=== PATIENT | female | born 1940 | race Caucasian/White ===

== ENCOUNTER → 2016-11-20 | Outpatient (CLI) | payer MEDICARE, OTHER ==
--- NOTE | 2016-11-21 09:30 | MM ---
Reason for exam: screening (asymptomatic). Last mammogram was performed 1 year and 2 months ago. History: Patient is postmenopausal. Family history of breast cancer in mother at age 72 and premenopausal breast cancer in sister at age 30. Benign left mammotome panel of the left breast, June 25, 2013. 2 benign excisional biopsies of the left breast. Took estrogen for 6 years beginning at age 58. Took progesterone for 6 years beginning at age 58. Physical Findings: A clinical breast exam by your physician is recommended on an annual basis and results should be correlated with mammographic findings. MG 3D Screening Mammo W/Cad Bilateral CC and MLO view(s) were taken. Prior study comparison: September 29, 2015, bilateral MG 3d screening mammo w/cad. July 07, 2014, bilateral MG screening mammo w CAD. The breast tissue is heterogeneously dense. This may lower the sensitivity of mammography. Finding: There are typically benign vascular, round calcifications. There is no discrete abnormality. No significant changes in finding since September 29, 2015 and July 07, 2014. ASSESSMENT: Benign, BI-RAD 2 RECOMMENDATION: Routine screening mammogram of both breasts in 1 year.
== END | disposition home or self-care (01) ==
LOC: RADMAMWWP 08:36
PROVIDERS: ATTEND Family Medicine
DX: Z12.31 Encounter for screening mammogram for malignant neoplasm of breast (principal)
CPT/HCPCS: 77063; G0202

== ENCOUNTER → 2016-12-25 | Outpatient (CLI) | payer MEDICARE, OTHER ==
--- NOTE | 2016-12-25 23:45 | WWHP ---
DATE OF SERVICE: 12/25/2016 CHIEF COMPLAINT: Patient is here for her routine gynecologic exam. HPI: This is a 76-year-old G12, P6-0-6-6 with an LMP of approximately 1981. She states it has been about 20 years since her last pelvic exam. She had a normal mammogram on 11/20/2016. She is without gynecologic complaints and denies any postmenopausal bleeding. PAST MEDICAL HISTORY: Includes fibromyalgia, type 2 diabetes not requiring medication, atrial fibrillation, early Alzheimer's disease, renal insufficiency, chronic hypertension, elevated cholesterol, tremors, COPD. MEDICATIONS: 1. Topamax 50 mg b.i.d. 2. Atenolol 25 mg b.i.d. 3. Lasix 40 mg daily. 4. Cymbalta 20 mg daily. 5. Aricept 1 daily. 6. Mevacor 40 mg every other day. 7. Percocet 1000/325 b.i.d. p.r.n. 8. Flexeril 1 daily. 9. Tudorza inhaler b.i.d. 10. Coumadin 5 mg at bedtime. 11. Trental at bedtime. 12. Neurontin 300 mg b.i.d. 13. Glucosamine with chondroitin daily. 14. Protonix 40 mg daily. 15. Potassium supplement every other day. 16. Magnesium supplement daily. ALLERGIES: MACROBID, SULFA, IODINE, LATEX. PAST SURGICAL HISTORY:,: Cholecystectomy, appendectomy, cataract surgery in the past, right knee replacement surgery 2006, bladder suspension 1995, thumbs reattached 2011, colonoscopy 2011 and this was her second one, stomach stapling in approximately 1983. PAST OBSTETRICAL HISTORY: Six vaginal deliveries and six spontaneous abortions. 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 SOCIAL HISTORY: She denies tobacco drug use and has 1 to 2 alcoholic drinks per month. She is and she states she has a friend in [place]. FAMILY HISTORY: Mother had cervical and lung cancer. Father had leukemia and bone cancer and uncle had diabetes. REVIEW OF SYSTEMS: She has gained about 5 pounds after she was on steroids briefly. RESPIRATORY: She had an exacerbation of her chronic obstructive pulmonary disease but this is improved. She denies cardiac or GI problems. She denies maltreatment or falling. : She has occasional slight leakage with coughing and sneezing. PHYSICAL EXAM: Blood pressure 111/56. Height 5 feet 2 inches. Weight 244 pounds. Temperature 96.7, pulse 88. This a well-developed, obese white female who is alert and oriented x3 in no acute distress. HEENT is within normal limits. NECK: Supple without mass or thyromegaly. CHEST AND LUNGS: Clear to auscultation. HEART: Regular rate and rhythm. BREASTS: Without mass or discharge. Axillary exam is negative for adenopathy. BACK: Negative for CVA tenderness. ABDOMEN: Obese, soft, nontender, without palpable masses. PELVIC EXAM: External genitalia reveals mild atrophy without lesions. Cervix and vagina reveal mild atrophy without lesions. There is no evidence of prolapse. The uterus is midposition, nongravid size and nontender. There are no palpable adnexal masses or tenderness. Bimanual examination is limited secondary to her size. Rectovaginal exam is negative for mass or tenderness and is negative for occult blood. EXTREMITIES: Nontender. IMPRESSION: 1. A 76-year-old menopausal female with normal gynecologic exam. 2. Obesity. 3. Multiple medical problems. PLAN: 1. Pap smear was performed. 2. Self-breast examination was discussed. 3. Mammogram will be due in one year. 4. Strongly recommended that she come for her yearly mammograms and gynecologic exams. 5. She will return in one year.
== END | disposition home or self-care (01) ==
LOC: WWCWWP 10:59
PROVIDERS: ATTEND Obstetrics & Gynecology

== ENCOUNTER 2017-03-13 12:40 | Inpatient (IN) | payer MEDICARE, OTHER ==
[2017-03-13] MEDS ORDERED: methylPREDNISolone SOD SUCCI 125 MG/2 ML VIAL IV STA (13:19)
[2017-03-13] MEDS ORDERED: IPRATROPIUM-ALBUTEROL 3 ML NEB INHALATION STA (13:19)
[2017-03-13] MEDS ORDERED: SODIUM CHLORIDE 0.9% 1,000 ML IV STA (13:19)
[2017-03-13 13:53] LABS: Basophils % (A) 1 %; CH 30.3; Eosinophils # (A) 0.4 k/uL (0-0.7); Eosinophils % (A) 5 %; HCT 41.3 % (34.0-46.0); HDW 2.42; HGB 12.3 gm/dL (11.4-16.0); Hypochromasia Marked; Luc # (Auto) 0.19; Luc % (Auto) 2; Lymphocytes # (A) 2.8 k/uL (1.0-4.8); Lymphocytes % (A) 35 %; MCH 30.3 pg (25.0-35.0); MCHC 29.9 g/dL (31.0-37.0); MCV 101.6 fL (80.0-100.0); Macrocytosis Slight; Mean Platelet Volume 7.3; Monocytes # (A) 0.5 k/uL (0-1.0); Monocytes % (A) 6 %; Neutrophils % (A) 51 %; RBC 4.06 m/uL (3.80-5.40); RDW 14.4 % (11.5-15.5); WBC 7.9 k/uL (3.8-10.6)
[2017-03-13 14:02] LABS: ALT 19 U/L (9-52); AST 19 U/L (14-36); Alkaline Phosphatase 55 U/L (38-126); Anion Gap 7 mmol/L; Blood Urea Nitrogen 11 mg/dL (7-17); Calcium 9.5 mg/dL (8.4-10.2); Carbon Dioxide 29 mmol/L (22-30); Chloride 106 mmol/L (98-107); Glucose 119 mg/dL (74-99); Non-African American GFR(MDRD) >60 (>60 ml/min/1.73 sqM); Sodium 142 mmol/L (137-145); Total Bilirubin 0.7 mg/dL (0.2-1.3); Total Protein 6.2 g/dL (6.3-8.2)
[2017-03-13 14:06] LABS: INR 2.1 (<1.1); Partial Thromboplastin Time 29.9 sec (22.0-30.0); Prothrombin Time 19.8 sec (9.0-12.0)
[2017-03-13 14:16] LABS: Creatine Kinase <20 U/L (30-135)
[2017-03-13 14:28] LABS: Troponin I <0.012 ng/mL (0.000-0.034)
--- NOTE | 2017-03-13 14:34 | ED ---
SOB HPI - General Chief Complaint: Shortness of Breath Stated Complaint: Low O2 Stats Time Seen by Provider: 03/13/17 12:53 Source: patient, family Mode of arrival: wheelchair Limitations: no limitations - History of Present Illness Initial Comments: She was seen earlier by her family doctor she is stated she was seen by somebody in her family doctor's office, she has the shortness of breath for the few weeks is worse today she also complaining about the chest pain for a few weeks and chest pain gets worse with deep breaths, she has a history of COPD she has been using her inhalers. Denies any headaches no neck stiffness no fever no chills has been coughing does bring up some phlegm, and a dull pain no frequency urgency dysuria no sinus symptoms of TIA - Related Data Home Medications Medication Instructions Recorded Confirmed Atenolol 25 mg PO BID 04/28/15 03/13/17 DULoxetine HCL [Cymbalta] 30 mg PO DAILY 04/28/15 03/13/17 Donepezil [Aricept] 10 mg PO DAILY 04/28/15 03/13/17 Pantoprazole Sodium 40 mg PO DAILY 04/28/15 03/13/17 Warfarin [Coumadin] 5 mg PO SUTH 04/28/15 03/13/17 Albuterol Inhaler [Ventolin Hfa 1 - 2 puff INHALATION RT-Q6H PRN 10/03/15 Inhaler] Potassium Chloride [Klor-Con 20] 20 meq PO Q48H 10/03/15 03/13/17 Topiramate 50 mg PO BID 10/03/15 03/13/17 Warfarin [Coumadin] 7.5 mg PO MOTUWEFRSA 10/03/15 03/13/17 Albuterol Nebulized [Ventolin 2.5 mg INHALATION RT-QID PRN 03/13/17 03/13/17 Nebulized] Cetirizine HCl [Cetirizine HCl] 10 mg PO DAILY 03/13/17 03/13/17 Diltiazem HCl [Diltiazem 24Hr ER] 180 mg PO DAILY 03/13/17 03/13/17 Docusate [Colace] 100 mg PO TID 03/13/17 03/13/17 Enalapril Maleate [Enalapril 2.5 mg PO DAILY 03/13/17 03/13/17 Maleate] Furosemide [Furosemide] 40 mg PO BID 03/13/17 03/13/17 Gabapentin [Gabapentin] 300 mg PO QID 03/13/17 03/13/17 Ipratropium-Albuterol Nebulize 3 ml INHALATION RT-QID 03/13/17 03/13/17 [Duoneb 0.5 mg-3 mg/3 ml Soln] Methocarbamol [Methocarbamol] 750 mg PO BID 03/13/17 03/13/17 Umeclidinium [place] [Incruse 1 puff INHALATION RT-DAILY 03/13/17 03/13/17 Ellipta] oxyCODONE HCL/ACETAMINOPHEN 1 tab PO QID 03/13/17 03/13/17 [Oxycodone-Acetaminophen 10-325] Allergies Allergy/AdvReac Type Severity Reaction Status Date / Time latex Allergy Unknown Verified 03/13/17 12:47 nitrofurantoin Allergy Unknown Verified 03/13/17 12:47 [From Macrobid] nitrofurantoin Allergy Unknown Verified 03/13/17 12:47 macrocrystalline [From Macrobid] Sulfa (Sulfonamide Allergy Unknown Verified 03/13/17 12:47 Antibiotics) Review of Systems ROS Statement: Those systems with pertinent positive or pertinent negative responses have been documented in the HPI. ROS Other: All systems not noted in ROS Statement are negative. Past Medical History Past Medical History: Atrial Fibrillation, COPD, CVA/TIA, Diabetes Mellitus, Hyperlipidemia, Hypertension, Osteoarthritis (OA), Rheumatoid Arthritis (RA) Additional Past Medical History / Comment(s): ANEMIA, Fibromyalgia History of Any Multi-Drug Resistant Organisms: None Reported Past Surgical History: Appendectomy, Bladder Surgery, Cholecystectomy, Joint Replacement, Orthopedic Surgery, Tubal Ligation Additional Past Surgical History / Comment(s): carpal tunnel BL, bilateral knee surgery, bilateral thumbs reattached, stomach surgery/stapling for weight loss Past Anesthesia/Blood Transfusion Reactions: No Reported Reaction Past Psychological History: No Psychological Hx Reported Smoking Status: Never smoker Past Alcohol Use History: None Reported Past Drug Use History: None Reported - Past Family History Father Family Medical History: Cancer Additional Family Medical History / Comment(s): leukemia Mother Family Medical History: Cancer Additional Family Medical History / Comment(s): lung ca General Exam - General Exam Comments Initial Comments: General: The patient is awake and alert, looks mildly short winded, tired Skin: Skin is warm and dry and no rashes or lesions are noted. Eye: Pupils are equal, round and reactive to light, extra-ocular movements are intact; there is normal conjunctiva bilaterally. Ears, nose, mouth and throat: There are moist mucous membranes and no oral lesions. Neck: The neck is supple, there is no tenderness or JVD. Cardiovascular: There is an irregularity of the heart rate, etc. consistent with A. fib Respiratory: To auscultation bilateral, exam is consistent with a COPD Gastrointestinal: Soft, non-distended, non-tender abdomen without masses or organomegaly noted. There is no rebound or guarding present. Bowel sounds are unremarkable. Back: There is no tenderness to palpation in the midline. There is no obvious deformity. Musculoskeletal: Normal ROM, no tenderness, There is Neurological: CN II-XII intact, Cranial nerves III through XII are intact. There are no obvious motor or sensory deficits. Coordination appears grossly intact. Speech is normal. Psychiatric: Cooperative, appropriate mood & affect, normal judgment. Limitations: no limitations Course Vital Signs 03/13/17 03/13/17 03/13/17 12:45 13:47 14:13 Temperature 98.1 F 97.8 F Pulse Rate 50 L 59 L 60 Respiratory 18 18 Rate Blood Pressure 140/65 138/63 O2 Sat by Pulse 96 99 Oximetry 03/13/17 03/13/17 14:23 14:53 Temperature Pulse Rate 66 55 L Respiratory 18 Rate Blood Pressure 143/71 O2 Sat by Pulse 98 Oximetry - Reevaluation(s) Reevaluation #1: 03/13/17 14:33 KG was reviewed, ventricular rate is 54 WV interval, QRS duration is 84 QT/QTc is 4:30/47, it's a defibrillation with a low voltage, no ST depression or ST elevation noticed in this EKG 03/13/17 17:12 She was reassessed several times, last reassessment was done around 1700, she is now very comfortable going home she still gets short winded and O2 sat drops when she ambulates considering that she be admitted under Dr. Munguia's service for IV and inhaled steroids Medical Decision Making - Lab Data Result diagrams: 03/13/17 13:40 03/13/17 13:40 Lab Results 03/13/17 03/13/17 03/13/17 Range/Units 13:40 13:40 13:40 WBC 7.9 (3.8-10.6) k/uL RBC 4.06 (3.80-5.40) m/uL Hgb 12.3 (11.4-16.0) gm/dL Hct 41.3 (34.0-46.0) % MCV 101.6 H (80.0-100.0) fL MCH 30.3 (25.0-35.0) pg MCHC 29.9 L (31.0-37.0) g/dL RDW 14.4 (11.5-15.5) % Plt Count 228 (150-450) k/uL Neutrophils % 51 % Lymphocytes % 35 % Monocytes % 6 % Eosinophils % 5 % Basophils % 1 % Neutrophils # 4.0 (1.3-7.7) k/uL Lymphocytes # 2.8 (1.0-4.8) k/uL Monocytes # 0.5 (0-1.0) k/uL Eosinophils # 0.4 (0-0.7) k/uL Basophils # 0.0 (0-0.2) k/uL Hypochromasia Marked Macrocytosis Slight PT (9.0-12.0) sec INR (<1.1) APTT (22.0-30.0) sec D-Dimer (<0.60) mg/L FEU Sodium 142 (137-145) mmol/L Potassium 4.0 (3.5-5.1) mmol/L Chloride 106 (98-107) mmol/L Carbon Dioxide 29 (22-30) mmol/L Anion Gap 7 mmol/L BUN 11 (7-17) mg/dL Creatinine 0.79 (0.52-1.04) mg/dL Est GFR (MDRD) Af Amer >60 (>60 ml/min/1.73 sqM) Est GFR (MDRD) Non-Af >60 (>60 ml/min/1.73 sqM) Glucose 119 H (74-99) mg/dL Calcium 9.5 (8.4-10.2) mg/dL Total Bilirubin 0.7 (0.2-1.3) mg/dL AST 19 (14-36) U/L ALT 19 (9-52) U/L Alkaline Phosphatase 55 (38-126) U/L Total Creatine Kinase <20 L (30-135) U/L CK-MB (CK-2) 1.0 (0.0-2.4) ng/mL CK-MB (CK-2) Rel Index 0.0 Troponin I <0.012 (0.000-0.034) ng/mL Total Protein 6.2 L (6.3-8.2) g/dL Albumin 3.4 L (3.5-5.0) g/dL 03/13/17 Range/Units 13:40 WBC (3.8-10.6) k/uL RBC (3.80-5.40) m/uL Hgb (11.4-16.0) gm/dL Hct (34.0-46.0) % MCV (80.0-100.0) fL MCH (25.0-35.0) pg MCHC (31.0-37.0) g/dL RDW (11.5-15.5) % Plt Count (150-450) k/uL Neutrophils % % Lymphocytes % % Monocytes % % Eosinophils % % Basophils % % Neutrophils # (1.3-7.7) k/uL Lymphocytes # (1.0-4.8) k/uL Monocytes # (0-1.0) k/uL Eosinophils # (0-0.7) k/uL Basophils # (0-0.2) k/uL Hypochromasia Macrocytosis PT 19.8 H (9.0-12.0) sec INR 2.1 (<1.1) APTT 29.9 (22.0-30.0) sec D-Dimer 0.37 (<0.60) mg/L FEU Sodium (137-145) mmol/L Potassium (3.5-5.1) mmol/L Chloride (98-107) mmol/L Carbon Dioxide (22-30) mmol/L Anion Gap mmol/L BUN (7-17) mg/dL Creatinine (0.52-1.04) mg/dL Est GFR (MDRD) Af Amer (>60 ml/min/1.73 sqM) Est GFR (MDRD) Non-Af (>60 ml/min/1.73 sqM) Glucose (74-99) mg/dL Calcium (8.4-10.2) mg/dL Total Bilirubin (0.2-1.3) mg/dL AST (14-36) U/L ALT (9-52) U/L Alkaline Phosphatase (38-126) U/L Total Creatine Kinase (30-135) U/L CK-MB (CK-2) (0.0-2.4) ng/mL CK-MB (CK-2) Rel Index Troponin I (0.000-0.034) ng/mL Total Protein (6.3-8.2) g/dL Albumin (3.5-5.0) g/dL Disposition Clinical Impression: Shortness of breath, Chest pain, Pleuritic chest pain Disposition: ADMITTED IP TO THIS HOSP Referrals: Moe Muniz DO [Primary Care Provider] - 1-2 days
[2017-03-13] MEDS ORDERED: oxyCODONE-APAP 5-325MG 1 EACH TAB PO STA (16:00)
[2017-03-13] MEDS ORDERED: IPRATROPIUM-ALBUTEROL 3 ML NEB INHALATION PRN (17:13)
[2017-03-13] MEDS: IPRATROPIUM-ALBUTEROL 3 ML NEB INHALATION SCH (19:45)
[2017-03-13] MEDS: BUDESONIDE 0.5 MG/2 ML NEBU INHALATION SCH (19:45)
[2017-03-13] MEDS: GABAPENTIN 300 MG CAP PO SCH ×2 (19:51→21:00)
[2017-03-13 20:44] LABS: Glucose,Whole Blood 222 mg/dL (75-99)
[2017-03-13] MEDS: DOCUSATE 100 MG CAP PO SCH (20:59)
[2017-03-13] MEDS: ATENOLOL 25 MG TAB PO SCH (20:59)
[2017-03-13] MEDS: TOPIRAMATE 25 MG TAB PO SCH (20:59)
[2017-03-13] MEDS: LEVOFLOXACIN 500 MG TAB PO SCH (20:59)
[2017-03-13] MEDS: METHOCARBAMOL 750 MG TAB PO SCH (21:00)
[2017-03-13] MEDS: FUROSEMIDE 40 MG TAB PO SCH (21:00)
[2017-03-13] MEDS: methylPREDNISolone SOD SUCCI 125 MG/2 ML VIAL IV SCH (21:00)
[2017-03-13] MEDS: INSULIN LISPRO (humaLOG) 300 UNIT/3 ML VIAL SQ SCH (21:00)
[2017-03-13] MEDS: WARFARIN 5 MG TAB PO SCH (21:00)
[2017-03-13 21:55] LABS: Hemoglobin A1C 5.7 % (4.2-6.1)
[2017-03-13] MEDS: oxyCODONE-APAP 10-325MG 1 EACH TAB PO SCH (23:19)
[2017-03-14] MEDS: methylPREDNISolone SOD SUCCI 125 MG/2 ML VIAL IV SCH ×3 (01:23→13:22)
[2017-03-14 07:31] LABS: Glucose,Whole Blood 149 mg/dL (75-99)
[2017-03-14] MEDS: BUDESONIDE 0.5 MG/2 ML NEBU INHALATION SCH (07:44)
[2017-03-14] MEDS: IPRATROPIUM-ALBUTEROL 3 ML NEB INHALATION SCH ×4 (07:44→20:00)
[2017-03-14] MEDS ORDERED: TIOTROPIUM 18 MCG/PUFF INHALER INHALATION SCH (08:00)
[2017-03-14] MEDS: DILTIAZEM CD 180 MG CAP.ER.24H PO SCH (08:01)
[2017-03-14] MEDS: DOCUSATE 100 MG CAP PO SCH ×3 (08:01→21:53)
[2017-03-14] MEDS: POTASSIUM CHLORIDE ER 20 MEQ TAB.ER PO SCH (08:02)
[2017-03-14] MEDS: PANTOPRAZOLE 40 MG TABLET PO SCH (08:02)
[2017-03-14] MEDS: ATENOLOL 25 MG TAB PO SCH ×2 (08:02→21:46)
[2017-03-14] MEDS: FUROSEMIDE 40 MG TAB PO SCH ×2 (08:02→21:46)
[2017-03-14] MEDS: GABAPENTIN 300 MG CAP PO SCH ×4 (08:02→21:46)
[2017-03-14] MEDS: LISINOPRIL 5 MG TAB PO SCH (08:03)
[2017-03-14] MEDS: DULoxetine HCL 30 MG CAPSULE.DR PO SCH (08:03)
[2017-03-14] MEDS: METHOCARBAMOL 750 MG TAB PO SCH ×2 (08:03→21:46)
[2017-03-14] MEDS: DONEPEZIL 10 MG TAB PO SCH (08:03)
[2017-03-14] MEDS: LORATADINE 10 MG TAB PO SCH (08:03)
[2017-03-14] MEDS: oxyCODONE-APAP 10-325MG 1 EACH TAB PO SCH ×4 (08:10→21:51)
[2017-03-14] MEDS: INSULIN LISPRO (humaLOG) 300 UNIT/3 ML VIAL SQ SCH ×4 (08:13→21:48)
[2017-03-14 08:18] LABS: INR 2.4 (<1.1); Prothrombin Time 22.9 sec (9.0-12.0)
[2017-03-14] MEDS: TOPIRAMATE 25 MG TAB PO SCH ×2 (10:55→21:46)
[2017-03-14 11:35] LABS: Appearance,Urine Clear (Clear); Bilirubin,Urine Negative (Negative); Calcium Oxalate Crystals,Urine Rare /hpf; Glucose,Urine (UA) Negative (Negative); Ketones,Urine Negative (Negative); Leukocyte Esterase,Urine Small (Negative); Mucus,Urine Rare /hpf; Nitrite,Urine Negative (Negative); Particle Count 2786; Protein,Urine Negative (Negative); RBC,Urine 3 /hpf (0-5); Specific Gravity,Urine 1.015 (1.001-1.035); Squamous Epithelial Cell,Urine 1 /hpf (0-4); UA Billing (MACRO vs. MICRO) MICRO; Urobilinogen,Urine <2.0 mg/dL (<2.0); WBC,Urine 5 /hpf (0-5)
[2017-03-14 12:01] LABS: Glucose,Whole Blood 230 mg/dL (75-99)
--- NOTE | 2017-03-14 15:13 | CONS ---
DATE OF CONSULTATION: This is a 76-year-old female who was seen apparently by her family doctor earlier in the day and apparently was sent directly to the emergency room to be evaluated for shortness of breath. In addition to shortness breath, she apparently had some chest pain, which has been going on for a couple of weeks. The chest pain apparently gets worse with deep breathing. There is no mention of the quality of the pain. She apparently has seen Dr. Driver in the past but has not seen him for some time. Apparently, just has a rescue inhaler home maybe. Used to have an updraft machine, does not have that currently. Does not seem that she is really very compliant. She sees a nurse practitioner, I believe by the name Cate who was her primary caregiver. No cough. No phlegm. She does have wheezing. Her home medications apparently included atenolol, Cymbalta, Aricept, Protonix, warfarin, albuterol inhaler. She apparently is also on or has been on potassium, Topamax, warfarin, updrafts with albuterol although she denies having a machine, Zyrtec, Cardizem CD, Colace, enalapril, Lasix, gabapentin, Robaxin, Incruse inhaler, and [place]. Allergies are LATEX, MACROBID, and SULFA ANTIBIOTICS. Medical history includes COPD from chronic tobacco use, atrial fibrillation, CVA, diabetes, hyperlipidemia, hypertension, DJD, and rheumatoid arthritis. She also apparently suffers from fibromyalgia and anemia. Surgical history includes appendectomy, bladder surgery, cholecystectomy, joint replacement, orthopedic surgery, tubal ligation, bilateral carpal tunnel surgery, bilateral knee surgery, bilateral thumb reattachment, stomach stapling for weight loss. Social history is positive for being a lifelong nonsmoker. 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 Denies a previous history of pulmonary disease. No alcohol use. No illicit drug use. Family history is positive for cancer and leukemia. REVIEW OF SYSTEMS: CONSTITUTIONAL: Negative. NEUROLOGICAL: Negative. HEENT: Negative. CARDIOVASCULAR: Chest pain. PULMONARY: Shortness of breath and wheezing. GI/: Negative. RHEUMATOLOGICAL/IMMUNOLOGIC: Negative. ENDOCRINOLOGIC: Negative. DERMATOLOGIC: Negative. Vital signs include a temperature 97.7, heart rate 78, respiratory rate 16, blood pressure 137/79, mean 98, 2 L saturation 96%. Appears in no distress. Looks pretty comfortable, is wearing oxygen. HEENT examination is grossly unremarkable. Mucous membranes are moist. No oral lesions. Neck is supple. Full range of motion. No adenopathy or thyromegaly. Neck veins are flat. Cardiovascular examination reveals regular rhythm and rate. Heart sounds are distant. S1, S2 normal. Heart rate 72. No S3, S4. No distinct murmur noted. Lungs reveal mostly clear breath sounds. A few scattered rhonchi. No wheezes or crackles. Breath sounds are equal. Abdomen is soft. Bowel sounds are obese. Extremities are intact. No cyanosis, clubbing or edema. Skin is without rash. Neurological examination is nonfocal. Lab data is reviewed. Lab work from yesterday shows a CBC that was essentially normal. PT, INR was 19.8 and 2.1 respectively, sodium, potassium chloride, and CO2 all normal. BUN and creatinine were normal. The rest of the comprehensive metabolic profile looks pretty normal. No x-ray to report. ASSESSMENT: 1. Shortness of breath, possible underlying obstructive lung disease, although the patient has no history of tobacco use, maybe asthma. 2. Chest pain, pleuritic in nature, which may relate to underlying pleurisy. 3. No history of tobacco use. 4. History of atrial fibrillation. 5. Cerebrovascular accident. 6. Diabetes. 7. Hyperlipidemia. 8. Hypertension. 9. Degenerative joint disease. 10. Rheumatoid arthritis. PLAN: The patient's medications are reviewed. She seems to be doing better. Will make additional recommendations where appropriate. X-rays, labs, and medications are reviewed.
--- NOTE | 2017-03-14 17:37 | HP ---
DATE OF ADMISSION: 03/13/2017 PRESENTING COMPLAINT: Short of breath. HISTORY OF PRESENTING COMPLAINT: This is a pleasant 76-year-old patient of Dr. Muniz who also follows with Dr. Driver from Pulmonary. Patient's chronic stable medical conditions include atrial fibrillation, hypertension, hyperlipidemia, osteoarthritis, fibromyalgia, some Alzheimer's dementia. Patient progressively was getting short of breath for quite some time, mostly in the last 2 weeks; has got dry cough, runny nose. No fever. Appetite is somewhat fair. Wheezing. Patient went to the doctor's office, admitted for the same. Patient has put on about 20 pounds in the last 2 months while vacationing in [place]. Patient's daughter and granddaughter are at the bedside. REVIEW OF SYSTEMS: CONSTITUTIONAL: Weak and tired. HEENT: Runny nose. RESPIRATORY: As above. CARDIOVASCULAR: None. GASTROINTESTINAL: None. GENITOURINARY: None. MUSCULOSKELETAL: Aches and pains in different joints. DERMATOLOGICAL: None. HEMATOLOGICAL: None. LYMPHATIC: None. PSYCHIATRY: None. NEUROLOGICAL: None. PAST HISTORY: 1. Atrial fibrillation. 2. COPD. 3. Stroke ( ) 4. Diabetes. 5. Hypertension. 6. Hyperlipidemia. 7. Osteoarthritis. 8. Alzheimer's dementia. PAST SURGICAL HISTORY: 1. Appendectomy. 2. Bladder surgery. 3. Cholecystectomy. 4. Joint replacement. 5. Tubal ligation. 6. Bilateral carpal tunnel. 7. Bilateral knee surgery. 8. Bilateral thumb reattached. 9. Stomach surgical stapling for weight loss. SOCIAL HISTORY: Patient and son live together. Alcohol rarely. Does not smoke. 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 FAMILY HISTORY: Cancer, leukemia. Home medications include: 1. Ellipta 1 puff b.i.d. 2. Oxycodone 10 one tablet p.o. q.i.d. 3. Methocarbamol 750 mg p.o. b.i.d. 4. Gabapentin 300 mg p.o. q.i.d. 5. Lasix 40 mg p.o. b.i.d. 6. Enalapril 2.5 p.o. daily. 7. Coumadin 5 mg p.o. Friday and . 8. DuoNeb q.i.d. 9. Ventolin 2.5 q.i.d. p.r.n. 10. Ventolin HFA 1 to 2 puffs q.6 p.r.n. 11. Coumadin 7.5 Friday, Friday, Friday, Friday, Friday. 12. Topamax 50 mg p.o. b.i.d. 13. Potassium 20 mEq q.48 hours. 14. Protonix 40 mg p.o. daily. 15. Aricept 10 mg p.o. daily. 16. Colace 100 mg p.o. t.i.d. 17. Cymbalta 30 mg p.o. daily. 18. Cardizem ER 180 mg p.o. daily. 19. Cetirizine 10 mg p.o. daily. 20. Atenolol 25 mg p.o. b.i.d. ALLERGIES: 1. LATEX. 2. NITROFURANTOIN. 3. SULFA. PHYSICAL EXAMINATION: VITAL SIGNS ON PRESENTATION: Temperature 98.1, pulse 50, respiration 18, blood pressure 140/65, pulse ox 96% on room air. GENERAL APPEARANCE: Well built, BMI of 47.6. Lying in bed, tired-appearing. EYES: Pupils equal. Conjunctivae normal. HEENT: Oral cavity normal. NECK: Short, thick. JVD unable to assess. Mass not palpable. RESPIRATORY: Effort increased. LUNGS: Diminished breath sounds. Expiratory wheezing. CARDIOVASCULAR: First and second sounds normal. No edema. ABDOMEN: Soft, nontender. Liver and spleen not palpable. LYMPHATIC: No lymph node palpable in neck or axillae. PSYCHIATRY: Alert and oriented x3. Mood and affect normal. NEUROLOGICAL: Pupils equal. Cranial nerves grossly intact. Power and sensation grossly intact. INVESTIGATIONS: White count 7.9, hemoglobin 12.3, potassium 4.0. BUN and creatinine are normal. Accu-Cheks are noted. Troponin less than 0.012. EKG: atrial flutter/fibrillation, rate controlled. ASSESSMENT: 1. Acute chronic obstructive pulmonary disease exacerbation in a nonsmoker who was exposed to second-hand smoke in the past. 2. Possible element of obesity hypoventilation syndrome, presented with acute exacerbation. 3. Persistent atrial fibrillation with rate control, on Coumadin. 4. Essential hypertension. 5. Hyperlipidemia. 6. Alzheimer's dementia, late-onset type. 7. Primary osteoarthritis of multiple joints, bilateral. 8. Morbid obesity; body mass index of 47 .6. PLAN: Patient was put on Solu-Medrol, DuoNeb. Home medications are resumed. Coumadin will be closely followed. Care was discussed with the patient and family at the bedside. Patient is trying to lose weight. Pulmonary will be consulted.
[2017-03-14 17:39] LABS: Glucose,Whole Blood 143 mg/dL (75-99)
[2017-03-14] MEDS: WARFARIN 7.5 MG TAB PO SCH (17:42)
[2017-03-14] MEDS: SYMBICORT 160-4.5 MCG INHALER INHALATION SCH (20:00)
[2017-03-14 20:36] LABS: Glucose,Whole Blood 144 mg/dL (75-99)
[2017-03-14] MEDS: LEVOFLOXACIN 500 MG TAB PO SCH (21:46)
[2017-03-14] MEDS: methylPREDNISolone SOD SUCCI 40 MG/ML 1 ML VIAL IV SCH (23:33)
--- NOTE | 2017-03-15 07:13 | XR ---
EXAMINATION TYPE: XR chest 2V DATE OF EXAM: 03/15/2017 7:02 AM COMPARISON: 04/28/2015 HISTORY: Shortness of breath TECHNIQUE: Frontal and lateral views of the chest are obtained. FINDINGS: Scattered senescent parenchymal changes noted. Hyperinflation compatible with COPD. No evidence for infiltrate. No evidence for atelectasis. Heart size is stable. Mediastinal structures are stable and grossly unremarkable. No evidence for hilar prominence. Degenerative changes dorsal spine. IMPRESSION: 1. No evidence for acute pulmonary disease.
[2017-03-15 07:27] LABS: Glucose,Whole Blood 168 mg/dL (75-99)
[2017-03-15 08:09] LABS: INR 2.6 (<1.1); Prothrombin Time 25.4 sec (9.0-12.0)
[2017-03-15] MEDS: IPRATROPIUM-ALBUTEROL 3 ML NEB INHALATION SCH ×4 (08:19→18:54)
[2017-03-15] MEDS: SYMBICORT 160-4.5 MCG INHALER INHALATION SCH ×2 (08:19→18:54)
[2017-03-15] MEDS: PANTOPRAZOLE 40 MG TABLET PO SCH (08:55)
[2017-03-15] MEDS: METHOCARBAMOL 750 MG TAB PO SCH (08:55)
[2017-03-15] MEDS: DOCUSATE 100 MG CAP PO SCH ×2 (08:55→14:51)
[2017-03-15] MEDS: LISINOPRIL 5 MG TAB PO SCH (08:55)
[2017-03-15] MEDS: LORATADINE 10 MG TAB PO SCH (08:55)
[2017-03-15] MEDS: TOPIRAMATE 25 MG TAB PO SCH (08:55)
[2017-03-15] MEDS: GABAPENTIN 300 MG CAP PO SCH ×3 (08:55→14:51)
[2017-03-15] MEDS: DULoxetine HCL 30 MG CAPSULE.DR PO SCH (08:55)
[2017-03-15] MEDS: FUROSEMIDE 40 MG TAB PO SCH (08:55)
[2017-03-15] MEDS: DONEPEZIL 10 MG TAB PO SCH (08:56)
[2017-03-15] MEDS: DILTIAZEM CD 180 MG CAP.ER.24H PO SCH (08:56)
[2017-03-15] MEDS: methylPREDNISolone SOD SUCCI 40 MG/ML 1 ML VIAL IV SCH ×2 (08:56→14:51)
[2017-03-15] MEDS: ATENOLOL 25 MG TAB PO SCH (08:56)
[2017-03-15] MEDS: oxyCODONE-APAP 10-325MG 1 EACH TAB PO SCH ×3 (09:05→18:44)
[2017-03-15] MEDS: INSULIN LISPRO (humaLOG) 300 UNIT/3 ML VIAL SQ SCH ×3 (09:06→17:41)
[2017-03-15 11:49] LABS: Glucose,Whole Blood 164 mg/dL (75-99)
[2017-03-15] MEDS: WARFARIN 7.5 MG TAB PO SCH (14:52)
[2017-03-15] MEDS ORDERED: LACTULOSE 20 GM/30 ML CUP PO ONE (15:00)
[2017-03-15 17:25] LABS: Glucose,Whole Blood 123 mg/dL (75-99)
--- NOTE | 2017-03-15 17:46 | PN ---
76-year-old female seen yesterday in consultation. She apparently went to see her family doctor and then sent directly to the emergency room because of shortness of breath and low saturations. Chest x-ray shows no acute pulmonary process. She is feeling much better today. Has seen Dr. Driver in the past but has not seen him recently. I am not sure of the exact diagnosis. She states that she is a lifelong nonsmoker. The patient is feeling much improved. Less short of breath. Less chest congestion. Not coughing near as much. No tightness. Still has a little bit of wheezing, particularly when she exerts herself. Current vital signs include a temperature 97, heart rate 62, respiratory rate 16, blood pressure 155/119, mean 131, 2 liters saturation 100%. Appears in no acute distress, talking on the phone when I first went into the room. No audible wheezing. No difficulty with breathing. HEENT examination is unremarkable. Mucous membranes are moist. No oral lesions. Neck is supple. Full range of motion. No adenopathy. Neck veins are flat. Cardiovascular examination reveals regular rhythm rate. Heart sounds are distant. S1, S2 normal. No distinct murmur. Lungs reveal a few scattered rhonchi. No wheezes or crackles. ABDOMEN: Obese. Bowel sounds are heard. EXTREMITIES: Intact. No cyanosis, clubbing or edema. Skin is without rash. NEUROLOGICAL: Nonfocal. No new labs to report. Recent chest x-ray shows evidence of no acute changes. ASSESSMENT: 1. Shortness of breath, likely related some occult underlying obstructive lung disease. The patient may, in fact, have asthma. She is a lifelong nonsmoker. 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 2. Chest pain, pleuritic in nature, resolved. 3. No history of tobacco use. 4. History of atrial fibrillation. 5. Cerebrovascular accident. 6. Diabetes. 7. Hyperlipidemia. 8. Hypertension. 9. Degenerative joint disease. 10. Rheumatoid arthritis. PLAN: The patient is doing well. Medications were adjusted yesterday. She is on Symbicort and updrafts. We also have her on a smaller dose of Solu-Medrol. No additional recommendations are made. She is improved. Likely discharge in the next 24 to 48 hours.
[2017-03-15 20:01] LABS: Glucose,Whole Blood 164 mg/dL (75-99)
[2017-03-15] MEDS ORDERED: ATENOLOL 25 MG TAB ONE (21:00)
[2017-03-15] MEDS ORDERED: GABAPENTIN 300 MG CAP ONE (21:00)
[2017-03-15] MEDS ORDERED: DOCUSATE 100 MG CAP ONE (21:00)
[2017-03-15] MEDS ORDERED: LEVOFLOXACIN 500 MG TAB ONE (21:00)
[2017-03-15] MEDS ORDERED: METHOCARBAMOL 750 MG TAB ONE (21:00)
[2017-03-15] MEDS ORDERED: oxyCODONE-APAP 10-325MG 1 EACH TAB ONE (21:00)
[2017-03-15] MEDS ORDERED: FUROSEMIDE 40 MG TAB ONE (21:00)
[2017-03-15] MEDS ORDERED: TOPIRAMATE 25 MG TAB ONE (21:00)
[2017-03-16] MEDS ORDERED: methylPREDNISolone SOD SUCCI 40 MG/ML 1 ML VIAL ONE
[2017-03-16] MEDS: ATENOLOL 25 MG TAB PO SCH ×3 (07:47→20:00)
[2017-03-16] MEDS: FUROSEMIDE 40 MG TAB PO SCH ×3 (07:47→20:01)
[2017-03-16] MEDS: INSULIN LISPRO (humaLOG) 300 UNIT/3 ML VIAL SQ SCH ×5 (07:47→21:45)
[2017-03-16] MEDS: DOCUSATE 100 MG CAP PO SCH ×4 (07:48→20:01)
[2017-03-16] MEDS: METHOCARBAMOL 750 MG TAB PO SCH ×3 (07:48→20:01)
[2017-03-16] MEDS: LEVOFLOXACIN 500 MG TAB PO SCH (07:48)
[2017-03-16] MEDS: GABAPENTIN 300 MG CAP PO SCH ×5 (07:48→20:01)
[2017-03-16] MEDS: TOPIRAMATE 25 MG TAB PO SCH ×3 (07:48→20:01)
[2017-03-16] MEDS: methylPREDNISolone SOD SUCCI 40 MG/ML 1 ML VIAL IV SCH ×3 (07:49→17:07)
[2017-03-16] MEDS: oxyCODONE-APAP 10-325MG 1 EACH TAB PO SCH ×4 (07:49→20:02)
[2017-03-16] MEDS: PANTOPRAZOLE 40 MG TABLET PO SCH (07:50)
[2017-03-16 07:52] LABS: Glucose,Whole Blood 132 mg/dL (75-99)
[2017-03-16] MEDS: POTASSIUM CHLORIDE ER 20 MEQ TAB.ER PO SCH (08:02)
[2017-03-16] MEDS: DILTIAZEM CD 180 MG CAP.ER.24H PO SCH (08:03)
[2017-03-16] MEDS: LORATADINE 10 MG TAB PO SCH (08:03)
[2017-03-16] MEDS: LISINOPRIL 5 MG TAB PO SCH (08:03)
[2017-03-16] MEDS: DULoxetine HCL 30 MG CAPSULE.DR PO SCH (08:04)
[2017-03-16] MEDS: DONEPEZIL 10 MG TAB PO SCH (08:04)
[2017-03-16] MEDS: IPRATROPIUM-ALBUTEROL 3 ML NEB INHALATION SCH ×5 (08:17→21:17)
[2017-03-16] MEDS: SYMBICORT 160-4.5 MCG INHALER INHALATION SCH ×2 (08:19→21:17)
--- NOTE | 2017-03-16 08:44 | PN ---
DATE OF SERVICE: 03/15/2017 PRESENTING COMPLAINT: Shortness of breath. INTERVAL HISTORY: This is a 76-year-old female who presented to the emergency department with increasing shortness of breath over the last 2 weeks with dry cough and runny nose. No fever. Today patient looks better, breathing easier. No acute distress noted or voiced. Review of systems done for constitutional, cardiovascular, GI, pulmonary with relevant findings as above. CURRENT MEDICATIONS: Albuterol, budesonide, diltiazem, Aricept, Cymbalta, Lasix, Levaquin. PHYSICAL EXAMINATION: VITAL SIGNS: Temperature 98.4, pulse 62, respirations 16, blood pressure 155/119, oxygen saturation 92% on 2 liters nasal cannula. GENERAL APPEARANCE: Patient sitting up utilizing personal computer. No acute distress. EYES: Pupils equal. Conjunctivae normal. NECK: JVD not raised, mass not palpable. LUNGS: Distant breath sounds bilaterally, diminished bases. RESPIRATORY: Effort normal. Unlabored. CARDIOVASCULAR: S1, S2 normal. No edema noted. ABDOMEN: Soft. Liver and spleen not palpable. PSYCHIATRY: Alert and oriented x3. Mood and affect appropriate for situation. INVESTIGATIONS: Blood glucose 164. Chest x-ray no evidence of acute pulmonary disease. ASSESSMENT: 1. Acute on chronic obstructive pulmonary disease exacerbation in a nonsmoker who is exposed to second hand smoke in the past. 2. Possible element of obesity hypoventilation syndrome present with acute exacerbation. 3. Persistent atrial fibrillation with rate control on Coumadin. 4. Essential hypertension. 5. Hyperlipidemia. 6. Alzheimer's dementia late onset type. 7. Primary osteoarthritis of multiple joints, bilateral. 8. Morbid obesity; body mass index 47.6. PLAN: Patient remains on Solu-Medrol, DuoNeb. Home medications continued. Will follow Coumadin as well. Plan of care was discussed with the patient at the bedside this morning. Will follow. Patient was seen and examined by nurse practitioner Susan Peters and all elements of the case discussed with attending, Dr. Esparza.
[2017-03-16] MEDS ORDERED: RX INFO: IV CONTRAST WAS GIVEN 1 EACH MISC MISCELLANE PRN (09:24)
--- NOTE | 2017-03-16 10:07 | CT ---
EXAMINATION TYPE: CT brain wo con for TPA DATE OF EXAM: 03/16/2017 9:59 AM COMPARISON: 06/12/2016 HISTORY: poss stroke CT DLP: 968.70 mGycm Automated exposure control for dose reduction was used. FINDINGS: Mild to moderate generalized degenerative change. Periventricular low attenuation compatible with rem ote microvascular ischemia. Changes of chronic mastoiditis noted. Extensive vascular calcifications o f the carotid siphon IMPRESSION: No acute intracranial hemorrhage, mass effect, or midline shift is seen. Severe atherosclerotic intra cranial disease involving the distal carotid arteries degenerative and remote suspected ischemic whit e matter change correlate with MRI as warranted.
--- NOTE | 2017-03-16 10:11 | PN ---
DATE OF SERVICE: 03/15/2017 PRESENTING COMPLAINT: Shortness of breath. ATTENDING NOTE: This patient was seen and examined by me. I reviewed the care with nurse practitioner, Ms. Peters and her note. The patient was admitted with COPD exacerbation and possible element of obesity hypoventilation syndrome. Breathing is slightly better. Tolerating a diet. Lying in bed. On examination, pulse 81, respirations 18, blood pressure 145/87, pulse ox noted. RESPIRATORY: Effort increased. LUNGS: Decreased breath sounds. Mild wheezing. CARDIOVASCULAR: Heart sounds irregular. No edema. ABDOMEN: Soft, nontender. Liver and spleen not palpable. PSYCHIATRY: Alert and oriented x3. Mood and affect normal. INVESTIGATIONS: INR is 2.6. ASSESSMENT: 1. Acute chronic obstructive pulmonary disease exacerbation in a nonsmoker. 2. Element of obesity hypoventilation syndrome, slow to respond. 3. Atrial fibrillation, on Coumadin. PLAN: Care was discussed with the patient. Continue current medication and treatment plan including IV Solu-Medrol, nebulized bronchodilator. Will follow.
[2017-03-16 10:31] LABS: Glucose,Whole Blood 131 mg/dL (75-99)
[2017-03-16 10:46] LABS: Basophils % (A) 0 %; CH 29.7; CHCM 28.2; Eosinophils # (A) 0.1 k/uL (0-0.7); Eosinophils % (A) 1 %; HCT 39.4 % (34.0-46.0); HDW 2.27; HGB 11.6 gm/dL (11.4-16.0); Hypochromasia Marked; Luc # (Auto) 0.25; Luc % (Auto) 2; Lymphocytes # (A) 1.7 k/uL (1.0-4.8); Lymphocytes % (A) 14 %; MCH 31.2 pg (25.0-35.0); MCHC 29.5 g/dL (31.0-37.0); MCV 105.9 fL (80.0-100.0); Macrocytosis Moderate; Mean Platelet Volume 7.5; Monocytes % (A) 8 %; Neutrophils # (A) 9.7 k/uL (1.3-7.7); Neutrophils % (A) 76 %; RBC 3.72 m/uL (3.80-5.40); RDW 13.9 % (11.5-15.5); WBC 12.7 k/uL (3.8-10.6)
[2017-03-16 10:47] LABS: Prothrombin Time 19.1 sec (9.0-12.0)
[2017-03-16 10:52] LABS: Potassium 5.2 mmol/L (3.5-5.1); Total Bilirubin 0.4 mg/dL (0.2-1.3); Total Protein 6.1 g/dL (6.3-8.2)
--- NOTE | 2017-03-16 11:11 | CT ---
EXAMINATION TYPE: CT angio head neck DATE OF EXAM: 03/16/2017 10:56 AM COMPARISON: NONE HISTORY: possible stroke, aphasia CT DLP: 463.0 mGycm Automated exposure control for dose reduction was used. TECHNIQUE: Performed with IV Contrast, patient injected with 65 mL of Omnipaque 350. . FINDINGS: Chronic thyroid changes are noted. Multinodular thyroid changes are seen subsegmental changes are see n involving the lung apices. Hypertrophic and degenerative change of the spine noted. This eccentric stenosis involving the proximal ICA on the left measuring at least 50-60%. On the right artifact limits as there is mild atherosclerotic plaque near the bifurcation. Intracranially there is no sizable aneurysm or vascular malformation. There is truncation of the left MCA artery. There is extensive atherosclerotic changes involving the carotid siphon distal ICA bilat erally. Degenerative changes of the spine noted. IMPRESSION: TRUNCATION OF THE LEFT MCA ARTERY COULD BEEN THE BASIS OF INTRACRANIAL OCCLUSIVE DISEASE. CORRELATE C LINICALLY. ATHEROSCLEROTIC PLAQUE BILATERALLY INVOLVING THE CAROTID BIFURCATION WITH ECCENTRIC 50% STENOSIS SUSP ECTED PROXIMAL LEFT ICA CORRELATE WITH CAROTID DOPPLER ULTRASOUND. MULTINODULAR THYROID CHANGES. EXTENSIVE ATHEROSCLEROTIC CHANGE INVOLVING THE DISTAL ICA BILATERALLY NEAR THE CAROTID SIPHON.
[2017-03-16 11:45] LABS: Glucose,Whole Blood 119 mg/dL (75-99)
--- NOTE | 2017-03-16 13:49 | US ---
EXAMINATION TYPE: US carotid duplex BILAT DATE OF EXAM: 03/16/2017 1:37 PM COMPARISON: CT angio head and neck today CLINICAL HISTORY: concerns for occlusion. Patient is asleep at bedside and does not respond to verbal commands, and, additionally, talks while sleeping. EXAM MEASUREMENTS: RIGHT: Peak Systolic Velocity (PSV) cm/sec ----- Right CCA: 52.9 ----- Right ICA: 92.5 ----- Right ECA: 75.5 ICA/CCA ratio: 1.7 RIGHT: End Diastole cm/sec ----- Right CCA: 0.0 ----- Right ICA: 33.5 ----- Right ECA: 19.4 LEFT: Peak Systolic Velocity (PSV) cm/sec ----- Left CCA: 47.2 ----- Left ICA: 52.1 ----- Left ECA: 38.4 ICA/CCA ratio: 1.1 LEFT: End Diastole cm/sec ----- Left CCA: 13.1 ----- Left ICA: 21.3 ----- Left ECA: 11.9 VERTEBRALS (direction of flow): Right Vertebral: Antegrade Left Vertebral: Antegrade Calcified wall plaque at bilateral carotid bifurcation, but PSV is wnl bilaterally. IMPRESSION: There is antegrade flow in the vertebral arteries. The images and measurements suggest 3 0-50% stenosis in both internal carotid arteries. Criteria for Assigning % of Stenosis / Diameter reduction (Estimation based on the indirect measurements of the internal carotid artery velocities (ICA PSV). 1. Normal (no stenosis)=ICA PSV < 125 cm/s: ratio < 2.0: ICA EDV<40 cm/s. 2. Less than 50% stenosis=ICA PSV < 125 cm/s: ratio < 2.0: ICA EDV<40 cm/s. 3. 50 to 69% stenosis=ICA PSV of 125 to 230 cm/s: ration 2.0 ? 4.0: ICA EDV 40-100 cm/s. 4. Greater than 70% stenosis to near occlusion= ICA PSV > 230 cm/s: ratio > 4.0: ICA EDV > 100 cm/s. 5. Near occlusion= ICA PSV velocities may be low or undetectable: variable ratio and ICA EDV. 6. Total occlusion=unable to detect flow.
[2017-03-16] MEDS ORDERED: ACETAMINOPHEN TAB 325 MG TAB PO PRN (16:22)
[2017-03-16] MEDS: WARFARIN 5 MG TAB PO SCH (17:06)
[2017-03-16] MEDS: SODIUM CHLORIDE 0.9% 1,000 ML IV SCH (17:07)
[2017-03-16 17:16] LABS: Appearance,Urine Clear (Clear); Bilirubin,Urine Negative (Negative); Glucose,Urine (UA) Negative (Negative); Ketones,Urine Negative (Negative); Leukocyte Esterase,Urine Trace (Negative); Nitrite,Urine Negative (Negative); Particle Count 1561; Protein,Urine Negative (Negative); RBC,Urine 1 /hpf (0-5); Specific Gravity,Urine 1.027 (1.001-1.035); Squamous Epithelial Cell,Urine 1 /hpf (0-4); UA Billing (MACRO vs. MICRO) MICRO; Urobilinogen,Urine <2.0 mg/dL (<2.0); WBC,Urine 7 /hpf (0-5)
[2017-03-16 17:21] LABS: Glucose,Whole Blood 105 mg/dL (75-99)
[2017-03-16 21:18] LABS: Glucose,Whole Blood 115 mg/dL (75-99)
--- NOTE | 2017-03-16 22:41 | PN ---
This is a patient I went to see but unfortunately they called a CODE STROKE on this patient. The patient was actually down in radiology getting a brain CAT scan and angiography of the brain. I did not actually see her today. I did not discharge her for the visit. We can continue picking up the service and seeing her in the beginning tomorrow. Apparently according to the nurse, respiratory status she seems reasonably stable.
[2017-03-17 00:28] LABS: Basophils % (A) 0 %; CH 29.9; CHCM 28.4; Eosinophils # (A) 0.1 k/uL (0-0.7); Eosinophils % (A) 1 %; HCT 41.4 % (34.0-46.0); HDW 2.25; HGB 11.9 gm/dL (11.4-16.0); Hypochromasia Marked; Luc # (Auto) 0.06; Luc % (Auto) 1; Lymphocytes # (A) 0.9 k/uL (1.0-4.8); Lymphocytes % (A) 11 %; MCH 30.5 pg (25.0-35.0); MCHC 28.9 g/dL (31.0-37.0); MCV 105.7 fL (80.0-100.0); Macrocytosis Moderate; Mean Platelet Volume 7.4; Monocytes # (A) 0.3 k/uL (0-1.0); Monocytes % (A) 4 %; Neutrophils # (A) 6.9 k/uL (1.3-7.7); Neutrophils % (A) 83 %; RBC 3.92 m/uL (3.80-5.40); WBC 8.2 k/uL (3.8-10.6)
[2017-03-17 00:40] LABS: Calcium 9.1 mg/dL (8.4-10.2)
[2017-03-17] MEDS: methylPREDNISolone SOD SUCCI 40 MG/ML 1 ML VIAL IV SCH ×3 (00:41→17:06)
[2017-03-17] MEDS: ASPIRIN 81 MG CHEW PO SCH ×2 (00:41→09:54)
[2017-03-17] MEDS: SODIUM CHLORIDE 0.9% 1,000 ML IV SCH ×3 (00:42→17:07)
[2017-03-17 04:37] LABS: Glucose,Whole Blood 133 mg/dL (75-99)
[2017-03-17 06:58] LABS: Glucose,Whole Blood 138 mg/dL (75-99)
[2017-03-17] MEDS: INSULIN LISPRO (humaLOG) 300 UNIT/3 ML VIAL SQ SCH ×4 (07:29→21:07)
[2017-03-17 07:40] LABS: INR 1.9 (<1.1); Prothrombin Time 17.9 sec (9.0-12.0)
[2017-03-17 07:56] LABS: Calcium 8.7 mg/dL (8.4-10.2); Potassium 4.9 mmol/L (3.5-5.1)
--- NOTE | 2017-03-17 08:22 | PN ---
DATE OF SERVICE: 03/16/2017 PRESENTING COMPLAINT: Shortness of breath. This is a 76-year-old female who presented to the emergency department with increasing shortness of breath over the last 2 weeks with a dry cough and a runny nose. No fever. R.N. called HE[facility]ER to the bedside as patient did not look "right" when compared to yesterday's behavior. On exam, patient was slumped over with right-sided drooping to the corner of her mouth and face. Patient had aphasia, was unable to answer questions appropriately, concerns for stroke. Stroke team activated. Review of systems done for constitutional, cardiovascular, GI, pulmonary with relevant findings as above. CURRENT MEDICATIONS: Albuterol, budesonide, diltiazem, Aricept, Cymbalta, Lasix, Levaquin. PHYSICAL EXAM: VITAL SIGNS: 96.9 temperature, pulse 78, respiratory rate 20, blood pressure 148/79, oxygen saturation 94% on 3 liters nasal cannula. GENERAL APPEARANCE: Patient is sitting up in a chair slumped over to the right side. It took patient a few minutes to awake and after she was awake she was really not able to communicate well, asking the same question numerous times. EYES: Pupils equal. Conjunctivae normal. NECK: JVD not raised. Mass not palpable. LUNGS: Distant breath sounds bilaterally diminished bases. Respiratory effort normal. Unlabored. CARDIOVASCULAR: S1, S2 noted. Trace edema to bilateral lower extremities. ABDOMEN: Soft, nontender. Liver and spleen not palpable. PSYCHIATRY: Awake, able to answer simple questions, but not in every instance. Patient repeating the question she was asked multiple times. INVESTIGATIONS: White blood cell count 12.7, hemoglobin 11.6, platelet count 269, sodium 136, potassium 5.2, BUN 47, creatinine 2.01. ASSESSMENT: 1. Acute on chronic obstructive pulmonary disease exacerbation in a nonsmoker who was exposed to secondhand smoke in the past. 2. Possible element of obesity hypoventilation syndrome, present with acute exacerbation. 3. Persistent atrial fibrillation with rate control on Coumadin. 4. Essential hypertension. 5. Hyperlipidemia. 6. Alzheimer's dementia late onset type. 7. Primary osteoarthritis, multiple joints, bilateral. 8. Morbid obesity; body mass index 47.6. PLAN: Stroke team activated given the patient's current presentation. Patient taken for head CT and transferred to 6 selective unit for closer monitoring. Will continue to follow current medication and treatment plan as well as any additions. Will follow. Patient was seen and examined by nurse practitioner Susan Peters and all the elements of the case were discussed with attending, Dr. Esparza.
--- NOTE | 2017-03-17 08:41 | MR ---
EXAMINATION TYPE: MR brain wo con DATE OF EXAM: 03/17/2017 8:31 AM COMPARISON: 05/02/2017 HISTORY: CVA T1-weighted sagittal, T2, FLAIR, and diffusion axial, and T2 coronal coronal views of the brain are s ubmitted. There is no evidence of acute ischemia. The ventricles, basal cisterns, and sulci overlying the conv exities are consistent with the patient's age. There is no mass effect. Craniocervical junction maintained. Sella turcica has a normal appearance. No cerebellopontine angle mass. There is diffuse areas of abnormal signal throughout the white matter which are relatively stable fro m the previous exam and most typical remote microvascular ischemia. The left MCA appears diminutive i n size but there is no diagnostic evidence of acute ischemia on diffusion imaging. Ventricular system is midline. IMPRESSION: 1. No acute intracranial process. 2. Nonspecific white matter changes most typical remote microvascular ischemia. 3. Left MCA is diminutive in size but there is no diagnostic evidence of acute ischemia.
[2017-03-17] MEDS: IPRATROPIUM-ALBUTEROL 3 ML NEB INHALATION SCH ×4 (09:00→21:10)
[2017-03-17] MEDS: SYMBICORT 160-4.5 MCG INHALER INHALATION SCH ×2 (09:00→21:09)
[2017-03-17] MEDS: oxyCODONE-APAP 10-325MG 1 EACH TAB PO SCH ×4 (09:52→22:45)
[2017-03-17] MEDS: METHOCARBAMOL 750 MG TAB PO SCH ×2 (09:53→21:07)
[2017-03-17] MEDS: LORATADINE 10 MG TAB PO SCH (09:53)
[2017-03-17] MEDS: TOPIRAMATE 25 MG TAB PO SCH ×2 (09:54→21:07)
[2017-03-17] MEDS: PANTOPRAZOLE 40 MG TABLET PO SCH (09:54)
[2017-03-17] MEDS: DILTIAZEM CD 180 MG CAP.ER.24H PO SCH (09:55)
[2017-03-17] MEDS: ATENOLOL 25 MG TAB PO SCH ×2 (09:55→21:07)
[2017-03-17] MEDS: DONEPEZIL 10 MG TAB PO SCH (09:56)
[2017-03-17] MEDS: DOCUSATE 100 MG CAP PO SCH ×3 (09:56→21:07)
[2017-03-17] MEDS: DULoxetine HCL 30 MG CAPSULE.DR PO SCH (09:57)
[2017-03-17] MEDS: GABAPENTIN 300 MG CAP PO SCH ×4 (09:57→21:07)
[2017-03-17 11:50] LABS: Glucose,Whole Blood 226 mg/dL (75-99)
--- NOTE | 2017-03-17 11:53 | PN ---
DATE OF SERVICE: 03/16/2017 ATTENDING NOTE: The patient was seen and examined by me. I reviewed the note of Ms. Peters and discussed with her. Patient admitted with COPD exacerbation and element of obesity hypoventilation syndrome. Patient has also got sleep apnea, machine is at home. Earlier today, stroke team was called out. Neurological workup was in place. Neurology was consulted. Patient while talking does seem to doze off and I am thinking this is more of sleep apnea spells. Patient ( ) too well. ON EXAM: RESPIRATORY: Effort increased. LUNGS: Diminished breath sounds. NEUROLOGICAL: Currently no focal weakness, but patient does tend to doze off while talking. ASSESSMENT: 1. Rule out stroke. 2. Acute chronic obstructive pulmonary disease exacerbation. 3. Obesity hypoventilation syndrome. 4. Sleep apnea. 5. Atrial fibrillation, on Coumadin. 6. Acute renal failure. PLAN: Neuro workup is in place. Neurology was consulted. Told the family to bring in the CPAP machine today and that might aid the patient. Will follow. Will hold off patient's Lasix, CLARISSA inhibitor, potassium supplementation. Patient is getting IV fluids. Will check labs in the morning.
--- NOTE | 2017-03-17 16:03 | P.PN ---
Subjective It patient is being seen in follow-up. The patient is morbidly obese and has history of COPD and obstructive sleep apnea with a component of a hypoventilation syndrome. She had some mental status change yesterday and she was having tremors and diminished level of consciousness. CVA was suspected and the stroke team was activated. Further investigation was done including a CTA of the brain and an MRI of the brain and there is no clear-cut evidence of a CVA. This morning the patient is more alert and awake although still sleepy. She is moving all 4 extremities without any limitation. Neurologic exam is nonfocal. She has some mild shortness of breath with activity. No chest pain. No cough or sputum production. She has chronic A. fib fibrillation and she's been maintained on long-term articulation with warfarin and the creatinine is at 1.9. The patient also had an acute kidney injury in the creatinine is improving is down to 1.2. Hemoglobin stable at 11.9. Objective - Vital Signs Vital signs: Vital Signs Temp 97 F L 03/17/17 04:00 Pulse 84 03/17/17 11:24 Resp 16 03/17/17 04:00 BP 141/82 03/17/17 04:00 Pulse Ox 100 03/17/17 04:00 Intake & Output 03/16/17 03/17/17 03/17/17 18:59 06:59 18:59 Intake Total 100 1600 360 Output Total 250 Balance 100 1350 360 Weight 126 kg Intake: IV 1600 Sodium Chloride 0.9% 1, 1600 000 ml @ 100 mls/hr IV . Q10H [facility] Rx#:[id number] Oral 100 360 Output: Urine 250 Other: Voiding Method Bedside Commode Diaper Bedpan Incontinent Diaper # Voids 0 2 1 - Exam Morbidly obese, comfortable nonacute distress. Lethargic and sleepy.Head exam was generally normal. There was no scleral icterus or corneal arcus. Mucous membranes were moist. Neck status is supple and there is significant crowding of posterior pharynx. There is no goiter or neck masses. Lungs sounds are diminished in lung bases bilaterally.Cardiac exam revealed the PMI to be normally situated and sized. The rhythm was regular and no extrasystoles were noted during several minutes of auscultation. The first and second heart sounds were normal and physiologic splitting of the second heart sound was noted. There were no murmurs, rubs, clicks, or gallops.Abdominal exam revealed normal bowel sounds. The abdomen was soft, non-tender, and without masses, organomegaly , or appreciable enlargement of the abdominal aorta. Extremities shows trace edema and there is no cyanosis or clubbing at this point. - Labs CBC & Chem 7: 03/17/17 00:06 03/17/17 07:00 Labs: Abnormal Lab Results - Last 24 Hours (Table) 03/16/17 03/16/17 03/16/17 Range/Units 16:54 17:08 21:02 MCV (80.0-100.0) fL MCHC (31.0-37.0) g/dL Lymphocytes # (1.0-4.8) k/uL PT (9.0-12.0) sec Carbon Dioxide (22-30) mmol/L BUN (7-17) mg/dL Creatinine (0.52-1.04) mg/dL Glucose (74-99) mg/dL POC Glucose (mg/dL) 105 H 115 H (75-99) mg/dL Triglycerides (<150) mg/dL Ur Leukocyte Esterase Trace H (Negative) Urine WBC 7 H (0-5) /hpf Hyaline Casts 10 H (0-2) /lpf 03/17/17 03/17/17 03/17/17 Range/Units 00:06 00:06 04:17 MCV 105.7 H (80.0-100.0) fL MCHC 28.9 L (31.0-37.0) g/dL Lymphocytes # 0.9 L (1.0-4.8) k/uL PT (9.0-12.0) sec Carbon Dioxide (22-30) mmol/L BUN 46 H (7-17) mg/dL Creatinine 1.60 H (0.52-1.04) mg/dL Glucose 159 H (74-99) mg/dL POC Glucose (mg/dL) 133 H (75-99) mg/dL Triglycerides 183 H (<150) mg/dL Ur Leukocyte Esterase (Negative) Urine WBC (0-5) /hpf Hyaline Casts (0-2) /lpf 03/17/17 03/17/17 03/17/17 Range/Units 06:40 07:00 07:00 MCV (80.0-100.0) fL MCHC (31.0-37.0) g/dL Lymphocytes # (1.0-4.8) k/uL PT 17.9 H (9.0-12.0) sec Carbon Dioxide 33 H (22-30) mmol/L BUN 43 H (7-17) mg/dL Creatinine 1.26 H (0.52-1.04) mg/dL Glucose 137 H (74-99) mg/dL POC Glucose (mg/dL) 138 H (75-99) mg/dL Triglycerides (<150) mg/dL Ur Leukocyte Esterase (Negative) Urine WBC (0-5) /hpf Hyaline Casts (0-2) /lpf 03/17/17 Range/Units 11:46 MCV (80.0-100.0) fL MCHC (31.0-37.0) g/dL Lymphocytes # (1.0-4.8) k/uL PT (9.0-12.0) sec Carbon Dioxide (22-30) mmol/L BUN (7-17) mg/dL Creatinine (0.52-1.04) mg/dL Glucose (74-99) mg/dL POC Glucose (mg/dL) 226 H (75-99) mg/dL Triglycerides (<150) mg/dL Ur Leukocyte Esterase (Negative) Urine WBC (0-5) /hpf Hyaline Casts (0-2) /lpf Assessment and Plan Plan: Assessment 1 change in mental status without clear-cut indication of any CVA based on the workup that has been conducted. The patient is known to have carotid artery disease that is nonocclusive and the MRI of the brain was essentially negative. As such, we'll need to look for other causes of change in mental status and clean the possibility of CO2 narcosis. There is a suspicion that the patient is retaining CO2 and at times the patient is developing a stress doses with secondary mental status change. She is a bit sleepy. This point 2 morbid obesity 3 obstructive sleep apnea/breast hypoventilation syndrome and the patient has not been utilizing CPAP/BiPAP therapy on outpatient basis. She was given a device back in 2008 and since then she hasn't used any. 4 chronic atrial fibrillation on long-term articulation with warfarin 5 fibromyalgia with chronic pain and gentle arthritis 6 chronic renal failure 7 diabetes mellitus 8 COPD 9 hypertension 10 hyperlipidemia Plan Check a blood gas. Assess for acid base status and watch for any CO2 narcosis. Proceed with utilizing BiPAP at a pressure of 10 over 5 which she'll be essentially arbitrary pressures overnight. Monitor the patient's mental status. Monitor patient's coagulation profile an INR is at 1.9. Monitor the patient's renal function. Continue the systemic symptoms and gradual taper over the next 24 hours. Continue bronchodilators. Continue Symbicort. I will follow.
[2017-03-17 17:02] LABS: Glucose,Whole Blood 179 mg/dL (75-99)
[2017-03-17] MEDS: WARFARIN 7.5 MG TAB PO SCH (17:05)
[2017-03-17] MEDS: LEVOFLOXACIN 250 MG TAB PO SCH (17:06)
[2017-03-17 17:37] LABS: ABG HCO3 30 mmol/L (21-25); ABG PCO2 69 mmHg (35-45); ABG PH 7.27 (7.35-7.45); ABG PO2 97 mmHg (83-108)
[2017-03-17 17:38] LABS: ABG Base Excess 3.9 mmol/L; ABG TCO2 33 mmol/L (19-24)
[2017-03-17] MEDS ORDERED: LEVOFLOXACIN 250 MG TAB PO SCH (21:00)
[2017-03-17 21:06] LABS: Glucose,Whole Blood 128 mg/dL (75-99)
[2017-03-18] MEDS: methylPREDNISolone SOD SUCCI 40 MG/ML 1 ML VIAL IV SCH ×4 (00:12→23:46)
[2017-03-18 00:56] LABS: Glucose,Whole Blood 170 mg/dL (75-99)
[2017-03-18 06:07] LABS: Glucose,Whole Blood 158 mg/dL (75-99)
[2017-03-18] MEDS: SODIUM CHLORIDE 0.9% 1,000 ML IV SCH ×2 (06:20→12:21)
[2017-03-18] MEDS: INSULIN LISPRO (humaLOG) 300 UNIT/3 ML VIAL SQ SCH ×4 (06:43→21:22)
--- NOTE | 2017-03-18 07:25 | PN ---
DATE OF SERVICE: 03/17/2017 PRESENTING COMPLAINT: Shortness of breath. This is a 76-year-old female who presented to the emergency department with increasing shortness of breath over the last 2 weeks with a dry cough and a runny nose. No fever. Today patient looking more awake and alert, more responsive. Did notice; however, patient has right-sided tremor to her shoulder and arm, mild but present. Patient has a scheduled MRI this morning. Review of systems done for constitutional, cardiovascular, GI, pulmonary, with relevant findings as above. CURRENT MEDICATIONS: Albuterol, budesonide, diltiazem, Aricept, Cymbalta, Lasix, Levaquin. PHYSICAL EXAM: VITAL SIGNS: Temperature 97.0, pulse 95, respirations 16, blood pressure 141/82, oxygen saturation 100% on 4 L nasal cannula. GENERAL APPEARANCE: Patient is lying in bed. She is comfortable, family at the bedside. She still is a little slow to respond. EYES: Pupils equal. Conjunctivae are normal. NECK: JVD not raised. Mass not palpable. LUNGS: Distant breath sounds bilaterally diminished bases. RESPIRATORY: Effort normal. Unlabored. CARDIOVASCULAR: First and second sounds normal. Trace edema to bilateral lower extremities. ABDOMEN: Soft, nontender. Liver and spleen not palpable. PSYCHIATRY: Patient is awake, alert, able to answer simple straightforward questions. Mood and affect are appropriate for the situation. INVESTIGATIONS: MRI, no acute intracranial process. Sodium 141, potassium, 4.9, BUN 46, creatinine 1.60. PLAN: Neurology work-up continues. Family instructed once again today to bring in the CPAP machine and additional call was made to our respiratory department to see if we could secure one for the patient to utilize while she is here. Will hold patient's Lasix and CLARISSA inhibitor and potassium supplementation. Patient continues to get IV fluids. Will follow a.m. labs. Patient was seen and examined by nurse practitioner, Susan Peters and all elements of the case discussed with attending, Dr. Esparza.
[2017-03-18] MEDS: SYMBICORT 160-4.5 MCG INHALER INHALATION SCH ×2 (07:44→19:29)
[2017-03-18] MEDS: IPRATROPIUM-ALBUTEROL 3 ML NEB INHALATION SCH ×4 (07:44→19:29)
[2017-03-18 08:00] LABS: Anion Gap 7 mmol/L; Blood Urea Nitrogen 35 mg/dL (7-17); Calcium 8.7 mg/dL (8.4-10.2); Carbon Dioxide 31 mmol/L (22-30); Chloride 104 mmol/L (98-107); Glucose 141 mg/dL (74-99); INR 2.8 (<1.1); Non-African American GFR(MDRD) 59 (>60 ml/min/1.73 sqM); Potassium 5.2 mmol/L (3.5-5.1); Prothrombin Time 27.5 sec (9.0-12.0); Sodium 142 mmol/L (137-145)
[2017-03-18] MEDS: DILTIAZEM CD 180 MG CAP.ER.24H PO SCH (08:32)
[2017-03-18] MEDS: oxyCODONE-APAP 10-325MG 1 EACH TAB PO SCH ×4 (08:32→23:12)
[2017-03-18] MEDS: METHOCARBAMOL 750 MG TAB PO SCH ×2 (08:32→21:22)
[2017-03-18] MEDS: PANTOPRAZOLE 40 MG TABLET PO SCH (08:33)
[2017-03-18] MEDS: GABAPENTIN 300 MG CAP PO SCH ×4 (08:33→21:23)
[2017-03-18] MEDS: LORATADINE 10 MG TAB PO SCH (08:33)
[2017-03-18] MEDS: ASPIRIN 81 MG CHEW PO SCH (08:33)
[2017-03-18] MEDS: TOPIRAMATE 25 MG TAB PO SCH ×2 (08:33→21:22)
[2017-03-18] MEDS: DOCUSATE 100 MG CAP PO SCH ×3 (08:33→21:23)
[2017-03-18] MEDS: DULoxetine HCL 30 MG CAPSULE.DR PO SCH (08:33)
[2017-03-18] MEDS: ATENOLOL 25 MG TAB PO SCH ×2 (08:33→21:23)
[2017-03-18] MEDS: DONEPEZIL 10 MG TAB PO SCH (08:33)
--- NOTE | 2017-03-18 11:25 | PN ---
DATE OF SERVICE: 03/17/2017 Attending note: The patient was seen and examined by me. I reviewed the note of my nurse practitioner Ms. Peters and discuss with her. The patient presented with COPD exacerbation and obesity hypoventilation syndrome. Patient has been having what appears to be myoclonic jerks, probably from sleep deprivation. Could be CO2 narcosis. On examination, lungs decreased breath sounds. Answering questions appropriately, then dozes off. ASSESSMENT: 1. Chronic obstructive pulmonary disease exacerbation. 2. Obesity hypoventilation syndrome. 3. Sleep deprivation, probably causing myoclonic jerks. 4. Possible CO2 narcosis. PLAN: Spoke to Dr. Driver about possible CPAP and see if symptoms actually improve. I doubt this to be a primary neurological problem. The patient's acute renal failure is actually improving. Care was discussed with Dr. Driver and also family at length. The patient was seen this morning, will follow.
--- NOTE | 2017-03-18 11:30 | CONS ---
DATE OF CONSULTATION: 03/17/2017 CHIEF COMPLAINT: Altered mental status. HISTORY OF PRESENT ILLNESS: Mrs. Ortiz is a 76-year-old female who is being evaluated by the Neurology Service per the request of Dr. Esparza for altered mental status. The patient was brought into [facility] on 03/13/2017 with complaints of shortness of breath. The patient was diagnosed with acute exacerbation of chronic obstructive pulmonary disease and was admitted for further work-up and management. She had been followed by Pulmonology throughout her admission. Yesterday, she had a sudden onset of significant worsening in confusion and became quite lethargic. A stat CT scan of the brain was done, which showed no acute findings. She did have severe small vessel ischemic changes. A CT angiogram of the brain was done, which showed some truncation of the left middle cerebral artery, concerning for some ischemia. An MRI of the brain was done, which showed no evidence of any acute ischemia. I did review her EEG, which showed evidence of mild encephalopathy. A CT angiogram of the neck was done, which showed approximately 50% stenosis involving the left internal carotid artery. The patient does have a history of obstructive sleep apnea, but she has not been compliant at home with her CPAP use. I did review her laboratory work-up and her CBC was normal. Her basic metabolic profile showed renal insufficiency with a BUN of 43 and creatinine of 1.26. Her fasting lipid panel was normal. Her urinalysis showed 7 WBCs with trace leukocyte esterase. At the time of my evaluation, the patient is drowsy, but arousable. She is currently on a BiPAP mask. No seizure-like activity has been reported. PAST MEDICAL HISTORY: Chronic obstructive pulmonary disease, obstructive sleep apnea, history of stroke, atrial fibrillation, diabetes, hypertension, dyslipidemia, arthritis, dementia, history of appendectomy, bladder surgery, cholecystectomy, tubal ligation, orthopedic surgeries, carpal tunnel release surgery, surgical stapling of the stomach. FAMILY HISTORY: Positive for cancer. SOCIAL HISTORY: The patient rarely drinks alcohol. She denies any tobacco or drug use. HOME MEDICATIONS: Reviewed in the chart. ALLERGIES: LATEX, SULFA DRUGS, NITROFURANTOIN. REVIEW OF SYSTEMS: Unable to obtain due to drowsiness. PHYSICAL EXAM: Vital signs show a temperature of 97.0, pulse 88, respirations 16, blood pressure 141/82. GENERAL APPEARANCE: The patient is an obese female, who is quite drowsy. HEENT: Normocephalic, atraumatic. No obvious facial asymmetry is seen. BiPAP mask is intact. Neck is supple with no masses felt. CARDIOVASCULAR: Regular rate and rhythm. ABDOMEN: Obese, nontender, nondistended. Extremities showed edema with no clubbing seen. NEUROLOGICAL EXAM: The patient is quite drowsy. She does wake up to sternal rub and does make eye contact. The patient had to be awakened several times during the exam with a sternal rub, but she is actually oriented x3. She does follow commands appropriately. Strength appears to be 4/5 in the lower extremities and 5-/5 in the upper extremities. No facial asymmetry is seen on cranial nerve testing. IMPRESSION: 1. Altered mental status. 2. Acute multifactorial encephalopathy, likely hypoxic and infectious and metabolic. 3. Chronic obstructive pulmonary disease with acute exacerbation. 4. Acute urinary tract infection. 5. Obstructive sleep apnea. 6. Small vessel ischemic disease. 7. Mild to moderate carotid stenosis. RECOMMENDATION: The patient's altered mental status is likely due to multifactorial encephalopathy. This is likely due to her respiratory difficulties along with her renal insufficiency and urinary tract infection. Continue BiPAP use. Although the patient is quite drowsy, she is oriented x3 once she is aroused. I did review her MRI of the brain, and there is no evidence of any acute ischemic strokes. Her carotid Doppler showed moderate stenosis, which does not require any surgical intervention at this time. Continue antiplatelet therapy for her small vessel ischemic disease. I do recommend antibiotic therapy for her urinary tract infection. Her EEG was reviewed and it did show evidence of mild encephalopathy. I do expect the patient to slowly recover cognitively. Continue BiPAP use at this time. I did discuss the importance of CPAP use at home with the patient's family who was at bedside at the time of my evaluation. Continue neuro checks for now. I will continue to follow with you. Further recommendations to follow. Thank you for allowing me to participate in the care of your patient. If you have any questions, please feel free to contact me.
[2017-03-18 11:46] LABS: Glucose,Whole Blood 187 mg/dL (75-99)
[2017-03-18] MEDS ORDERED: FUROSEMIDE 10 MG/ML 4 ML VIAL IV STA (11:46)
--- NOTE | 2017-03-18 12:45 | EEG ---
DATE OF SERVICE: 03/17/2017 REASON FOR TESTING: Altered mental status. AGE: 76Y DESCRIPTION OF THE PROCEDURE: This EEG was performed using a 21-channel digital electroencephalograph, following the international 10-20 system. DESCRIPTION OF THE RECORDING: From the beginning of the tracing, and with the patient's eyes closed, the background rhythm was mostly consisting of 7 Hz theta frequency in the posterior occipital leads. No obvious asymmetry is seen. Photic stimulation was performed with a minimal driving response seen. No pathological waves were elicited. Hyperventilation was not performed. Occasional movement artifacts are seen. Later in the tracing, the patient does reach stage II of sleep and occasional sleep spindles are seen. Lead artifacts are noticed near the end of the tracing along with movement artifacts. No epileptiform discharges were seen. Her EKG lead showed an irregularly irregular rhythm with a normal rate. INTERPRETATION: This asleep and awake EEG is abnormal due to the presence of generalized slowing of the background rhythm, mostly in the theta range. This is consistent with mild encephalopathy. No epileptiform discharges were seen. The absence of epileptiform discharges does not rule out the diagnosis of epilepsy, therefore, clinical correlation is recommended. Of note, her EKG lead showed an irregularly irregular rhythm consistent with her history of atrial fibrillation.
--- NOTE | 2017-03-18 12:48 | P.PN ---
Subjective It patient is being seen in follow-up. The patient is morbidly obese and has history of COPD and obstructive sleep apnea with a component of a hypoventilation syndrome. She had some mental status change yesterday and she was having tremors and diminished level of consciousness. CVA was suspected and the stroke team was activated. Further investigation was done including a CTA of the brain and an MRI of the brain and there is no clear-cut evidence of a CVA. This morning the patient is more alert and awake although still sleepy. She is moving all 4 extremities without any limitation. Neurologic exam is nonfocal. She has some mild shortness of breath with activity. No chest pain. No cough or sputum production. She has chronic A. fib fibrillation and she's been maintained on long-term articulation with warfarin and the creatinine is at 1.9. The patient also had an acute kidney injury in the creatinine is improving is down to 1.2. Hemoglobin stable at 11.9. On today's evaluation of 03/18/2017, the patient is fully awake and alert. Her gases from yesterday showed a component of an acute on top of chronic hypercapnic respiratory failure.. Overnight the patient was placed in the BiPAP at a pressure of 10 over 5 cm of water. She wore the BiPAP all night long in this morning she is much more alert and awake during the day. She is conversing without having to fall asleep. As such, a lot of her neurologic manifestation probably related to severe sleep apnea disorder and I suspect that the patient has a component of obesity hypoventilation syndrome. Seizure activity. No neurologic manifestations at all. No focal neurological deficits. Objective - Vital Signs Vital signs: Vital Signs Temp 97.9 F 03/18/17 08:00 Pulse 82 03/18/17 11:28 Resp 20 03/18/17 08:00 BP 144/85 03/18/17 08:00 Pulse Ox 97 03/18/17 08:00 Intake & Output 03/17/17 03/18/17 03/18/17 18:59 06:59 18:59 Intake Total 1845 1400 770 Output Total 300 Balance 1845 1400 470 Weight 130 kg Intake: IV 1485 1200 320 Sodium Chloride 0.9% 1, 1485 1200 320 000 ml @ 100 mls/hr IV . Q10H [facility] Rx#:[id number] Oral 360 200 450 Output: Urine 300 Other: Voiding Method Diaper Bedpan Bedpan Incontinent Incontinent Incontinent # Voids 1 2 2 - Exam Morbidly obese, comfortable nonacute distress. Patient is quite alert and awake and communicating..Head exam was generally normal. There was no scleral icterus or corneal arcus. Mucous membranes were moist. Neck status is supple and there is significant crowding of posterior pharynx. There is no goiter or neck masses. Lungs sounds are diminished in lung bases bilaterally.Cardiac exam revealed the PMI to be normally situated and sized. The rhythm was regular and no extrasystoles were noted during several minutes of auscultation. The first and second heart sounds were normal and physiologic splitting of the second heart sound was noted. There were no murmurs, rubs, clicks, or gallops.Abdominal exam revealed normal bowel sounds. The abdomen was soft, non- tender, and without masses, organomegaly, or appreciable enlargement of the abdominal aorta. Extremities shows trace edema and there is no cyanosis or clubbing at this point. - Labs CBC & Chem 7: 03/17/17 00:06 03/18/17 06:36 Labs: Abnormal Lab Results - Last 24 Hours (Table) 03/17/17 03/17/17 03/17/17 Range/Units 16:59 17:26 21:00 PT (9.0-12.0) sec ABG pH 7.27 L (7.35-7.45) ABG pCO2 69 H (35-45) mmHg ABG HCO3 30 H (21-25) mmol/L ABG Total CO2 33 H (19-24) mmol/L Potassium (3.5-5.1) mmol/L Carbon Dioxide (22-30) mmol/L BUN (7-17) mg/dL Glucose (74-99) mg/dL POC Glucose (mg/dL) 179 H 128 H (75-99) mg/dL 03/18/17 03/18/17 03/18/17 Range/Units 00:54 06:05 06:36 PT 27.5 H (9.0-12.0) sec ABG pH (7.35-7.45) ABG pCO2 (35-45) mmHg ABG HCO3 (21-25) mmol/L ABG Total CO2 (19-24) mmol/L Potassium (3.5-5.1) mmol/L Carbon Dioxide (22-30) mmol/L BUN (7-17) mg/dL Glucose (74-99) mg/dL POC Glucose (mg/dL) 170 H 158 H (75-99) mg/dL 03/18/17 03/18/17 Range/Units 06:36 11:42 PT (9.0-12.0) sec ABG pH (7.35-7.45) ABG pCO2 (35-45) mmHg ABG HCO3 (21-25) mmol/L ABG Total CO2 (19-24) mmol/L Potassium 5.2 H (3.5-5.1) mmol/L Carbon Dioxide 31 H (22-30) mmol/L BUN 35 H (7-17) mg/dL Glucose 141 H (74-99) mg/dL POC Glucose (mg/dL) 187 H (75-99) mg/dL Assessment and Plan Plan: Assessment 1 change in mental status without clear-cut indication of any CVA based on the workup that has been conducted. The patient is known to have carotid artery disease that is nonocclusive and the MRI of the brain was essentially negative. As such, we'll need to look for other causes of change in mental status and clean the possibility of CO2 narcosis. There is a suspicion that the patient is retaining CO2 and at times the patient is developing a stress doses with secondary mental status change. She is a bit sleepy. This point On 03/18/2017 the patient is wide awake alert and communicating. Her symptoms were probably related to CO2 narcosis and poorly treated obstructive sleep apnea and a breast hypoventilation syndrome. She wore the BiPAP at a pressure of 10 over 5 cm of water overnight and she is much more alert and awake for now. 2 morbid obesity 3 obstructive sleep apnea/breast hypoventilation syndrome and the patient has not been utilizing CPAP/BiPAP therapy on outpatient basis. She was given a device back in 2008 and since then she hasn't used any. 4 chronic atrial fibrillation on long-term articulation with warfarin 5 fibromyalgia with chronic pain and gentle arthritis 6 chronic renal failure 7 diabetes mellitus 8 COPD 9 hypertension 10 hyperlipidemia Plan Patient has an acute on top of chronic hypercapnic respiratory failure. The patient was having episodes of CO2 narcosis. The patient feels better while on the BiPAP. The patient be given 40 mg of IV Lasix IV push 1. The patient will continue the COPD treatment with IV Solu-Medrol and DuoNeb nebulized treatments around the clock and Symbicort as maintenance. She is also on a empiric antibiotic coverage with Levaquin to 50 mg on a daily basis. She is on long-term and it admission with Coumadin and his PT/INR is subtherapeutic. We' ll try to arrange for this patient an auto BiPAP machine to be used at home and she will need a sleep study at a later stage following discharge from the hospital.
--- NOTE | 2017-03-18 16:29 | P.PN ---
Subjective Principal diagnosis: Patient is a 76-year-old female who is being followed by the neurology service for altered mental status. Patient was brought in with multiple complaints. Patient presented with exacerbation of COPD. Patient had sudden onset of confusion and became quite lethargic. Stat CT of the brain was done which showed no acute process. CT angios of the brain was done which showed some truncation of the left middle cerebral artery which is concerning for some ischemia. MRI of the brain was done which showed no evidence of any acute ischemia. EEG did show mild encephalopathy. CT angiogram of the neck was done which showed moderate stenosis. Patient does have history of obstructive sleep apnea but has not been compliant with home CPAP therapy. At the time of my evaluation, patient is resting comfortably in bed and is currently on BiPAP. Objective - Vital Signs Vital signs: Vital Signs Temp 98.2 F 03/18/17 12:00 Pulse 84 03/18/17 15:42 Resp 20 03/18/17 12:00 BP 138/80 03/18/17 12:00 Pulse Ox 96 03/18/17 13:27 Intake & Output 03/17/17 03/18/17 03/18/17 18:59 06:59 18:59 Intake Total 1845 1400 1510 Output Total 650 Balance 1845 1400 860 Weight 130 kg Intake: IV 1485 1200 620 Sodium Chloride 0.9% 1, 1485 1200 620 000 ml @ 100 mls/hr IV . Q10H [facility] Rx#:[id number] Oral 360 200 890 Output: Urine 650 Other: Voiding Method Diaper Bedpan Bedpan Incontinent Incontinent Incontinent # Voids 1 2 2 - Exam PHYSICAL EXAM: GENERAL APPEARANCE: Patient is a well-developed, obese female. HEENT: Normocephalic, atraumatic, no facial asymmetry is seen. Neck is supple with no masses felt. CARDIOVASCULAR: Regular rate and rhythm. ABDOMEN: Nontender, nondistended. EXTREMITIES: Show no edema or clubbing. NEUROLOGICAL EXAM: Patient is lethargic but answers questions appropriately. Patient is oriented 2. She could not recall the year. She does follow commands appropriately. Strength is 4/5 in the lower extremities and 5-/5 in the upper extremities. No facial asymmetry is seen on cranial nerve testing. No tremors or seizure-like activity is noted. - Labs CBC & Chem 7: 03/17/17 00:06 03/18/17 06:36 Labs: Abnormal Lab Results - Last 24 Hours (Table) 03/17/17 03/17/17 03/17/17 Range/Units 16:59 17:26 21:00 PT (9.0-12.0) sec ABG pH 7.27 L (7.35-7.45) ABG pCO2 69 H (35-45) mmHg ABG HCO3 30 H (21-25) mmol/L ABG Total CO2 33 H (19-24) mmol/L Potassium (3.5-5.1) mmol/L Carbon Dioxide (22-30) mmol/L BUN (7-17) mg/dL Glucose (74-99) mg/dL POC Glucose (mg/dL) 179 H 128 H (75-99) mg/dL 03/18/17 03/18/17 03/18/17 Range/Units 00:54 06:05 06:36 PT 27.5 H (9.0-12.0) sec ABG pH (7.35-7.45) ABG pCO2 (35-45) mmHg ABG HCO3 (21-25) mmol/L ABG Total CO2 (19-24) mmol/L Potassium (3.5-5.1) mmol/L Carbon Dioxide (22-30) mmol/L BUN (7-17) mg/dL Glucose (74-99) mg/dL POC Glucose (mg/dL) 170 H 158 H (75-99) mg/dL 03/18/17 03/18/17 Range/Units 06:36 11:42 PT (9.0-12.0) sec ABG pH (7.35-7.45) ABG pCO2 (35-45) mmHg ABG HCO3 (21-25) mmol/L ABG Total CO2 (19-24) mmol/L Potassium 5.2 H (3.5-5.1) mmol/L Carbon Dioxide 31 H (22-30) mmol/L BUN 35 H (7-17) mg/dL Glucose 141 H (74-99) mg/dL POC Glucose (mg/dL) 187 H (75-99) mg/dL Assessment and Plan (1) Shortness of breath Status: Acute (2) Acute pyelonephritis Status: Acute (3) Confusion Status: Acute (4) Renal insufficiency Status: Acute Plan: Patient's altered mental status is likely due to multifactorial encephalopathy. Patient has been noncompliant with CPAP therapy at home. Her respiratory difficulties along with renal insufficiency likely contributory. As you recall , MRI of the brain showed no evidence for any acute ischemic stroke. Her carotid Doppler showed moderate stenosis which does not require intervention at this time. Her EEG did show evidence of mild encephalopathy. Patient is showing progress regarding cognitive ability. Continue BiPAP use. Continue neurological checks. I will continue to follow with you on an as-needed basis. Feel free to call with any questions or concerns. I performed an examination of the patient and discussed the management with the [employer] INST[employer]ER. I have reviewed the SL[employer] INSTALLER notes and agree with the findings and plan of care.
[2017-03-18 16:42] LABS: Glucose,Whole Blood 183 mg/dL (75-99)
[2017-03-18] MEDS: WARFARIN 7.5 MG TAB PO SCH (17:17)
[2017-03-18] MEDS: LEVOFLOXACIN 250 MG TAB PO SCH (17:18)
[2017-03-18 20:57] LABS: Glucose,Whole Blood 163 mg/dL (75-99)
--- NOTE | 2017-03-18 22:43 | PN ---
DATE OF SERVICE: 03/18/2017 PRESENTING COMPLAINT: Shortness of breath. This is a 76-year-old female who presented to the emergency department with increasing shortness of breath over last 2 weeks with a dry cough and a runny nose. No fever. Today patient looks more awake and alert, more responsive. Last night patient was placed on CPAP machine and did very well. Consequently patient looks much improved today. Patient is aware of the necessity of her wearing her CPAP machine when she returns home. Social Work is currently working on arranging for a CPAP machine for the patient, as she no longer has it. In order to facilitate this process, a sleep study will be necessary this hospital hospitalization; otherwise patient will not be able to receive a new CPAP machine. Patient's vital signs are stable. She is awake. She is alert, eating breakfast. No acute distress noted or voiced. Review of systems done for constitutional, cardiovascular, GI, pulmonary, with relevant findings as above. CURRENT MEDICATIONS: 1. Albuterol. 2. Budesonide. 3. Diltiazem. 4. Aricept. 5. Cymbalta. 6. Lasix. 7. Levaquin. PHYSICAL EXAMINATION: VITAL SIGNS: Temperature 98.2, pulse 88, respiratory rate 20, blood pressure 138/80, oxygen saturation 96% on 3 L nasal cannula. GENERAL APPEARANCE: Patient is resting comfortably in bed, following commands, opening eyes, able to answer simple straightforward questions. Patient did have some difficulty with answering what date it was or what year we are in at present. Patient told me 1978, and one time she told me it was Trump. EYES: Pupils equal. Conjunctivae normal. NECK: JVD not raised. Mass not palpable. Respiratory effort normal, unlabored. LUNGS: Distant breath sounds bilaterally; diminished bases. CARDIOVASCULAR: First and second sounds noted. Trace edema to bilateral lower extremities. ABDOMEN: Soft, nontender. Liver and spleen not palpable. PSYCHIATRY: Patient is awake and alert, able to answer simple straightforward questions. Mood and affect are appropriate for the situation. NEUROLOGIC: Patient able to answer all questions, alert and oriented. Lisa Coma Scale 15. Cranial nerves II through XII intact. Strength to both bilateral upper and lower extremities intact 5/5; equal bilaterally. Patient is ambulatory with some assistance and use of a walker. INVESTIGATIONS: EEG shows mild encephalopathy; absent epileptiform discharges, however, does not rule out diagnosis of epilepsy. Sodium 142, potassium 5.2. BUN 35, creatinine 0.93. ASSESSMENT: 1. Chronic obstructive pulmonary disease exacerbation. 2. Obesity hypoventilation syndrome. 3. Sleep deprivation probably causing myoclonic jerks. 4. Possible carbon dioxide narcosis. PLAN: Neurology continues to follow, as does Pulmonology. Recommendations from Pulmonology include obtaining a sleep study and obtaining a CPAP for the patient prior to discharge; patient cannot go home without a CPAP machine, given her current state and diagnoses. Case Management currently working on those items. Tentative discharge planning in 1 to 2 days. Will follow a.m. labs. Patient was seen and examined by nurse practitioner, Susan Peters, and all elements of the case were discussed with attending, Dr. Esparza.
[2017-03-19] MEDS: SODIUM CHLORIDE 0.9% 1,000 ML IV SCH ×3 (05:57→21:01)
[2017-03-19 06:26] LABS: Glucose,Whole Blood 151 mg/dL (75-99)
[2017-03-19] MEDS: INSULIN LISPRO (humaLOG) 300 UNIT/3 ML VIAL SQ SCH ×4 (06:32→21:14)
[2017-03-19 07:15] LABS: Anion Gap 7 mmol/L; Blood Urea Nitrogen 34 mg/dL (7-17); Calcium 8.9 mg/dL (8.4-10.2); Carbon Dioxide 32 mmol/L (22-30); Chloride 104 mmol/L (98-107); Glucose 138 mg/dL (74-99); Non-African American GFR(MDRD) >60 (>60 ml/min/1.73 sqM); Potassium 4.9 mmol/L (3.5-5.1); Sodium 143 mmol/L (137-145)
[2017-03-19 07:37] LABS: Glucose,Whole Blood 133 mg/dL (75-99)
[2017-03-19] MEDS: methylPREDNISolone SOD SUCCI 40 MG/ML 1 ML VIAL IV SCH ×3 (08:33→23:17)
[2017-03-19] MEDS: ATENOLOL 25 MG TAB PO SCH ×2 (08:35→21:07)
[2017-03-19] MEDS: ASPIRIN 81 MG CHEW PO SCH (08:35)
[2017-03-19] MEDS: DILTIAZEM CD 180 MG CAP.ER.24H PO SCH (08:35)
[2017-03-19] MEDS: DONEPEZIL 10 MG TAB PO SCH (08:36)
[2017-03-19] MEDS: DULoxetine HCL 30 MG CAPSULE.DR PO SCH (08:36)
[2017-03-19] MEDS: LORATADINE 10 MG TAB PO SCH (08:36)
[2017-03-19] MEDS: GABAPENTIN 300 MG CAP PO SCH ×3 (08:36→21:07)
[2017-03-19] MEDS: DOCUSATE 100 MG CAP PO SCH ×3 (08:36→21:07)
[2017-03-19] MEDS: PANTOPRAZOLE 40 MG TABLET PO SCH (08:37)
[2017-03-19] MEDS: METHOCARBAMOL 750 MG TAB PO SCH ×2 (08:37→21:07)
[2017-03-19] MEDS: TOPIRAMATE 25 MG TAB PO SCH ×2 (08:37→21:07)
[2017-03-19] MEDS: oxyCODONE-APAP 10-325MG 1 EACH TAB PO SCH ×4 (08:45→23:22)
[2017-03-19] MEDS: SYMBICORT 160-4.5 MCG INHALER INHALATION SCH ×2 (09:16→20:26)
[2017-03-19] MEDS: IPRATROPIUM-ALBUTEROL 3 ML NEB INHALATION SCH ×4 (09:16→20:26)
--- NOTE | 2017-03-19 09:38 | PN ---
DATE OF SERVICE: 03/18/2017 ATTENDING NOTE: This patient seen and examined by me earlier today. I reviewed the note of my nurse practitioner, Ms. Peters. Patient admitted with COPD exacerbation, obesity hypoventilation syndrome, CO2 narcosis. Patient did really well with the BiPAP. I discussed with Dr. Driver. He will try to loan the BiPAP to the patient with the setting of 12 and 5. Patient's family is at bedside. On exam, LUNGS: Decreased breath sounds, but fair air entry. The patient is far more awake. ASSESSMENT: 1. Chronic obstructive pulmonary disease exacerbation. 2. Obesity hypoventilation syndrome. 3. CO2 narcosis. 4. Chronic myoclonic jerks, improved. PLAN: Care was discussed with the family at the bedside. Looking at probably discharged tomorrow with BiPAP to be loaned. Otherwise neurological work-up was otherwise negative.
[2017-03-19 12:09] LABS: Glucose,Whole Blood 198 mg/dL (75-99)
[2017-03-19] MEDS ORDERED: FUROSEMIDE 10 MG/ML 4 ML VIAL IV STA (15:37)
[2017-03-19] MEDS: LEVOFLOXACIN 250 MG TAB PO SCH (16:12)
--- NOTE | 2017-03-19 16:33 | XR ---
EXAMINATION TYPE: XR chest 1V DATE OF EXAM: 03/19/2017 4:00 PM COMPARISON: 03/15/2017 INDICATION: Respiratory failure respiratory distress TECHNIQUE: Single frontal view of the chest is obtained. FINDINGS: The heart size is enlarged. The pulmonary vasculature is normal. The lungs are clear. Facemask overlies patient chest IMPRESSION: 1. Cardiomegaly
--- NOTE | 2017-03-19 17:03 | P.PN ---
Subjective It patient is being seen in follow-up. The patient is morbidly obese and has history of COPD and obstructive sleep apnea with a component of a hypoventilation syndrome. She had some mental status change yesterday and she was having tremors and diminished level of consciousness. CVA was suspected and the stroke team was activated. Further investigation was done including a CTA of the brain and an MRI of the brain and there is no clear-cut evidence of a CVA. This morning the patient is more alert and awake although still sleepy. She is moving all 4 extremities without any limitation. Neurologic exam is nonfocal. She has some mild shortness of breath with activity. No chest pain. No cough or sputum production. She has chronic A. fib fibrillation and she's been maintained on long-term articulation with warfarin and the creatinine is at 1.9. The patient also had an acute kidney injury in the creatinine is improving is down to 1.2. Hemoglobin stable at 11.9. On today's evaluation of 03/18/2017, the patient is fully awake and alert. Her gases from yesterday showed a component of an acute on top of chronic hypercapnic respiratory failure.. Overnight the patient was placed in the BiPAP at a pressure of 10 over 5 cm of water. She wore the BiPAP all night long in this morning she is much more alert and awake during the day. She is conversing without having to fall asleep. As such, a lot of her neurologic manifestation probably related to severe sleep apnea disorder and I suspect that the patient has a component of obesity hypoventilation syndrome. Seizure activity. No neurologic manifestations at all. No focal neurological deficits. The patient is seen again today 03/19/2017 on the regular medical floor. She has had waxing and waning mental status. She is does well once on the BiPAP for a while and is awake and alert. When she is off too long she does start to be more obtunded. While off she is tolerating O2 saturations in the 90s on 2 L/ m per nasal cannula. She denies any worsening shortness of breath, cough or congestion. We are attempting to get her BiPAP set up for home. In the interim , we'll increase her BiPAP pressure to 14/5 cm of water. Objective - Vital Signs Vital signs: Vital Signs Temp 98.7 F 03/19/17 07:52 Pulse 80 03/19/17 16:44 Resp 16 03/19/17 07:52 BP 114/67 03/19/17 07:52 Pulse Ox 90 L 03/19/17 13:59 Intake & Output 03/18/17 03/19/17 03/19/17 18:59 06:59 18:59 Intake Total 1760 600 Output Total 800 Balance 960 600 Intake: IV 620 0 Sodium Chloride 0.9% 1, 620 0 000 ml @ 100 mls/hr IV . Q10H WILFREDO Rx#:[id number] Intake, IV Titration 0 Amount Sodium Chloride 0.9% 1, 0 000 ml @ 100 mls/hr IV . Q10H WILFREDO Rx#:[id number] Oral 1140 600 Output: Urine 800 Other: Voiding Method Bedpan Incontinent # Voids 1 2 1 - Exam Morbidly obese, comfortable nonacute distress. Patient is quite alert and awake and communicating..Head exam was generally normal. There was no scleral icterus or corneal arcus. Mucous membranes were moist. Neck status is supple and there is significant crowding of posterior pharynx. There is no goiter or neck masses. Lungs sounds are diminished in lung bases bilaterally.Cardiac exam revealed the PMI to be normally situated and sized. The rhythm was regular and no extrasystoles were noted during several minutes of auscultation. The first and second heart sounds were normal and physiologic splitting of the second heart sound was noted. There were no murmurs, rubs, clicks, or gallops.Abdominal exam revealed normal bowel sounds. The abdomen was soft, non- tender, and without masses, organomegaly, or appreciable enlargement of the abdominal aorta. Extremities shows trace edema and there is no cyanosis or clubbing at this point. - Labs CBC & Chem 7: 03/17/17 00:06 03/19/17 06:02 Labs: Abnormal Lab Results - Last 24 Hours (Table) 03/18/17 03/19/17 03/19/17 Range/Units 20:55 06:02 06:24 Carbon Dioxide 32 H (22-30) mmol/L BUN 34 H (7-17) mg/dL Glucose 138 H (74-99) mg/dL POC Glucose (mg/dL) 163 H 151 H (75-99) mg/dL 03/19/17 03/19/17 Range/Units 07:32 12:01 Carbon Dioxide (22-30) mmol/L BUN (7-17) mg/dL Glucose (74-99) mg/dL POC Glucose (mg/dL) 133 H 198 H (75-99) mg/dL Assessment and Plan Plan: Assessment 1 change in mental status without clear-cut indication of any CVA based on the workup that has been conducted. The patient is known to have carotid artery disease that is nonocclusive and the MRI of the brain was essentially negative. As such, we'll need to look for other causes of change in mental status and clean the possibility of CO2 narcosis. There is a suspicion that the patient is retaining CO2 and at times the patient is developing a stress doses with secondary mental status change. She is a bit sleepy. This point On 03/18/2017 the patient is wide awake alert and communicating. Her symptoms were probably related to CO2 narcosis and poorly treated obstructive sleep apnea and a breast hypoventilation syndrome. She wore the BiPAP at a pressure of 10 over 5 cm of water overnight and she is much more alert and awake for now. 2 morbid obesity 3 obstructive sleep apnea/breast hypoventilation syndrome and the patient has not been utilizing CPAP/BiPAP therapy on outpatient basis. She was given a device back in 2008 and since then she hasn't used any. 4 chronic atrial fibrillation on long-term articulation with warfarin 5 fibromyalgia with chronic pain and gentle arthritis 6 chronic renal failure 7 diabetes mellitus 8 COPD 9 hypertension 10 hyperlipidemia Plan: The patient was seen and evaluated by Dr. Driver. He did make BiPAP adjustments to 14/5 cm of water. We'll also give additional Lasix 40 mg IV push today. We'll repeat arterial blood gases in the a.m. Continue her other medications. We'll repeat her INR in the a.m. We'll speak to [facility] regarding a possible loaner BiPAP until she can have a sleep study get her qualified. We will continue to follow. Hopefully probable discharge in the a.m. Time with Patient: Greater than 30
[2017-03-19 17:13] LABS: Glucose,Whole Blood 168 mg/dL (75-99)
[2017-03-19] MEDS: WARFARIN 7.5 MG TAB PO SCH (19:00)
[2017-03-19 19:31] LABS: INR 2.6 (<1.1); Prothrombin Time 25.1 sec (9.0-12.0)
[2017-03-19 20:51] LABS: Glucose,Whole Blood 167 mg/dL (75-99)
--- NOTE | 2017-03-19 22:39 | PN ---
DATE OF SERVICE: 03/19/2017 PRESENTING COMPLAINT: Shortness of breath. This is a 76-year-old female who presented to the emergency department with increasing shortness of breath over the past 2 weeks accompanied by a dry cough and a runny nose. No fever. Today the patient is sitting up in bed, looking well, alert, able to answer questions; very engaged; much more perky than previous days. Review of systems done for constitutional, cardiovascular, GI, pulmonary, with relevant findings as above. CURRENT MEDICATIONS: 1. Albuterol. 2. Budesonide. 3. Diltiazem. 4. Aricept. 5. Cymbalta. 6. Lasix. 7. Levaquin. PHYSICAL EXAMINATION: VITAL SIGNS: Temperature 98.7, pulse 90, respiratory rate 16, blood pressure 114/67, oxygen saturation 97% on 3 L nasal cannula. GENERAL APPEARANCE: Patient is awake, alert, sitting up in bed, talkative, engaged. States she is feeling much better than previously. EYES: Pupils equal. Conjunctivae normal. NECK: JVD not raised. Mass not palpable. LUNGS: Diminished bilaterally. Diffuse crackles heard throughout bilateral lobes. RESPIRATORY: Effort normal, unlabored. CARDIOVASCULAR: First and second sounds normal. No edema. ABDOMEN: Soft, nontender. Liver and spleen not palpable. PSYCHIATRY: Alert and oriented x3. Mood and affect normal. INVESTIGATIONS: INR 2.6. Sodium 143, potassium 4.9. BUN 34, creatinine 0.77. Chest x-ray shows cardiomegaly. ASSESSMENT: 1. Chronic obstructive pulmonary disease exacerbation. 2. Obesity hypoventilation syndrome. 3. Sleep deprivation probably causing myoclonic jerks. 4. Possible carbon dioxide narcosis. PLAN: Neurology continues to follow, as does Pulmonology. Recommendations from Pulmonology include obtaining a sleep study and obtaining a CPAP for the patient prior to discharge. Currently Pulmonology is actively working on finding a CPAP so the patient can be discharged through resources that they have in conjunction with Case Management. Tentative discharge in 1 to 2 days. Will continue to follow a.m. labs. Patient was seen and examined by nurse practitioner Susan Peters and all elements of the case were discussed with the attending Dr. Esparza.
--- NOTE | 2017-03-19 23:12 | PN ---
DATE OF SERVICE: 03/19/2017 ATTENDING NOTE: This patient was seen and examined by me earlier today. I discussed this case with nurse practitioner Ms. Peters. Patient is actually cheerful, sitting at the edge of the back, cracking jokes with the family. Discussed with Dr. Driver. He wants to hold off on discharge to arrange BiPAP, which could not be done today. On exam, lungs have improved air entry. CARDIOVASCULAR: First and second seconds normal. ASSESSMENT: 1. Acute chronic obstructive pulmonary disease exacerbation. 2. Obesity hypoventilation syndrome. 3. Carbon dioxide narcosis leading to myoclonic jerks, improved. PLAN: As discussed with Dr. Driver, await BiPAP to be arranged so patient can be discharged.
[2017-03-20] MEDS: SODIUM CHLORIDE 0.9% 1,000 ML IV SCH ×2 (04:09→15:11)
[2017-03-20 07:57] VITALS: BP 148/81; RESP 22; TEMP 97
[2017-03-20] MEDS: SYMBICORT 160-4.5 MCG INHALER INHALATION SCH (08:04)
[2017-03-20] MEDS: IPRATROPIUM-ALBUTEROL 3 ML NEB INHALATION SCH ×2 (08:04→11:09)
[2017-03-20] MEDS: INSULIN LISPRO (humaLOG) 300 UNIT/3 ML VIAL SQ SCH ×2 (08:55→11:58)
[2017-03-20] MEDS: ATENOLOL 25 MG TAB PO SCH (08:57)
[2017-03-20] MEDS: GABAPENTIN 300 MG CAP PO SCH ×2 (08:57→11:58)
[2017-03-20] MEDS: LORATADINE 10 MG TAB PO SCH (08:58)
[2017-03-20] MEDS: DILTIAZEM CD 180 MG CAP.ER.24H PO SCH (08:58)
[2017-03-20] MEDS: DULoxetine HCL 30 MG CAPSULE.DR PO SCH (08:58)
[2017-03-20] MEDS: methylPREDNISolone SOD SUCCI 40 MG/ML 1 ML VIAL IV SCH (08:58)
[2017-03-20] MEDS: METHOCARBAMOL 750 MG TAB PO SCH (08:58)
[2017-03-20] MEDS: PANTOPRAZOLE 40 MG TABLET PO SCH (08:58)
[2017-03-20] MEDS: DOCUSATE 100 MG CAP PO SCH (08:58)
[2017-03-20] MEDS: TOPIRAMATE 25 MG TAB PO SCH (08:58)
[2017-03-20] MEDS: ASPIRIN 81 MG CHEW PO SCH (08:58)
[2017-03-20] MEDS: DONEPEZIL 10 MG TAB PO SCH (08:59)
[2017-03-20] MEDS: oxyCODONE-APAP 10-325MG 1 EACH TAB PO SCH ×2 (09:01→11:58)
[2017-03-20 09:37] LABS: Anion Gap 9 mmol/L; Blood Urea Nitrogen 33 mg/dL (7-17); Calcium 9.4 mg/dL (8.4-10.2); Carbon Dioxide 39 mmol/L (22-30); Chloride 96 mmol/L (98-107); Glucose 147 mg/dL (74-99); Non-African American GFR(MDRD) >60 (>60 ml/min/1.73 sqM); Potassium 4.9 mmol/L (3.5-5.1); Sodium 144 mmol/L (137-145)
[2017-03-20 09:41] LABS: INR 2.1 (<1.1); Prothrombin Time 19.8 sec (9.0-12.0)
[2017-03-20 11:22] VITALS: PULSE 80
[2017-03-20 11:57] LABS: Glucose,Whole Blood 186 mg/dL (75-99)
--- NOTE | 2017-03-20 15:03 | P.PN ---
Subjective It patient is being seen in follow-up. The patient is morbidly obese and has history of COPD and obstructive sleep apnea with a component of a hypoventilation syndrome. She had some mental status change yesterday and she was having tremors and diminished level of consciousness. CVA was suspected and the stroke team was activated. Further investigation was done including a CTA of the brain and an MRI of the brain and there is no clear-cut evidence of a CVA. This morning the patient is more alert and awake although still sleepy. She is moving all 4 extremities without any limitation. Neurologic exam is nonfocal. She has some mild shortness of breath with activity. No chest pain. No cough or sputum production. She has chronic A. fib fibrillation and she's been maintained on long-term articulation with warfarin and the creatinine is at 1.9. The patient also had an acute kidney injury in the creatinine is improving is down to 1.2. Hemoglobin stable at 11.9. On today's evaluation of 03/18/2017, the patient is fully awake and alert. Her gases from yesterday showed a component of an acute on top of chronic hypercapnic respiratory failure.. Overnight the patient was placed in the BiPAP at a pressure of 10 over 5 cm of water. She wore the BiPAP all night long in this morning she is much more alert and awake during the day. She is conversing without having to fall asleep. As such, a lot of her neurologic manifestation probably related to severe sleep apnea disorder and I suspect that the patient has a component of obesity hypoventilation syndrome. Seizure activity. No neurologic manifestations at all. No focal neurological deficits. The patient is seen again today 03/19/2017 on the regular medical floor. She has had waxing and waning mental status. She is does well once on the BiPAP for a while and is awake and alert. When she is off too long she does start to be more obtunded. While off she is tolerating O2 saturations in the 90s on 2 L/ m per nasal cannula. She denies any worsening shortness of breath, cough or congestion. We are attempting to get her BiPAP set up for home. In the interim , we'll increase her BiPAP pressure to 14/5 cm of water. The patient is seen again today 03/20/2017 in the regular medical floor. She is currently awake and alert and doing quite well. She denies any worsening shortness of breath, cough or congestion. She is maintaining O2 saturations in the 90s on room air. She is afebrile. Objective - Vital Signs Vital signs: Vital Signs Temp 97.0 F L 03/20/17 07:00 Pulse 80 03/20/17 11:21 Resp 22 03/20/17 07:00 BP 148/81 03/20/17 07:00 Pulse Ox 97 03/20/17 07:00 Intake & Output 03/19/17 03/20/17 03/20/17 18:59 06:59 18:59 Other: Voiding Method Bedside Commode # Voids 3 1 2 - Exam Morbidly obese, comfortable nonacute distress. Patient is quite alert and awake and communicating..Head exam was generally normal. There was no scleral icterus or corneal arcus. Mucous membranes were moist. Neck status is supple and there is significant crowding of posterior pharynx. There is no goiter or neck masses. Lungs sounds are diminished in lung bases bilaterally.Cardiac exam revealed the PMI to be normally situated and sized. The rhythm was regular and no extrasystoles were noted during several minutes of auscultation. The first and second heart sounds were normal and physiologic splitting of the second heart sound was noted. There were no murmurs, rubs, clicks, or gallops.Abdominal exam revealed normal bowel sounds. The abdomen was soft, non- tender, and without masses, organomegaly, or appreciable enlargement of the abdominal aorta. Extremities shows trace edema and there is no cyanosis or clubbing at this point. - Labs CBC & Chem 7: 03/17/17 00:06 03/20/17 08:16 Labs: Abnormal Lab Results - Last 24 Hours (Table) 03/19/17 03/19/17 03/19/17 Range/Units 08:55 17:08 20:48 PT 25.1 H (9.0-12.0) sec Chloride (98-107) mmol/L Carbon Dioxide (22-30) mmol/L BUN (7-17) mg/dL Glucose (74-99) mg/dL POC Glucose (mg/dL) 168 H 167 H (75-99) mg/dL 03/20/17 03/20/17 03/20/17 Range/Units 08:16 08:16 11:47 PT 19.8 H (9.0-12.0) sec Chloride 96 L (98-107) mmol/L Carbon Dioxide 39 H (22-30) mmol/L BUN 33 H (7-17) mg/dL Glucose 147 H (74-99) mg/dL POC Glucose (mg/dL) 186 H (75-99) mg/dL Assessment and Plan Plan: Assessment 1 change in mental status without clear-cut indication of any CVA based on the workup that has been conducted. The patient is known to have carotid artery disease that is nonocclusive and the MRI of the brain was essentially negative. As such, we'll need to look for other causes of change in mental status and clean the possibility of CO2 narcosis. There is a suspicion that the patient is retaining CO2 and at times the patient is developing a stress doses with secondary mental status change. 2 morbid obesity 3 obstructive sleep apnea/breast hypoventilation syndrome and the patient has not been utilizing CPAP/BiPAP therapy on outpatient basis. She was given a device back in 2008 and since then she hasn't used any. 4 chronic atrial fibrillation on long-term articulation with warfarin 5 fibromyalgia with chronic pain and gentle arthritis 6 chronic renal failure 7 diabetes mellitus 8 COPD 9 hypertension 10 hyperlipidemia Plan: The patient was seen and evaluated by Dr. Driver. He was able to arrange for a loaner BiPAP device until we are able to perform a sleep study. She is cleared for discharge from the pulmonary standpoint. She'll complete her course of antibiotics. She'll be on a prednisone taper. Continue her pulmonary medications. She'll follow-up in our office in 1-2 weeks' time. She had her family are encouraged to call sooner with any recurrence of symptoms or other questions or concerns.
[2017-03-20] MEDS: LEVOFLOXACIN 250 MG TAB PO SCH ×2 (15:11→15:38)
--- NOTE | 2017-03-21 08:03 | DS ---
DATE OF ADMISSION: 03/16/2017 DATE OF DISCHARGE: 03/20/2017 FINAL DIAGNOSES: 1. Acute chronic obstructive pulmonary disease exacerbation. Being followed by pulmonology. 2. Obesity; hypoventilation syndrome, improving. 3. Carbon dioxide narcosis leading to myoclonic jerks, improved. Consultants: Dr. Mariama Driver from pulmonology, Dr. Diego Lucero from neurology. HOSPITAL COURSE: This is a 76-year-old female who presented to the hospital with an exacerbation of chronic obstructive pulmonary disease. During the course of her stay patient developed strokelike symptoms, was evaluated by neurology. Patient was also evaluated by pulmonology and it was found patient was retaining CO2 and as such required BiPAP intervention. Patient received treatment with the BiPAP throughout the remainder of stay. Patient's CO2 retention improved greatly. Symptoms subsided. Strokelike symptoms subsided as did lethargy. Patient was also found to have developed myoclonic jerks as a result of the lack of proper sleep and CPAP BiPAP intervention at assisted with this. Patient's breathing is better, patient has a transient cough with no secretions noted. No respiratory distress noted. No nasal flaring. No accessory muscle use. Patient's, oxygen saturation within normal range. patient has been able to get up and around with a bit of assistance and a walker. Patient is tolerating her diet. Patient CO2 and lab values have improved. Therefore patient is being discharged home. Neurologic: Patient is alert and oriented x3. Able to follow commands. Able to do complex multistep commands. Critical Care Registered Nurse equal bilaterally. Foot pumps equal bilaterally. Cranial nerves II through XII grossly intact. Patient wears 2 liters nasal cannula at home and here at the hospital. Oxygen saturation is 92% to 95% on 2 liters nasal cannula. Lung sounds diminished bilaterally. Scattered crackles noted throughout. Plan of care and patient's progress were discussed throughout the hospital stay, with family and the patient. All questions that were asked were answered. DISCHARGE MEDICATIONS: 1. Atenolol 25 mg p.o. b.i.d. 2. Cymbalta 30 mg p.o. daily. 3. Aricept 10 mg p.o. daily. 4. Protonix 40 mg p.o. daily. 5. Warfarin 5 mg p.o. Friday and . 6. Albuterol inhaler 1 to 2 puffs inhalation every 6 hours p.r.n. 7. Topamax 50 mg p.o. b.i.d. 8. Warfarin 7.5 mg by mouth Friday, Friday, Friday, Friday. 9. Cetirizine 10 mg p.o. daily. 10. Diltiazem 180 mg p.o. daily. 11. Gabapentin 30 mg p.o. 4 times a day. 12. Ipratropium and albuterol nebulized treatment 3 mL q.i.d. 13. Methocarbamol 750 mg p.o. b.i.d. 14. ( ) Ellipta 1 puff inhalation daily. 15. Oxycodone 10/325, 1 tab p.o., q.i.d. 16. Lasix 40 mg p.o. Friday, Friday and Friday. 17. Lovastatin and 40 mg p.o. every 48 hours. 18. Potassium chloride ER 20 mEq p.o. Friday, Friday, Friday. 19. Prednisone 10 mg p.o. daily. DISPOSITION: Patient is being discharged home into the care of her family. Patient is also being sent home with a loaner CPAP, which the patient will use until she is able to get her outpatient sleep study completed and qualify for her own CPAP machine. Patient was seen and examined by nurse practitioner, Susan Peters, and all the elements of the case were discussed with Dr. Esparza and attending.
--- NOTE | 2017-03-22 10:39 | DS ---
DATE OF ADMISSION: 03/16/2017 DATE OF DISCHARGE: 03/20/2017 FINAL DIAGNOSES: 1. Acute chronic obstructive pulmonary disease exacerbation in a nonsmoker who has been exposed to secondhand smoke in the past. 2. Obesity hypoventilation syndrome. 3. Acute hypoxic and hypercapnic respiratory failure leading to myoclonic jerks. 4. Persistent atrial fibrillation with rate control, on Coumadin. 5. Essential hypertension. 6. Hyperlipidemia. 7. Alzheimer's dementia, late-onset type. 8. 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 9. Morbid obesity; body mass index of 47.6. CONSULTATIONS: 1. Dr. Lucero. 2. Dr. Driver from Pulmonary. Patient presented with COPD exacerbation; responded well to nebulized bronchodilators and steroids; also was having episodes of apnea. Patient does have an old CPAP at home. Dr. Driver coordinating getting a new BiPAP. Because of that, CO2 narcosis and myoclonic jerks have actually improved. In the meantime, results from neurological workup came back negative. I reviewed the discharge note of my nurse practitioner, Ms. Peters, and agree with the same. Patient was seen and examined by me. Care was discussed with the patient in detail. Rest of the discharge note as per my nurse practitioner.
== END 2017-03-20 15:46 | disposition home health service (06) | DRG 190 ==
LOC: EC 12:40 → 5MS5E 17:13 → 6SEL 03-16 09:40 → OBSVTOIN 03-16 11:08 → 6SEL 03-16 12:06 → 4MS4W 03-19 06:28
PROVIDERS: ADMIT Hospitalist; ATTEND Hospitalist
DX: J44.1 Chronic obstructive pulmonary disease with (acute) exacerbation (principal); G93.41 Metabolic encephalopathy; J96.21 Acute and chronic respiratory failure with hypoxia; N17.9 Acute kidney failure, unspecified; E87.2 Acidosis; E11.22 Type 2 diabetes mellitus with diabetic chronic kidney disease; I48.1 Persistent atrial fibrillation; I48.2 Chronic atrial fibrillation; E66.2 Morbid (severe) obesity with alveolar hypoventilation; I12.9 Hypertensive chronic kidney disease with stage 1 through stage 4 chronic kidney disease, or unspecified chronic kidney disease; R47.01 Aphasia; J96.22 Acute and chronic respiratory failure with hypercapnia; Z68.42 Body mass index [BMI] 45.0-49.9, adult; G25.3 Myoclonus; G30.1 Alzheimer's disease with late onset; F02.80 Dementia in other diseases classified elsewhere, unspecified severity, without behavioral disturbance, psychotic disturbance, mood disturbance, and anxiety; D64.9 Anemia, unspecified; E78.5 Hyperlipidemia, unspecified; G89.29 Other chronic pain; I65.29 Occlusion and stenosis of unspecified carotid artery; J45.909 Unspecified asthma, uncomplicated; M06.9 Rheumatoid arthritis, unspecified; M15.9 Polyosteoarthritis, unspecified; M79.7 Fibromyalgia; N18.9 Chronic kidney disease, unspecified; Z72.820 Sleep deprivation; Z79.01 Long term (current) use of anticoagulants; Z79.899 Other long term (current) drug therapy; Z86.73 Personal history of transient ischemic attack (TIA), and cerebral infarction without residual deficits; Z91.040 Latex allergy status; Z91.19 Patient's noncompliance with other medical treatment and regimen
CPT/HCPCS: 36415; 36600; 70450; 70496; 70498; 70551; 71010; 71020; 80048; 80053; 80061; 81001; 82550; 82553; 82805; 83036; 83090; 83735; 84484; 85025; 85379; 85610; 85730; 87086; 93005; 93880; 94640; 94660; 94760; 95819; 96361; 96374; 96376; 99285

== ENCOUNTER 2018-06-07 16:26 | Emergency (ER) | payer MEDICARE, OTHER ==
[2018-06-07] MEDS ORDERED: HYDROcodone/APAP 5-325MG 1 EACH TAB PO STA (16:54)
--- NOTE | 2018-06-07 17:42 | ED ---
General Adult HPI - General Chief complaint: Extremity Injury, Upper Stated complaint: Lt arm pain Time Seen by Provider: 06/07/18 16:27 Source: patient, RN notes reviewed, old records reviewed Mode of arrival: ambulatory Limitations: no limitations - History of Present Illness Initial comments: This is a 77-year-old female status post fall. Patient was a fall forward out of wheelchair on the ground. She did hit her head. She is complaining of mainly left shoulder left arm pain. No loss of consciousness, no blood thinners - Related Data Home Medications Medication Instructions Recorded Confirmed DULoxetine HCL [Cymbalta] 30 mg PO DAILY 04/28/15 06/07/18 Donepezil [Aricept] 10 mg PO DAILY 04/28/15 06/07/18 Pantoprazole Sodium 40 mg PO DAILY 04/28/15 06/07/18 Topiramate 50 mg PO BID 10/03/15 06/07/18 Gabapentin 300 mg PO QID 03/13/17 06/07/18 Methocarbamol 750 mg PO BID 03/13/17 06/07/18 Umeclidinium [place] [Incruse 1 puff INHALATION RT-BID 03/13/17 06/07/18 Ellipta] Lovastatin [Mevacor] 40 mg PO HS 03/20/17 06/07/18 Enalapril [Vasotec] 2.5 mg PO DAILY 06/07/18 06/07/18 Ferrous Sulfate [Feosol] 325 mg PO DAILY 06/07/18 06/07/18 Furosemide [Lasix] 40 mg PO BID 06/07/18 06/07/18 Magnesium Oxide [Mag-Ox] 400 mg PO DAILY 06/07/18 06/07/18 Pentoxifylline 400 mg PO HS 06/07/18 06/07/18 Polyethylene Glycol 3350 [Miralax] 17 gm PO DAILY 06/07/18 06/07/18 Potassium Chloride ER [K-Dur 20] 20 meq PO DAILY 06/07/18 06/07/18 Spironolactone [Aldactone] 25 mg PO DAILY 06/07/18 06/07/18 Allergies Allergy/AdvReac Type Severity Reaction Status Date / Time latex Allergy Unknown Verified 06/07/18 17:01 nitrofurantoin Allergy Unknown Verified 06/07/18 17:01 [From Macrobid] nitrofurantoin Allergy Unknown Verified 06/07/18 17:01 macrocrystalline [From Macrobid] Sulfa (Sulfonamide Allergy Unknown Verified 06/07/18 17:01 Antibiotics) Review of Systems ROS Statement: Those systems with pertinent positive or pertinent negative responses have been documented in the HPI. ROS Other: All systems not noted in ROS Statement are negative. Past Medical History Past Medical History: Atrial Fibrillation, COPD, CVA/TIA, Diabetes Mellitus, Hyperlipidemia, Hypertension, Osteoarthritis (OA), Rheumatoid Arthritis (RA) Additional Past Medical History / Comment(s): diet controled diabetic, Fibromyalgia. polynephritis 2015,uti,djd History of Any Multi-Drug Resistant Organisms: None Reported Past Surgical History: Appendectomy, Bladder Surgery, Cholecystectomy, Joint Replacement, Orthopedic Surgery, Tubal Ligation Additional Past Surgical History / Comment(s): carpal tunnel BL, bilateral knee surgery, bilateral thumbs reattached, stomach surgery/stapling for weight loss Past Anesthesia/Blood Transfusion Reactions: No Reported Reaction Past Psychological History: No Psychological Hx Reported Smoking Status: Never smoker Past Alcohol Use History: None Reported Past Drug Use History: None Reported - Past Family History Father Family Medical History: Cancer Additional Family Medical History / Comment(s): leukemia Mother Family Medical History: Cancer Additional Family Medical History / Comment(s): lung ca General Exam Limitations: no limitations General appearance: alert, in no apparent distress Head exam: Present: atraumatic, normocephalic, normal inspection Eye exam: Present: normal appearance, PERRL, EOMI. Absent: scleral icterus, conjunctival injection, periorbital swelling ENT exam: Present: normal exam, mucous membranes moist Neck exam: Present: normal inspection. Absent: tenderness, meningismus, lymphadenopathy Respiratory exam: Present: normal lung sounds bilaterally. Absent: respiratory distress, wheezes, rales, rhonchi, stridor Cardiovascular Exam: Present: regular rate, normal rhythm, normal heart sounds. Absent: systolic murmur, diastolic murmur, rubs, gallop, clicks GI/Abdominal exam: Present: soft, normal bowel sounds. Absent: distended, tenderness, guarding, rebound, rigid Extremities exam: Present: normal inspection, full ROM, normal capillary refill. Absent: tenderness, pedal edema, joint swelling, calf tenderness Back exam: Present: normal inspection Neurological exam: Present: alert, oriented X3, CN II-XII intact Psychiatric exam: Present: normal affect, normal mood Skin exam: Present: warm, dry, intact, normal color. Absent: rash Course Vital Signs 06/07/18 06/07/18 16:34 17:56 Temperature 97.5 F L Pulse Rate 92 Respiratory 18 Rate Blood Pressure 141/71 O2 Sat by Pulse 92 L 96 Oximetry Medical Decision Making - Medical Decision Making 87 female status post fall, left shoulder fracture left humerus fracture patient can be discharged home - Radiology Data Radiology results: report reviewed (PT brain C-spine negative chest x-ray negative left shoulder positive for humerus fracture), image reviewed Disposition Clinical Impression: Left humeral fracture, Fall Disposition: HOME SELF-CARE Instructions: Proximal Humerus Fracture (ED) Is patient prescribed a controlled substance at d/c from ED?: No Referrals: Bin Chavez MD [Primary Care Provider] - 1-2 days
--- NOTE | 2018-06-07 18:00 | CT ---
EXAMINATION TYPE: CT brain cspine wo con DATE OF EXAM: 06/07/2018 COMPARISON: Head 03/16/2017 HISTORY: 77-year-old female Pain CT DLP: 1828.4 mGycm Automated exposure control for dose reduction was used. Technique: Examination of the head was done in axial plane without intravenous contrast. Coronal and sagittal reconstructions performed. CT of the cervical spine was obtained in axial plane without intravenous injection of contrast mater ial. Coronal and sagittal reformatted images were obtained from the axial views for evaluation of f ractures, spinal alignment and canal. FINDINGS: Head: There is no evidence of acute intracranial hemorrhage, acute ischemic changes, mass, mass-effect, or extra-axial fluid collection. There is no effacement of cerebral sulci or basal subarachnoid cister ns. There is no hydrocephalus. There is no midline shift. Natarajan-white matter distinction is preserv ed. Mild patchy white matter hypodensities are unchanged. Orbits and globes are intact. Mastoid air cells hypoplastic. Paranasal sinuses well pneumatized. Cervical spine: Extensive artifacts from patient's very large body habitus. Reversal of the normal cervical lordosis. Grade 1 anterolisthesis at C4-C5. Moderate to advanced dissection of the degenerative change multipl e levels. Suspect some underlying mild spinal canal stenoses such as an C6-7 from disc osteophyte com plex. No displaced fracture is seen. Uncovertebral joint and facet degenerative changes present. No craniocervical junction abnormality, predental space widening, or prevertebral soft tissue swellin g. There is retropharyngeal course of the ICAs. Sagittal and coronal reformatted images confirm above findings. COMBINED IMPRESSION: 1. No acute intracranial abnormality seen. 2. Moderate spondylotic change and reversal of the normal cervical lordosis. Degenerative grade 1 ant erolisthesis at C4-C5. Mild spinal canal stenosis likely at C6-C7. 3. Assessment of fine osseous detail the cervical spine is limited due to extensive artifacts from pa tient's body habitus. No displaced fractures are seen.
--- NOTE | 2018-06-07 18:43 | XR ---
EXAMINATION TYPE: XR chest 1V DATE OF EXAM: 06/07/2018 COMPARISON: 03/19/2017 HISTORY: 77-year-old female with pain TECHNIQUE: Single frontal view of the chest is obtained. FINDINGS: Heart mildly enlarged. The lung lesion/ectasia of the thoracic aorta. Diffuse interstitial prominence . Possible small left pleural effusion. Left lung base is underpenetrated and not well assessed. Limi tation due to patient's large body habitus. IMPRESSION: 1. Cardiomegaly and interstitial changes. Correlate for possible mild pulmonary vascular congestion. 2. Left base underpenetrated and not well assessed. There may be a small left effusion.
--- NOTE | 2018-06-07 18:45 | XR ---
EXAMINATION TYPE: XR humerus LT DATE OF EXAM: 06/07/2018 COMPARISON: NONE HISTORY: 77-year-old female with pain after fall TECHNIQUE: 2 views FINDINGS: Multiple radiographs needed for adequate coverage. There is an oblique fracture of the mid humeral sh aft with lateral displacement and lateral angulation. Additional step off seen on the superior aspect of the greater tuberosity could represent mildly displaced fracture of the greater tuberosity. The e lbow articulation appears grossly intact. IMPRESSION: 1. Displaced and slightly angulated oblique fracture mid humeral shaft. 2. Unable to exclude a mildly displaced fracture of the superior humeral head/greater tuberosity. Ded icated shoulder radiographs can better assess.
[2018-06-07 19:01] VITALS: BP 149/78; PULSE 78; RESP 20; TEMP 97.8
== END 2018-06-07 18:59 | disposition home or self-care (01) ==
LOC: EC 16:26
DX: S42.302A Unspecified fracture of shaft of humerus, left arm, initial encounter for closed fracture (principal); I48.91 Unspecified atrial fibrillation; J44.9 Chronic obstructive pulmonary disease, unspecified; E78.5 Hyperlipidemia, unspecified; I10 Essential (primary) hypertension; M19.90 Unspecified osteoarthritis, unspecified site; M06.9 Rheumatoid arthritis, unspecified; M79.7 Fibromyalgia; Z79.899 Other long term (current) drug therapy; Z91.040 Latex allergy status; Z88.2 Allergy status to sulfonamides; Z88.1 Allergy status to other antibiotic agents; Z86.73 Personal history of transient ischemic attack (TIA), and cerebral infarction without residual deficits; Z98.890 Other specified postprocedural states; W05.0XXA Fall from non-moving wheelchair, initial encounter
CPT/HCPCS: 70450; 71045; 72125; 99284

== ENCOUNTER 2018-06-09 14:28 | Inpatient (IN) | payer MEDICARE, OTHER ==
[2018-06-09] MEDS ORDERED: MORPHINE SULFATE 2 MG/ML SYRINGE IVP STA (15:12)
[2018-06-09] MEDS ORDERED: ONDANSETRON 4 MG/2 ML VIAL IVP STA (15:13)
[2018-06-09] MEDS ORDERED: SODIUM CHLORIDE 0.9% 1,000 ML IV STA (15:22)
--- NOTE | 2018-06-09 15:56 | ED ---
General Adult HPI - General Chief complaint: Recheck/Abnormal Lab/Rx Stated complaint: Weakness Time Seen by Provider: 06/09/18 15:04 Source: patient Mode of arrival: EMS Limitations: no limitations - History of Present Illness Initial comments: 77 years O female with a BMI of 55 and seen in ER 2 days ago with the left humeral fracture she is back today she said she lives with her daughter and [id number] that unable to take care of her. She uses a 4 prong walker to ambulate she said with the one he was 1 on fracture she is not able to ambulate she is afraid she is to fall she is requesting admission and requesting to go to rehab facility needed complaining about generalized weakness. This is not a trauma patient she was seen 2 days ago was discharged home he denies any headache no chest pain no shortness of breath no abdominal pain no frequency urgency dysuria no symptoms of TIA or CVA - Related Data Home Medications Medication Instructions Recorded Confirmed DULoxetine HCL [Cymbalta] 30 mg PO DAILY 04/28/15 06/07/18 Donepezil [Aricept] 10 mg PO DAILY 04/28/15 06/07/18 Pantoprazole Sodium 40 mg PO DAILY 04/28/15 06/07/18 Topiramate 50 mg PO BID 10/03/15 06/07/18 Gabapentin 300 mg PO QID 03/13/17 06/07/18 Methocarbamol 750 mg PO BID 03/13/17 06/07/18 Umeclidinium [place] [Incruse 1 puff INHALATION RT-BID 03/13/17 06/07/18 Ellipta] Lovastatin [Mevacor] 40 mg PO HS 03/20/17 06/07/18 Enalapril [Vasotec] 2.5 mg PO DAILY 06/07/18 06/07/18 Ferrous Sulfate [Feosol] 325 mg PO DAILY 06/07/18 06/07/18 Furosemide [Lasix] 40 mg PO BID 06/07/18 06/07/18 Magnesium Oxide [Mag-Ox] 400 mg PO DAILY 06/07/18 06/07/18 Pentoxifylline 400 mg PO HS 06/07/18 06/07/18 Polyethylene Glycol 3350 [Miralax] 17 gm PO DAILY 06/07/18 06/07/18 Potassium Chloride ER [K-Dur 20] 20 meq PO DAILY 06/07/18 06/07/18 Spironolactone [Aldactone] 25 mg PO DAILY 06/07/18 06/07/18 Allergies Allergy/AdvReac Type Severity Reaction Status Date / Time latex Allergy Unknown Verified 06/07/18 17:01 nitrofurantoin Allergy Unknown Verified 06/07/18 17:01 [From Macrobid] nitrofurantoin Allergy Unknown Verified 06/07/18 17:01 macrocrystalline [From Macrobid] Sulfa (Sulfonamide Allergy Unknown Verified 06/07/18 17:01 Antibiotics) Review of Systems ROS Statement: Those systems with pertinent positive or pertinent negative responses have been documented in the HPI. ROS Other: All systems not noted in ROS Statement are negative. Past Medical History Past Medical History: Atrial Fibrillation, COPD, CVA/TIA, Diabetes Mellitus, Hyperlipidemia, Hypertension, Osteoarthritis (OA), Rheumatoid Arthritis (RA) Additional Past Medical History / Comment(s): diet controled diabetic, Fibromyalgia. polynephritis 2015,uti,djd History of Any Multi-Drug Resistant Organisms: None Reported Past Surgical History: Appendectomy, Bladder Surgery, Cholecystectomy, Joint Replacement, Orthopedic Surgery, Tubal Ligation Additional Past Surgical History / Comment(s): carpal tunnel BL, bilateral knee surgery, bilateral thumbs reattached, stomach surgery/stapling for weight loss Past Anesthesia/Blood Transfusion Reactions: No Reported Reaction Past Psychological History: No Psychological Hx Reported Smoking Status: Never smoker Past Alcohol Use History: None Reported Past Drug Use History: None Reported - Past Family History Father Family Medical History: Cancer Additional Family Medical History / Comment(s): leukemia Mother Family Medical History: Cancer Additional Family Medical History / Comment(s): lung ca General Exam - General Exam Comments Initial Comments: General: The patient is awake and alert, in distress because of pain in the left arm Skin: Skin is warm and dry and no rashes or lesions are noted. Eye: Pupils are equal, round and reactive to light, extra-ocular movements are intact; there is normal conjunctiva bilaterally. Ears, nose, mouth and throat: There are moist mucous membranes and no oral lesions. Neck: The neck is supple, there is no tenderness or JVD. Cardiovascular: There is a regular rate and rhythm. No murmur, rub or gallop is appreciated. Respiratory: To auscultation bilateral, no wheezing no rhonchi no distress respiratory martins noticed Gastrointestinal: Soft, non-distended, non-tender abdomen without masses or organomegaly noted. There is no rebound or guarding present. Bowel sounds are unremarkable. Back: There is no tenderness to palpation in the midline. There is no obvious deformity. Musculoskeletal: Left arm is in a sling, distal left arm has a no neurovascular deficits. Capillary sandoval are within normal range no deficit noticed Neurological: CN II-XII intact, Cranial nerves III through XII are intact. There are no obvious motor or sensory deficits. Coordination appears grossly intact. Speech is normal. Psychiatric: Cooperative, appropriate mood & affect, normal judgment. Limitations: no limitations Course Vital Signs 06/09/18 06/09/18 14:40 15:18 Temperature 98.6 F Pulse Rate 95 Respiratory 18 18 Rate Blood Pressure 122/56 O2 Sat by Pulse 96 Oximetry Is uses a walker to ambulate inside her house now she has a left humeral fracture she is unable to ambulate and care for herself because "arm is in a sling and her BMI is 55 years reveal risk of fall and further injury and she herself is requesting rehab, he admitted for rehab referral Disposition Clinical Impression: Generalized weakness, Left humeral fracture Disposition: ADMITTED IP TO THIS HOSP Condition: Good Referrals: Moe Muniz DO [Primary Care Provider] - 1-2 days
[2018-06-09] MEDS ORDERED: NALOXONE 0.4 MG/ML 1 ML VIAL IV PRN (15:57)
[2018-06-09] MEDS ORDERED: ACETAMINOPHEN TAB 325 MG TAB PO PRN (15:57)
[2018-06-09 16:06] LABS: Basophils % (A) 0 %; Eosinophils # (A) 0.3 k/uL (0-0.7); Eosinophils % (A) 2 %; HCT 31.8 % (34.0-46.0); HGB 9.6 gm/dL (11.4-16.0); Hypochromasia Marked; Lymphocytes # (A) 1.6 k/uL (1.0-4.8); Lymphocytes % (A) 15 %; MCH 29.5 pg (25.0-35.0); MCHC 30.3 g/dL (31.0-37.0); MCV 97.3 fL (80.0-100.0); Mean Platelet Volume 7.7; Monocytes # (A) 0.9 k/uL (0-1.0); Monocytes % (A) 8 %; Neutrophils # (A) 8.2 k/uL (1.3-7.7); Neutrophils % (A) 74 %; Platelet Count 222 k/uL (150-450); RBC 3.27 m/uL (3.80-5.40); RDW 14.4 % (11.5-15.5); WBC 11.1 k/uL (3.8-10.6)
[2018-06-09 16:16] LABS: INR 1.1 (<1.2); Partial Thromboplastin Time 23.7 sec (22.0-30.0); Prothrombin Time 10.4 sec (9.0-12.0)
[2018-06-09 16:18] LABS: Albumin 3.3 g/dL (3.5-5.0); Calcium 9.1 mg/dL (8.4-10.2); Magnesium 2.8 mg/dL (1.6-2.3); Potassium 5.1 mmol/L (3.5-5.1); Total Bilirubin 0.4 mg/dL (0.2-1.3); Total Protein 5.9 g/dL (6.3-8.2)
[2018-06-09 16:38] LABS: Troponin I 0.015 ng/mL (0.000-0.034)
[2018-06-09 16:44] LABS: Creatine Kinase MB 4.4 ng/mL (0.0-2.4)
[2018-06-09] MEDS ORDERED: FUROSEMIDE 40 MG TAB PO SCH (17:00)
--- NOTE | 2018-06-09 17:14 | XR ---
EXAMINATION: XR chest 2V DATE AND TIME: 06/09/2018 4:53 PM ORDERING PROVIDER: Michael Jimenez MD CLINICAL INDICATION: Chest Pain TECHNIQUE: PA and lateral COMPARISON: 06/07/2018 at 5:42 PM DESCRIPTION: The hemidiaphragms are elevated, consistent with low lung inflation at the moment of x-r ay exposure. The overall lung inflation pattern is similar to the prior study; no new pulmonary findi ngs. Negative for pneumothorax or pleural effusion. There is left costophrenic angle pleural shadow thicke brett, stable in appearance. The cardiac silhouette is at least moderately enlarged. The mediastinal and pleural silhouettes are silhouetted. The skeletal structures and soft tissues are negative for acute findings. IMPRESSION: Overall stable appearance.
[2018-06-09 18:24] LABS: Amorphous Sediment,Urine Occasional /hpf; Appearance,Urine Turbid (Clear); Bacteria,Urine Many /hpf; Bilirubin,Urine Negative (Negative); Blood,Urine Negative (Negative); Color,Urine Yellow; Glucose,Urine (UA) Negative (Negative); Hyaline Casts,Urine 54 /lpf (0-2); Ketones,Urine Negative (Negative); Leukocyte Esterase,Urine Large (Negative); Mucus,Urine Rare /hpf; Nitrite,Urine Positive (Negative); Protein,Urine Negative (Negative); RBC,Urine 5 /hpf (0-5); Specific Gravity,Urine 1.013 (1.001-1.035); Squamous Epithelial Cell,Urine 2 /hpf (0-4); Urobilinogen,Urine <2.0 mg/dL (<2.0); WBC,Urine 155 /hpf (0-5)
[2018-06-09] MEDS: GABAPENTIN 300 MG CAP PO SCH ×2 (19:34→21:28)
[2018-06-09] MEDS: IPRATROPIUM 0.5 MG/2.5 ML NEBU INHALATION SCH (20:01)
[2018-06-09] MEDS: TOPIRAMATE 25 MG TAB PO SCH (20:55)
[2018-06-09] MEDS: PENTOXIFYLLINE 400 MG TABLET.ER PO SCH (20:56)
[2018-06-09] MEDS: ATORVASTATIN 10 MG TAB PO SCH (20:56)
[2018-06-09] MEDS: METHOCARBAMOL 750 MG TAB PO SCH (20:56)
--- NOTE | 2018-06-09 23:30 | HP ---
HISTORY AND PHYSICAL DATE OF ADMISSION: 06/09/2018. DATE OF SERVICE: 06/09/2018 PRESENTING COMPLAINT: Difficulty walking. HISTORY OF PRESENTING COMPLAINT: This is a pleasant 77-year-old patient who follows with Dr. Muniz. The patient's chronic stable medical conditions include atrial fibrillation, hypertension, hyperlipidemia, osteoarthritis, fibromyalgia, mild Alzheimer's dementia. Two days ago, the patient was in a wheelchair and grandson was trying to push her. In the process, the patient went down face down though suffering injury to the left arm as a result. The patient had a displaced slightly angulated oblique fracture of the mid humeral shaft. The patient was sent home with arm support. Because patient uses a walker to get about, it is becoming very difficult to be steady and high risk of falling. Hence patient is brought back to the hospital. REVIEW OF SYSTEMS: CONSTITUTIONAL: Tired. HEENT none. RESPIRATORY: Baseline short of breath. CARDIOVASCULAR: None. GASTROINTESTINAL: None. GENITOURINARY: None. MUSCULOSKELETAL: Pain in many joints and left arm. DERMATOLOGICAL, HEMATOLOGIC AND LYMPHATICS: None. PSYCHIATRY: Slightly forgetful. NEUROLOGICAL: None. PAST MEDICAL HISTORY: Atrial fibrillation, some dementia, diabetes, fibromyalgia, hyperlipidemia, hypertension, osteoarthritis, fibromyalgia, polynephritis, tremors. PAST SURGICAL HISTORY: Appendectomy, bladder surgery, cholecystectomy, joint replacement, tubal ligation, carpal tunnel, bilateral knee surgery, bilateral thumb reattached, stomach surgery for stapling. SOCIAL HISTORY: The patient spends half the time in [place] and [place] and half in [place]. Normally uses a walker. Has home PT/OT, oxygen 2 L nasal cannula, BiPAP machine. Alcohol rarely. Smoking none. FAMILY HISTORY: Family history of leukemia. HOME MEDICATIONS: Percocet 10 1 tab 5 times a day p.r.n., Incruse Ellipta 1 puff inhalation b.i.d., Topamax 50 mg b.i.d., Aldactone 25 mg p.o. daily, Potassium 20 mEq p.o. daily, MiraLAX 17 g p.o. daily, pentoxifylline 4 mg q.h.s., Protonix 40 mg p.o. daily. Methocarbamol 750 mg p.o. b.i.d., magnesium oxide 400 mg p.o. daily, Mevacor 40 mg q.h.s., gabapentin 300 mg b.i.d., Lasix 40 mg b.i.d., iron 325 p.o. daily, Vasotec 2.5 p.o. daily, Aricept 10 mg p.o. daily, Cymbalta 30 mg p.o. daily. ALLERGIES: TO LATEX, NITROFURANTOIN, SULFA. PHYSICAL EXAMINATION: VITAL SIGNS: Temperature 96.7, pulse 107, respiration 16, blood pressure 109/73, pulse ox 100% on 3 L. GENERAL APPEARANCE: Morbidly obese. BMI 54.9. Lying in bed, tired appearing. EYES: Pupils are equal. Conjunctivae normal. HEENT: External appearance of nose and ears normal. Oral cavity normal. NECK: Short thick, JVD unable to assess. Mass not palpable. RESPIRATORY: Effort normal. LUNGS: Distant breath sounds. CARDIOVASCULAR: Heart sounds muffled. No edema. ABDOMEN: Soft, nontender. Liver and spleen not palpable. LYMPHATICS: No lymph nodes palpable in the neck and axilla. PSYCHIATRY: Awake answering simple questions. EXTREMITIES: Left arm in a sling. INVESTIGATIONS: White count 11.1, hemoglobin 9.6, potassium 5.1, BUN 40, creatinine 1.50. UA positive for leukocyte esterase, WBC. ASSESSMENT: 1. Acute renal failure. Patient's creatinine is gone from 0.82 last year to 1.5, though cannot tell if something more recent. 2. Morbid obesity BMI greater than 50. 3. Left humerus fracture 2 days ago secondary to fall in the midshaft. 4. Chronic obstructive pulmonary disease in a nonsmoker. 5. Obesity hypoventilation syndrome. 6. Persistent atrial fibrillation. The patient had been on Coumadin. 7. Essential hypertension. 8. Hyperlipidemia. 9. 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 10.Primary osteoarthritis multiple joints bilateral. PLAN: Home medications are resumed. We will stop the patient's Lasix and Zestril at this point. We will give patient IV fluids. The patient did have last 2D echocardiogram from over a couple of years ago and had normal LV function. The patient has a EKG did show persistent atrial fibrillation rate controlled. Care was discussed with daughter at the bedside. manager pool is involved. Copy to Dr. Muniz. MMGAYATHRI / CELESTEN: [id number] /
[2018-06-10] MEDS: SODIUM CHLORIDE 0.9% 1,000 ML IV SCH ×3 (00:50→23:28)
[2018-06-10] MEDS: MORPHINE SULFATE 2 MG/ML SYRINGE IV PRN ×2 (00:50→09:17)
[2018-06-10] MEDS: IPRATROPIUM 0.5 MG/2.5 ML NEBU INHALATION SCH ×4 (07:05→20:16)
[2018-06-10 08:12] LABS: Calcium 8.7 mg/dL (8.4-10.2); Potassium 5.2 mmol/L (3.5-5.1)
[2018-06-10] MEDS ORDERED: SPIRONOLACTONE 25 MG TAB PO SCH (09:00)
[2018-06-10] MEDS ORDERED: POTASSIUM CHLORIDE ER 20 MEQ TAB.ER PO SCH (09:00)
[2018-06-10] MEDS ORDERED: LISINOPRIL 5 MG TAB PO SCH (09:00)
[2018-06-10] MEDS: TOPIRAMATE 25 MG TAB PO SCH ×2 (09:08→20:31)
[2018-06-10] MEDS: GABAPENTIN 100 MG CAP PO SCH ×3 (09:08→20:31)
[2018-06-10] MEDS: METHOCARBAMOL 750 MG TAB PO SCH ×2 (09:08→20:31)
[2018-06-10] MEDS: MAGNESIUM OXIDE 400 MG TAB PO SCH (11:38)
[2018-06-10] MEDS: PANTOPRAZOLE 40 MG TABLET PO SCH (11:38)
[2018-06-10] MEDS: POLYETHYLENE GLYCOL 3350 17 GM POWD.PACK PO SCH (11:38)
[2018-06-10] MEDS: DULoxetine HCL 30 MG CAPSULE.DR PO SCH (11:39)
[2018-06-10] MEDS: DONEPEZIL 10 MG TAB PO SCH (11:39)
[2018-06-10] MEDS: FERROUS SULFATE 325 MG TAB PO SCH (11:39)
[2018-06-10] MEDS: PENTOXIFYLLINE 400 MG TABLET.ER PO SCH (20:31)
[2018-06-10] MEDS: ATORVASTATIN 10 MG TAB PO SCH (20:31)
--- NOTE | 2018-06-10 22:16 | PN ---
PROGRESS NOTE DATE OF SERVICE: 06/10/2018 PRESENTING COMPLAINT: Difficulty walking. INTERVAL HISTORY: Patient has multiple medical problems. She had a recent fracture of the left upper extremity. Because of difficulty getting about, she presented to the hospital. Lying in bed. No new issues. Orthopedics was consulted. REVIEW OF SYSTEMS: Done for constitutional, cardiovascular, GI, pulmonary; relevant findings as above. CURRENT MEDICATIONS: Reviewed. PHYSICAL EXAMINATION: Temperature 99, pulse 101, respiration 20, blood pressure 108/59, pulse 98% on 4 L. GENERAL APPEARANCE: Lying in bed, tired-appearing. EYES: Pupils equal. Conjunctivae normal. HEENT: External appearance of nose and ears normal. Oral cavity normal. NECK: Short, thick. Unable to assess. RESPIRATORY: Effort increased. LUNGS: Distant breath sounds. CARDIOVASCULAR: Heart sounds muffled. No edema. ABDOMEN: Soft, nontender. Liver and spleen not palpable. PSYCHIATRY: Does answer simple questions. Left arm in a sling. INVESTIGATIONS: Potassium 5.2, BUN 38, creatinine 1.22. ASSESSMENT: 1. Acute renal failure, likely prerenal. Patient had been on diuretics. 2. Morbid obesity with body mass index of 50. 3. Left humerus fracture 2 days ago secondary to a fall in the mid shaft; awaiting orthopedic input. 4. Chronic obstructive pulmonary disease in a nonsmoker. 5. Obesity hypoventilation syndrome. 6. Persistent atrial fibrillation. Patient had been on Coumadin. 7. Essential hypertension. 8. Hyperlipidemia. 9. Mild cognitive impairment from Alzheimer's dementia, late-onset type. 10.Primary osteoarthritis in multiple joints, bilateral. PLAN: Continue current medication and treatment plan. Continue with IV fluids. milk house worker is looking into placement. Repeat labs in the morning. MMODL / IJN: [id number] /
[2018-06-11 07:54] LABS: Basophils % (A) 0 %; Eosinophils # (A) 0.3 k/uL (0-0.7); Eosinophils % (A) 3 %; HCT 29.6 % (34.0-46.0); Hypochromasia Moderate; Lymphocytes # (A) 1.9 k/uL (1.0-4.8); Lymphocytes % (A) 18 %; MCH 30.2 pg (25.0-35.0); MCHC 30.6 g/dL (31.0-37.0); MCV 98.8 fL (80.0-100.0); Macrocytosis Slight; Mean Platelet Volume 8.4; Monocytes # (A) 0.9 k/uL (0-1.0); Monocytes % (A) 8 %; Neutrophils # (A) 7.1 k/uL (1.3-7.7); Neutrophils % (A) 68 %; Platelet Count 201 k/uL (150-450); RBC 2.99 m/uL (3.80-5.40); RDW 14.8 % (11.5-15.5); WBC 10.4 k/uL (3.8-10.6)
[2018-06-11] MEDS: IPRATROPIUM 0.5 MG/2.5 ML NEBU INHALATION SCH ×4 (07:55→20:04)
[2018-06-11 08:34] LABS: Calcium 9.2 mg/dL (8.4-10.2)
[2018-06-11 08:38] LABS: Potassium 5.4 mmol/L (3.5-5.1)
[2018-06-11] MEDS: DONEPEZIL 10 MG TAB PO SCH (08:39)
[2018-06-11] MEDS: TOPIRAMATE 25 MG TAB PO SCH ×2 (08:39→22:42)
[2018-06-11] MEDS: DULoxetine HCL 30 MG CAPSULE.DR PO SCH (08:39)
[2018-06-11] MEDS: METHOCARBAMOL 750 MG TAB PO SCH ×2 (08:39→22:42)
[2018-06-11] MEDS: FERROUS SULFATE 325 MG TAB PO SCH (08:39)
[2018-06-11] MEDS: GABAPENTIN 100 MG CAP PO SCH ×3 (08:39→22:42)
[2018-06-11] MEDS: MAGNESIUM OXIDE 400 MG TAB PO SCH (08:40)
[2018-06-11] MEDS: MORPHINE SULFATE 2 MG/ML SYRINGE IV PRN ×2 (08:40→17:49)
[2018-06-11] MEDS: PANTOPRAZOLE 40 MG TABLET PO SCH (08:40)
[2018-06-11] MEDS: ONDANSETRON 4 MG/2 ML VIAL IVP PRN ×2 (08:47→17:54)
--- NOTE | 2018-06-11 09:57 | P.CNOR ---
History of Present Illness - [facility] Consult date: 06/11/18 Consult reason: fracture (Left humerus fracture) History of present illness: This is a 77-year-old female who fell in her home, sustaining injury to her left humerus. On exam and x-ray in the emergency department she was found to have a displaced midshaft humerus fracture as well as a nondisplaced articular surface fracture of the proximal humerus. She is admitted to internal medicine. We are consulted for orthopedic evaluation. Past Medical History Past Medical History: Atrial Fibrillation, COPD, CVA/TIA, Dementia, Diabetes Mellitus, Fibromyalgia, Hyperlipidemia, Hypertension, Osteoarthritis (OA), Rheumatoid Arthritis (RA) Additional Past Medical History / Comment(s): diet controled diabetic, Fibromyalgia. polynephritis 2015,uti,djd, tremors, 06-07-18 fall from w/c -lt humeral fx/sling History of Any Multi-Drug Resistant Organisms: None Reported Past Surgical History: Appendectomy, Bladder Surgery, Cholecystectomy, Joint Replacement, Orthopedic Surgery, Tubal Ligation Additional Past Surgical History / Comment(s): carpal tunnel BL, bilateral knee surgery, bilateral thumbs reattached, stomach surgery/stapling for weight loss Past Anesthesia/Blood Transfusion Reactions: No Reported Reaction Smoking Status: Never smoker - Past Family History Father Family Medical History: Cancer Additional Family Medical History / Comment(s): leukemia Mother Family Medical History: Cancer Additional Family Medical History / Comment(s): lung ca Medications and Allergies Home Medications Medication Instructions Recorded Confirmed Type DULoxetine HCL [Cymbalta] 30 mg PO DAILY 04/28/15 06/09/18 History Donepezil [Aricept] 10 mg PO DAILY 04/28/15 06/09/18 History Pantoprazole Sodium 40 mg PO DAILY 04/28/15 06/09/18 History Topiramate 50 mg PO BID 10/03/15 06/09/18 History Gabapentin 300 mg PO QID 03/13/17 06/09/18 History Methocarbamol 750 mg PO BID 03/13/17 06/09/18 History Umeclidinium [place] [Incruse 1 puff INHALATION RT-BID 03/13/17 06/09/18 History Ellipta] Lovastatin [Mevacor] 40 mg PO HS 03/20/17 06/09/18 History Enalapril [Vasotec] 2.5 mg PO DAILY 06/07/18 06/09/18 History Ferrous Sulfate [Feosol] 325 mg PO DAILY 06/07/18 06/09/18 History Furosemide [Lasix] 40 mg PO BID 06/07/18 06/09/18 History Magnesium Oxide [Mag-Ox] 400 mg PO DAILY 06/07/18 06/09/18 History Pentoxifylline 400 mg PO HS 06/07/18 06/09/18 History Polyethylene Glycol 3350 [Miralax] 17 gm PO DAILY 06/07/18 06/09/18 History Potassium Chloride ER [K-Dur 20] 20 meq PO DAILY 06/07/18 06/09/18 History Spironolactone [Aldactone] 25 mg PO DAILY 06/07/18 06/09/18 History oxyCODONE-APAP 10-325MG [Percocet 1 tab PO 5XD PRN 06/09/18 06/09/18 History 10-325 mg] Allergies Allergy/AdvReac Type Severity Reaction Status Date / Time latex Allergy Unknown Verified 06/09/18 16:31 nitrofurantoin Allergy Unknown Verified 06/09/18 16:31 [From Macrobid] nitrofurantoin Allergy Unknown Verified 06/09/18 16:31 macrocrystalline [From Macrobid] Sulfa (Sulfonamide Allergy Unknown Verified 06/09/18 16:31 Antibiotics) Physical Examination This is a pleasant 77-year-old obese female in no acute distress. She is alert and oriented 3. Exam of the head neck reveal no obvious deformity. She has full cervical spine motion without difficulty or pain. Exam of the upper extremities reveals a sling in place to the left arm. Sling is removed. Her skin is intact. There is no erythema or ecchymosis. There is pain with any motion of the left arm. She has full finger motion without difficulty or pain. Neurovascular status to the upper extremities is intact. No obvious injury to the right upper extremity. Exam the lower extremities reveals no obvious deformity. She is able to move both legs independently in bed. She has full foot and ankle motion bilaterally. Neurovascular status to the lower extremities is intact. Results X-rays of the left shoulder and humerus reveal a displaced oblique fracture of the midshaft humerus. There is also an articular surface fracture noted to the proximal humerus. - Labs Labs: Abnormal Lab Results - Last 24 Hours (Table) 06/11/18 06/11/18 Range/Units 07:09 07:09 RBC 2.99 L (3.80-5.40) m/uL Hgb 9.0 L (11.4-16.0) gm/dL Hct 29.6 L (34.0-46.0) % MCHC 30.6 L (31.0-37.0) g/dL Potassium 5.4 H (3.5-5.1) mmol/L Carbon Dioxide 36 H (22-30) mmol/L BUN 31 H (7-17) mg/dL Glucose 112 H (74-99) mg/dL H & H 18 06/11/18 Range/Units 15:54 07:09 Hgb 9.6 L 9.0 L (11.4-16.0) gm/dL Hct 31.8 L 29.6 L (34.0-46.0) % Coagulation 06/09/18 Range/Units 15:54 INR 1.1 (<1.2) Result Diagrams: 06/11/18 07:09 06/11/18 07:09 Assessment and Plan (1) Obesity Current Visit: Yes Status: Acute Code(s): E66.9 - OBESITY, UNSPECIFIED SNOMED Code(s): 635549344 (2) Left humeral fracture Current Visit: Yes Status: Acute Code(s): S42.302A - UNSP FRACTURE OF SHAFT OF HUMERUS, LEFT ARM, INIT SNOMED Code(s): 02983758 Plan: The clinical and x-ray findings are discussed with the patient. She is placed in a coaptation splint with her sling. She is remain in the splint until follow -up visit. She may follow-up with Dr. Townsend. No use of the left upper extremity.
[2018-06-11] MEDS: POLYETHYLENE GLYCOL 3350 17 GM POWD.PACK PO SCH (12:04)
--- NOTE | 2018-06-11 15:06 | P.CNPUL ---
History of Present Illness Consult date: 06/11/18 Requesting physician: Santiago Esparza Reason for consult: abnormal CXR/CT, other Chief complaint: Peripheral edema, hypoxemic respiratory failure, interstitial edema History of present illness: Mrs. Ortiz is a 77-year-old white female patient of Dr. Chavez, was brought to the emergency department on 06/09/2018 at 1400, for evaluation of increasing weakness, increasing peripheral edema, and acute on chronic hypoxemic respiratory failure. Patient was seen in the emergency department on Friday on 06/07/2018 after sustaining a fall at home he was found to have left humeral fracture. Patient's left arm was placed in the splint in the sling, and patient was to follow-up with Dr. Townsend on Friday on 06/09/2018. Prior to her fall, patient was noted to have increased swelling in her abdomen, upper thighs. Patient's O2 saturation was noted to be in the low 80s on her usual 2 L per nasal cannula. Patient has underlying history of chronic kidney disease, follows with Dr. Kaplan from nephrology and and her diuretics were recently increased, and Aldactone was added to patient's medication regimen. Patient is on Lasix 40 mg twice daily, and Aldactone 25 mg daily. Other medical history includes obstructive sleep apnea, morbid obesity with a previous bariatric surgery, chronic atrial fibrillation on anticoagulation in the form of Coumadin , fibromyalgia, diabetes mellitus, hypertension, hyperlipidemia and previous history of CVA/TIA, COPD with chronic hypoxemic respiratory failure. Patient is on BiPAP therapy, with pressures 15/10, and FiO2 of 24%, and her home BiPAP unit reveals good compliance with her therapy. Patient has gait dysfunction, and she normally able to ambulate short distances within the house with the walker. On Friday, he was noted to be very weak, and she was unable to get out of her recliner. Denied any chest pain, denied any fever or chills, denied any increased congestion or sputum production. Chest x-ray was completed in the emergency department and showed elevated hemidiaphragms, low lung volumes, no pneumothorax or pleural effusion. Vital signs have been stable, afebrile. Initial blood work showed WBC of 11.1, B1 is 40, creatinine is 1.5, CO2 36, chloride is 95, CK-MB of 4.4, troponin was negative 1. Urinalysis was positive for nitrites, large amount of leukocyte esterase, many WBCs and bacteria. We are seeing the patient and regards to acute on chronic hypoxemic rest. Patient is calm and comfortable, she is back on her usual 2 L per nasal cannula, and the pulse ox is 96. Hemodynamically stable, she is afebrile. She remains in the atrial fibrillation, and the rate is 100-104 BPM. Denies any chest pain, lung sounds are positive for scattered minimal crackles at the bases , no significant chest congestion, no rhonchi, no wheezes. Review of Systems All systems: negative Constitutional: Reports weakness, Denies chills, Denies fever Eyes: denies blurred vision, denies pain Ears, nose, mouth and throat: Denies headache, Denies sore throat Cardiovascular: Reports decreased exercise tolerance, Reports dyspnea on exertion, Reports edema, Denies chest pain, Denies shortness of breath Respiratory: Reports dyspnea, Reports home oxygen, Reports sleep apnea, Denies cough Gastrointestinal: Denies abdominal pain, Denies diarrhea, Denies nausea, Denies vomiting Genitourinary: Denies dysuria, Denies hematuria Musculoskeletal: Denies myalgias Musculoskeletal: left: shoulder pain Integumentary: Denies pruritus, Denies rash Neurological: Reports gait dysfunction, Denies numbness, Denies weakness Psychiatric: Denies anxiety, Denies depression Endocrine: Denies fatigue, Denies weight change Past Medical History Past Medical History: Atrial Fibrillation, COPD, CVA/TIA, Dementia, Diabetes Mellitus, Fibromyalgia, Hyperlipidemia, Hypertension, Osteoarthritis (OA), Rheumatoid Arthritis (RA) Additional Past Medical History / Comment(s): diet controled diabetic, Fibromyalgia. polynephritis 2015,uti,djd, tremors, 8 fall from w/c -lt humeral fx/sling History of Any Multi-Drug Resistant Organisms: None Reported Past Surgical History: Appendectomy, Bladder Surgery, Cholecystectomy, Joint Replacement, Orthopedic Surgery, Tubal Ligation Additional Past Surgical History / Comment(s): carpal tunnel BL, bilateral knee surgery, bilateral thumbs reattached, stomach surgery/stapling for weight loss Past Anesthesia/Blood Transfusion Reactions: No Reported Reaction Smoking Status: Never smoker - Past Family History Father Family Medical History: Cancer Additional Family Medical History / Comment(s): leukemia Mother Family Medical History: Cancer Additional Family Medical History / Comment(s): lung ca Medications and Allergies Home Medications Medication Instructions Recorded Confirmed Type DULoxetine HCL [Cymbalta] 30 mg PO DAILY 04/28/15 06/09/18 History Donepezil [Aricept] 10 mg PO DAILY 04/28/15 06/09/18 History Pantoprazole Sodium 40 mg PO DAILY 04/28/15 06/09/18 History Topiramate 50 mg PO BID 10/03/15 06/09/18 History Gabapentin 300 mg PO QID 03/13/17 06/09/18 History Methocarbamol 750 mg PO BID 03/13/17 06/09/18 History Umeclidinium [place] [Incruse 1 puff INHALATION RT-BID 03/13/17 06/09/18 History Ellipta] Lovastatin [Mevacor] 40 mg PO HS 03/20/17 06/09/18 History Enalapril [Vasotec] 2.5 mg PO DAILY 06/07/18 06/09/18 History Ferrous Sulfate [Feosol] 325 mg PO DAILY 06/07/18 06/09/18 History Furosemide [Lasix] 40 mg PO BID 06/07/18 06/09/18 History Magnesium Oxide [Mag-Ox] 400 mg PO DAILY 06/07/18 06/09/18 History Pentoxifylline 400 mg PO HS 06/07/18 06/09/18 History Polyethylene Glycol 3350 [Miralax] 17 gm PO DAILY 06/07/18 06/09/18 History Potassium Chloride ER [K-Dur 20] 20 meq PO DAILY 06/07/18 06/09/18 History Spironolactone [Aldactone] 25 mg PO DAILY 06/07/18 06/09/18 History oxyCODONE-APAP 10-325MG [Percocet 1 tab PO 5XD PRN 06/09/18 06/09/18 History 10-325 mg] Allergies Allergy/AdvReac Type Severity Reaction Status Date / Time latex Allergy Unknown Verified 06/09/18 16:31 nitrofurantoin Allergy Unknown Verified 06/09/18 16:31 [From Macrobid] nitrofurantoin Allergy Unknown Verified 06/09/18 16:31 macrocrystalline [From Macrobid] Sulfa (Sulfonamide Allergy Unknown Verified 06/09/18 16:31 Antibiotics) Physical Exam Vitals: Vital Signs Temp Pulse Pulse Resp BP BP Pulse Ox 06/11/18 11:24 100 06/11/18 11:17 96 06/11/18 08:40 100 20 06/11/18 08:12 100 06/11/18 07:57 104 H 96 06/11/18 05:00 97.1 F L 100 20 144/70 96 06/11/18 00:00 20 06/10/18 22:47 97.0 F L 103 H 20 117/77 97 06/10/18 20:28 88 06/10/18 20:16 88 91 L 06/10/18 19:35 18 06/10/18 15:21 100 06/10/18 15:15 99 F 101 H 20 108/59 98 06/10/18 15:11 100 Intake and Output 06/10/18 06/11/18 06/11/18 22:59 06:59 14:59 Intake Total 660 590 240 Balance 660 590 240 Intake: Intake, IV Titration 300 350 Amount Sodium Chloride 0.9% 1, 300 350 000 ml @ 50 mls/hr IV . Q20H [facility] Rx#:[id number] Oral 360 240 240 Other: Voiding Method Diaper Diaper Diaper Incontinent Incontinent Incontinent # Voids 2 2 2 GENERAL EXAM: Alert, pleasant, 77-year-old obese white female, on 2 L per nasal cannula comfortable in no apparent distress. HEAD: Normocephalic/atraumatic. EYES: Normal reaction of pupils, equal size. Conjunctiva pink, sclera white. NOSE: Clear with pink turbinates. THROAT: No erythema or exudates. NECK: No masses, no JVD, no thyroid enlargement, no adenopathy. CHEST: No chest wall deformity. Symmetrical expansion. LUNGS: Equal air entry with limited crackles at the bilateral bases CVS: Irregular rate and rhythm, normal S1 and S2, no gallops, no murmurs, no rubs ABDOMEN: Soft, nontender, obese. No hepatosplenomegaly, normal bowel sounds, no guarding or rigidity. EXTREMITIES: No clubbing, no edema, no cyanosis, 2+ pulses and upper and lower extremities. MUSCULOSKELETAL: Muscle strength and tone normal. Left arm is in the day splint , and a sling, distal pulses are intact, neurovascular status is intact SPINE: No scoliosis or deformity SKIN: No rashes CENTRAL NERVOUS SYSTEM: Alert and oriented -3. No focal deficits, tone is normal in all 4 extremities. PSYCHIATRIC: Alert and oriented -3. Appropriate affect. Intact judgment and insight. Results - Laboratory Findings CBC and BMP: 06/11/18 07:09 06/11/18 07:09 PT/INR, D-dimer PT 10.4 sec (9.0-12.0) 06/09/18 15:54 INR 1.1 (<1.2) 06/09/18 15:54 Abnormal lab findings: Abnormal Labs 06/09/18 06/09/18 06/09/18 15:54 15:54 15:54 WBC 11.1 H RBC 3.27 L Hgb 9.6 L Hct 31.8 L MCHC 30.3 L Neutrophils # 8.2 H Potassium Chloride 95 L Carbon Dioxide 36 H BUN 40 H Creatinine 1.50 H Glucose 154 H Magnesium 2.8 H Total Creatine Kinase 436 H CK-MB (CK-2) 4.4 H* Total Protein 5.9 L Albumin 3.3 L Urine Appearance Urine Nitrite Ur Leukocyte Esterase Urine WBC Urine WBC Clumps Amorphous Sediment Urine Bacteria Hyaline Casts Urine Mucus 06/09/18 06/10/18 06/11/18 17:55 07:16 07:09 WBC RBC Hgb Hct MCHC Neutrophils # Potassium 5.2 H 5.4 H Chloride Carbon Dioxide 36 H 36 H BUN 38 H 31 H Creatinine 1.22 H Glucose 115 H 112 H Magnesium Total Creatine Kinase CK-MB (CK-2) Total Protein Albumin Urine Appearance Turbid H Urine Nitrite Positive H Ur Leukocyte Esterase Large H Urine WBC 155 H Urine WBC Clumps Many H Amorphous Sediment Occasional H Urine Bacteria Many H Hyaline Casts 54 H Urine Mucus Rare H 06/11/18 07:09 WBC RBC 2.99 L Hgb 9.0 L Hct 29.6 L MCHC 30.6 L Neutrophils # Potassium Chloride Carbon Dioxide BUN Creatinine Glucose Magnesium Total Creatine Kinase CK-MB (CK-2) Total Protein Albumin Urine Appearance Urine Nitrite Ur Leukocyte Esterase Urine WBC Urine WBC Clumps Amorphous Sediment Urine Bacteria Hyaline Casts Urine Mucus - Diagnostic Findings Chest x-ray: report reviewed, image reviewed Additional studies: EKG reviewed Assessment and Plan Plan: Assessment: #1. Acute on chronic hypoxemic respiratory failure, under investigation. Chest x-ray did not show evidence of pulmonary edema, low lung volumes, no acute findings #2. Recent left humerus fracture after a fall on 06/07/2018. X-ray of left humerus showed on displaced midshaft humerus fracture and a nondisplaced articular surface fracture of the proximal humerus #3. History of severe obstructive sleep apnea with baseline AHI score of 44, on BiPAP therapy with pressures of 15/10, and FiO2 of 24% #4. Obesity hypoventilation syndrome #5. COPD,stable right now #6. Chronic atrial fibrillation, on chronic anticoagulation #7. Fibromyalgia #8. Morbid obesity #9. Chronic kidney disease #10. Diabetes mellitus #11. Hypertension, hyperlipidemia #12. Gait dysfunction #13. Previous history of CVA/TIA #14. Osteoarthritis Plan: Patient is on her home dose oxygen at 2 L/m, she denies any dyspnea, her chest x -ray was reviewed, and did not show any acute findings, other than low lung volumes. Patient did wear her BiPAP unit last night, was experiencing low O2 saturations, thinks her mask may not have been on right. That reason patient was placed on the hospital BiPAP unit, and we will adjust the pressures to match her scribes pressures, with IPAP of 15, and EPAP of 10, and FiO2 of 24%. We agree with holding patient's diuretics, patient appears to be vascularly depleted, patient was given gentle IV hydration, and her renal profile is improving in response to IV fluids. We will add BNP to this morning's labs. Continue holding diuretics. Orthopedics surgery is following, her pain is under reasonable control. Monitoring labs, renal profile, electrolytes, heart rate and rhythm. We'll continue to follow I performed a history & physical examination of the patient and discussed their management with my nurse practitioner, Lexi Cronin. I reviewed the nurse practitioner's note and agree with the documented findings and plan of care. Lung sounds are positive for minimal bibasilar crackles. The findings and the impression was discussed with the patient. I attest to the documentation by the nurse practitioner. Time with Patient: Greater than 30
[2018-06-11] MEDS: SODIUM CHLORIDE 0.9% 1,000 ML IV SCH (17:54)
--- NOTE | 2018-06-11 22:20 | PN ---
PROGRESS NOTE DATE OF SERVICE: 06/11/2018 PRESENTING COMPLAINT: Difficulty walking. INTERVAL HISTORY: Patient has multiple medical problems, has a fractured left upper humerus and a partial cast placed. When I walked in, patient actually tolerating her lunch. Daughter is present. 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 No new issues. REVIEW OF SYSTEMS: Done for constitutional, cardiovascular, GI, pulmonary, musculoskeletal; relevant findings as above. CURRENT MEDICATIONS: Reviewed, include IV fluids. EXAMINATION: Afebrile, pulse 97, respirations 16, blood pressure 134/64, pulse ox 98% on 2L. GENERAL APPEARANCE: Sitting up, awake, eating lunch. EYES: Pupils equal. Conjunctivae normal. HEENT: External appearance of nose and ears normal. Oral cavity normal. NECK: Short, thick, unable to assess. RESPIRATORY: Effort increased. LUNGS: Distant breath sounds. CARDIOVASCULAR: Heart sounds muffled. No edema. ABDOMEN: Soft, nontender. Liver and spleen not palpable. PSYCHIATRY: Awake, answering questions. EXTREMITIES: Left upper arm with a cast in place. INVESTIGATIONS: White count 10.4, hemoglobin 9. Potassium 5.4, BUN 31, creatinine 0.78. ProBNP is 5140. ASSESSMENT: 1. Acute renal failure, likely prerenal, significantly improved secondary to diuretics. 2. Morbid obesity, BMI 50. 3. Left humerus fracture, now with a cast in place. 4. Chronic obstructive pulmonary disease in an ex-smoker. 5. Obesity hypoventilation syndrome. 6. Persistent atrial fibrillation. The patient is not on anticoagulation because of risk of falls. 7. Essential hypertension. 8. Hyperlipidemia. 9. 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 10.Primary osteoarthritis in multiple joints, bilateral. 11.Severe gait dysfunction. PLAN: Continue current medication and treatment plan. Will discontinue the IV fluids tonight. Looking at the patient to go to inpatient rehab. Care was discussed with daughter at the bedside. It may be correctly said that the patient is placed in a coaptation splint with a left arm sling. MMODL / IJN: [id number] /
[2018-06-11] MEDS: ATORVASTATIN 10 MG TAB PO SCH (22:42)
[2018-06-11] MEDS: PENTOXIFYLLINE 400 MG TABLET.ER PO SCH (22:42)
[2018-06-12 01:07] VITALS: RESP 20; TEMP 97.7
[2018-06-12 06:14] VITALS: BP 140/68
[2018-06-12] MEDS: IPRATROPIUM 0.5 MG/2.5 ML NEBU INHALATION SCH ×3 (07:51→16:52)
[2018-06-12] MEDS: FERROUS SULFATE 325 MG TAB PO SCH (08:00)
[2018-06-12] MEDS: GABAPENTIN 100 MG CAP PO SCH ×2 (08:00→15:48)
[2018-06-12] MEDS: MAGNESIUM OXIDE 400 MG TAB PO SCH (08:00)
[2018-06-12] MEDS: POLYETHYLENE GLYCOL 3350 17 GM POWD.PACK PO SCH (08:00)
[2018-06-12] MEDS: METHOCARBAMOL 750 MG TAB PO SCH (08:00)
[2018-06-12] MEDS: TOPIRAMATE 25 MG TAB PO SCH (08:01)
[2018-06-12] MEDS: DULoxetine HCL 30 MG CAPSULE.DR PO SCH (08:01)
[2018-06-12] MEDS: PANTOPRAZOLE 40 MG TABLET PO SCH (08:01)
[2018-06-12] MEDS: DONEPEZIL 10 MG TAB PO SCH (08:01)
[2018-06-12 08:03] LABS: Anion Gap 4 mmol/L; Blood Urea Nitrogen 20 mg/dL (7-17); Calcium 9.2 mg/dL (8.4-10.2); Carbon Dioxide 37 mmol/L (22-30); Chloride 100 mmol/L (98-107); Glucose 121 mg/dL (74-99); Potassium 4.4 mmol/L (3.5-5.1); Sodium 141 mmol/L (137-145)
--- NOTE | 2018-06-12 09:24 | P.PN ---
Subjective Progress Note Date: 06/12/18 Principal diagnosis: Left humerus fracture This is a 77 year-old female who we have been following for a left humerus fracture. She was placed in a sugar tong-type splint yesterday. She states that her arm is feeling better today. She denies numbness in her hand. The patient will most likely go to skilled rehab upon discharge. She denies fever, chills, rigors, shortness breath, chest pain, and abdominal pain. Objective - Vital Signs Vital signs: Vital Signs Temp 97.7 F 06/12/18 05:00 Pulse 100 06/12/18 08:04 Resp 20 06/12/18 08:00 BP 140/68 06/12/18 05:00 Pulse Ox 97 06/12/18 05:00 Intake & Output 06/11/18 06/12/18 06/12/18 18:59 06:59 18:59 Intake Total 240 740 Balance 240 740 Intake: Intake, IV Titration 150 Amount Sodium Chloride 0.9% 1, 150 000 ml @ 50 mls/hr IV . Q20H [facility] Rx#:[id number] Oral 240 590 Other: Voiding Method Diaper Diaper Diaper Incontinent Incontinent Incontinent # Voids 2 2 1 # Bowel Movements 1 - Exam The patient is a 77-year-old female who is in no acute distress. She is alert and oriented 3. Exam of the left upper extremity reveals a well fitting splint and sling. She is able to move her fingers and wrist. Neurological and circulatory status is intact. - Labs CBC & Chem 7: 06/11/18 07:09 06/12/18 07:17 Labs: Abnormal Lab Results - Last 24 Hours (Table) 06/12/18 Range/Units 07:17 Carbon Dioxide 37 H (22-30) mmol/L BUN 20 H (7-17) mg/dL Glucose 121 H (74-99) mg/dL Assessment and Plan (1) Left humeral fracture Current Visit: Yes Status: Acute Code(s): S42.302A - UNSP FRACTURE OF SHAFT OF HUMERUS, LEFT ARM, INIT SNOMED Code(s): 48480808 (2) Fall Current Visit: No Status: Acute Code(s): W19.XXXA - UNSPECIFIED FALL, INITIAL ENCOUNTER SNOMED Code(s): 6641774 Plan: The clinical and x-ray findings were discussed with the patient. The case was also discussed with Dr. Townsend. The patient will remain in a splint until seen in the office. Sling for comfort. She will recheck with Dr. Townsend in 1 week for re-x-ray at that time. The patient is orthopedically stable for discharge to skilled rehab when bed is available and she is medically stable.
[2018-06-12 11:17] VITALS: PULSE 100
--- NOTE | 2018-06-12 14:15 | DS ---
DISCHARGE SUMMARY DATE OF ADMISSION: 06/09/2018 DATE OF DISCHARGE: 06/12/2018 FINAL DIAGNOSES: 1. Acute renal failure prerenal from diuretics. 2. Morbid obesity, body mass index 50. 3. Left humerus fracture, now has got a coaptation splint in place. 4. Chronic obstructive pulmonary disease in an ex-smoker. 5. Obesity hypoventilation syndrome. 6. Persistent atrial fibrillation. Patient not a candidate for anticoagulation because of high risk of falls. 7. Essential hypertension. 8. Hyperlipidemia. 9. 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 10.Primary osteoarthritis of multiple joints bilateral. 11.Severe gait dysfunction, multifactorial including obesity and arthritis. HOSPITAL COURSE: This is a patient who has been having falls at home including recent fracture left upper humerus, presented and found to be in acute renal failure with a BUN of 40, creatinine of 1.5. The patient's diuretics were discontinued and creatinine did come down to 0.72. There may be some venous insufficiency, but there is no need for diuretics at this point. The patient also seen by Dr. Townsend from Orthopedics. Did have a coaptation splint. The patient is awake, tolerating a diet, feeling well. PHYSICAL EXAMINATION: On examination, temperature 97.7, pulse 102, respirations 20, blood pressure 140/68, pulse ox 97%. GENERAL APPEARANCE: Sitting up, awake. LUNGS: Distant breath sounds. CARDIOVASCULAR: Heart sounds muffled. Left arm in a coaptation splint. PSYCH: AO x3. No edema. DISCHARGE MEDICATIONS: 1. Cymbalta 30 mg a day. 2. Aricept 10 mg a day. 3. Protonix 40 mg a day. 4. Topamax 50 mg b.i.d. 5. Methocarbamol 750 mg b.i.d. 6. Incruse Ellipta 1 puff b.i.d. 7. Mevacor 40 mg at bedtime. 8. Iron 325 p.o. daily. 9. Magnesium oxide 400 mg a day. 10.Pentoxifylline 400 mg at bedtime. 11.MiraLAX 17 grams p.o. daily. 12.Neurontin 100 mg p.o. t.i.d. 13.Percocet 10 one tablet 5 times a day p.r.n. Follow up with Dr. Muniz on 06/13/2018. DISPOSITION: [facility] Follow up with Dr. Townsend in 1 week. The patient to maintain sling and splint to the left upper extremity. MMODL / IJN: [id number] /
--- NOTE | 2018-06-12 15:49 | P.PN ---
Subjective Progress Note Date: 06/12/18 Mrs. Ortiz is a 77-year-old white female patient of Dr. Chavez, was brought to the emergency department on 06/09/2018 at 1400, for evaluation of increasing weakness, increasing peripheral edema, and acute on chronic hypoxemic respiratory failure. Patient was seen in the emergency department on Friday on 06/07/2018 after sustaining a fall at home he was found to have left humeral fracture. Patient's left arm was placed in the splint in the sling, and patient was to follow-up with Dr. Townsend on Friday on 06/09/2018. Prior to her fall, patient was noted to have increased swelling in her abdomen, upper thighs. Patient's O2 saturation was noted to be in the low 80s on her usual 2 L per nasal cannula. Patient has underlying history of chronic kidney disease, follows with Dr. Kaplan from nephrology and and her diuretics were recently increased, and Aldactone was added to patient's medication regimen. Patient is on Lasix 40 mg twice daily, and Aldactone 25 mg daily. Other medical history includes obstructive sleep apnea, morbid obesity with a previous bariatric surgery, chronic atrial fibrillation on anticoagulation in the form of Coumadin , fibromyalgia, diabetes mellitus, hypertension, hyperlipidemia and previous history of CVA/TIA, COPD with chronic hypoxemic respiratory failure. Patient is on BiPAP therapy, with pressures 15/10, and FiO2 of 24%, and her home BiPAP unit reveals good compliance with her therapy. Patient has gait dysfunction, and she normally able to ambulate short distances within the house with the walker. On Friday, he was noted to be very weak, and she was unable to get out of her recliner. Denied any chest pain, denied any fever or chills, denied any increased congestion or sputum production. Chest x-ray was completed in the emergency department and showed elevated hemidiaphragms, low lung volumes, no pneumothorax or pleural effusion. Vital signs have been stable, afebrile. Initial blood work showed WBC of 11.1, B1 is 40, creatinine is 1.5, CO2 36, chloride is 95, CK-MB of 4.4, troponin was negative 1. Urinalysis was positive for nitrites, large amount of leukocyte esterase, many WBCs and bacteria. We are seeing the patient and regards to acute on chronic hypoxemic rest. Patient is calm and comfortable, she is back on her usual 2 L per nasal cannula, and the pulse ox is 96. Hemodynamically stable, she is afebrile. She remains in the atrial fibrillation, and the rate is 100-104 BPM. Denies any chest pain, lung sounds are positive for scattered minimal crackles at the bases , no significant chest congestion, no rhonchi, no wheezes. On today's evaluation of a 2017, the patient is doing well. The renal function is improved and normalized. She has no respiratory difficulties pH is utilizing the BiPAP overnight and the pressure was adjusted to a pressure of 15/ 10 cm of water. She is being followed up by orthopedic surgery regarding her left humeral fracture. She is currently wearing a splint. No chest pain. No respiratory distress. No altered mentation is no fever or chills. No other complaints otherwise for now. She is hemodynamically stable. She remains off diuretics. Objective - Vital Signs Vital signs: Vital Signs Temp 97.7 F 06/12/18 05:00 Pulse 100 06/12/18 11:16 Resp 20 06/12/18 08:00 BP 140/68 06/12/18 05:00 Pulse Ox 97 06/12/18 05:00 Intake & Output 06/11/18 06/12/18 06/12/18 18:59 06:59 18:59 Intake Total 240 740 Balance 240 740 Intake: Intake, IV Titration 150 Amount Sodium Chloride 0.9% 1, 150 000 ml @ 50 mls/hr IV . Q20H [facility] Rx#:[id number] Oral 240 590 Other: Voiding Method Diaper Diaper Diaper Incontinent Incontinent Incontinent # Voids 2 2 1 # Bowel Movements 1 - Exam GENERAL EXAM: Alert, pleasant, 77-year-old obese white female, on 2 L per nasal cannula comfortable in no apparent distress. HEAD: Normocephalic/atraumatic. EYES: Normal reaction of pupils, equal size. Conjunctiva pink, sclera white. NOSE: Clear with pink turbinates. THROAT: No erythema or exudates. NECK: No masses, no JVD, no thyroid enlargement, no adenopathy. CHEST: No chest wall deformity. Symmetrical expansion. LUNGS: Equal air entry with limited crackles at the bilateral bases CVS: Irregular rate and rhythm, normal S1 and S2, no gallops, no murmurs, no rubs ABDOMEN: Soft, nontender, obese. No hepatosplenomegaly, normal bowel sounds, no guarding or rigidity. EXTREMITIES: No clubbing, no edema, no cyanosis, 2+ pulses and upper and lower extremities. MUSCULOSKELETAL: Muscle strength and tone normal. Left arm is in the day splint , and a sling, distal pulses are intact, neurovascular status is intact SPINE: No scoliosis or deformity SKIN: No rashes CENTRAL NERVOUS SYSTEM: Alert and oriented -3. No focal deficits, tone is normal in all 4 extremities. PSYCHIATRIC: Alert and oriented -3. Appropriate affect. Intact judgment and insight. - Labs CBC & Chem 7: 06/11/18 07:09 06/12/18 07:17 Labs: Abnormal Lab Results - Last 24 Hours (Table) 06/12/18 Range/Units 07:17 Carbon Dioxide 37 H (22-30) mmol/L BUN 20 H (7-17) mg/dL Glucose 121 H (74-99) mg/dL Assessment and Plan Plan: #1. Acute on chronic hypoxemic respiratory failure, under investigation. Chest x-ray did not show evidence of pulmonary edema, low lung volumes, no acute findings. The patient is oxidation is improved and the patient is currently back to 2 L about 2 by nasal cannula. No signs of any respiratory distress. Chest x-ray was within normal. Volume status optimize and the patient was given IV fluids and her renal function is also normalized. #2. Recent left humerus fracture after a fall on 06/07/2018. X-ray of left humerus showed on displaced midshaft humerus fracture and a nondisplaced articular surface fracture of the proximal humerus #3. History of severe obstructive sleep apnea with baseline AHI score of 44, on BiPAP therapy with pressures of 15/10, on an outpatient basis #4. Obesity hypoventilation syndrome #5. COPD,stable right now #6. Chronic atrial fibrillation, on chronic anticoagulation #7. Fibromyalgia #8. Morbid obesity #9. acute kidney injury improving and the creatinine is normalized #10. Diabetes mellitus #11. Hypertension, hyperlipidemia #12. Gait dysfunction #13. Previous history of CVA/TIA #14. Osteoarthritis #15 suspected urinary tract infection, currently on no antibiotics. The UA and urine cultures need to be descended. Plan Repeat urinalysis. Repeat urine culture. Monitor renal function. Gradually introduce diuretics. Orthopedic to follow-up on the left femur fracture. Continue BiPAP therapy at the same level of pressure. Oxygenation in general is improved. We'll continue to follow.
[2018-06-12] MEDS ORDERED: HEPARIN SODIUM,PORCINE 5,000 UNIT/ML 1 ML VIAL SQ SCH (16:00)
== END 2018-06-12 17:50 | DRG 682 ==
LOC: EC 14:28 → 5MS5E 15:57
PROVIDERS: ADMIT Hospitalist; ATTEND Hospitalist
PROC: 2W3AX1Z Immobilization of Right Upper Arm using Splint (ICD-10-PCS; principal; 2018-06-09)
DX: N17.9 Acute kidney failure, unspecified (principal); J96.21 Acute and chronic respiratory failure with hypoxia; S42.391A Other fracture of shaft of right humerus, initial encounter for closed fracture; E66.2 Morbid (severe) obesity with alveolar hypoventilation; I48.1 Persistent atrial fibrillation; Z68.43 Body mass index [BMI] 50.0-59.9, adult; M06.9 Rheumatoid arthritis, unspecified; M15.9 Polyosteoarthritis, unspecified; M79.7 Fibromyalgia; N18.9 Chronic kidney disease, unspecified; T50.2X5A Adverse effect of carbonic-anhydrase inhibitors, benzothiadiazides and other diuretics, initial encounter; W05.0XXA Fall from non-moving wheelchair, initial encounter; Y92.009 Unspecified place in unspecified non-institutional (private) residence as the place of occurrence of the external cause; E11.22 Type 2 diabetes mellitus with diabetic chronic kidney disease; E78.5 Hyperlipidemia, unspecified; F02.80 Dementia in other diseases classified elsewhere, unspecified severity, without behavioral disturbance, psychotic disturbance, mood disturbance, and anxiety; G30.1 Alzheimer's disease with late onset; I12.9 Hypertensive chronic kidney disease with stage 1 through stage 4 chronic kidney disease, or unspecified chronic kidney disease; I48.2 Chronic atrial fibrillation; J44.9 Chronic obstructive pulmonary disease, unspecified; Z79.01 Long term (current) use of anticoagulants; Z79.899 Other long term (current) drug therapy; Z80.1 Family history of malignant neoplasm of trachea, bronchus and lung; Z80.6 Family history of leukemia; Z86.73 Personal history of transient ischemic attack (TIA), and cerebral infarction without residual deficits; Z87.891 Personal history of nicotine dependence; Z91.81 History of falling; Z98.84 Bariatric surgery status; R26.9 Unspecified abnormalities of gait and mobility
CPT/HCPCS: 36415; 70450; 71045; 71046; 72125; 80048; 80053; 81001; 82550; 82553; 83735; 83880; 84484; 85025; 85610; 85730; 93005; 94640; 94660; 94760; 96361; 96374; 96375; 99284; 99285

== ENCOUNTER 2018-06-25 05:33 | Inpatient (IN) | payer MEDICARE, OTHER ==
[2018-06-25] MEDS ORDERED: IPRATROPIUM-ALBUTEROL 3 ML NEB INHALATION STA (05:43)
[2018-06-25] MEDS ORDERED: methylPREDNISolone SOD SUCCI 125 MG/2 ML VIAL IV STA (05:43)
--- NOTE | 2018-06-25 05:44 | ED ---
General Adult HPI - General Chief complaint: Shortness of Breath Stated complaint: CHRIS Time Seen by Provider: 06/25/18 05:43 Source: EMS Mode of arrival: EMS Limitations: altered mental status, physical limitation - History of Present Illness Initial comments: 77-year-old female presented to the ED via EMS for evaluation of respiratory distress. Due to respiratory distress patient can answer only one word answers. When asked if she is having chest pain she says no when asked if she is having trouble breathing she says yes. When asked if this is worse than her usual she says yes. History was provided by EMS, they report that they were dispatched to a [facility] facility for evaluation of a patient in respiratory distress. They found the patient on BiPAP with an oxygen saturation of only 72-75%. They switch the patient to their CPAP machine, increased oxygen to 15 L/m in route and gave a DuoNeb. Patient's oxygen saturation increased to 80% in route. Patient's heart rate remained in the 1 teens. Patient had tachypnea and increased work of breathing. - Related Data Home Medications Medication Instructions Recorded Confirmed DULoxetine HCL [Cymbalta] 30 mg PO DAILY 04/28/15 06/09/18 Donepezil [Aricept] 10 mg PO DAILY 04/28/15 06/09/18 Pantoprazole Sodium 40 mg PO DAILY 04/28/15 06/09/18 Topiramate 50 mg PO BID 10/03/15 06/09/18 Methocarbamol 750 mg PO BID 03/13/17 06/09/18 Umeclidinium Branscomb [Incruse 1 puff INHALATION RT-BID 03/13/17 06/09/18 Ellipta] Lovastatin [Mevacor] 40 mg PO HS 03/20/17 06/09/18 Ferrous Sulfate [Iron (65 MG 325 mg PO DAILY 06/07/18 06/09/18 Elemental)] Magnesium Oxide [Mag-Ox] 400 mg PO DAILY 06/07/18 06/09/18 Pentoxifylline 400 mg PO HS 06/07/18 06/09/18 Polyethylene Glycol 3350 [Miralax] 17 gm PO DAILY 06/07/18 06/09/18 Previous Rx's Medication Instructions Recorded Gabapentin [Neurontin] 100 mg PO TID #9 cap 06/12/18 oxyCODONE-APAP 10-325MG [Percocet 1 tab PO 5XD PRN #10 tab 06/12/18 10-325 mg] Allergies Allergy/AdvReac Type Severity Reaction Status Date / Time latex Allergy Unknown Verified 06/25/18 05:43 nitrofurantoin Allergy Unknown Verified 06/25/18 05:43 [From Macrobid] nitrofurantoin Allergy Unknown Verified 06/25/18 05:43 macrocrystalline [From Macrobid] Sulfa (Sulfonamide Allergy Unknown Verified 06/25/18 05:43 Antibiotics) Review of Systems ROS Statement: Those systems with pertinent positive or pertinent negative responses have been documented in the HPI. ROS Other: All systems not noted in ROS Statement are negative. Limitations: ROS unobtainable due to patients medical condition Past Medical History Past Medical History: Atrial Fibrillation, COPD, CVA/TIA, Dementia, Diabetes Mellitus, Fibromyalgia, Hyperlipidemia, Hypertension, Osteoarthritis (OA), Rheumatoid Arthritis (RA) Additional Past Medical History / Comment(s): diet controled diabetic, Fibromyalgia. polynephritis 2014,uti,djd, tremors, 06-07-18 fall from w/c -lt humeral fx/sling History of Any Multi-Drug Resistant Organisms: None Reported Past Surgical History: Appendectomy, Bladder Surgery, Cholecystectomy, Joint Replacement, Orthopedic Surgery, Tubal Ligation Additional Past Surgical History / Comment(s): carpal tunnel BL, bilateral knee surgery, bilateral thumbs reattached, stomach surgery/stapling for weight loss Past Anesthesia/Blood Transfusion Reactions: No Reported Reaction Past Psychological History: No Psychological Hx Reported Smoking Status: Never smoker Past Alcohol Use History: None Reported Past Drug Use History: None Reported - Past Family History Father Family Medical History: Cancer Additional Family Medical History / Comment(s): leukemia Mother Family Medical History: Cancer Additional Family Medical History / Comment(s): lung ca General Exam Limitations: altered mental status, physical limitation General appearance: alert, in distress Head exam: Present: atraumatic, normocephalic Eye exam: Present: PERRL ENT exam: Present: normal external ear exam Neck exam: Absent: tenderness Respiratory exam: Present: respiratory distress, accessory muscle use, decreased breath sounds Cardiovascular Exam: Present: tachycardia, irregular rhythm GI/Abdominal exam: Present: other (obese) Extremities exam: Present: pedal edema Left General: Present: other (in cast, noted edema of fingers but cap refill <3 sec) Neurological exam: Present: alert, altered (dementia, uncertain of baseline) Psychiatric exam: Present: anxious Skin exam: Present: warm, dry Course Vital Signs 06/25/18 06/25/18 06/25/18 05:35 05:49 05:55 Temperature 98.2 F 98.3 F Pulse Rate 85 106 H 61 Respiratory 24 18 Rate Blood Pressure 207/147 201/134 O2 Sat by Pulse 80 L 100 Oximetry 06/25/18 06/25/18 06/25/18 05:56 06:05 06:15 Temperature 98.5 F 98.5 F 98.3 F Pulse Rate 100 92 96 Respiratory 18 16 15 Rate Blood Pressure 154/75 176/91 174/82 O2 Sat by Pulse 100 100 100 Oximetry 06/25/18 06/25/18 06:38 07:11 Temperature 97.9 F Pulse Rate 114 H 99 Respiratory 15 17 Rate Blood Pressure 154/81 150/95 O2 Sat by Pulse 97 99 Oximetry Medical Decision Making - Medical Decision Making Patient was seen and evaluated immediately upon arrival to the ER The patient was noted to be in respiratory distress, she had wheezing and rales Solu-Medrol, DuoNeb's, BiPAP were ordered ABG was obtained which is consistent with respiratory acidosis with hypercarbia Oxygen was decreased on the BiPAP and BiPAP settings were increased to treat the hypercarbia Labs were otherwise the patient's baseline side from elevated BNP, Lasix was ordered Chest x-ray suggestive of congestive heart failure Patient re-evalauted, improving to increase BiPAP settings. Patient able to speak somewhat while on BiPAP. Asking for her daughter. Reports feeling better. Patient care [facility] with plan for admission to the ICU for hypercapnic respiratory failure and congestive heart failure exacerbation Patient care was discussed with Dr. Whitaker who agrees with workup and admission - Lab Data Result diagrams: 06/25/18 05:45 06/25/18 05:45 Lab Results 06/25/18 06/25/18 06/25/18 Range/Units 05:40 05:45 05:45 WBC 9.2 (3.8-10.6) k/uL RBC 3.54 L (3.80-5.40) m/uL Hgb 10.3 L (11.4-16.0) gm/dL Hct 38.9 (34.0-46.0) % MCV 110.1 H (80.0-100.0) fL MCH 29.2 (25.0-35.0) pg MCHC 26.5 L (31.0-37.0) g/dL RDW 17.1 H (11.5-15.5) % Plt Count 313 (150-450) k/uL Neutrophils % (Manual) 62 % Band Neutrophils % 1 % Lymphocytes % (Manual) 16 % Monocytes % (Manual) 17 % Eosinophils % (Manual) 1 % Metamyelocytes % 3 % Neutrophils # (Manual) 5.70 (1.3-7.7) k/uL Lymphocytes # (Manual) 1.47 (1.0-4.8) k/uL Monocytes # (Manual) 1.56 H (0-1.0) k/uL Eosinophils # (Manual) 0.09 (0-0.7) k/uL Metamyelocytes # (Man) 0.28 H (0) k/uL Nucleated RBCs 0 (0-0) /100 WBC Manual Slide Review Performed Polychromasia Present Hypochromasia Marked Anisocytosis Slight Macrocytosis Marked Stomatocytes Present PT (9.0-12.0) sec INR (<1.2) APTT (22.0-30.0) sec Sample Site ABG pH (7.35-7.45) ABG pCO2 (35-45) mmHg ABG pO2 (83-108) mmHg ABG HCO3 (21-25) mmol/L ABG Total CO2 (19-24) mmol/L ABG O2 Saturation (94-97) % ABG Base Excess mmol/L Pranav Test FiO2 % Sodium (137-145) mmol/L Potassium (3.5-5.1) mmol/L Chloride (98-107) mmol/L Carbon Dioxide (22-30) mmol/L Anion Gap mmol/L BUN (7-17) mg/dL Creatinine (0.52-1.04) mg/dL Est GFR (CKD-EPI)AfAm (>60 ml/min/1.73 sqM) Est GFR (CKD-EPI)NonAf (>60 ml/min/1.73 sqM) Glucose (74-99) mg/dL POC Glucose (mg/dL) 107 H (75-99) mg/dL POC Glu Nutrition Director ID Kaylen Hardy Calcium (8.4-10.2) mg/dL Magnesium (1.6-2.3) mg/dL Total Bilirubin (0.2-1.3) mg/dL AST (14-36) U/L ALT (9-52) U/L Alkaline Phosphatase (38-126) U/L Total Creatine Kinase <20 L (30-135) U/L CK-MB (CK-2) 1.5 (0.0-2.4) ng/mL CK-MB (CK-2) Rel Index Troponin I 0.022 (0.000-0.034) ng/mL NT-Pro-B Natriuret Pep pg/mL Total Protein (6.3-8.2) g/dL Albumin (3.5-5.0) g/dL 06/25/18 06/25/18 06/25/18 Range/Units 05:45 05:45 05:45 WBC (3.8-10.6) k/uL RBC (3.80-5.40) m/uL Hgb (11.4-16.0) gm/dL Hct (34.0-46.0) % MCV (80.0-100.0) fL MCH (25.0-35.0) pg MCHC (31.0-37.0) g/dL RDW (11.5-15.5) % Plt Count (150-450) k/uL Neutrophils % (Manual) % Band Neutrophils % % Lymphocytes % (Manual) % Monocytes % (Manual) % Eosinophils % (Manual) % Metamyelocytes % % Neutrophils # (Manual) (1.3-7.7) k/uL Lymphocytes # (Manual) (1.0-4.8) k/uL Monocytes # (Manual) (0-1.0) k/uL Eosinophils # (Manual) (0-0.7) k/uL Metamyelocytes # (Man) (0) k/uL Nucleated RBCs (0-0) /100 WBC Manual Slide Review Polychromasia Hypochromasia Anisocytosis Macrocytosis Stomatocytes PT 10.5 (9.0-12.0) sec INR 1.1 (<1.2) APTT 19.6 L (22.0-30.0) sec Sample Site ABG pH (7.35-7.45) ABG pCO2 (35-45) mmHg ABG pO2 (83-108) mmHg ABG HCO3 (21-25) mmol/L ABG Total CO2 (19-24) mmol/L ABG O2 Saturation (94-97) % ABG Base Excess mmol/L Pranav Test FiO2 % Sodium 141 (137-145) mmol/L Potassium 4.7 (3.5-5.1) mmol/L Chloride 98 (98-107) mmol/L Carbon Dioxide 38 H (22-30) mmol/L Anion Gap 5 mmol/L BUN 12 (7-17) mg/dL Creatinine 0.60 (0.52-1.04) mg/dL Est GFR (CKD-EPI)AfAm >90 (>60 ml/min/1.73 sqM) Est GFR (CKD-EPI)NonAf 89 (>60 ml/min/1.73 sqM) Glucose 121 H (74-99) mg/dL POC Glucose (mg/dL) (75-99) mg/dL POC Glu Nutrition Director ID Calcium 9.5 (8.4-10.2) mg/dL Magnesium 2.1 (1.6-2.3) mg/dL Total Bilirubin 0.7 (0.2-1.3) mg/dL AST 26 (14-36) U/L ALT 32 (9-52) U/L Alkaline Phosphatase 123 (38-126) U/L Total Creatine Kinase (30-135) U/L CK-MB (CK-2) (0.0-2.4) ng/mL CK-MB (CK-2) Rel Index Troponin I (0.000-0.034) ng/mL NT-Pro-B Natriuret Pep 3140 pg/mL Total Protein 6.4 (6.3-8.2) g/dL Albumin 3.5 (3.5-5.0) g/dL 06/25/18 Range/Units 05:56 WBC (3.8-10.6) k/uL RBC (3.80-5.40) m/uL Hgb (11.4-16.0) gm/dL Hct (34.0-46.0) % MCV (80.0-100.0) fL MCH (25.0-35.0) pg MCHC (31.0-37.0) g/dL RDW (11.5-15.5) % Plt Count (150-450) k/uL Neutrophils % (Manual) % Band Neutrophils % % Lymphocytes % (Manual) % Monocytes % (Manual) % Eosinophils % (Manual) % Metamyelocytes % % Neutrophils # (Manual) (1.3-7.7) k/uL Lymphocytes # (Manual) (1.0-4.8) k/uL Monocytes # (Manual) (0-1.0) k/uL Eosinophils # (Manual) (0-0.7) k/uL Metamyelocytes # (Man) (0) k/uL Nucleated RBCs (0-0) /100 WBC Manual Slide Review Polychromasia Hypochromasia Anisocytosis Macrocytosis Stomatocytes PT (9.0-12.0) sec INR (<1.2) APTT (22.0-30.0) sec Sample Site rrad ABG pH 7.19 L* (7.35-7.45) ABG pCO2 105 H* (35-45) mmHg ABG pO2 221 H (83-108) mmHg ABG HCO3 40 H* (21-25) mmol/L ABG Total CO2 43 H (19-24) mmol/L ABG O2 Saturation 100.0 H (94-97) % ABG Base Excess 11.7 mmol/L Pranav Test Yes FiO2 75 % Sodium (137-145) mmol/L Potassium (3.5-5.1) mmol/L Chloride (98-107) mmol/L Carbon Dioxide (22-30) mmol/L Anion Gap mmol/L BUN (7-17) mg/dL Creatinine (0.52-1.04) mg/dL Est GFR (CKD-EPI)AfAm (>60 ml/min/1.73 sqM) Est GFR (CKD-EPI)NonAf (>60 ml/min/1.73 sqM) Glucose (74-99) mg/dL POC Glucose (mg/dL) (75-99) mg/dL POC Glu Nutrition Director ID Calcium (8.4-10.2) mg/dL Magnesium (1.6-2.3) mg/dL Total Bilirubin (0.2-1.3) mg/dL AST (14-36) U/L ALT (9-52) U/L Alkaline Phosphatase (38-126) U/L Total Creatine Kinase (30-135) U/L CK-MB (CK-2) (0.0-2.4) ng/mL CK-MB (CK-2) Rel Index Troponin I (0.000-0.034) ng/mL NT-Pro-B Natriuret Pep pg/mL Total Protein (6.3-8.2) g/dL Albumin (3.5-5.0) g/dL Critical Care Time Critical Care Time: Yes Total Critical Care Time: 30 Critical Care Time: Critical care time was exclusive of separately billable procedures and treating other patients and teaching time. Critical care was necessary to treat or prevent imminent or life-threatening deterioration. Critical care was time spent personally by me on the following activities: development of treatment plan with patient or surrogate, discussions with consultants, discussions with primary provider, evaluation of patient's response to treatment, examination of patient, obtaining history from patient or surrogate, ordering and performing treatments and interventions, ordering and review of laboratory studies, ordering and review of radiographic studies, pulse oximetry, re-evaluation of patient's condition and review of old charts. Disposition Clinical Impression: Congestive heart failure, Respiratory failure with hypoxia and hypercapnia, Atrial fibrillation Disposition: ADMITTED IP TO THIS [facility] Condition: Fair Referrals: Moe Muniz DO [Primary Care Provider] - 1-2 days Decision Time: 07:17
[2018-06-25 05:59] LABS: ABG Base Excess 11.7 mmol/L; ABG PO2 221 mmHg (83-108); ABG TCO2 43 mmol/L (19-24)
[2018-06-25 06:05] LABS: Anisocytosis Slight; HCT 38.9 % (34.0-46.0); HGB 10.3 gm/dL (11.4-16.0); Hypochromasia Marked; MCH 29.2 pg (25.0-35.0); MCHC 26.5 g/dL (31.0-37.0); MCV 110.1 fL (80.0-100.0); Macrocytosis Marked; Mean Platelet Volume 7.5; Platelet Count 313 k/uL (150-450); RBC 3.54 m/uL (3.80-5.40); RDW 17.1 % (11.5-15.5); WBC 9.2 k/uL (3.8-10.6)
[2018-06-25 06:11] LABS: ALT 32 U/L (9-52); AST 26 U/L (14-36); Albumin 3.5 g/dL (3.5-5.0); Alkaline Phosphatase 123 U/L (38-126); Blood Urea Nitrogen 12 mg/dL (7-17); Calcium 9.5 mg/dL (8.4-10.2); Chloride 98 mmol/L (98-107); Glucose 121 mg/dL (74-99); Magnesium 2.1 mg/dL (1.6-2.3); Potassium 4.7 mmol/L (3.5-5.1); Sodium 141 mmol/L (137-145); Total Bilirubin 0.7 mg/dL (0.2-1.3); Total Protein 6.4 g/dL (6.3-8.2)
[2018-06-25 06:13] LABS: Glucose,Whole Blood 107 mg/dL (75-99)
[2018-06-25 06:15] LABS: INR 1.1 (<1.2); Prothrombin Time 10.5 sec (9.0-12.0)
[2018-06-25 06:17] LABS: Anion Gap 5 mmol/L; Carbon Dioxide 38 mmol/L (22-30)
[2018-06-25 06:21] LABS: Partial Thromboplastin Time 19.6 sec (22.0-30.0)
[2018-06-25 06:23] LABS: Creatine Kinase <20 U/L (30-135)
[2018-06-25 06:37] LABS: Band Neutrophils % 1 %; Creatine Kinase MB 1.5 ng/mL (0.0-2.4); Eosinophils # (M) 0.09 k/uL (0-0.7); Lymphocytes # (M) 1.47 k/uL (1.0-4.8); Metamyelocytes # (M) 0.28 k/uL (0); Metamyelocytes % 3 %; Monocytes # (M) 1.56 k/uL (0-1.0); Neutrophils % (M) 62 %; Nucleated Red Blood Cells 0 /100 WBC (0-0); Total Cells Counted 200; Troponin I 0.022 ng/mL (0.000-0.034)
[2018-06-25] MEDS ORDERED: FUROSEMIDE 10 MG/ML 4 ML VIAL IV STA (06:37)
[2018-06-25 06:39] LABS: Polychromasia Present; Stomatocytes Present
--- NOTE | 2018-06-25 06:44 | XR ---
EXAMINATION TYPE: XR chest 1V portable DATE OF EXAM: 06/25/2018 COMPARISON: 06/09/2018 HISTORY: Difficulty breathing TECHNIQUE: Single frontal view of the chest is obtained. FINDINGS: There is pulmonary vascular congestion. Heart is enlarged. There is some blunting of costo phrenic angles. There are chest leads. IMPRESSION: Congestive heart failure with pleural effusions. Heart failure is worse than last exam.
[2018-06-25] MEDS ORDERED: NALOXONE 0.4 MG/ML 1 ML VIAL IV PRN (07:00)
[2018-06-25 08:53] LABS: Appearance,Urine Clear (Clear); Bacteria,Urine Many /hpf; Bilirubin,Urine Negative (Negative); Blood,Urine Trace (Negative); Color,Urine Light Yellow; Glucose,Urine (UA) Negative (Negative); Ketones,Urine Negative (Negative); Leukocyte Esterase,Urine Negative (Negative); Nitrite,Urine Positive (Negative); Protein,Urine Negative (Negative); RBC,Urine 1 /hpf (0-5); Specific Gravity,Urine 1.007 (1.001-1.035); Urobilinogen,Urine <2.0 mg/dL (<2.0); WBC,Urine <1 /hpf (0-5)
--- NOTE | 2018-06-25 13:51 | P.HPIM ---
History of Present Illness This is a 77 years old female with past medical history of COPD, CVA, dementia, atrial fibrillation, diabetes mellitus, fibromyalgia, hypertension, rheumatoid arthritis, history of renal failure, patient is an oxygen at home 2 L/m via [place], she uses BiPAP at night. she was recently discharged from [facility] for left arm fracture, with left arm is in cast. She was sent to [facility]. Patient now presents with respiratory distress. Information is taken from the skin at bedside and the documents, patient currently provides only minimal history and information. As per notes patient was found in respiratory distress with oxygen saturation down to 72-75% on BiPAP, went up with a breathing treatment and more oxygen to 8%. She reported to the emergency room. When I saw the patient she was lying in bed with machine in a Place, Vitas looks stable and oxygen saturating at 95%. Asked the patient if she has an pain she snouts and says yes and auscultation. She has chest pain she says is. Patient labs shows unremarkable CMP except for high bicarb at 38, CBC showing anemia with hemoglobin 10.3. INR 1.1. PH 7.19, high pCO2 105, and pO2 is 221. Chest x- ray shows congestive heart failure with pleural effusions, and is getting worse. Patient already got 40 mg of IV Lasix and Solu-Medrol 125 mg IV. As per son at bedside Mr. Sanchez, who states he is her legal guardian she is DO NOT RESUSCITATE/DO NOT INTUBATE, we asked the patient's knee and her son through her BiPAP machine she understood and she stated she doesn't want to be resuscitated when as per the son, and she doesn't want to be intubated. Over the son who is the legal guardian confirms to me she is DO NOT RESUSCITATE, DO NOT INTUBATE paste even on her previous wishes known to him. Discussed with nurse at bedside [she says she has previous signed papers she's full code]. Patient was on eliquis at home Review of Systems n/a hard to get Past Medical History Past Medical History: Atrial Fibrillation, COPD, CVA/TIA, Dementia, Diabetes Mellitus, Fibromyalgia, Hyperlipidemia, Hypertension, Osteoarthritis (OA), Rheumatoid Arthritis (RA) Additional Past Medical History / Comment(s): Pt recently admitted to [facility] on 06/09/18 with acute renal failure, L humerus fracture (fell out of wheelchair), hypoventilating syndrome, obesity. Other hx: Pt wears oxygen at 2L/NC during the day and bipap at night, L arm is casted and pt to be at 45-90 degree angle with L arm down at side, severe gait dysfunction, diabetes-diet controlled , arthritis in multiple joints bilaterally, tremors, pyelonephritis in 2015, UTIs, urinary incontinence. History of Any Multi-Drug Resistant Organisms: None Reported Past Surgical History: Appendectomy, Bariatric Surgery, Bladder Surgery, Cholecystectomy, Joint Replacement, Orthopedic Surgery, Tubal Ligation Additional Past Surgical History / Comment(s): Bilateral carpal tunnel releases , bilateral thumb reattachments, gastric stapling, EGD. Past Anesthesia/Blood Transfusion Reactions: No Reported Reaction Smoking Status: Never smoker - Past Family History Father Family Medical History: Cancer Additional Family Medical History / Comment(s): leukemia Mother Family Medical History: Cancer Additional Family Medical History / Comment(s): lung ca Medications and Allergies Home Medications Medication Instructions Recorded Confirmed Type DULoxetine HCL [Cymbalta] 30 mg PO DAILY 04/28/15 06/25/18 History Donepezil [Aricept] 10 mg PO DAILY 04/28/15 06/25/18 History Pantoprazole Sodium 40 mg PO DAILY@0600 04/28/15 06/25/18 History Topiramate 50 mg PO BID 10/03/15 06/25/18 History Methocarbamol 750 mg PO BID@0800,1700 03/13/17 06/25/18 History Umeclidinium [place] [Incruse 1 puff INHALATION RT-BID@0800,1700 03/13/17 History Ellipta] Lovastatin [Mevacor] 40 mg PO HS 03/20/17 06/25/18 History Ferrous Sulfate [Iron (65 MG 325 mg PO DAILY@169906/07/18 06/25/18 History Elemental)] Magnesium Oxide [Mag-Ox] 400 mg PO DAILY@169906/07/18 06/25/18 History Pentoxifylline 400 mg PO HS 06/07/18 06/25/18 History Polyethylene Glycol 3350 [Miralax] 17 gm PO DAILY 06/07/18 06/25/18 History Gabapentin [Neurontin] 100 mg PO TID #9 cap 06/12/18 06/25/18 Rx oxyCODONE-APAP 10-325MG [Percocet 1 tab PO 5XD PRN #10 tab 06/12/18 06/25/18 Rx 10-325 mg] Apixaban [Eliquis] 5 mg PO DAILY 06/25/18 06/25/18 History Bisacodyl [Dulcolax] 10 mg RECTAL DAILY PRN 06/25/18 06/25/18 History Menthol/Zinc Oxide [Calmoseptine 1 applic TOPICAL BID 06/25/18 06/25/18 History Ointment] Na Phos,M-B/Na Phos,Di-Ba [Fleet 133 ml RECTAL DAILY PRN 06/25/18 06/25/18 History Adult] Talc-Zinc Oxide Powder 81-15% 1 applic TOPICAL BID 06/25/18 06/25/18 History Allergies Allergy/AdvReac Type Severity Reaction Status Date / Time latex Allergy Unknown Verified 06/25/18 07:34 nitrofurantoin Allergy Unknown Verified 06/25/18 07:34 [From Macrobid] nitrofurantoin Allergy Unknown Verified 06/25/18 07:34 macrocrystalline [From Macrobid] Sulfa (Sulfonamide Allergy Unknown Verified 06/25/18 07:34 Antibiotics) Physical Exam Vitals: Vital Signs Temp Pulse Resp BP Pulse Ox 06/25/18 12:00 92 16 108/79 95 06/25/18 11:00 86 20 161/75 92 L 06/25/18 10:00 96 18 158/84 95 06/25/18 09:00 92 16 154/88 97 06/25/18 08:00 97.7 F 93 16 154/92 96 06/25/18 07:11 99 17 150/95 99 06/25/18 06:38 97.9 F 114 H 15 154/81 97 06/25/18 06:15 98.3 F 96 15 174/82 100 06/25/18 06:05 98.5 F 92 16 176/91 100 06/25/18 05:56 98.5 F 100 18 154/75 100 06/25/18 05:55 61 06/25/18 05:49 98.3 F 106 H 18 201/134 100 06/25/18 05:35 98.2 F 85 24 207/147 80 L Intake and Output 06/24/18 06/25/18 06/25/18 22:59 06:59 14:59 Other: Weight 135.624 kg GENERAL: The patient is alert and oriented not in any acute distress. She has BiPAP machine around her face. She is awake and answers simple questions like yes, no. Morbidly obese HEENT: Pupils are round and equally reacting to light. EOMI. No scleral icterus. No conjunctival pallor. Normocephalic, atraumatic. No pharyngeal erythema. No thyromegaly. CARDIOVASCULAR: S1 and S2 present. No murmurs, rubs, or gallops. PULMONARY: Chest is clear to auscultation, bilateral scatterred wheezing. ABDOMEN: Soft, nontender, nondistended, normoactive bowel sounds. No palpable organomegaly. MUSCULOSKELETAL: No joint swelling or deformity. EXTREMITIES: No cyanosis, clubbing, or pedal edema. NEUROLOGICAL: Gross neurological examination did not reveal any focal deficits. SKIN: No rashes. Results CBC & Chem 7: 06/25/18 05:45 06/25/18 05:45 Labs: Abnormal Lab Results - Last 24 Hours (Table) 06/25/18 06/25/18 06/25/18 Range/Units 05:40 05:45 05:45 RBC 3.54 L (3.80-5.40) m/uL Hgb 10.3 L (11.4-16.0) gm/dL MCV 110.1 H (80.0-100.0) fL MCHC 26.5 L (31.0-37.0) g/dL RDW 17.1 H (11.5-15.5) % Monocytes # (Manual) 1.56 H (0-1.0) k/uL Metamyelocytes # (Man) 0.28 H (0) k/uL APTT (22.0-30.0) sec ABG pH (7.35-7.45) ABG pCO2 (35-45) mmHg ABG pO2 (83-108) mmHg ABG HCO3 (21-25) mmol/L ABG Total CO2 (19-24) mmol/L ABG O2 Saturation (94-97) % Carbon Dioxide (22-30) mmol/L Glucose (74-99) mg/dL POC Glucose (mg/dL) 107 H (75-99) mg/dL Total Creatine Kinase <20 L (30-135) U/L Urine Blood (Negative) Urine Nitrite (Negative) Urine Bacteria (None) /hpf 06/25/18 06/25/18 06/25/18 Range/Units 05:45 05:45 05:56 RBC (3.80-5.40) m/uL Hgb (11.4-16.0) gm/dL MCV (80.0-100.0) fL MCHC (31.0-37.0) g/dL RDW (11.5-15.5) % Monocytes # (Manual) (0-1.0) k/uL Metamyelocytes # (Man) (0) k/uL APTT 19.6 L (22.0-30.0) sec ABG pH 7.19 L* (7.35-7.45) ABG pCO2 105 H* (35-45) mmHg ABG pO2 221 H (83-108) mmHg ABG HCO3 40 H* (21-25) mmol/L ABG Total CO2 43 H (19-24) mmol/L ABG O2 Saturation 100.0 H (94-97) % Carbon Dioxide 38 H (22-30) mmol/L Glucose 121 H (74-99) mg/dL POC Glucose (mg/dL) (75-99) mg/dL Total Creatine Kinase (30-135) U/L Urine Blood (Negative) Urine Nitrite (Negative) Urine Bacteria (None) /hpf 06/25/18 Range/Units 08:23 RBC (3.80-5.40) m/uL Hgb (11.4-16.0) gm/dL MCV (80.0-100.0) fL MCHC (31.0-37.0) g/dL RDW (11.5-15.5) % Monocytes # (Manual) (0-1.0) k/uL Metamyelocytes # (Man) (0) k/uL APTT (22.0-30.0) sec ABG pH (7.35-7.45) ABG pCO2 (35-45) mmHg ABG pO2 (83-108) mmHg ABG HCO3 (21-25) mmol/L ABG Total CO2 (19-24) mmol/L ABG O2 Saturation (94-97) % Carbon Dioxide (22-30) mmol/L Glucose (74-99) mg/dL POC Glucose (mg/dL) (75-99) mg/dL Total Creatine Kinase (30-135) U/L Urine Blood Trace H (Negative) Urine Nitrite Positive H (Negative) Urine Bacteria Many H (None) /hpf Thrombosis Risk Factor Assmnt - Choose All That Apply Any of the Below Risk Factors Present?: Yes Each Factor Represents 1 point: Abnormal pulmonary function (COPD), Heart failure (<1month), Medical pt on bed rest, Obesity (BMI >25), Serious lung disease incl. pneumonia (< 1month) Other Risk Factors: Yes Other congenital or acquired thrombophilia - If yes, enter type in comment: No Thrombosis Risk Factor Assessment Total Risk Factor Score: 5 Thrombosis Risk Factor Assessment Level: High Risk Assessment and Plan Assessment: Acute hypoxic Respiratory failure Acute congestive heart failure, check echo Acute COPD exacerbation, patient is an oxygen at home 2 L/m via [place], sleep spnes on BiPAP at night CVA dementia atrial fibrillation diabetes mellitus h/o fibromyalgia essential hypertension h/o rheumatoid arthritis history of renal failure, Plan: This is a 77 years old female with multiple comorbidity presents in acute respiratory distress needing urgent BiPAP and resuscitation and critical situation. Continue with same treatment. Continue symptomatic treatment. Admitted the patient to the intensive care unit. With pulmonary/medicaid eligibility specialist and cardiology consult. Resume all modification. Continue with diuretics. Continue with steroids, breathing treatments. Continue with BiPAP/ CPAP machine if needed When necessary. GI and DVT Prophylaxis. Further recommendations based on the clinical course of the patient's. DVT prophylaxis: Subcutaneous heparin line GI prophylaxis Pepcid Prognosis is guarded CODE STATUS: Discussed with patient, as well as his son who is her legal guardian [past. Papers) She is no code, she is DO NOT RESUSCITATE DO NOT INTUBATE Discussed with the staff
[2018-06-25 14:08] LABS: ABG Base Excess 12.7 mmol/L; ABG Oxygen Saturation 97.9 % (94-97); ABG PH 7.27 (7.35-7.45); ABG PO2 102 mmHg (83-108)
[2018-06-25] MEDS: FUROSEMIDE 10 MG/ML 4 ML VIAL IV SCH (14:15)
[2018-06-25 14:32] LABS: INR 1.1 (<1.2); Prothrombin Time 10.4 sec (9.0-12.0)
[2018-06-25 14:34] LABS: ABG PCO2 94 mmHg (35-45)
[2018-06-25 14:35] LABS: ABG HCO3 42 mmol/L (21-25)
[2018-06-25 14:40] LABS: Glucose,Whole Blood 133 mg/dL (75-99)
--- NOTE | 2018-06-25 15:56 | P.CNPUL ---
History of Present Illness Consult date: 06/25/18 Chief complaint: Altered mentation, acute on chronic hypercapnic respiratory failure History of present illness: 77-year-old female patient is known to me from previous hospitalization. She is morbidly obese and she has obstructive sleep apnea/breast hypoventilation syndrome with chronic hypoxic and hypercapnic respiratory failure maintained on a BiPAP and monitor with [place]. The patient was recently hospitalized at [facility] for a left arm fracture and she has her left upper extremity in a cast. Subsequently she was sent to [facility] for further rehabilitation. She was still feeling weak. She never got to the point where she was emanating or walking. She was able to eat and communicate and talk yet she was essentially sedentary and bedbound. Today the patient was found to be unresponsive by the staff at [facility]. According to the records, the patient was found to be in respiratory distress and oxygenation saturation was in the low 70s while on the BiPAP. The patient was very much lethargic and unresponsive. At that point it was decided to move this patient to the emergency department at [facility]. The initial blood gas showed a pH of 7.19 pCO2 of 105 and pO2 of 221. The exact BiPAP setting for this blood gases is not known to be at this point. Subsequently the BiPAP setting was adjusted and the patient was placed on a BiPAP of 16/8 with an FiO2 of 40%. She was also given a dose of Lasix knowing that the chest x-ray shows small lung volumes and there was a concern for pulmonary vessel congestion/ edema. The patient had some increased edema lower extremity is bilaterally. She was taken Lasix on outpatient basis. At a time of my arrival to the emergency department, the patient was awake and arousable and she was communicating. She denies having any chest pain or shortness of breath. She was synchronous with the BiPAP and she was able to tolerated well without any major difficulties. I suggested to repeat the blood gases and a repeat level showed improvement and acid base status with a pH of 7.27 and a pCO2 of 94 and pO2 of 102 and I dropped FiO2 down to 35%. She is hemodynamically stable. She is afebrile. Rest of the blood work is all within normal limits. She has chronic metabolic alkalosis which is compensatory to her chronic hypercapnic respiratory failure. UA is negative. No leukocytosis. Cardiac enzymes are all within normal limits. The BNP level is slightly elevated. She has produced more than a liter of urine output with a dose of Lasix and was given to her in the emergency department. Note that the son was at the bedside and he stated that he is having legal guardian and he does not want any active resuscitation and he declared DO NOT RESUSCITATE per DO NOT INTUBATE CODE STATUS on this patient. Note that the patient was also added to [facility] on 06/11/2018 after she sustained a fall at home and she was found to have a left humeral fracture. A sling was applied to the left upper extremity after being seen by orthopedic surgery. Review of Systems All systems: Patient is morbidly obese. Unable to accurately communicated this point in time as the patient is currently on a BiPAP for respiratory support. Constitutional: Reports weakness, Denies chills, Denies fever Eyes: denies blurred vision, denies pain Ears, nose, mouth and throat: Denies headache, Denies sore throat Cardiovascular: Reports decreased exercise tolerance, Reports dyspnea, Reports edema, Denies chest pain, Denies shortness of breath Respiratory: Reports dyspnea, Reports home oxygen, Reports sleep apnea, Denies cough Gastrointestinal: Denies abdominal pain, Denies diarrhea, Denies nausea, Denies vomiting Genitourinary: Denies dysuria, Denies hematuria Musculoskeletal: Denies myalgias Musculoskeletal: left: shoulder pain Integumentary: Denies pruritus, Denies rash Neurological: Reports gait dysfunction, Denies numbness, Denies weakness Psychiatric: Denies anxiety, Denies depression Endocrine: Denies fatigue, Denies weight change Past Medical History Past Medical History: Atrial Fibrillation, COPD, CVA/TIA, Dementia, Diabetes Mellitus, Fibromyalgia, Hyperlipidemia, Hypertension, Osteoarthritis (OA), Rheumatoid Arthritis (RA) Additional Past Medical History / Comment(s): Pt recently admitted to [facility] on 06/09/18 with acute renal failure, L humerus fracture (fell out of wheelchair), hypoventilating syndrome, obesity. Other hx: Pt wears oxygen at 2L/NC during the day and bipap at night, L arm is casted and pt to be at 45-90 degree angle with L arm down at side, severe gait dysfunction, diabetes-diet controlled , arthritis in multiple joints bilaterally, tremors, pyelonephritis in 2014, UTIs, urinary incontinence. History of Any Multi-Drug Resistant Organisms: None Reported Past Surgical History: Appendectomy, Bariatric Surgery, Bladder Surgery, Cholecystectomy, Joint Replacement, Orthopedic Surgery, Tubal Ligation Additional Past Surgical History / Comment(s): Bilateral carpal tunnel releases , bilateral thumb reattachments, gastric stapling, EGD. Past Anesthesia/Blood Transfusion Reactions: No Reported Reaction Smoking Status: Never smoker - Past Family History Father Family Medical History: Cancer Additional Family Medical History / Comment(s): leukemia Mother Family Medical History: Cancer Additional Family Medical History / Comment(s): lung ca Medications and Allergies Home Medications Medication Instructions Recorded Confirmed Type DULoxetine HCL [Cymbalta] 30 mg PO DAILY 04/28/15 06/25/18 History Donepezil [Aricept] 10 mg PO DAILY 04/28/15 06/25/18 History Pantoprazole Sodium 40 mg PO DAILY@0600 04/28/15 06/25/18 History Topiramate 50 mg PO BID 10/03/15 06/25/18 History Methocarbamol 750 mg PO BID@0800,1700 03/13/17 06/25/18 History Umeclidinium [place] [Incruse 1 puff INHALATION RT-BID@0800,1700 03/13/17 History Ellipta] Lovastatin [Mevacor] 40 mg PO HS 03/20/17 06/25/18 History Ferrous Sulfate [Iron (65 MG 325 mg PO DAILY@1700 06/07/18 06/25/18 History Elemental)] Magnesium Oxide [Mag-Ox] 400 mg PO DAILY@1700 06/07/18 06/25/18 History Pentoxifylline 400 mg PO HS 06/07/18 06/25/18 History Polyethylene Glycol 3350 [Miralax] 17 gm PO DAILY 06/07/18 06/25/18 History Gabapentin [Neurontin] 100 mg PO TID #9 cap 06/12/18 06/25/18 Rx oxyCODONE-APAP 10-325MG [Percocet 1 tab PO 5XD PRN #10 tab 06/12/18 06/25/18 Rx 10-325 mg] Apixaban [Eliquis] 5 mg PO DAILY 06/25/18 06/25/18 History Bisacodyl [Dulcolax] 10 mg RECTAL DAILY PRN 06/25/18 06/25/18 History Menthol/Zinc Oxide [Calmoseptine 1 applic TOPICAL BID 06/25/18 06/25/18 History Ointment] Na Phos,M-B/Na Phos,Di-Ba [Fleet 133 ml RECTAL DAILY PRN 06/25/18 06/25/18 History Adult] Talc-Zinc Oxide Powder 81-15% 1 applic TOPICAL BID 06/25/18 06/25/18 History Allergies Allergy/AdvReac Type Severity Reaction Status Date / Time latex Allergy Unknown Verified 06/25/18 07:34 nitrofurantoin Allergy Unknown Verified 06/25/18 07:34 [From Macrobid] nitrofurantoin Allergy Unknown Verified 06/25/18 07:34 macrocrystalline [From Macrobid] Sulfa (Sulfonamide Allergy Unknown Verified 06/25/18 07:34 Antibiotics) Physical Exam Vitals: Vital Signs Temp Pulse Resp BP Pulse Ox 06/25/18 15:00 98 19 146/80 100 06/25/18 14:38 99.9 F H 78 18 199/80 06/25/18 14:00 97.4 F L 98 16 162/76 96 06/25/18 12:00 92 16 108/79 95 06/25/18 11:00 86 20 161/75 92 L 06/25/18 10:00 96 18 158/84 95 06/25/18 09:00 92 16 154/88 97 06/25/18 08:00 97.7 F 93 16 154/92 96 06/25/18 07:11 99 17 150/95 99 06/25/18 06:38 97.9 F 114 H 15 154/81 97 06/25/18 06:15 98.3 F 96 15 174/82 100 06/25/18 06:05 98.5 F 92 16 176/91 100 06/25/18 05:56 98.5 F 100 18 154/75 100 06/25/18 05:55 61 06/25/18 05:49 98.3 F 106 H 18 201/134 100 06/25/18 05:35 98.2 F 85 24 207/147 80 L Intake and Output 06/25/18 06/25/18 06/25/18 06:59 14:59 22:59 Output Total 1400 800 Balance -1400 -800 Output: Urine 1400 800 Other: Weight 135.624 kg 144.6 kg GENERAL EXAM: Alert, pleasant, 77-year-old obese white female, not in acute respiratory distress currently on BiPAP with a full face mask and she is synchronous with the BiPAP machine at a pressure of 16/8 cm of water HEAD: Normocephalic/atraumatic. EYES: Normal reaction of pupils, equal size. Conjunctiva pink, sclera white. NOSE: Clear with pink turbinates. THROAT: No erythema or exudates. NECK: No masses, no JVD, no thyroid enlargement, no adenopathy. CHEST: No chest wall deformity. Symmetrical expansion. LUNGS: Equal air entry with limited crackles at the bilateral bases, overall breath sounds are markedly diminished in lung bases bilaterally CVS: Irregular rate and rhythm, normal S1 and S2, no gallops, no murmurs, no rubs ABDOMEN: Soft, nontender, obese. No hepatosplenomegaly, normal bowel sounds, no guarding or rigidity. EXTREMITIES: No clubbing, no edema, no cyanosis, 2+ pulses and upper and lower extremities. The patient is a cast on her left upper extremity and the patient is wearing a sling. MUSCULOSKELETAL: Muscle strength and tone normal. Left arm is in the day splint , and a sling, distal pulses are intact, neurovascular status is intact SPINE: No scoliosis or deformity SKIN: No rashes CENTRAL NERVOUS SYSTEM: Accurately her exam cannot be done yet the patient is arousable and she follows simple commands and she is moving all 4 extremities without any limitation.. PSYCHIATRIC: Cannot be done Results - Laboratory Findings CBC and BMP: 06/25/18 05:45 06/25/18 05:45 ABG ABG pH 7.27 (7.35-7.45) L 06/25/18 13:56 ABG pCO2 94 mmHg (35-45) H* 06/25/18 13:56 ABG pO2 102 mmHg (83-108) 06/25/18 13:56 ABG O2 Saturation 97.9 % (94-97) H 06/25/18 13:56 PT/INR, D-dimer PT 10.4 sec (9.0-12.0) 06/25/18 13:56 INR 1.1 (<1.2) 06/25/18 13:56 Abnormal lab findings: Abnormal Labs 06/25/18 06/25/18 06/25/18 05:40 05:45 05:45 RBC 3.54 L Hgb 10.3 L MCV 110.1 H MCHC 26.5 L RDW 17.1 H Monocytes # (Manual) 1.56 H Metamyelocytes # (Man) 0.28 H APTT ABG pH ABG pCO2 ABG pO2 ABG HCO3 ABG Total CO2 ABG O2 Saturation Carbon Dioxide Glucose POC Glucose (mg/dL) 107 H Total Creatine Kinase <20 L Urine Blood Urine Nitrite Urine Bacteria 06/25/18 06/25/18 06/25/18 05:45 05:45 05:56 RBC Hgb MCV MCHC RDW Monocytes # (Manual) Metamyelocytes # (Man) APTT 19.6 L ABG pH 7.19 L* ABG pCO2 105 H* ABG pO2 221 H ABG HCO3 40 H* ABG Total CO2 43 H ABG O2 Saturation 100.0 H Carbon Dioxide 38 H Glucose 121 H POC Glucose (mg/dL) Total Creatine Kinase Urine Blood Urine Nitrite Urine Bacteria 06/25/18 06/25/18 06/25/18 08:23 13:56 14:38 RBC Hgb MCV MCHC RDW Monocytes # (Manual) Metamyelocytes # (Man) APTT ABG pH 7.27 L ABG pCO2 94 H* ABG pO2 ABG HCO3 42 H* ABG Total CO2 ABG O2 Saturation 97.9 H Carbon Dioxide Glucose POC Glucose (mg/dL) 133 H Total Creatine Kinase Urine Blood Trace H Urine Nitrite Positive H Urine Bacteria Many H - Diagnostic Findings Chest x-ray: image reviewed Assessment and Plan Plan: Assessment 1 altered mentation secondary to an acute on chronic hypercapnic respiratory failure. This is typical of CO2 narcosis and the patient is improving while on BiPAP. 2 acute on chronic hypercapnic respiratory failure, probably due to component of fluid overload/edema, as the patient's chest x-ray showing pulmonary vessel congestion/edema and the patient is responding also to diuretics 3 morbid obesity with BMI 58.3 4 chronic hypoxic history failure 5 obstructive sleep apnea and obesity hypoventilation syndrome. Patient's baseline AHI is 44 and the patient is on the BiPAP pressure 15/10 cm of water on outpatient basis 6 COPD per history 7 chronic atrial fibrillation 8 fibromyalgia 9 left humeral fracture as the patient has a displaced midshaft humeral fracture and a nondisplaced articular surface fracture of the proximal numerous. 10 diabetes mellitus 11 hypertension 12 hyperlipidemia 13 previous history of CVA/TIA 14 osteoarthritis 15. History of UTI 16 DO NOT RESUSCITATE DO NOT INTUBATE CODE STATUS Plan We'll the patient intensive care unit. Continue same BiPAP setting per monitor the blood gases. Continue IV Lasix. Continue Eliquis. Continue DuoNeb and that seems [id number]. Resume outpatient medications. Chest x-ray was reviewed. Blood work was reviewed. Condition is critical at this point has a DNR/DNI CODE STATUS. We'll continue to follow. We'll establish IV access also.
[2018-06-25] MEDS: IPRATROPIUM-ALBUTEROL 3 ML NEB INHALATION SCH ×2 (16:04→18:46)
[2018-06-25] MEDS: GABAPENTIN 100 MG CAP PO SCH ×2 (16:55→22:35)
[2018-06-25] MEDS: MAGNESIUM OXIDE 400 MG TAB PO SCH (16:55)
[2018-06-25] MEDS: FERROUS SULFATE 325 MG TAB PO SCH (16:55)
[2018-06-25] MEDS: MENTHOL-ZINC OXIDE OINT 113 GM TUBE TOPICAL SCH (20:09)
[2018-06-25] MEDS: ZINC OXIDE-CORN STARCH 142 GM POWDER TOPICAL SCH (20:09)
[2018-06-25] MEDS: oxyCODONE-APAP 10-325MG 1 EACH TAB PO PRN (20:11)
[2018-06-25] MEDS: ATORVASTATIN 10 MG TAB PO SCH (20:11)
[2018-06-25] MEDS: PENTOXIFYLLINE 400 MG TABLET.ER PO SCH (20:12)
[2018-06-25] MEDS: TOPIRAMATE 25 MG TAB PO SCH (20:12)
[2018-06-25] MEDS ORDERED: HEPARIN SODIUM,PORCINE 5,000 UNIT/ML 1 ML VIAL SQ SCH (21:00)
[2018-06-25] MEDS ORDERED: FAMOTIDINE 20 MG/2 ML VIAL IV SCH (21:00)
[2018-06-26] MEDS: oxyCODONE-APAP 10-325MG 1 EACH TAB PO PRN ×3 (03:30→20:25)
[2018-06-26 05:04] LABS: Anisocytosis Slight; Basophils % (A) 0 %; Eosinophils # (A) 0.1 k/uL (0-0.7); Eosinophils % (A) 2 %; HCT 34.3 % (34.0-46.0); HGB 9.8 gm/dL (11.4-16.0); Hypochromasia Marked; Lymphocytes # (A) 1.3 k/uL (1.0-4.8); Lymphocytes % (A) 19 %; MCH 30.4 pg (25.0-35.0); MCHC 28.5 g/dL (31.0-37.0); MCV 106.7 fL (80.0-100.0); Macrocytosis Marked; Mean Platelet Volume 7.3; Monocytes # (A) 0.7 k/uL (0-1.0); Monocytes % (A) 10 %; Neutrophils # (A) 4.5 k/uL (1.3-7.7); Neutrophils % (A) 66 %; Platelet Count 284 k/uL (150-450); RBC 3.21 m/uL (3.80-5.40); RDW 16.9 % (11.5-15.5); WBC 6.8 k/uL (3.8-10.6)
[2018-06-26 05:21] LABS: ALT 30 U/L (9-52); AST 31 U/L (14-36); Albumin 3.1 g/dL (3.5-5.0); Alkaline Phosphatase 93 U/L (38-126); Blood Urea Nitrogen 17 mg/dL (7-17); Calcium 9.2 mg/dL (8.4-10.2); Chloride 93 mmol/L (98-107); Glucose 112 mg/dL (74-99); Magnesium 2.1 mg/dL (1.6-2.3); Phosphorus 3.1 mg/dL (2.5-4.5); Sodium 142 mmol/L (137-145); Total Bilirubin 0.6 mg/dL (0.2-1.3); Total Protein 5.8 g/dL (6.3-8.2)
[2018-06-26 05:27] LABS: Anion Gap 3 mmol/L
[2018-06-26 05:30] LABS: Carbon Dioxide 46 mmol/L (22-30); Potassium 3.7 mmol/L (3.5-5.1)
[2018-06-26] MEDS ORDERED: POTASSIUM CHLORIDE ER 20 MEQ TAB.ER PO SCH (06:00)
[2018-06-26] MEDS: PANTOPRAZOLE 40 MG TABLET PO SCH (06:46)
[2018-06-26] MEDS: IPRATROPIUM-ALBUTEROL 3 ML NEB INHALATION SCH ×4 (07:14→19:35)
--- NOTE | 2018-06-26 07:27 | XR ---
EXAMINATION TYPE: XR chest 1V portable DATE OF EXAM: 06/26/2018 CLINICAL HISTORY: Difficulty breathing progress study. TECHNIQUE: Single AP portable upright view of the chest is obtained. COMPARISON: Chest x-ray from one day earlier and older studies. FINDINGS: There is cardiomegaly with atherosclerotic and ectatic thoracic aorta. There is chronic pa renchymal change with small left pleural effusion. Central vascular congestion is felt present. No ne w suspicious focal airspace opacity or pneumothorax. Osseous structures are intact. IMPRESSION: Overall stable findings, chronic emphysematous change and cardiomegaly with small left greater than right pleural effusions and mild central vascular congestion all redemonstrated
[2018-06-26 08:29] LABS: ABG Base Excess 20.3 mmol/L; ABG Oxygen Saturation 93.2 % (94-97); ABG PH 7.34 (7.35-7.45); ABG PO2 67 mmHg (83-108); ABG TCO2 49 mmol/L (19-24)
[2018-06-26 08:32] LABS: ABG HCO3 46 mmol/L (21-25); ABG PCO2 85 mmHg (35-45)
[2018-06-26] MEDS: APIXABAN 5 MG TAB PO SCH (08:45)
[2018-06-26] MEDS: DULoxetine HCL 30 MG CAPSULE.DR PO SCH (08:45)
[2018-06-26] MEDS: MENTHOL-ZINC OXIDE OINT 113 GM TUBE TOPICAL SCH ×2 (08:46→20:24)
[2018-06-26] MEDS: DONEPEZIL 10 MG TAB PO SCH (08:46)
[2018-06-26] MEDS: ZINC OXIDE-CORN STARCH 142 GM POWDER TOPICAL SCH ×2 (08:46→20:24)
[2018-06-26] MEDS: TOPIRAMATE 25 MG TAB PO SCH ×2 (08:46→20:24)
[2018-06-26] MEDS: POLYETHYLENE GLYCOL 3350 17 GM POWD.PACK PO SCH (08:46)
[2018-06-26] MEDS: GABAPENTIN 100 MG CAP PO SCH ×3 (08:49→21:00)
[2018-06-26] MEDS: FUROSEMIDE 10 MG/ML 4 ML VIAL IV SCH ×2 (08:49→14:08)
[2018-06-26] MEDS: METOPROLOL TARTRATE 25 MG TAB PO SCH ×3 (09:39→21:00)
[2018-06-26 10:34] VITALS: BMI 57.2
--- NOTE | 2018-06-26 14:05 | P.PN ---
Subjective Progress Note Date: 06/26/18 77-year-old female patient is known to me from previous hospitalization. She is morbidly obese and she has obstructive sleep apnea/breast hypoventilation syndrome with chronic hypoxic and hypercapnic respiratory failure maintained on a BiPAP and monitor with [place]. The patient was recently hospitalized at [facility] for a left arm fracture and she has her left upper extremity in a cast. Subsequently she was sent to [facility] for further rehabilitation. She was still feeling weak. She never got to the point where she was emanating or walking. She was able to eat and communicate and talk yet she was essentially sedentary and bedbound. Today the patient was found to be unresponsive by the staff at [facility]. According to the records, the patient was found to be in respiratory distress and oxygenation saturation was in the low 70s while on the BiPAP. The patient was very much lethargic and unresponsive. At that point it was decided to move this patient to the emergency department at [facility]. The initial blood gas showed a pH of 7.19 pCO2 of 105 and pO2 of 221. The exact BiPAP setting for this blood gases is not known to be at this point. Subsequently the BiPAP setting was adjusted and the patient was placed on a BiPAP of 16/8 with an FiO2 of 40%. She was also given a dose of Lasix knowing that the chest x-ray shows small lung volumes and there was a concern for pulmonary vessel congestion/ edema. The patient had some increased edema lower extremity is bilaterally. She was taken Lasix on outpatient basis. At a time of my arrival to the emergency department, the patient was awake and arousable and she was communicating. She denies having any chest pain or shortness of breath. She was synchronous with the BiPAP and she was able to tolerated well without any major difficulties. I suggested to repeat the blood gases and a repeat level showed improvement and acid base status with a pH of 7.27 and a pCO2 of 94 and pO2 of 102 and I dropped FiO2 down to 35%. She is hemodynamically stable. She is afebrile. Rest of the blood work is all within normal limits. She has chronic metabolic alkalosis which is compensatory to her chronic hypercapnic respiratory failure. UA is negative. No leukocytosis. Cardiac enzymes are all within normal limits. The BNP level is slightly elevated. She has produced more than a liter of urine output with a dose of Lasix and was given to her in the emergency department. Note that the son was at the bedside and he stated that he is having legal guardian and he does not want any active resuscitation and he declared DO NOT RESUSCITATE per DO NOT INTUBATE CODE STATUS on this patient. Note that the patient was also added to [facility] on 06/11/2018 after she sustained a fall at home and she was found to have a left humeral fracture. A sling was applied to the left upper extremity after being seen by orthopedic surgery. On 06/26/2018 the patient is awake alert and following commands and answering questions appropriately. She got diuresed IV Lasix and she is much less short of breath and more comfortable on today's evaluation. The blood gases shows further improvement and acid base status and the pH is up to 7.34 with a pCO2 of 85 and pO2 of 67 and this was on FiO2 of 20 Zaroxolyn by nasal cannula. Noted the patient overnight spent on the BiPAP at a pressure of 16/8 with an FiO2 of 40%. She is still on IV Lasix. She is producing good urine output. Renal function is stable with a creatinine of 0.7. That fluid balance is -2 L over the past 24 hours. She is awake and alert and communicating and tolerating diet well and no aspirations. Objective - Vital Signs Vital signs: Vital Signs Temp 98.5 F 06/26/18 08:00 Pulse 86 06/26/18 11:57 Resp 23 06/26/18 09:00 BP 196/64 06/26/18 09:00 Pulse Ox 96 06/26/18 09:00 Intake & Output 06/25/18 06/26/18 06/26/18 18:59 06:59 18:59 Intake Total 200 1120 Output Total 2890 510 90 Balance -2690 610 -90 Weight 144.6 kg 141.8 kg 141.8 kg Intake: Oral 200 1120 Output: Urine 2890 510 90 Other: Voiding Method Indwelling Catheter Indwelling Catheter Indwelling Catheter - Exam GENERAL EXAM: Alert, pleasant, currently on 2 L about 2 by nasal cannula HEAD: Normocephalic/atraumatic. EYES: Normal reaction of pupils, equal size. Conjunctiva pink, sclera white. NOSE: Clear with pink turbinates. THROAT: No erythema or exudates. NECK: No masses, no JVD, no thyroid enlargement, no adenopathy. CHEST: No chest wall deformity. Symmetrical expansion. LUNGS: Equal air entry with limited crackles at the bilateral bases, overall breath sounds are markedly diminished in lung bases bilaterally CVS: Irregular rate and rhythm, normal S1 and S2, no gallops, no murmurs, no rubs ABDOMEN: Soft, nontender, obese. No hepatosplenomegaly, normal bowel sounds, no guarding or rigidity. EXTREMITIES: No clubbing, no edema, no cyanosis, 2+ pulses and upper and lower extremities. The patient is a cast on her left upper extremity and the patient is wearing a sling. MUSCULOSKELETAL: Muscle strength and tone normal. Left arm is in the day splint , and a sling, distal pulses are intact, neurovascular status is intact SPINE: No scoliosis or deformity SKIN: No rashes CENTRAL NERVOUS SYSTEM: Diffuse motor weakness without any focal neurological deficit and no cranial nerve deficit at this point in time. PSYCHIATRIC: No anxiety no depression - Labs CBC & Chem 7: 06/26/18 04:50 06/26/18 04:50 Labs: Abnormal Lab Results - Last 24 Hours (Table) 06/25/18 06/25/18 06/26/18 Range/Units 13:56 14:38 04:50 RBC 3.21 L (3.80-5.40) m/uL Hgb 9.8 L (11.4-16.0) gm/dL MCV 106.7 H (80.0-100.0) fL MCHC 28.5 L (31.0-37.0) g/dL RDW 16.9 H (11.5-15.5) % ABG pH 7.27 L (7.35-7.45) ABG pCO2 94 H* (35-45) mmHg ABG pO2 (83-108) mmHg ABG HCO3 42 H* (21-25) mmol/L ABG Total CO2 (19-24) mmol/L ABG O2 Saturation 97.9 H (94-97) % Chloride (98-107) mmol/L Carbon Dioxide (22-30) mmol/L Glucose (74-99) mg/dL POC Glucose (mg/dL) 133 H (75-99) mg/dL Total Protein (6.3-8.2) g/dL Albumin (3.5-5.0) g/dL 06/26/18 06/26/18 Range/Units 04:50 08:27 RBC (3.80-5.40) m/uL Hgb (11.4-16.0) gm/dL MCV (80.0-100.0) fL MCHC (31.0-37.0) g/dL RDW (11.5-15.5) % ABG pH 7.34 L (7.35-7.45) ABG pCO2 85 H* (35-45) mmHg ABG pO2 67 L (83-108) mmHg ABG HCO3 46 H* (21-25) mmol/L ABG Total CO2 49 H (19-24) mmol/L ABG O2 Saturation 93.2 L (94-97) % Chloride 93 L (98-107) mmol/L Carbon Dioxide 46 H* (22-30) mmol/L Glucose 112 H (74-99) mg/dL POC Glucose (mg/dL) (75-99) mg/dL Total Protein 5.8 L (6.3-8.2) g/dL Albumin 3.1 L (3.5-5.0) g/dL Assessment and Plan Plan: Assessment 1 altered mentation secondary to an acute on chronic hypercapnic respiratory failure. This is typical of CO2 narcosis and the patient is improving while on BiPAP. The patient's mentation is improved and the patient's blood gas showed improvement and acid base status and there is no evidence of ongoing CO2 narcosis. 2 acute on chronic hypercapnic respiratory failure, probably due to component of fluid overload/edema, as the patient's chest x-ray showing pulmonary vessel congestion/edema and the patient is responding also to diuretics, and the patient is negative fluid balance approximately 2 L over the past 24 hours and she remains to be on IV Lasix. 3 morbid obesity with BMI 58.3 4 chronic hypoxic history failure 5 obstructive sleep apnea and obesity hypoventilation syndrome. Patient's baseline AHI is 44 and the patient is on the BiPAP pressure 15/10 cm of water on outpatient basis 6 COPD per history 7 chronic atrial fibrillation 8 fibromyalgia 9 left humeral fracture as the patient has a displaced midshaft humeral fracture and a nondisplaced articular surface fracture of the proximal numerous. 10 diabetes mellitus 11 hypertension 12 hyperlipidemia 13 previous history of CVA/TIA 14 osteoarthritis 15. History of UTI 16 DO NOT RESUSCITATE DO NOT INTUBATE CODE STATUS Plan Reviewed today's blood gas. There is improvement and acid base status. Keep the patient off BiPAP during the day and use only at nighttime. Continue IV Lasix for 24 hours. Keep the patient is approximately by nasal cannula. Advance diet. Outpatient medication will resume. The patient can be moved to medical surgical floor with telemetry monitoring. We'll continue to follow.
[2018-06-26] MEDS: MAGNESIUM OXIDE 400 MG TAB PO SCH (17:23)
[2018-06-26] MEDS: FERROUS SULFATE 325 MG TAB PO SCH (17:23)
[2018-06-26] MEDS: ATORVASTATIN 10 MG TAB PO SCH (20:24)
[2018-06-26] MEDS: PENTOXIFYLLINE 400 MG TABLET.ER PO SCH (20:24)
[2018-06-27] MEDS: oxyCODONE-APAP 10-325MG 1 EACH TAB PO PRN ×3 (01:17→21:50)
[2018-06-27 04:31] LABS: Anisocytosis Slight; Basophils % (A) 1 %; Eosinophils # (A) 0.2 k/uL (0-0.7); Eosinophils % (A) 3 %; HCT 35.9 % (34.0-46.0); HGB 9.9 gm/dL (11.4-16.0); Hypochromasia Marked; Lymphocytes % (A) 27 %; MCH 29.9 pg (25.0-35.0); MCHC 27.6 g/dL (31.0-37.0); MCV 108.4 fL (80.0-100.0); Macrocytosis Marked; Mean Platelet Volume 7.4; Monocytes # (A) 0.7 k/uL (0-1.0); Monocytes % (A) 10 %; Neutrophils # (A) 4.2 k/uL (1.3-7.7); Neutrophils % (A) 57 %; Platelet Count 302 k/uL (150-450); RBC 3.31 m/uL (3.80-5.40); RDW 16.8 % (11.5-15.5); WBC 7.3 k/uL (3.8-10.6)
[2018-06-27 04:48] LABS: ALT 28 U/L (9-52); AST 16 U/L (14-36); Alkaline Phosphatase 99 U/L (38-126); Blood Urea Nitrogen 16 mg/dL (7-17); Calcium 9.1 mg/dL (8.4-10.2); Chloride 88 mmol/L (98-107); Glucose 110 mg/dL (74-99); Phosphorus 2.9 mg/dL (2.5-4.5); Potassium 3.6 mmol/L (3.5-5.1); Sodium 139 mmol/L (137-145); Total Bilirubin 0.5 mg/dL (0.2-1.3); Total Protein 5.6 g/dL (6.3-8.2)
[2018-06-27 04:54] LABS: Anion Gap 3 mmol/L
[2018-06-27 05:44] LABS: Carbon Dioxide 48 mmol/L (22-30)
[2018-06-27] MEDS ORDERED: Potassium Replacement Protocol 1 EACH MISC MISCELLANE PRN (05:46)
[2018-06-27] MEDS ORDERED: POTASSIUM CHLORIDE ER 20 MEQ TAB.ER PO SCH (06:00)
[2018-06-27] MEDS: PANTOPRAZOLE 40 MG TABLET PO SCH (06:06)
[2018-06-27] MEDS: IPRATROPIUM-ALBUTEROL 3 ML NEB INHALATION SCH ×4 (08:22→20:48)
[2018-06-27] MEDS: DONEPEZIL 10 MG TAB PO SCH (08:56)
[2018-06-27] MEDS: GABAPENTIN 100 MG CAP PO SCH ×3 (08:56→22:06)
[2018-06-27] MEDS: MENTHOL-ZINC OXIDE OINT 113 GM TUBE TOPICAL SCH ×2 (08:56→21:45)
[2018-06-27] MEDS: FUROSEMIDE 10 MG/ML 4 ML VIAL IV SCH (08:56)
[2018-06-27] MEDS: DULoxetine HCL 30 MG CAPSULE.DR PO SCH (08:56)
[2018-06-27] MEDS: POLYETHYLENE GLYCOL 3350 17 GM POWD.PACK PO SCH (08:56)
[2018-06-27] MEDS: METOPROLOL TARTRATE 25 MG TAB PO SCH ×3 (08:56→22:06)
[2018-06-27] MEDS: APIXABAN 5 MG TAB PO SCH (08:56)
[2018-06-27] MEDS: ZINC OXIDE-CORN STARCH 142 GM POWDER TOPICAL SCH ×2 (08:57→21:44)
[2018-06-27] MEDS: TOPIRAMATE 25 MG TAB PO SCH ×2 (08:57→21:44)
[2018-06-27 12:32] LABS: Glucose,Whole Blood 124 mg/dL (75-99)
--- NOTE | 2018-06-27 12:35 | P.PN ---
Subjective Progress Note Date: 06/27/18 77-year-old female patient is known to me from previous hospitalization. She is morbidly obese and she has obstructive sleep apnea/breast hypoventilation syndrome with chronic hypoxic and hypercapnic respiratory failure maintained on a BiPAP and monitor with [place]. The patient was recently hospitalized at [facility] for a left arm fracture and she has her left upper extremity in a cast. Subsequently she was sent to [facility] for further rehabilitation. She was still feeling weak. She never got to the point where she was emanating or walking. She was able to eat and communicate and talk yet she was essentially sedentary and bedbound. Today the patient was found to be unresponsive by the staff at [facility]. According to the records, the patient was found to be in respiratory distress and oxygenation saturation was in the low 70s while on the BiPAP. The patient was very much lethargic and unresponsive. At that point it was decided to move this patient to the emergency department at [facility]. The initial blood gas showed a pH of 7.19 pCO2 of 105 and pO2 of 221. The exact BiPAP setting for this blood gases is not known to be at this point. Subsequently the BiPAP setting was adjusted and the patient was placed on a BiPAP of 16/8 with an FiO2 of 40%. She was also given a dose of Lasix knowing that the chest x-ray shows small lung volumes and there was a concern for pulmonary vessel congestion/ edema. The patient had some increased edema lower extremity is bilaterally. She was taken Lasix on outpatient basis. At a time of my arrival to the emergency department, the patient was awake and arousable and she was communicating. She denies having any chest pain or shortness of breath. She was synchronous with the BiPAP and she was able to tolerated well without any major difficulties. I suggested to repeat the blood gases and a repeat level showed improvement and acid base status with a pH of 7.27 and a pCO2 of 94 and pO2 of 102 and I dropped FiO2 down to 35%. She is hemodynamically stable. She is afebrile. Rest of the blood work is all within normal limits. She has chronic metabolic alkalosis which is compensatory to her chronic hypercapnic respiratory failure. UA is negative. No leukocytosis. Cardiac enzymes are all within normal limits. The BNP level is slightly elevated. She has produced more than a liter of urine output with a dose of Lasix and was given to her in the emergency department. Note that the son was at the bedside and he stated that he is having legal guardian and he does not want any active resuscitation and he declared DO NOT RESUSCITATE per DO NOT INTUBATE CODE STATUS on this patient. Note that the patient was also added to [facility] on 06/11/2018 after she sustained a fall at home and she was found to have a left humeral fracture. A sling was applied to the left upper extremity after being seen by orthopedic surgery. On 06/26/2018 the patient is awake alert and following commands and answering questions appropriately. She got diuresed IV Lasix and she is much less short of breath and more comfortable on today's evaluation. The blood gases shows further improvement and acid base status and the pH is up to 7.34 with a pCO2 of 85 and pO2 of 67 and this was on FiO2 of 20 Zaroxolyn by nasal cannula. Noted the patient overnight spent on the BiPAP at a pressure of 16/8 with an FiO2 of 40%. She is still on IV Lasix. She is producing good urine output. Renal function is stable with a creatinine of 0.7. That fluid balance is -2 L over the past 24 hours. She is awake and alert and communicating and tolerating diet well and no aspirations. On 06/27/2018 I'm seeing this patient for a follow-up. She is doing extremely well. She diuresed another 4 L and the patient is a negative fluid balance. No signs of any ongoing significant fluid overload. Pulmonary status is stable. No cough sputum production chest tightness or wheezing. Resting comfortably in bed. Using the BiPAP overnight. No angina. No aspiration. No fever. No chills. No other significant events overnight. The patient was switched to oral Lasix and the patient will be transferred out of the intensive care unit today. Objective - Vital Signs Vital signs: Vital Signs Temp 98.8 F 06/26/18 20:00 Pulse 80 06/27/18 12:19 Resp 16 06/27/18 08:00 BP 163/64 06/27/18 07:00 Pulse Ox 95 06/27/18 07:00 Intake & Output 06/26/18 06/27/18 06/27/18 18:59 06:59 18:59 Output Total 1949 2124 Balance -1949 Weight 141.8 kg 141.8 kg Output: Urine 1949 2124 Other: Voiding Method Indwelling Catheter Indwelling Catheter Indwelling Catheter # Bowel Movements 1 - Exam GENERAL EXAM: Alert, pleasant, currently on 2 L about 2 by nasal cannula HEAD: Normocephalic/atraumatic. EYES: Normal reaction of pupils, equal size. Conjunctiva pink, sclera white. NOSE: Clear with pink turbinates. THROAT: No erythema or exudates. NECK: No masses, no JVD, no thyroid enlargement, no adenopathy. CHEST: No chest wall deformity. Symmetrical expansion. LUNGS: Equal air entry with limited crackles at the bilateral bases, overall breath sounds are markedly diminished in lung bases bilaterally CVS: Irregular rate and rhythm, normal S1 and S2, no gallops, no murmurs, no rubs ABDOMEN: Soft, nontender, obese. No hepatosplenomegaly, normal bowel sounds, no guarding or rigidity. EXTREMITIES: No clubbing, no edema, no cyanosis, 2+ pulses and upper and lower extremities. The patient is a cast on her left upper extremity and the patient is wearing a sling. MUSCULOSKELETAL: Muscle strength and tone normal. Left arm is in the day splint , and a sling, distal pulses are intact, neurovascular status is intact SPINE: No scoliosis or deformity SKIN: No rashes CENTRAL NERVOUS SYSTEM: Diffuse motor weakness without any focal neurological deficit and no cranial nerve deficit at this point in time. PSYCHIATRIC: No anxiety no depression - Labs CBC & Chem 7: 06/27/18 04:15 06/27/18 04:15 Labs: Abnormal Lab Results - Last 24 Hours (Table) 06/27/18 06/27/18 Range/Units 04:15 04:15 RBC 3.31 L (3.80-5.40) m/uL Hgb 9.9 L (11.4-16.0) gm/dL MCV 108.4 H (80.0-100.0) fL MCHC 27.6 L (31.0-37.0) g/dL RDW 16.8 H (11.5-15.5) % Chloride 88 L (98-107) mmol/L Carbon Dioxide 48 H* (22-30) mmol/L Glucose 110 H (74-99) mg/dL Total Protein 5.6 L (6.3-8.2) g/dL Albumin 3.0 L (3.5-5.0) g/dL Assessment and Plan Plan: Assessment 1 altered mentation secondary to an acute on chronic hypercapnic respiratory failure, recovered as the patient acid base status normalized. 2 acute on chronic hypercapnic respiratory failure, probably due to component of fluid overload/edema, as the patient's chest x-ray showing pulmonary vessel congestion/edema and the patient is responding also to diuretics, and the patient is a negative fluid balance and producing a negative fluid balance of 4 L 4 yesterday. 3 morbid obesity with BMI 58.3 4 chronic hypoxic history failure 5 obstructive sleep apnea and obesity hypoventilation syndrome. Patient's baseline AHI is 44 and the patient is on the BiPAP pressure 15/10 cm of water on outpatient basis 6 COPD per history 7 chronic atrial fibrillation 8 fibromyalgia 9 left humeral fracture as the patient has a displaced midshaft humeral fracture and a nondisplaced articular surface fracture of the proximal numerous. 10 diabetes mellitus 11 hypertension 12 hyperlipidemia 13 previous history of CVA/TIA 14 osteoarthritis 15. History of UTI 16 DO NOT RESUSCITATE DO NOT INTUBATE CODE STATUS Plan Patient is doing extremely well. Stopped IV Lasix. Switch the patient to oral Lasix. Continue rest of the medications including DuoNeb nebulized treatments around the clock and Eliquis. Monitor electrolytes. Monitor renal function. The patient will be to a medical floor. Continue using BiPAP overnight.
[2018-06-27] MEDS: FUROSEMIDE 40 MG TAB PO SCH (16:40)
[2018-06-27] MEDS: MAGNESIUM OXIDE 400 MG TAB PO SCH (16:41)
[2018-06-27] MEDS: FERROUS SULFATE 325 MG TAB PO SCH (16:41)
[2018-06-27 17:24] LABS: Glucose,Whole Blood 164 mg/dL (75-99)
[2018-06-27 20:02] LABS: Glucose,Whole Blood 123 mg/dL (75-99)
[2018-06-27] MEDS: PENTOXIFYLLINE 400 MG TABLET.ER PO SCH (21:44)
[2018-06-27] MEDS: ATORVASTATIN 10 MG TAB PO SCH (21:44)
--- NOTE | 2018-06-27 21:45 | PN ---
PROGRESS NOTE DATE OF SERVICE: 06/27/2018 PRESENTING COMPLAINT: Short of breath. INTERVAL HISTORY: This is a patient who was admitted with altered mental status. BMP was in 3000, felt to have acute on chronic CO2 narcosis, did respond to BiPAP, was also given IV Lasix. The patient recently suffered a fracture of the left humerus, has a coaptation splint. The patient is now tolerating a diet. The patient recently was discharged to the ECF. The patient has been moved out of the ICU today. REVIEW OF SYSTEMS: Done for constitutional, cardiovascular, GI, pulmonary, musculoskeletal; relevant findings as above. The patient is awake and answering questions appropriately. CURRENT MEDICATIONS: Reviewed that include: 1. DuoNeb. 2. Eliquis. 3. P.o. Lasix. EXAMINATION: Temperature 98.3, pulse 86, respirations 18, blood pressure 108/66, pulse ox 91% on 2L. GENERAL APPEARANCE: Lying in bed, awake. EYES: Pupils equal. Conjunctivae normal. HEENT: External nose and ears normal. Oral cavity normal. NECK: Short, thick. JVD unable to assess. RESPIRATORY: Effort increased. LUNGS: Distant breath sounds. CARDIOVASCULAR: Heart sounds muffled. No edema. ABDOMEN: Soft, nontender. Liver and spleen not palpable. PSYCHIATRY: Alert and oriented x3. Mood and affect normal. EXTREMITIES: Left arm in a cast. INVESTIGATIONS: White count 7.3, hemoglobin 9.9. Blood gases from yesterday morning show a pH of 7.34 and a pCO2 of 85, bicarb of 46, serum bicarb was 48. ASSESSMENT: 1. Acute metabolic encephalopathy from acute CO2 narcosis. 2. Morbid obesity, BMI greater than 50. 3. Left humerus fracture, has a splint in place. 4. Chronic obstructive pulmonary disease in an ex-smoker. 5. Obesity hypoventilation syndrome. 6. Persistent atrial fibrillation, now patient has been put on Eliquis. 7. Essential hypertension. 8. Hyperlipidemia. 9. 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 10.Primary osteoarthritis multiple joints, bilateral. 11.Severe gait dysfunction, multifactorial. 12.Obstructive sleep apnea. PLAN: Patient is overall doing better, has been cut back to p.o. Lasix. PT/OT has been consulted. Will have social work therapist look into placement and decide from there. MMODL / IJN: [id number] /
[2018-06-28] MEDS: PANTOPRAZOLE 40 MG TABLET PO SCH (05:48)
[2018-06-28] MEDS: IPRATROPIUM-ALBUTEROL 3 ML NEB INHALATION SCH ×4 (07:18→20:07)
[2018-06-28 07:41] LABS: Glucose,Whole Blood 121 mg/dL (75-99)
[2018-06-28] MEDS: GABAPENTIN 100 MG CAP PO SCH ×3 (08:02→21:52)
[2018-06-28] MEDS: DULoxetine HCL 30 MG CAPSULE.DR PO SCH (08:02)
[2018-06-28] MEDS: DONEPEZIL 10 MG TAB PO SCH (08:02)
[2018-06-28] MEDS: FUROSEMIDE 40 MG TAB PO SCH ×2 (08:03→15:47)
[2018-06-28] MEDS: APIXABAN 5 MG TAB PO SCH (08:03)
[2018-06-28] MEDS: POLYETHYLENE GLYCOL 3350 17 GM POWD.PACK PO SCH (08:04)
[2018-06-28] MEDS: METOPROLOL TARTRATE 25 MG TAB PO SCH ×3 (08:04→21:52)
[2018-06-28] MEDS: TOPIRAMATE 25 MG TAB PO SCH ×2 (08:05→21:52)
[2018-06-28] MEDS: ZINC OXIDE-CORN STARCH 142 GM POWDER TOPICAL SCH ×2 (08:05→21:52)
[2018-06-28] MEDS: MENTHOL-ZINC OXIDE OINT 113 GM TUBE TOPICAL SCH ×2 (08:05→21:52)
[2018-06-28 08:42] LABS: Anisocytosis Slight; Basophils % (A) 0 %; Eosinophils # (A) 0.3 k/uL (0-0.7); Eosinophils % (A) 4 %; HCT 37.5 % (34.0-46.0); HGB 10.8 gm/dL (11.4-16.0); Hypochromasia Marked; Lymphocytes # (A) 1.9 k/uL (1.0-4.8); Lymphocytes % (A) 27 %; MCH 30.4 pg (25.0-35.0); MCHC 28.8 g/dL (31.0-37.0); MCV 105.6 fL (80.0-100.0); Macrocytosis Moderate; Mean Platelet Volume 7.8; Monocytes # (A) 0.7 k/uL (0-1.0); Monocytes % (A) 10 %; Neutrophils % (A) 57 %; Platelet Count 271 k/uL (150-450); RBC 3.55 m/uL (3.80-5.40); RDW 16.1 % (11.5-15.5); WBC 7.1 k/uL (3.8-10.6)
[2018-06-28 09:29] LABS: ALT 33 U/L (9-52); AST 30 U/L (14-36); Albumin 3.1 g/dL (3.5-5.0); Alkaline Phosphatase 107 U/L (38-126); Blood Urea Nitrogen 20 mg/dL (7-17); Calcium 9.3 mg/dL (8.4-10.2); Chloride 91 mmol/L (98-107); Glucose 132 mg/dL (74-99); Phosphorus 3.7 mg/dL (2.5-4.5); Potassium 4.2 mmol/L (3.5-5.1); Sodium 142 mmol/L (137-145); Total Bilirubin 0.6 mg/dL (0.2-1.3); Total Protein 5.8 g/dL (6.3-8.2)
[2018-06-28 09:35] LABS: Anion Gap 6 mmol/L
[2018-06-28 09:45] LABS: Carbon Dioxide 45 mmol/L (22-30)
--- NOTE | 2018-06-28 12:05 | P.PN ---
Subjective Progress Note Date: 06/28/18 77-year-old female patient is known to me from previous hospitalization. She is morbidly obese and she has obstructive sleep apnea/breast hypoventilation syndrome with chronic hypoxic and hypercapnic respiratory failure maintained on a BiPAP and monitor with [place]. The patient was recently hospitalized at [facility] for a left arm fracture and she has her left upper extremity in a cast. Subsequently she was sent to [facility] for further rehabilitation. She was still feeling weak. She never got to the point where she was emanating or walking. She was able to eat and communicate and talk yet she was essentially sedentary and bedbound. Today the patient was found to be unresponsive by the staff at [facility]. According to the records, the patient was found to be in respiratory distress and oxygenation saturation was in the low 70s while on the BiPAP. The patient was very much lethargic and unresponsive. At that point it was decided to move this patient to the emergency department at [facility]. The initial blood gas showed a pH of 7.19 pCO2 of 105 and pO2 of 221. The exact BiPAP setting for this blood gases is not known to be at this point. Subsequently the BiPAP setting was adjusted and the patient was placed on a BiPAP of 16/8 with an FiO2 of 40%. She was also given a dose of Lasix knowing that the chest x-ray shows small lung volumes and there was a concern for pulmonary vessel congestion/ edema. The patient had some increased edema lower extremity is bilaterally. She was taken Lasix on outpatient basis. At a time of my arrival to the emergency department, the patient was awake and arousable and she was communicating. She denies having any chest pain or shortness of breath. She was synchronous with the BiPAP and she was able to tolerated well without any major difficulties. I suggested to repeat the blood gases and a repeat level showed improvement and acid base status with a pH of 7.27 and a pCO2 of 94 and pO2 of 102 and I dropped FiO2 down to 35%. She is hemodynamically stable. She is afebrile. Rest of the blood work is all within normal limits. She has chronic metabolic alkalosis which is compensatory to her chronic hypercapnic respiratory failure. UA is negative. No leukocytosis. Cardiac enzymes are all within normal limits. The BNP level is slightly elevated. She has produced more than a liter of urine output with a dose of Lasix and was given to her in the emergency department. Note that the son was at the bedside and he stated that he is having legal guardian and he does not want any active resuscitation and he declared DO NOT RESUSCITATE per DO NOT INTUBATE CODE STATUS on this patient. Note that the patient was also added to [facility] on 06/11/2018 after she sustained a fall at home and she was found to have a left humeral fracture. A sling was applied to the left upper extremity after being seen by orthopedic surgery. On 06/26/2018 the patient is awake alert and following commands and answering questions appropriately. She got diuresed IV Lasix and she is much less short of breath and more comfortable on today's evaluation. The blood gases shows further improvement and acid base status and the pH is up to 7.34 with a pCO2 of 85 and pO2 of 67 and this was on FiO2 of 20 Zaroxolyn by nasal cannula. Noted the patient overnight spent on the BiPAP at a pressure of 16/8 with an FiO2 of 40%. She is still on IV Lasix. She is producing good urine output. Renal function is stable with a creatinine of 0.7. That fluid balance is -2 L over the past 24 hours. She is awake and alert and communicating and tolerating diet well and no aspirations. On 06/27/2018 I'm seeing this patient for a follow-up. She is doing extremely well. She diuresed another 4 L and the patient is a negative fluid balance. No signs of any ongoing significant fluid overload. Pulmonary status is stable. No cough sputum production chest tightness or wheezing. Resting comfortably in bed. Using the BiPAP overnight. No angina. No aspiration. No fever. No chills. No other significant events overnight. The patient was switched to oral Lasix and the patient will be transferred out of the intensive care unit today. On 06/28/2018, the patient is resting comfortably in bed. No complaints at all. She is on oral Lasix 40 mg twice a day. No respiratory distress. No chest pain. Utilizing a BiPAP. Tolerating her diet. Renal function is stable. No altered mentation. Objective - Vital Signs Vital signs: Vital Signs Temp 98.0 F 06/28/18 05:00 Pulse 76 06/28/18 11:38 Resp 16 06/28/18 05:00 BP 131/60 06/28/18 05:00 Pulse Ox 99 06/28/18 07:18 Intake & Output 06/27/18 06/28/18 06/28/18 18:59 06:59 18:59 Intake Total 1150 590 Output Total 1000 400 Balance 150 190 Weight 141.8 kg Intake: Oral 1150 590 Output: Urine 1000 400 Other: Voiding Method Indwelling Catheter Indwelling Catheter Indwelling Catheter # Voids 1 # Bowel Movements 1 - Exam GENERAL EXAM: Alert, pleasant, currently on 2 L about 2 by nasal cannula HEAD: Normocephalic/atraumatic. EYES: Normal reaction of pupils, equal size. Conjunctiva pink, sclera white. NOSE: Clear with pink turbinates. THROAT: No erythema or exudates. NECK: No masses, no JVD, no thyroid enlargement, no adenopathy. CHEST: No chest wall deformity. Symmetrical expansion. LUNGS: Equal air entry with limited crackles at the bilateral bases, overall breath sounds are markedly diminished in lung bases bilaterally CVS: Irregular rate and rhythm, normal S1 and S2, no gallops, no murmurs, no rubs ABDOMEN: Soft, nontender, obese. No hepatosplenomegaly, normal bowel sounds, no guarding or rigidity. EXTREMITIES: No clubbing, no edema, no cyanosis, 2+ pulses and upper and lower extremities. The patient is a cast on her left upper extremity and the patient is wearing a sling. MUSCULOSKELETAL: Muscle strength and tone normal. Left arm is in the day splint , and a sling, distal pulses are intact, neurovascular status is intact SPINE: No scoliosis or deformity SKIN: No rashes CENTRAL NERVOUS SYSTEM: Diffuse motor weakness without any focal neurological deficit and no cranial nerve deficit at this point in time. PSYCHIATRIC: No anxiety no depression - Labs CBC & Chem 7: 06/28/18 08:19 06/28/18 08:19 Labs: Abnormal Lab Results - Last 24 Hours (Table) 06/27/18 06/27/18 06/27/18 Range/Units 12:31 17:23 20:01 RBC (3.80-5.40) m/uL Hgb (11.4-16.0) gm/dL MCV (80.0-100.0) fL MCHC (31.0-37.0) g/dL RDW (11.5-15.5) % Chloride (98-107) mmol/L Carbon Dioxide (22-30) mmol/L BUN (7-17) mg/dL Glucose (74-99) mg/dL POC Glucose (mg/dL) 124 H 164 H 123 H (75-99) mg/dL Total Protein (6.3-8.2) g/dL Albumin (3.5-5.0) g/dL 06/28/18 06/28/18 06/28/18 Range/Units 07:30 08:19 08:19 RBC 3.55 L (3.80-5.40) m/uL Hgb 10.8 L (11.4-16.0) gm/dL MCV 105.6 H (80.0-100.0) fL MCHC 28.8 L (31.0-37.0) g/dL RDW 16.1 H (11.5-15.5) % Chloride 91 L (98-107) mmol/L Carbon Dioxide 45 H* (22-30) mmol/L BUN 20 H (7-17) mg/dL Glucose 132 H (74-99) mg/dL POC Glucose (mg/dL) 121 H (75-99) mg/dL Total Protein 5.8 L (6.3-8.2) g/dL Albumin 3.1 L (3.5-5.0) g/dL Assessment and Plan Plan: Assessment 1 altered mentation secondary to an acute on chronic hypercapnic respiratory failure, recovered as the patient acid base status normalized. 2 acute on chronic hypercapnic respiratory failure, probably due to component of fluid overload/edema, as the patient's chest x-ray showing pulmonary vessel congestion/edema and the patient is responding also to diuretics, and after utilizing IV diuretics the patient is currently on oral Lasix and she is well diuresis. 3 morbid obesity with BMI 58.3 4 chronic hypoxic history failure 5 obstructive sleep apnea and obesity hypoventilation syndrome. Patient's baseline AHI is 44 and the patient is on the BiPAP pressure 15/10 cm of water on outpatient basis 6 COPD per history 7 chronic atrial fibrillation 8 fibromyalgia 9 left humeral fracture as the patient has a displaced midshaft humeral fracture and a nondisplaced articular surface fracture of the proximal numerous. 10 diabetes mellitus 11 hypertension 12 hyperlipidemia 13 previous history of CVA/TIA 14 osteoarthritis 15. History of UTI 16 DO NOT RESUSCITATE DO NOT INTUBATE CODE STATUS Plan Patient is doing extremely well. Continue same treatment. Discharge planning is in progress.
[2018-06-28 12:08] LABS: Glucose,Whole Blood 113 mg/dL (75-99)
[2018-06-28] MEDS: oxyCODONE-APAP 10-325MG 1 EACH TAB PO PRN ×2 (14:49→21:51)
[2018-06-28] MEDS: FERROUS SULFATE 325 MG TAB PO SCH (15:50)
[2018-06-28] MEDS: MAGNESIUM OXIDE 400 MG TAB PO SCH (15:50)
[2018-06-28 17:07] LABS: Glucose,Whole Blood 139 mg/dL (75-99)
--- NOTE | 2018-06-28 18:50 | PN ---
PROGRESS NOTE DATE OF SERVICE: 06/28/18. PRESENTING COMPLAINT: Short of breath. INTERVAL HISTORY: Patient admitted with altered mental status, felt to have acute on chronic CO2 narcosis. The patient tolerating a diet comfortable. Had a bowel movement yesterday. Comfortable. REVIEW OF SYSTEMS: Done for constitutional, cardiovascular, GI, pulmonary, musculoskeletal; relevant findings as above. CURRENT MEDICATIONS: Reviewed. Lasix 40 mg b.i.d. EXAMINATION: Temperature 97.6, pulse 75, respiratory 18, blood pressure 130/73, pulse ox 96 percent on 2 L. GENERAL APPEARANCE: Lying in bed, awake. EYES: Pupils equal. Conjunctivae normal. HEENT: External appearance of nose and ears normal. Oral cavity normal. NECK: Short, thick, JVD unable to assess. RESPIRATORY: Effort normal. Lungs, distant breath sounds. CARDIOVASCULAR: Heart sounds muffled, no edema. ABDOMEN: Soft, nontender. Liver and spleen not palpable. PSYCHIATRY: Alert and oriented x3. Mood and affect normal. EXTREMITIES: Left arm in a cast. INVESTIGATIONS: White count 7.9, hemoglobin 10.8, potassium 4.2, BUN 20, creatinine 0.74. Accu-Cheks are noted. ASSESSMENT: 1. Acute metabolic encephalopathy from acute CO2 narcosis, improved. 2. Morbid obesity, BMI greater than 50. 3. Left humerus fracture has a splint in place with a cast. 4. Chronic obstructive pulmonary disease in an ex-smoker. 5. Obesity hypoventilation syndrome on BiPAP. 6. Persistent atrial fibrillation. The patient has been put back on Eliquis. 7. Essential hypertension. 8. Hyperlipidemia. 9. 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 10.Primary osteoarthritis multiple joints bilateral. 11.Severe gait dysfunction, multifactorial. 12.Obstructive sleep apnea. PLAN: Patient is stable. Continue current medication and treatment plan. Looking at the patient going back to [facility] tomorrow. MMODL / IJN: [id number] /
[2018-06-28 20:28] LABS: Glucose,Whole Blood 114 mg/dL (75-99)
[2018-06-28] MEDS: ATORVASTATIN 10 MG TAB PO SCH (21:51)
[2018-06-28] MEDS: PENTOXIFYLLINE 400 MG TABLET.ER PO SCH (21:51)
[2018-06-29] MEDS: PANTOPRAZOLE 40 MG TABLET PO SCH (06:01)
[2018-06-29] MEDS: IPRATROPIUM-ALBUTEROL 3 ML NEB INHALATION SCH ×3 (07:06→15:36)
[2018-06-29 07:07] LABS: Glucose,Whole Blood 115 mg/dL (75-99)
[2018-06-29 07:43] LABS: ABG PCO2 105 mmHg (35-45); ABG PH 7.19 (7.35-7.45)
[2018-06-29 07:44] LABS: ABG HCO3 40 mmol/L (21-25)
[2018-06-29 07:55] LABS: Basophils % (A) 0 %; Eosinophils # (A) 0.3 k/uL (0-0.7); Eosinophils % (A) 4 %; HCT 37.3 % (34.0-46.0); HGB 11.1 gm/dL (11.4-16.0); Hypochromasia Marked; Lymphocytes # (A) 1.9 k/uL (1.0-4.8); Lymphocytes % (A) 25 %; MCH 30.6 pg (25.0-35.0); MCHC 29.7 g/dL (31.0-37.0); Macrocytosis Moderate; Mean Platelet Volume 8.2; Monocytes # (A) 0.8 k/uL (0-1.0); Monocytes % (A) 10 %; Neutrophils # (A) 4.5 k/uL (1.3-7.7); Neutrophils % (A) 59 %; Platelet Count 267 k/uL (150-450); RBC 3.62 m/uL (3.80-5.40); RDW 15.8 % (11.5-15.5); WBC 7.7 k/uL (3.8-10.6)
[2018-06-29 09:16] LABS: Albumin 3.2 g/dL (3.5-5.0); Calcium 9.2 mg/dL (8.4-10.2); Chloride 90 mmol/L (98-107); Glucose 120 mg/dL (74-99); Sodium 142 mmol/L (137-145); Total Bilirubin 0.6 mg/dL (0.2-1.3); Total Protein 6.3 g/dL (6.3-8.2)
[2018-06-29 09:28] LABS: Blood Urea Nitrogen 23 mg/dL (7-17); Magnesium 2.2 mg/dL (1.6-2.3)
[2018-06-29 09:29] LABS: ALT 40 U/L (9-52); AST 47 U/L (14-36); Alkaline Phosphatase 107 U/L (38-126)
[2018-06-29 09:37] LABS: Anion Gap 5 mmol/L; Carbon Dioxide 47 mmol/L (22-30)
[2018-06-29] MEDS: POLYETHYLENE GLYCOL 3350 17 GM POWD.PACK PO SCH (09:40)
[2018-06-29] MEDS: FUROSEMIDE 40 MG TAB PO SCH ×2 (09:40→16:38)
[2018-06-29] MEDS: DULoxetine HCL 30 MG CAPSULE.DR PO SCH (09:40)
[2018-06-29] MEDS: GABAPENTIN 100 MG CAP PO SCH ×2 (09:40→16:38)
[2018-06-29] MEDS: APIXABAN 5 MG TAB PO SCH (09:40)
[2018-06-29] MEDS: METOPROLOL TARTRATE 25 MG TAB PO SCH ×2 (09:40→16:38)
[2018-06-29] MEDS: ZINC OXIDE-CORN STARCH 142 GM POWDER TOPICAL SCH (09:41)
[2018-06-29] MEDS: DONEPEZIL 10 MG TAB PO SCH (09:41)
[2018-06-29] MEDS: MENTHOL-ZINC OXIDE OINT 113 GM TUBE TOPICAL SCH (09:41)
[2018-06-29 11:23] LABS: Glucose,Whole Blood 160 mg/dL (75-99)
[2018-06-29] MEDS: TOPIRAMATE 25 MG TAB PO SCH (13:59)
[2018-06-29 14:56] VITALS: BP 103/46; RESP 14; TEMP 97.9
[2018-06-29 15:40] VITALS: PULSE 70
[2018-06-29] MEDS: FERROUS SULFATE 325 MG TAB PO SCH (16:38)
[2018-06-29] MEDS: MAGNESIUM OXIDE 400 MG TAB PO SCH (16:38)
--- NOTE | 2018-06-29 16:42 | DS ---
DISCHARGE SUMMARY DATE OF ADMISSION: 06/25/2018 DATE OF DISCHARGE: 06/29/2018 FINAL DIAGNOSES: 1. Acute metabolic encephalopathy from acute carbon dioxide narcosis, present on admission. 2. Morbid obesity with body mass index greater than 50. 3. Left humerus fracture; has a splint and a cast in place. 4. Chronic obstructive pulmonary disease in an ex-smoker. 5. Obesity hypoventilation syndrome, on BiPAP. 6. Persistent atrial fibrillation. Patient is on Eliquis. 7. Essential hypertension. 8. Hyperlipidemia. 9. 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 10.Primary osteoarthritis in multiple joints, bilateral. 11.Severe gait dysfunction, multifactorial. 12.Obstructive sleep apnea. CONSULTATION: Dr. Driver from Pulmonary. HOSPITAL COURSE: This patient presented with altered mental status, found to have CO2 narcosis, was given a BiPAP, to which she responded. The patient also was diuresed, to which she responded. By the time of discharge, patient is doing much better, back to her baseline. Patient has a cast on the left upper extremity. PHYSICAL EXAMINATION: Temperature 97.9, pulse 58, respiration 14, blood pressure 103/46, pulse ox 97% on BiPAP. GENERAL APPEARANCE: Lying in bed. Able to answer questions. LUNGS: Distant breath sounds. LABS: White count 7.7, hemoglobin 11.1, potassium 5, bicarb 47, BUN 23, creatinine 0.71. DISCHARGE MEDICATIONS: 1. Cymbalta 30 mg p.o. daily. 2. Aricept 10 mg p.o. daily. 3. Protonix 40 mg p.o. daily. 4. Topamax 50 mg p.o. b.i.d. 5. Methocarbamol 750 mg p.o. b.i.d. 6. Incruse Ellipta 1 puff daily b.i.d. 7. Mevacor 40 mg p.o. at bedtime. 8. Iron 325 mg p.o. daily at 5 p.m. 9. Magnesium oxide 400 mg p.o. daily. 10.Pentoxifylline 400 mg at bedtime. 11.MiraLAX 17 grams p.o. daily. 12.Neurontin 100 mg p.o. t.i.d. 13.Eliquis 5 mg p.o. daily. 14.Dulcolax 10 mg rectally daily p.r.n. 15.Calmoseptine 1 application topically b.i.d. 16.Adult Fleet 133 mL daily p.r.n. 17.Talc-zinc oxide 1 application topically b.i.d. 18.Lasix 40 mg p.o. b.i.d. 19.DuoNeb q.i.d. 20.Lopressor 25 p.o. t.i.d. 21.Percocet 10 one tablet p.o. 5 times a day p.r.n. DISPOSITION: [facility]. Follow up with Dr. Muniz at [facility]. CODE STATUS: FULL CODE. Patient is able to make her own decisions. MMODL / IJN: [id number] /
[2018-06-29 17:19] LABS: Glucose,Whole Blood 147 mg/dL (75-99)
== END 2018-06-29 17:55 | DRG 291 ==
LOC: EC 05:33 → 6ICU 07:00 → 5MS5E 06-27 10:56
PROVIDERS: ADMIT Hospitalist; ATTEND Hospitalist
PROC: 05HD33Z Insertion of Infusion Device into Right Cephalic Vein, Percutaneous Approach (ICD-10-PCS; principal; 2018-06-25 15:20)
PROC: B54MZZA Ultrasonography of Right Upper Extremity Veins, Guidance (ICD-10-PCS; 2018-06-25 15:20)
DX: I11.0 Hypertensive heart disease with heart failure (principal); J96.22 Acute and chronic respiratory failure with hypercapnia; G93.41 Metabolic encephalopathy; S42.302A Unspecified fracture of shaft of humerus, left arm, initial encounter for closed fracture; E66.2 Morbid (severe) obesity with alveolar hypoventilation; Z68.43 Body mass index [BMI] 50.0-59.9, adult; E87.3 Alkalosis; J96.11 Chronic respiratory failure with hypoxia; I50.9 Heart failure, unspecified; I48.2 Chronic atrial fibrillation; M79.7 Fibromyalgia; E11.9 Type 2 diabetes mellitus without complications; Z66 Do not resuscitate; E78.5 Hyperlipidemia, unspecified; M15.9 Polyosteoarthritis, unspecified; R26.9 Unspecified abnormalities of gait and mobility; G30.9 Alzheimer's disease, unspecified; M06.9 Rheumatoid arthritis, unspecified; F02.80 Dementia in other diseases classified elsewhere, unspecified severity, without behavioral disturbance, psychotic disturbance, mood disturbance, and anxiety; Z86.73 Personal history of transient ischemic attack (TIA), and cerebral infarction without residual deficits; Z87.440 Personal history of urinary (tract) infections; Z74.01 Bed confinement status; Z91.81 History of falling; Z99.81 Dependence on supplemental oxygen; Z90.49 Acquired absence of other specified parts of digestive tract; Z98.51 Tubal ligation status; Z98.84 Bariatric surgery status; Z79.01 Long term (current) use of anticoagulants; Z79.899 Other long term (current) drug therapy; Z88.2 Allergy status to sulfonamides; Z88.1 Allergy status to other antibiotic agents; Z91.040 Latex allergy status
CPT/HCPCS: 36415; 36569; 36600; 71045; 76937; 80053; 81001; 82550; 82553; 82805; 83735; 83880; 84100; 84484; 85025; 85610; 85730; 93005; 94640; 94660; 94760; 96374; 96375; 99291

== ENCOUNTER 2018-07-21 15:04 | Inpatient (IN) | payer MEDICARE, OTHER ==
--- NOTE | 2018-07-21 15:31 | ED ---
SOB HPI - General Chief Complaint: Shortness of Breath Stated Complaint: medical imaging tech failure Time Seen by Provider: 07/21/18 15:04 Source: patient, EMS, RN notes reviewed Mode of arrival: EMS Limitations: physical limitation - History of Present Illness Initial Comments: This is a 77-year-old female with a history of multiple medical issues including a displaced oblique fracture of the shaft of the left humerus metabolic encephalopathy acute renal failure COPD obstructive sleep apnea Alzheimer's disease morbid obesity who is brought in for evaluation for difficulty breathing. She apparently is on a BiPAP or CPAP machine at her nursing facility and it is having function well with her she does go to sleep her saturation dropped down very low. Additionally she is reported have a UTI that was diagnosed about 2 days ago is not responding well additionally she's had decreased oral intake. She was brought in by EMS for evaluation and treatment. MD Complaint: shortness of breath - Related Data Home Medications Medication Instructions Recorded Confirmed DULoxetine HCL [Cymbalta] 30 mg PO DAILY 04/28/15 07/21/18 Donepezil [Aricept] 10 mg PO DAILY 04/28/15 07/21/18 Pantoprazole Sodium 40 mg PO DAILY@0600 04/28/15 07/21/18 Topiramate 50 mg PO BID 10/03/15 07/21/18 Methocarbamol 750 mg PO BID@0800,1700 03/13/17 07/21/18 Umeclidinium Empire [Incruse 1 puff INHALATION RT-BID@0800,1700 03/13/17 Ellipta] Lovastatin [Mevacor] 40 mg PO HS 03/20/17 07/21/18 Ferrous Sulfate [Iron (65 MG 325 mg PO DAILY@0 06/07/18 07/21/18 Elemental)] Magnesium Oxide [Mag-Ox] 400 mg PO DAILY@1700 06/07/18 07/21/18 Pentoxifylline 400 mg PO HS 06/07/18 07/21/18 Polyethylene Glycol 3350 [Miralax] 17 gm PO DAILY 06/07/18 07/21/18 Apixaban [Eliquis] 5 mg PO BID@,06/25/18 07/21/18 Bisacodyl [Dulcolax] 10 mg RECTAL DAILY PRN 06/25/18 07/21/18 Menthol/Zinc Oxide [Calmoseptine 1 applic TOPICAL BID 06/25/18 07/21/18 Ointment] Na Phos,M-B/Na Phos,Di-Ba [Fleet 133 ml RECTAL DAILY PRN 06/25/18 07/21/18 Adult] Talc-Zinc Oxide Powder 81-15% 1 applic TOPICAL BID 06/25/18 07/21/18 Furosemide [Lasix] 40 mg PO BID@,07/21/18 07/21/18 Gabapentin [Neurontin] 100 mg PO TID@06,,07/21/18 07/21/18 Ipratropium-Albuterol Nebulize 3 ml INHALATION RT-QID@08,,,07/21/1807/21 [Duoneb 0.5 mg-3 mg/3 ml Soln] Magnesium Hydroxide [Milk of 2,400 mg PO DAILY PRN 07/21/18 07/21/18 Magnesia] Menthol-Zinc Oxide Oint 1 applic TOPICAL BID 07/21/18 07/21/18 [Calmoseptine Oint] Metoprolol Tartrate [Lopressor] 25 mg PO TID@06,14,07/21/18 07/21/18 Multivitamins, Thera [Multivitamin 1 tab PO DAILY@1700 07/21/18 07/21/18 (formulary)] Previous Rx's Medication Instructions Recorded oxyCODONE-APAP 10-325MG [Percocet 1 tab PO 5XD PRN #10 tab 06/29/18 10-325 mg] Allergies Allergy/AdvReac Type Severity Reaction Status Date / Time latex Allergy Unknown Verified 07/21/18 15:51 nitrofurantoin Allergy Unknown Verified 07/21/18 15:51 [From Macrobid] nitrofurantoin Allergy Unknown Verified 07/21/18 15:51 macrocrystalline [From Macrobid] Sulfa (Sulfonamide Allergy Unknown Verified 07/21/18 15:51 Antibiotics) Review of Systems ROS Statement: Those systems with pertinent positive or pertinent negative responses have been documented in the HPI. ROS Other: All systems not noted in ROS Statement are negative. Past Medical History Past Medical History: Atrial Fibrillation, COPD, CVA/TIA, Dementia, Diabetes Mellitus, Fibromyalgia, Hyperlipidemia, Hypertension, Osteoarthritis (OA), Rheumatoid Arthritis (RA) Additional Past Medical History / Comment(s): Pt recently admitted to [facility] on 06/09/18 with acute renal failure, L humerus fracture (fell out of wheelchair), hypoventilating syndrome, obesity. Other hx: Pt wears oxygen at 2L/NC during the day and bipap at night, L arm is casted and pt to be at 45-90 degree angle with L arm down at side, severe gait dysfunction, diabetes-diet controlled , arthritis in multiple joints bilaterally, tremors, pyelonephritis in 2015, UTIs, urinary incontinence. History of Any Multi-Drug Resistant Organisms: None Reported Past Surgical History: Appendectomy, Bariatric Surgery, Bladder Surgery, Cholecystectomy, Joint Replacement, Orthopedic Surgery, Tubal Ligation Additional Past Surgical History / Comment(s): Bilateral carpal tunnel releases , bilateral thumb reattachments, gastric stapling, EGD. Past Anesthesia/Blood Transfusion Reactions: No Reported Reaction Past Psychological History: No Psychological Hx Reported Smoking Status: Never smoker - Past Family History Father Family Medical History: Cancer Additional Family Medical History / Comment(s): leukemia Mother Family Medical History: Cancer Additional Family Medical History / Comment(s): lung ca General Exam - General Exam Comments Initial Comments: This a well-developed morbidly obese female who is awake alert oriented 3 Limitations: physical limitation General appearance: alert, in no apparent distress Head exam: Present: atraumatic, normocephalic, normal inspection Eye exam: Present: normal appearance, PERRL, EOMI. Absent: scleral icterus, conjunctival injection, periorbital swelling ENT exam: Present: mucous membranes dry Neck exam: Present: normal inspection. Absent: tenderness, meningismus, lymphadenopathy Respiratory exam: Present: decreased breath sounds. Absent: respiratory distress, wheezes, rales, rhonchi, stridor Cardiovascular Exam: Present: regular rate, normal rhythm, normal heart sounds. Absent: systolic murmur, diastolic murmur, rubs, gallop, clicks GI/Abdominal exam: Present: soft, normal bowel sounds. Absent: distended, tenderness, guarding, rebound, rigid Extremities exam: Present: normal inspection, full ROM, normal capillary refill. Absent: tenderness, pedal edema, joint swelling, calf tenderness Back exam: Present: normal inspection Neurological exam: Present: alert, oriented X3, CN II-XII intact Psychiatric exam: Present: normal affect, normal mood Skin exam: Present: warm, dry, intact, normal color. Absent: rash Course Vital Signs 07/21/18 07/21/18 15:07 15:39 Temperature 98.7 F Pulse Rate 95 Respiratory 20 20 Rate Blood Pressure 149/66 O2 Sat by Pulse 90 L Oximetry Medical Decision Making - Medical Decision Making I did discuss the findings the patient family as well as the admitting hospitalist patient will be admitted - Lab Data Result diagrams: 07/21/18 15:48 07/21/18 15:48 Lab Results 07/21/18 07/21/18 07/21/18 Range/Units 15:48 15:48 15:48 WBC 7.5 (3.8-10.6) k/uL RBC 3.55 L (3.80-5.40) m/uL Hgb 10.9 L (11.4-16.0) gm/dL Hct 36.6 (34.0-46.0) % MCV 102.9 H (80.0-100.0) fL MCH 30.6 (25.0-35.0) pg MCHC 29.7 L (31.0-37.0) g/dL RDW 14.2 (11.5-15.5) % Plt Count 204 (150-450) k/uL Neutrophils % 61 % Lymphocytes % 24 % Monocytes % 10 % Eosinophils % 2 % Basophils % 0 % Neutrophils # 4.6 (1.3-7.7) k/uL Lymphocytes # 1.8 (1.0-4.8) k/uL Monocytes # 0.8 (0-1.0) k/uL Eosinophils # 0.1 (0-0.7) k/uL Basophils # 0.0 (0-0.2) k/uL Hypochromasia Marked Macrocytosis Slight Sodium 143 (137-145) mmol/L Potassium 3.9 (3.5-5.1) mmol/L Chloride 97 L (98-107) mmol/L Carbon Dioxide 39 H (22-30) mmol/L Anion Gap 7 mmol/L BUN 12 (7-17) mg/dL Creatinine 0.62 (0.52-1.04) mg/dL Est GFR (CKD-EPI)AfAm >90 (>60 ml/min/1.73 sqM) Est GFR (CKD-EPI)NonAf 88 (>60 ml/min/1.73 sqM) Glucose 122 H (74-99) mg/dL Plasma Lactic Acid Jaya (0.7-2.0) mmol/L Calcium 9.2 (8.4-10.2) mg/dL Magnesium 2.0 (1.6-2.3) mg/dL Total Bilirubin 0.6 (0.2-1.3) mg/dL AST 16 (14-36) U/L ALT 17 (9-52) U/L Alkaline Phosphatase 94 (38-126) U/L Total Creatine Kinase (30-135) U/L CK-MB (CK-2) (0.0-2.4) ng/mL CK-MB (CK-2) Rel Index NT-Pro-B Natriuret Pep 3740 pg/mL Total Protein 6.1 L (6.3-8.2) g/dL Albumin 3.2 L (3.5-5.0) g/dL Urine Color Urine Appearance (Clear) Urine pH (5.0-8.0) Ur Specific [place]osta (1.001-1.035) Urine Protein (Negative) Urine Glucose (UA) (Negative) Urine Ketones (Negative) Urine Blood (Negative) Urine Nitrite (Negative) Urine Bilirubin (Negative) Urine Urobilinogen (<2.0) mg/dL Ur Leukocyte Esterase (Negative) Urine RBC (0-5) /hpf Urine WBC (0-5) /hpf Ur Squamous Epith Cells (0-4) /hpf Urine Bacteria (None) /hpf Hyaline Casts (0-2) /lpf Urine Mucus (None) /hpf 07/21/18 07/21/18 07/21/18 Range/Units 15:48 15:48 16:45 WBC (3.8-10.6) k/uL RBC (3.80-5.40) m/uL Hgb (11.4-16.0) gm/dL Hct (34.0-46.0) % MCV (80.0-100.0) fL MCH (25.0-35.0) pg MCHC (31.0-37.0) g/dL RDW (11.5-15.5) % Plt Count (150-450) k/uL Neutrophils % % Lymphocytes % % Monocytes % % Eosinophils % % Basophils % % Neutrophils # (1.3-7.7) k/uL Lymphocytes # (1.0-4.8) k/uL Monocytes # (0-1.0) k/uL Eosinophils # (0-0.7) k/uL Basophils # (0-0.2) k/uL Hypochromasia Macrocytosis Sodium (137-145) mmol/L Potassium (3.5-5.1) mmol/L Chloride (98-107) mmol/L Carbon Dioxide (22-30) mmol/L Anion Gap mmol/L BUN (7-17) mg/dL Creatinine (0.52-1.04) mg/dL Est GFR (CKD-EPI)AfAm (>60 ml/min/1.73 sqM) Est GFR (CKD-EPI)NonAf (>60 ml/min/1.73 sqM) Glucose (74-99) mg/dL Plasma Lactic Acid Jaya 0.9 (0.7-2.0) mmol/L Calcium (8.4-10.2) mg/dL Magnesium (1.6-2.3) mg/dL Total Bilirubin (0.2-1.3) mg/dL AST (14-36) U/L ALT (9-52) U/L Alkaline Phosphatase (38-126) U/L Total Creatine Kinase <20 L (30-135) U/L CK-MB (CK-2) 0.8 (0.0-2.4) ng/mL CK-MB (CK-2) Rel Index NT-Pro-B Natriuret Pep pg/mL Total Protein (6.3-8.2) g/dL Albumin (3.5-5.0) g/dL Urine Color Light Yellow Urine Appearance Cloudy H (Clear) Urine pH 6.5 (5.0-8.0) Ur Specific [place]osta 1.009 (1.001-1.035) Urine Protein Negative (Negative) Urine Glucose (UA) Negative (Negative) Urine Ketones Negative (Negative) Urine Blood Small H (Negative) Urine Nitrite Positive H (Negative) Urine Bilirubin Negative (Negative) Urine Urobilinogen <2.0 (<2.0) mg/dL Ur Leukocyte Esterase Small H (Negative) Urine RBC 2 (0-5) /hpf Urine WBC 6 H (0-5) /hpf Ur Squamous Epith Cells <1 (0-4) /hpf Urine Bacteria Occasional H (None) /hpf Hyaline Casts 3 H (0-2) /lpf Urine Mucus Rare H (None) /hpf - EKG Data -: EKG Interpreted by Me (Atrial fibrillation rate 76 QRS 86 QT since QTC 352/ 396 QRS) - Radiology Data Radiology results: report reviewed (Evidence of congestive failure), image reviewed Critical Care Time Critical Care Time: Yes Critical Care Time: 32 minutes of critical care time which includes monitoring EMS run and discussed with paramedics history physical labs x-rays several reevaluation of the patient discussed with the patient family regarding discussion with the main physician admission orders and documentation of the above. Disposition Clinical Impression: Congestive heart failure (CHF), Urinary tract infection, Hypoxemia, Failure of outpatient treatment Disposition: ADMITTED IP TO THIS [facility] Condition: Stable Referrals: Moe Muniz DO [Primary Care Provider] - 1-2 days
[2018-07-21 16:10] LABS: ALT 17 U/L (9-52); AST 16 U/L (14-36); Albumin 3.2 g/dL (3.5-5.0); Alkaline Phosphatase 94 U/L (38-126); Anion Gap 7 mmol/L; Blood Urea Nitrogen 12 mg/dL (7-17); Calcium 9.2 mg/dL (8.4-10.2); Carbon Dioxide 39 mmol/L (22-30); Chloride 97 mmol/L (98-107); Glucose 122 mg/dL (74-99); Potassium 3.9 mmol/L (3.5-5.1); Sodium 143 mmol/L (137-145); Total Bilirubin 0.6 mg/dL (0.2-1.3); Total Protein 6.1 g/dL (6.3-8.2)
[2018-07-21 16:18] LABS: Basophils % (A) 0 %; Eosinophils # (A) 0.1 k/uL (0-0.7); Eosinophils % (A) 2 %; HCT 36.6 % (34.0-46.0); HGB 10.9 gm/dL (11.4-16.0); Hypochromasia Marked; Lymphocytes # (A) 1.8 k/uL (1.0-4.8); Lymphocytes % (A) 24 %; MCH 30.6 pg (25.0-35.0); MCHC 29.7 g/dL (31.0-37.0); MCV 102.9 fL (80.0-100.0); Macrocytosis Slight; Mean Platelet Volume 7.9; Monocytes # (A) 0.8 k/uL (0-1.0); Monocytes % (A) 10 %; Neutrophils # (A) 4.6 k/uL (1.3-7.7); Neutrophils % (A) 61 %; Platelet Count 204 k/uL (150-450); RBC 3.55 m/uL (3.80-5.40); RDW 14.2 % (11.5-15.5); WBC 7.5 k/uL (3.8-10.6)
[2018-07-21 16:22] LABS: Creatine Kinase <20 U/L (30-135)
--- NOTE | 2018-07-21 16:22 | XR ---
EXAMINATION TYPE: XR chest 2V DATE OF EXAM: 07/21/2018 COMPARISON: Prior chest x-ray 06/26/2018 HISTORY: Cough TECHNIQUE: Frontal and lateral views of the chest are obtained on 3 images. FINDINGS: The heart is enlarged. Central vascularity and interstitium are increased. No evident pneu mothorax. The aorta is dense. Increased density present at the posterior costophrenic angle level see n on the lateral exam. IMPRESSION: Findings suggest congestive heart failure, there may be associated effusion. Follow-up r ecommended.
[2018-07-21 16:31] LABS: Creatine Kinase MB 0.8 ng/mL (0.0-2.4)
[2018-07-21 17:07] LABS: Appearance,Urine Cloudy (Clear); Bacteria,Urine Occasional /hpf; Bilirubin,Urine Negative (Negative); Blood,Urine Small (Negative); Color,Urine Light Yellow; Glucose,Urine (UA) Negative (Negative); Hyaline Casts,Urine 3 /lpf (0-2); Ketones,Urine Negative (Negative); Leukocyte Esterase,Urine Small (Negative); Mucus,Urine Rare /hpf; Nitrite,Urine Positive (Negative); PH, Urine 6.5 (5.0-8.0); Protein,Urine Negative (Negative); RBC,Urine 2 /hpf (0-5); Specific Gravity,Urine 1.009 (1.001-1.035); Squamous Epithelial Cell,Urine <1 /hpf (0-4); Urobilinogen,Urine <2.0 mg/dL (<2.0); WBC,Urine 6 /hpf (0-5)
[2018-07-21] MEDS ORDERED: FUROSEMIDE 10 MG/ML 4 ML VIAL IV STA (17:27)
[2018-07-21] MEDS ORDERED: NA PHOS,M-B/NA PHOS,DI-BA 133 ML ENEMA RECTAL PRN (17:38)
[2018-07-21] MEDS ORDERED: MAGNESIUM HYDROXIDE 2,400 MG/10 ML CUP PO PRN (17:38)
[2018-07-21] MEDS ORDERED: BISACODYL 10 MG SUPP RECTAL PRN (17:38)
[2018-07-21] MEDS: FUROSEMIDE 10 MG/ML 4 ML VIAL IV SCH (18:16)
[2018-07-21 18:50] LABS: ABG Base Excess 16.5 mmol/L; ABG Oxygen Saturation 95.8 % (94-97); ABG PH 7.29 (7.35-7.45); ABG PO2 83 mmHg (83-108); ABG TCO2 46 mmol/L (19-24)
[2018-07-21 19:10] LABS: ABG PCO2 90 mmHg (35-45)
[2018-07-21 19:11] LABS: ABG HCO3 43 mmol/L (21-25)
[2018-07-21] MEDS: IPRATROPIUM-ALBUTEROL 3 ML NEB INHALATION SCH (20:36)
[2018-07-21] MEDS ORDERED: [UNRECOGNIZED DRUG - OTHER] TOPICAL SCH (21:00)
[2018-07-21] MEDS ORDERED: MENTHOL-ZINC OXIDE OINT 113 GM TUBE TOPICAL SCH (21:00)
[2018-07-21] MEDS: ATORVASTATIN 10 MG TAB PO SCH (21:48)
[2018-07-21] MEDS: METOPROLOL TARTRATE 25 MG TAB PO SCH (21:49)
[2018-07-21] MEDS: GABAPENTIN 100 MG CAP PO SCH (21:49)
[2018-07-21] MEDS: TOPIRAMATE 25 MG TAB PO SCH (21:51)
[2018-07-21] MEDS: PENTOXIFYLLINE 400 MG TABLET.ER PO SCH (21:51)
[2018-07-21] MEDS: MENTHOL-ZINC OXIDE OINT 113 GM TUBE TOPICAL SCH (21:52)
[2018-07-21 22:21] LABS: Glucose,Whole Blood 116 mg/dL (75-99)
[2018-07-22 05:54] LABS: Glucose,Whole Blood 118 mg/dL (75-99)
[2018-07-22] MEDS: INSULIN ASPART 100 UNIT/ML 1 ML 10 ML VIAL SQ SCH ×4 (05:58→21:30)
[2018-07-22] MEDS ORDERED: FUROSEMIDE 40 MG TAB PO SCH (06:00)
[2018-07-22] MEDS: METOPROLOL TARTRATE 25 MG TAB PO SCH ×3 (06:38→20:37)
[2018-07-22] MEDS: GABAPENTIN 100 MG CAP PO SCH ×3 (06:38→20:38)
[2018-07-22] MEDS: FUROSEMIDE 10 MG/ML 4 ML VIAL IV SCH ×2 (06:38→17:21)
[2018-07-22] MEDS: PANTOPRAZOLE 40 MG TABLET PO SCH (06:39)
[2018-07-22] MEDS: IPRATROPIUM-ALBUTEROL 3 ML NEB INHALATION SCH ×4 (07:12→21:17)
[2018-07-22] MEDS ORDERED: NON-FORMULARY DRUG (Umeclidinium Bromide [Incruse Ellipta] 1 PUFF) INHALATION SCH (08:00)
[2018-07-22] MEDS: MENTHOL-ZINC OXIDE OINT 113 GM TUBE TOPICAL SCH ×2 (09:40→20:40)
[2018-07-22] MEDS: APIXABAN 5 MG TAB PO SCH ×2 (09:40→17:20)
[2018-07-22] MEDS: METHOCARBAMOL 750 MG TAB PO SCH ×2 (09:40→17:20)
[2018-07-22] MEDS: DONEPEZIL 10 MG TAB PO SCH (09:41)
[2018-07-22] MEDS: TOPIRAMATE 25 MG TAB PO SCH ×2 (09:41→20:38)
[2018-07-22] MEDS: POLYETHYLENE GLYCOL 3350 17 GM POWD.PACK PO SCH (09:41)
[2018-07-22] MEDS: DULoxetine HCL 30 MG CAPSULE.DR PO SCH (09:41)
[2018-07-22] MEDS: oxyCODONE-APAP 10-325MG 1 EACH TAB PO PRN ×3 (09:48→19:23)
[2018-07-22 11:30] LABS: Basophils % (A) 0 %; Eosinophils # (A) 0.2 k/uL (0-0.7); Eosinophils % (A) 3 %; HCT 38.4 % (34.0-46.0); HGB 11.2 gm/dL (11.4-16.0); Hypochromasia Marked; Lymphocytes # (A) 1.5 k/uL (1.0-4.8); Lymphocytes % (A) 19 %; MCH 30.4 pg (25.0-35.0); MCHC 29.1 g/dL (31.0-37.0); MCV 104.5 fL (80.0-100.0); Macrocytosis Slight; Mean Platelet Volume 7.7; Monocytes # (A) 0.6 k/uL (0-1.0); Monocytes % (A) 7 %; Neutrophils # (A) 5.3 k/uL (1.3-7.7); Neutrophils % (A) 68 %; Platelet Count 207 k/uL (150-450); RBC 3.67 m/uL (3.80-5.40); WBC 7.8 k/uL (3.8-10.6)
--- NOTE | 2018-07-22 11:36 | P.CNPUL ---
History of Present Illness Consult date: 07/22/18 Requesting physician: Daljit Moreira Reason for consult: dyspnea Chief complaint: Hypoxemia History of present illness: This is a very pleasant 77-year-old female patient who follows with Dr. Muniz as her primary care physician. She has a history of CVA/TIA, dementia, diabetes mellitus, fibromyalgia, hyperlipidemia, hypertension, osteoarthritis, rheumatoid arthritis, morbid obesity previous gastric stapling, chronic atrial fibrillation anticoagulated with Eliquis. She had also sustained a fall and sustained a fracture of the shaft of the left humerus and currently is in a cast. She follows with Dr. Driver. She does have morbid obesity with obesity/ hypoventilation syndrome and utilizes a BiPAP machine in the outpatient setting. She utilizes 2 L/m per nasal cannula as well and she is currently residing in the [facility] and they found her O2 saturations to be dropping into the 60s and 70s during her sleep and had concerns regarding the function of the BiPAP machine. The machine was changed out by [facility] with continued nocturnal hypoxemia. She was brought here to the emergency room yesterday for the same. Arterial blood gases on 30% FiO2 revealed a PaO2 of 83, pCO2 of 90 and a pH of 7.29. Chest x-ray revealed evidence of central vascularity and interstitial edema suggestive of congestive heart failure. White count 7.5. Hemoglobin 10.9. Bicarb 39. Creatinine 0.62. Urine with positive nitrates and occasional bacteria. Culture pending. She is seen today in consultation on the selective care unit. She is currently awake and alert in no acute distress. She was placed on the hospital BiPAP settings of 12/6 and 50% FiO2 and her O2 saturations stayed in the 90s throughout the night. Otherwise she is maintaining O2 saturations in the 90s on 3 L/m per nasal cannula. She's been afebrile. Of note, the patient was admitted for a very similar situation of hypoxic and hypercapnic respiratory failure causing altered mental status on 06/25/2018. Her home BiPAP machine was evaluated by Dr. Driver and no changes were needed. Review of Systems Constitutional: Reports daytime sleepiness, Reports fatigue, Reports weakness Eyes: denies blurred vision, denies decreased vision (Wears corrective lenses) Ears: bilateral: decreased hearing Ears, nose, mouth and throat: Denies headache, Denies sore throat Cardiovascular: Reports decreased exercise tolerance, Reports dyspnea on exertion, Reports irregular heart beat, Reports paroxysmal nocturnal dyspnea, Reports shortness of breath Respiratory: Reports dyspnea, Reports home oxygen, Reports sleep apnea Gastrointestinal: Denies abdominal pain, Denies diarrhea, Denies nausea, Denies vomiting Genitourinary: Reports stress incontinence, Reports urinary frequency Musculoskeletal: Reports as per HPI Musculoskeletal: left: hand swelling (Cast to left upper extremity, sling) Integumentary: Denies pruritus, Denies rash Neurological: Reports balance difficulties, Reports lack of coordination, Reports weakness Psychiatric: Reports anxiety Endocrine: Reports fatigue, Reports weight change Hematologic/Lymphatic: Reports easy bruising Allergic/Immunologic: Reports as per HPI Past Medical History Past Medical History: Atrial Fibrillation, COPD, CVA/TIA, Dementia, Diabetes Mellitus, Fibromyalgia, Hyperlipidemia, Hypertension, Osteoarthritis (OA), Rheumatoid Arthritis (RA) Additional Past Medical History / Comment(s): Pt recently admitted to [facility] on 06/09/18 with acute renal failure, L humerus fracture (fell out of wheelchair), hypoventilating syndrome, obesity. Other hx: Pt wears oxygen at 2L/NC during the day and bipap at night, L arm is casted and pt to be at 45-90 degree angle with L arm down at side, severe gait dysfunction, diabetes-diet controlled , arthritis in multiple joints bilaterally, tremors, pyelonephritis in 2015, UTIs, urinary incontinence. History of Any Multi-Drug Resistant Organisms: None Reported Past Surgical History: Appendectomy, Bariatric Surgery, Bladder Surgery, Cholecystectomy, Joint Replacement, Orthopedic Surgery, Tubal Ligation Additional Past Surgical History / Comment(s): Bilateral carpal tunnel releases , bilateral thumb reattachments, gastric stapling, EGD. Past Anesthesia/Blood Transfusion Reactions: No Reported Reaction Past Psychological History: No Psychological Hx Reported Additional Psychological History / Comment(s): Pt currently resides at [facility]. She gets up into a wheelchair with 2 assists. She is right handed. She feeds herself. She wears O2 during the day and bipap at night. Smoking Status: Never smoker Past Alcohol Use History: None Reported Past Drug Use History: None Reported - Past Family History Father Family Medical History: Cancer Additional Family Medical History / Comment(s): leukemia Mother Family Medical History: Cancer Additional Family Medical History / Comment(s): lung ca Medications and Allergies Home Medications Medication Instructions Recorded Confirmed Type DULoxetine HCL [Cymbalta] 30 mg PO DAILY 04/28/15 07/21/18 History Donepezil [Aricept] 10 mg PO DAILY 04/28/15 07/21/18 History Pantoprazole Sodium 40 mg PO DAILY@0600 04/28/15 07/21/18 History Topiramate 50 mg PO BID 10/03/15 07/21/18 History Methocarbamol 750 mg PO BID@0800,1700 03/13/17 07/21/18 History Umeclidinium [place] [Incruse 1 puff INHALATION RT-BID@0800,1700 03/13/17 History Ellipta] Lovastatin [Mevacor] 40 mg PO HS 03/20/17 07/21/18 History Ferrous Sulfate [Iron (65 MG 325 mg PO DAILY@1700 06/07/18 07/21/18 History Elemental)] Magnesium Oxide [Mag-Ox] 400 mg PO DAILY@1700 06/07/18 07/21/18 History Pentoxifylline 400 mg PO HS 06/07/18 07/21/18 History Polyethylene Glycol 3350 [Miralax] 17 gm PO DAILY 06/07/18 07/21/18 History Apixaban [Eliquis] 5 mg PO BID@,06/25/18 07/21/18 History Bisacodyl [Dulcolax] 10 mg RECTAL DAILY PRN 06/25/18 07/21/18 History Menthol/Zinc Oxide [Calmoseptine 1 applic TOPICAL BID 06/25/18 07/21/18 History Ointment] Na Phos,M-B/Na Phos,Di-Ba [Fleet 133 ml RECTAL DAILY PRN 06/25/18 07/21/18 History Adult] Talc-Zinc Oxide Powder 81-15% 1 applic TOPICAL BID 06/25/18 07/21/18 History oxyCODONE-APAP 10-325MG [Percocet 1 tab PO 5XD PRN #10 tab 06/29/18 07/21/18 Rx 10-325 mg] Furosemide [Lasix] 40 mg PO BID@06,07/21/18 07/21/18 History Gabapentin [Neurontin] 100 mg PO TID@06,14,07/21/18 07/21/18 History Ipratropium-Albuterol Nebulize 3 ml INHALATION RT-QID@,,,07/21/1807/21 History [Duoneb 0.5 mg-3 mg/3 ml Soln] Magnesium Hydroxide [Milk of 2,400 mg PO DAILY PRN 07/21/18 07/21/18 History Magnesia] Menthol-Zinc Oxide Oint 1 applic TOPICAL BID 07/21/18 07/21/18 History [Calmoseptine Oint] Metoprolol Tartrate [Lopressor] 25 mg PO TID@,,07/21/18 07/21/18 History Multivitamins, Thera [Multivitamin 1 tab PO DAILY@1700 07/21/18 07/21/18 History (formulary)] Allergies Allergy/AdvReac Type Severity Reaction Status Date / Time latex Allergy Unknown Verified 07/21/18 15:51 nitrofurantoin Allergy Unknown Verified 07/21/18 15:51 [From Macrobid] nitrofurantoin Allergy Unknown Verified 07/21/18 15:51 macrocrystalline [From Macrobid] Sulfa (Sulfonamide Allergy Unknown Verified 07/21/18 15:51 Antibiotics) Physical Exam Vitals: Vital Signs Temp Pulse Pulse Resp BP BP Pulse Ox 07/22/18 08:00 97.5 F L 75 17 120/73 96 07/22/18 07:28 74 07/22/18 07:17 72 07/22/18 04:00 97.9 F 72 14 133/62 100 07/22/18 00:31 98.4 F 72 16 108/76 100 07/21/18 22:30 76 18 109/73 98 07/21/18 20:57 88 07/21/18 20:37 80 07/21/18 20:34 85 18 147/62 97 07/21/18 19:13 89 20 100 07/21/18 19:12 98.0 F 75 17 125/58 99 07/21/18 18:19 94 L 07/21/18 18:10 98.0 F 78 16 163/98 91 L 07/21/18 15:39 20 07/21/18 15:07 98.7 F 95 20 149/66 90 L Intake and Output 07/21/18 07/22/18 07/22/18 22:59 06:59 14:59 Intake Total 200 Output Total 475 Balance -475 200 Intake: Oral 200 Output: Urine 475 Other: Voiding Method Indwelling Catheter Indwelling Catheter Weight 136 kg GENERAL EXAM: Morbidly obese. Alert, comfortable in no apparent distress. HEAD: Normocephalic. EYES: Normal reaction of pupils, equal size. NOSE: Clear with pink turbinates. THROAT: There is crowding of the posterior pharynx. No erythema or exudates. NECK: Short. No masses, no JVD. CHEST: No chest wall deformity. LUNGS: Equal air entry with crackles in the posterior bases. CVS: S1 and S2 normal with no audible murmur, irregular rhythm. ABDOMEN: No hepatosplenomegaly, normal bowel sounds, no guarding or rigidity. SPINE: Kyphoscoliosis SKIN: No rashes CENTRAL NERVOUS SYSTEM: No focal deficits, tone is normal in all 4 extremities. EXTREMITIES: There is a cast of the left upper extremity. There is no peripheral edema. No clubbing, no cyanosis. Peripheral pulses are intact. Results - Laboratory Findings CBC and BMP: 07/21/18 15:48 07/21/18 15:48 ABG ABG pH 7.29 (7.35-7.45) L 07/21/18 18:50 ABG pCO2 90 mmHg (35-45) H* 07/21/18 18:50 ABG pO2 83 mmHg (83-108) 07/21/18 18:50 ABG O2 Saturation 95.8 % (94-97) 07/21/18 18:50 Abnormal lab findings: Abnormal Labs 07/21/18 07/21/18 07/21/18 15:48 15:48 15:48 RBC 3.55 L Hgb 10.9 L MCV 102.9 H MCHC 29.7 L ABG pH ABG pCO2 ABG HCO3 ABG Total CO2 Chloride 97 L Carbon Dioxide 39 H Glucose 122 H POC Glucose (mg/dL) Total Creatine Kinase <20 L Total Protein 6.1 L Albumin 3.2 L Urine Appearance Urine Blood Urine Nitrite Ur Leukocyte Esterase Urine WBC Urine Bacteria Hyaline Casts Urine Mucus 07/21/18 07/21/18 07/21/18 16:45 18:50 22:00 RBC Hgb MCV MCHC ABG pH 7.29 L ABG pCO2 90 H* ABG HCO3 43 H* ABG Total CO2 46 H Chloride Carbon Dioxide Glucose POC Glucose (mg/dL) 116 H Total Creatine Kinase Total Protein Albumin Urine Appearance Cloudy H Urine Blood Small H Urine Nitrite Positive H Ur Leukocyte Esterase Small H Urine WBC 6 H Urine Bacteria Occasional H Hyaline Casts 3 H Urine Mucus Rare H 07/22/18 05:51 RBC Hgb MCV MCHC ABG pH ABG pCO2 ABG HCO3 ABG Total CO2 Chloride Carbon Dioxide Glucose POC Glucose (mg/dL) 118 H Total Creatine Kinase Total Protein Albumin Urine Appearance Urine Blood Urine Nitrite Ur Leukocyte Esterase Urine WBC Urine Bacteria Hyaline Casts Urine Mucus - Diagnostic Findings Chest x-ray: image reviewed Assessment and Plan Assessment: Impression: #1 Acute on chronic hypercapnic respiratory failure in secondary to diastolic congestive heart failure. #2 Acute on chronic hypoxic respiratory failure secondary to above. #3 Morbid obesity with a BMI of 54.8 kg/m #4 Obesity/hypoventilation syndrome. The patient's baseline AHI is 44 and the patient on BiPAP pressure 15/10 cm of water in the outpatient setting. #5 Chronic obstructive pulmonary disease. #6 Chronic atrial fibrillation, anticoagulated with Eliquis. #7 Recent left humeral fracture currently casted and in a sling. #8 Fibromyalgia. #9 Diabetes mellitus. #10 Hypertension. #11 Hyperlipidemia. #12 Previous history of CVA/TIA. #13 Osteoarthritis. #14 Frequent urinary tract infections, culture pending. Plan: The patient was seen and evaluated by Dr. Jason. Chest x-ray and labs were reviewed. We'll continue with IV diuretics. Continue bronchodilators. Continue to utilize the hospital BiPAP machine at the current settings. We will discuss home BiPAP settings with Dr. Driver. We will continue anticoagulation in the form of Eliquis. We'll continue to follow make further recommendations based on her clinical status. I, the cosigning physician, performed a history & physical examination of the patient. Lungs sounds with crackles in the posterior bases. Maintaining good O2 saturations in the 90s on 50% FiO2 per BiPAP alternating with 3 L/m per nasal cannula. I discussed the assessment and plan of care with my nurse practitioner, Graciela Ashford. I attest to the above note as dictated by her. Time with Patient: Greater than 30
[2018-07-22 11:37] LABS: Blood Urea Nitrogen 13 mg/dL (7-17); Calcium 9.3 mg/dL (8.4-10.2); Chloride 93 mmol/L (98-107); Glucose 132 mg/dL (74-99); Potassium 3.9 mmol/L (3.5-5.1); Sodium 145 mmol/L (137-145)
[2018-07-22 11:44] LABS: Anion Gap 5 mmol/L
[2018-07-22 11:46] LABS: Glucose,Whole Blood 132 mg/dL (75-99)
[2018-07-22 11:57] LABS: Carbon Dioxide 47 mmol/L (22-30)
--- NOTE | 2018-07-22 14:32 | P.HPIM ---
History of Present Illness H&P Date: 07/22/18 Chief Complaint: Shortness of breath Patient is a 77-year-old female with a known history of chronic persistent Atrial Fibrillation on anticoagulation, COPD, CVA/TIA, Dementia, Diabetes Mellitus, Fibromyalgia, Hyperlipidemia, Hypertension, Osteoarthritis (OA), Rheumatoid Arthritis (RA), morbid obesity, obesity hypoventilation syndrome and chronic CHF with diastolic dysfunction on home oxygen and BiPAP, currently residing at extended care facility sent to ER with complaints of shortness of breath and hypoxia. Patient was recently discharged from the hospital on 2017, admitted for CHF exacerbation and metabolic encephalopathy. Patient had left humerus shaft spiral fracture and currently on cast. Patient otherwise denied any complaints of fever or chills. No worsening cough or sputum production. Patient does have hearing difficulty otherwise. ABGs on admission showed PaO2 of 83 and pCO2 90 pH 7.29. Chest x-ray showed findings suggestive of congestive heart failure. There may be associated effusion. Follow-up recommended. Patient is a chronic CO2 retainer. Bicarb level was 47 during previous admission. Review of Systems Constitutional: Patient denies any fever or chills . No generalized weakness or weight loss. Abdomen: Patient denied nausea vomiting and diarrhea and abdominal pain. Cardiovascular: Patient denies any chest pain or short of breath no palpitations. Respiratory: Patient denied any cough or sputum production. Patient does have shortness of breath and hypoxemia Neurologic: Patient denied any numbness or tingling headache. Musculoskeletal: Patient denies any complaints of joint swelling or deformity. Skin: Negative Psychiatric: Negative Endocrine: No heat or cold intolerance. No recent weight gain. Genitourinary: No dysuria or hematuria. All other 14 point ROS negative except the above Past Medical History Past Medical History: Atrial Fibrillation, COPD, CVA/TIA, Dementia, Diabetes Mellitus, Fibromyalgia, Hyperlipidemia, Hypertension, Osteoarthritis (OA), Rheumatoid Arthritis (RA) Additional Past Medical History / Comment(s): Pt recently admitted to [facility] on 06/09/18 with acute renal failure, L humerus fracture (fell out of wheelchair), hypoventilating syndrome, obesity. Other hx: Pt wears oxygen at 2L/NC during the day and bipap at night, L arm is casted and pt to be at 45-90 degree angle with L arm down at side, severe gait dysfunction, diabetes-diet controlled , arthritis in multiple joints bilaterally, tremors, pyelonephritis in 2015, UTIs, urinary incontinence. History of Any Multi-Drug Resistant Organisms: None Reported Past Surgical History: Appendectomy, Bariatric Surgery, Bladder Surgery, Cholecystectomy, Joint Replacement, Orthopedic Surgery, Tubal Ligation Additional Past Surgical History / Comment(s): Bilateral carpal tunnel releases , bilateral thumb reattachments, gastric stapling, EGD. Past Anesthesia/Blood Transfusion Reactions: No Reported Reaction Past Psychological History: No Psychological Hx Reported Additional Psychological History / Comment(s): Pt currently resides at [facility]. She gets up into a wheelchair with 2 assists. She is right handed. She feeds herself. She wears O2 during the day and bipap at night. Smoking Status: Never smoker Past Alcohol Use History: None Reported Past Drug Use History: None Reported - Past Family History Father Family Medical History: Cancer Additional Family Medical History / Comment(s): leukemia Mother Family Medical History: Cancer Additional Family Medical History / Comment(s): lung ca Medications and Allergies Home Medications Medication Instructions Recorded Confirmed Type DULoxetine HCL [Cymbalta] 30 mg PO DAILY 04/28/15 07/21/18 History Donepezil [Aricept] 10 mg PO DAILY 04/28/15 07/21/18 History Pantoprazole Sodium 40 mg PO DAILY@0600 04/28/15 07/21/18 History Topiramate 50 mg PO BID 10/03/15 07/21/18 History Methocarbamol 750 mg PO BID@0800,1700 03/13/17 07/21/18 History Umeclidinium [place] [Incruse 1 puff INHALATION RT-BID@0800,1700 03/13/17 History Ellipta] Lovastatin [Mevacor] 40 mg PO HS 03/20/17 07/21/18 History Ferrous Sulfate [Iron (65 MG 325 mg PO DAILY@169906/07/18 07/21/18 History Elemental)] Magnesium Oxide [Mag-Ox] 400 mg PO DAILY@169906/07/18 07/21/18 History Pentoxifylline 400 mg PO HS 06/07/18 07/21/18 History Polyethylene Glycol 3350 [Miralax] 17 gm PO DAILY 06/07/18 07/21/18 History Apixaban [Eliquis] 5 mg PO BID@08,17 06/25/18 07/21/18 History Bisacodyl [Dulcolax] 10 mg RECTAL DAILY PRN 06/25/18 07/21/18 History Menthol/Zinc Oxide [Calmoseptine 1 applic TOPICAL BID 06/25/18 07/21/18 History Ointment] Na Phos,M-B/Na Phos,Di-Ba [Fleet 133 ml RECTAL DAILY PRN 06/25/18 07/21/18 History Adult] Talc-Zinc Oxide Powder 81-15% 1 applic TOPICAL BID 06/25/18 07/21/18 History oxyCODONE-APAP 10-325MG [Percocet 1 tab PO 5XD PRN #10 tab 06/29/18 07/21/18 Rx 10-325 mg] Furosemide [Lasix] 40 mg PO BID@06,14 07/21/18 07/21/18 History Gabapentin [Neurontin] 100 mg PO TID@,,07/21/18 07/21/18 History Ipratropium-Albuterol Nebulize 3 ml INHALATION RT-QID@,,,07/21/1807/21 History [Duoneb 0.5 mg-3 mg/3 ml Soln] Magnesium Hydroxide [Milk of 2,400 mg PO DAILY PRN 07/21/18 07/21/18 History Magnesia] Menthol-Zinc Oxide Oint 1 applic TOPICAL BID 07/21/18 07/21/18 History [Calmoseptine Oint] Metoprolol Tartrate [Lopressor] 25 mg PO TID@,,07/21/18 07/21/18 History Multivitamins, Thera [Multivitamin 1 tab PO DAILY@1700 07/21/18 07/21/18 History (formulary)] Allergies Allergy/AdvReac Type Severity Reaction Status Date / Time latex Allergy Unknown Verified 07/21/18 15:51 nitrofurantoin Allergy Unknown Verified 07/21/18 15:51 [From Macrobid] nitrofurantoin Allergy Unknown Verified 07/21/18 15:51 macrocrystalline [From Macrobid] Sulfa (Sulfonamide Allergy Unknown Verified 07/21/18 15:51 Antibiotics) Physical Exam Vitals: Vital Signs Temp Pulse Pulse Resp BP BP Pulse Ox 07/22/18 08:00 97.5 F L 75 17 120/73 96 07/22/18 07:28 74 07/22/18 07:17 72 07/22/18 04:00 97.9 F 72 14 133/62 100 07/22/18 00:31 98.4 F 72 16 108/76 100 07/21/18 22:30 76 18 109/73 98 07/21/18 20:57 88 07/21/18 20:37 80 07/21/18 20:34 85 18 147/62 97 07/21/18 19:13 89 20 100 07/21/18 19:12 98.0 F 75 17 125/58 99 07/21/18 18:19 94 L 07/21/18 18:10 98.0 F 78 16 163/98 91 L 07/21/18 15:39 20 07/21/18 15:07 98.7 F 95 20 149/66 90 L Intake and Output 07/21/18 07/22/18 07/22/18 22:59 06:59 14:59 Intake Total 200 Output Total 475 Balance -475 200 Intake: Oral 200 Output: Urine 475 Other: Voiding Method Indwelling Catheter Indwelling Catheter Weight 136 kg PHYSICAL EXAMINATION: Patient is lying in the bed comfortably, no acute distress, awake alert and oriented. Hard of hearing. HEENT: Normocephalic. Neck is supple. Pupils reactive. Nostrils clear. Oral cavity is moist. Ears reveal no drainage. Neck reveals no JVD, carotid bruits, or thyromegaly. CHEST EXAMINATION: Trachea is central. Symmetrical expansion. Bibasilar crackles. Diminished air entry overall.. CARDIAC: Normal S1, S2 with no gallops. No murmurs . Irregularly irregular rhythm ABDOMEN: Soft. Bowel sounds normal. No organomegaly. No abdominal bruits. Extremities: 2+ edema. No clubbing or cyanosis Neurologically awake, alert, oriented x3 with well-coordinated movements. No focal deficits noted Skin: No rash or skin lesions. Psychiatric: Coperative. Could not be assessed completely.. Musculoskeletal: No joint swelling or deformity. Normal range of motion. Results CBC & Chem 7: 07/22/18 11:10 07/22/18 11:10 Labs: Abnormal Lab Results - Last 24 Hours (Table) 07/21/18 07/21/18 07/21/18 Range/Units 15:48 15:48 15:48 RBC 3.55 L (3.80-5.40) m/uL Hgb 10.9 L (11.4-16.0) gm/dL MCV 102.9 H (80.0-100.0) fL MCHC 29.7 L (31.0-37.0) g/dL ABG pH (7.35-7.45) ABG pCO2 (35-45) mmHg ABG HCO3 (21-25) mmol/L ABG Total CO2 (19-24) mmol/L Chloride 97 L (98-107) mmol/L Carbon Dioxide 39 H (22-30) mmol/L Glucose 122 H (74-99) mg/dL POC Glucose (mg/dL) (75-99) mg/dL Total Creatine Kinase <20 L (30-135) U/L Total Protein 6.1 L (6.3-8.2) g/dL Albumin 3.2 L (3.5-5.0) g/dL Urine Appearance (Clear) Urine Blood (Negative) Urine Nitrite (Negative) Ur Leukocyte Esterase (Negative) Urine WBC (0-5) /hpf Urine Bacteria (None) /hpf Hyaline Casts (0-2) /lpf Urine Mucus (None) /hpf 07/21/18 07/21/18 07/21/18 Range/Units 16:45 18:50 22:00 RBC (3.80-5.40) m/uL Hgb (11.4-16.0) gm/dL MCV (80.0-100.0) fL MCHC (31.0-37.0) g/dL ABG pH 7.29 L (7.35-7.45) ABG pCO2 90 H* (35-45) mmHg ABG HCO3 43 H* (21-25) mmol/L ABG Total CO2 46 H (19-24) mmol/L Chloride (98-107) mmol/L Carbon Dioxide (22-30) mmol/L Glucose (74-99) mg/dL POC Glucose (mg/dL) 116 H (75-99) mg/dL Total Creatine Kinase (30-135) U/L Total Protein (6.3-8.2) g/dL Albumin (3.5-5.0) g/dL Urine Appearance Cloudy H (Clear) Urine Blood Small H (Negative) Urine Nitrite Positive H (Negative) Ur Leukocyte Esterase Small H (Negative) Urine WBC 6 H (0-5) /hpf Urine Bacteria Occasional H (None) /hpf Hyaline Casts 3 H (0-2) /lpf Urine Mucus Rare H (None) /hpf 07/22/18 Range/Units 05:51 RBC (3.80-5.40) m/uL Hgb (11.4-16.0) gm/dL MCV (80.0-100.0) fL MCHC (31.0-37.0) g/dL ABG pH (7.35-7.45) ABG pCO2 (35-45) mmHg ABG HCO3 (21-25) mmol/L ABG Total CO2 (19-24) mmol/L Chloride (98-107) mmol/L Carbon Dioxide (22-30) mmol/L Glucose (74-99) mg/dL POC Glucose (mg/dL) 118 H (75-99) mg/dL Total Creatine Kinase (30-135) U/L Total Protein (6.3-8.2) g/dL Albumin (3.5-5.0) g/dL Urine Appearance (Clear) Urine Blood (Negative) Urine Nitrite (Negative) Ur Leukocyte Esterase (Negative) Urine WBC (0-5) /hpf Urine Bacteria (None) /hpf Hyaline Casts (0-2) /lpf Urine Mucus (None) /hpf Microbiology - Last 24 Hours (Table) 07/21/18 16:45 Urine Culture - Preliminary Urine,Voided Thrombosis Risk Factor Assmnt - DVT/VTE Prophylaxis DVT/VTE Prophylaxis: Pharmacologic Prophylaxis ordered - Choose All That Apply Any of the Below Risk Factors Present?: Yes Each Factor Represents 1 point: Abnormal pulmonary function (COPD), Obesity ( BMI >25) Other Risk Factors: Yes Each Risk Factor Represents 2 Points: Patient confined to bed Each Risk Factor Represents 3 Points: Age 75 years or older Other congenital or acquired thrombophilia - If yes, enter type in comment: No Thrombosis Risk Factor Assessment Total Risk Factor Score: 7 Thrombosis Risk Factor Assessment Level: High Risk Assessment and Plan Assessment: Shortness of breath and hypoxia secondary to acute on chronic CHF with diastolic dysfunction. Acute on chronic hypoxic and hypercapnic respiratory failure Morbid obesity with obesity with obesity hypoventilation syndrome Moderate obesity with BMI 58.3 Obstructive sleep apnea on BiPAP at home COPD Chronic persistent it fibrillation. On anticoagulation with eliquis Fibromyalgia Diabetes type 2 Left humerus fracture with displaced midshaft and nondisplaced articular surface. Currently on cast Hypertension Hyperlipidemia History of CVA/TIA Osteoarthritis CODE STATUS is DO NOT RESUSCITATE/DO NOT INTUBATE next Plan: Patient be continued on IV Lasix 40 m twice a day. BiPAP machine settings were checked by pulmonary. Continue with the breathing treatments and home medications and follow up closely. Discussed with her daughter at bedside in detail. Pulmonary is on board. Oxygen therapy. Further recommendations based on the clinical course. Prognosis is guarded with multiple medical problems and comorbid conditions. Time with Patient: Greater than 30
[2018-07-22 16:02] LABS: Glucose,Whole Blood 102 mg/dL (75-99)
[2018-07-22] MEDS: MAGNESIUM OXIDE 400 MG TAB PO SCH (17:19)
[2018-07-22] MEDS: MULTIVITAMINS, THERA 1 EACH TAB PO SCH (17:20)
[2018-07-22] MEDS: FERROUS SULFATE 325 MG TAB PO SCH (17:20)
[2018-07-22] MEDS: ATORVASTATIN 10 MG TAB PO SCH (20:38)
[2018-07-22] MEDS: PENTOXIFYLLINE 400 MG TABLET.ER PO SCH (20:38)
[2018-07-22 20:59] LABS: Glucose,Whole Blood 115 mg/dL (75-99)
[2018-07-23] MEDS: oxyCODONE-APAP 10-325MG 1 EACH TAB PO PRN ×4 (03:57→21:36)
[2018-07-23 04:19] LABS: Hemoglobin A1C 4.7 % (4.0-6.0)
[2018-07-23] MEDS ORDERED: VANCOMYCIN IV PER PHARMACY 1 EACH MISC MISCELLANE PRN (06:06)
[2018-07-23 06:07] LABS: Glucose,Whole Blood 128 mg/dL (75-99)
[2018-07-23] MEDS: GABAPENTIN 100 MG CAP PO SCH ×3 (06:43→21:35)
[2018-07-23] MEDS: METOPROLOL TARTRATE 25 MG TAB PO SCH ×3 (06:43→21:35)
[2018-07-23] MEDS: PANTOPRAZOLE 40 MG TABLET PO SCH (06:43)
[2018-07-23] MEDS: FUROSEMIDE 10 MG/ML 4 ML VIAL IV SCH ×2 (06:43→16:56)
[2018-07-23] MEDS: INSULIN ASPART 100 UNIT/ML 1 ML 10 ML VIAL SQ SCH ×4 (06:44→21:41)
[2018-07-23] MEDS ORDERED: VANCOMYCIN 2,000 MG in SODIUM CHLORIDE 0.9% 500 ML IVPB SCH (07:00)
[2018-07-23] MEDS: IPRATROPIUM-ALBUTEROL 3 ML NEB INHALATION SCH ×4 (07:22→20:37)
[2018-07-23] MEDS ORDERED: VANCOMYCIN 1,000 MG in SODIUM CHLORIDE 0.9% 250 ML IVPB ONE (08:00)
[2018-07-23] MEDS: MENTHOL-ZINC OXIDE OINT 113 GM TUBE TOPICAL SCH ×2 (08:39→21:37)
[2018-07-23] MEDS: DONEPEZIL 10 MG TAB PO SCH (08:39)
[2018-07-23] MEDS: POLYETHYLENE GLYCOL 3350 17 GM POWD.PACK PO SCH (08:39)
[2018-07-23] MEDS: APIXABAN 5 MG TAB PO SCH ×2 (08:39→16:55)
[2018-07-23] MEDS: TOPIRAMATE 25 MG TAB PO SCH ×2 (08:39→21:35)
[2018-07-23] MEDS: DULoxetine HCL 30 MG CAPSULE.DR PO SCH (08:39)
[2018-07-23] MEDS: METHOCARBAMOL 750 MG TAB PO SCH ×2 (08:39→16:56)
[2018-07-23 12:09] LABS: Glucose,Whole Blood 134 mg/dL (75-99)
[2018-07-23] MEDS: ERTAPENEM 1 GM in SODIUM CHLORIDE 0.9% 50 ML IVPB SCH (12:32)
--- NOTE | 2018-07-23 12:49 | P.PN ---
Subjective Progress Note Date: 07/23/18 Principal diagnosis: Acute on chronic hypercapnic and hypoxic respiratory failure secondary to diastolic congestive heart failure This is a very pleasant 77-year-old female patient who follows with Dr. Muniz as her primary care physician. She has a history of CVA/TIA, dementia, diabetes mellitus, fibromyalgia, hyperlipidemia, hypertension, osteoarthritis, rheumatoid arthritis, morbid obesity previous gastric stapling, chronic atrial fibrillation anticoagulated with Eliquis. She had also sustained a fall and sustained a fracture of the shaft of the left humerus and currently is in a cast. She follows with Dr. Driver. She does have morbid obesity with obesity/ hypoventilation syndrome and utilizes a BiPAP machine in the outpatient setting. She utilizes 2 L/m per nasal cannula as well and she is currently residing in the formerly [facility] care facility and they found her O2 saturations to be dropping into the 60s and 70s during her sleep and had concerns regarding the function of the BiPAP machine. The machine was changed out by [facility] with continued nocturnal hypoxemia. She was brought here to the emergency room yesterday for the same. Arterial blood gases on 30% FiO2 revealed a PaO2 of 83, pCO2 of 90 and a pH of 7.29. Chest x-ray revealed evidence of central vascularity and interstitial edema suggestive of congestive heart failure. White count 7.5. Hemoglobin 10.9. Bicarb 39. Creatinine 0.62. Urine with positive nitrates and occasional bacteria. Culture pending. She is seen today in consultation on the selective care unit. She is currently awake and alert in no acute distress. She was placed on the hospital BiPAP settings of 12/6 and 50% FiO2 and her O2 saturations stayed in the 90s throughout the night. Otherwise she is maintaining O2 saturations in the 90s on 3 L/m per nasal cannula. She's been afebrile. Of note, the patient was admitted for a very similar situation of hypoxic and hypercapnic respiratory failure causing altered mental status on 06/25/2018. Her home BiPAP machine was evaluated by Dr. Driver and no changes were needed. The patient is seen again today 07/23/2018 in follow-up on the selective care unit. She remains awake and alert in no acute distress. She is been intermittently using the hospital BiPAP. When off the BiPAP she is maintaining good O2 saturations in the 90s on 2 L/m per nasal cannula. She is breathing easier today as compared to yesterday. She remains on Lasix 40 mg every 12 hours. She remains in a negative balance. She has been initiated on vancomycin and ertapenem for her gram-negative bacilli. ESBL. Objective - Vital Signs Vital signs: Vital Signs Temp 97.7 F 07/23/18 08:00 Pulse 72 07/23/18 11:20 Resp 16 07/23/18 08:00 BP 114/51 07/23/18 08:00 Pulse Ox 94 L 07/23/18 08:00 Intake & Output 07/22/18 07/23/18 07/23/18 18:59 06:59 18:59 Intake Total 540 118 Output Total 900 250 Balance -360 -250 118 Weight 136 kg 137.5 kg Intake: Oral 540 118 Output: Urine 900 250 Other: Voiding Method Indwelling Catheter Indwelling Catheter Indwelling Catheter # Voids 300 - Exam GENERAL EXAM: Morbidly obese. Alert, comfortable in no apparent distress. HEAD: Normocephalic. EYES: Normal reaction of pupils, equal size. NOSE: Clear with pink turbinates. THROAT: There is crowding of the posterior pharynx. No erythema or exudates. NECK: Short. No masses, no JVD. CHEST: No chest wall deformity. LUNGS: Equal air entry with crackles in the posterior bases. CVS: S1 and S2 normal with no audible murmur, irregular rhythm. ABDOMEN: No hepatosplenomegaly, normal bowel sounds, no guarding or rigidity. SPINE: Kyphoscoliosis SKIN: No rashes CENTRAL NERVOUS SYSTEM: No focal deficits, tone is normal in all 4 extremities. EXTREMITIES: There is a cast of the left upper extremity. There is no peripheral edema. No clubbing, no cyanosis. Peripheral pulses are intact. - Labs CBC & Chem 7: 07/22/18 11:10 07/22/18 11:10 Labs: Abnormal Lab Results - Last 24 Hours (Table) 07/22/18 07/22/18 07/23/18 Range/Units 16:00 20:58 06:05 POC Glucose (mg/dL) 102 H 115 H 128 H (75-99) mg/dL 07/23/18 Range/Units 12:08 POC Glucose (mg/dL) 134 H (75-99) mg/dL Microbiology - Last 24 Hours (Table) 07/21/18 15:48 Blood Culture Gram Stain - Preliminary Blood 07/21/18 15:48 Blood Culture - Final Blood 07/21/18 16:45 Urine Culture - Preliminary Urine,Voided Gram Neg Bacilli Assessment and Plan Assessment: Impression: #1 Acute on chronic hypercapnic respiratory failure secondary to diastolic congestive heart failure. #2 Acute on chronic hypoxic respiratory failure secondary to above. #3 Morbid obesity with a BMI of 54.8 kg/m #4 Obesity/hypoventilation syndrome. The patient's baseline AHI is 104 and the patient on BiPAP pressure 15/10 cm of water in the outpatient setting. #5 Chronic obstructive pulmonary disease. #6 Chronic atrial fibrillation, anticoagulated with Eliquis. #7 Recent left humeral fracture currently casted and in a sling. #8 Fibromyalgia. #9 Diabetes mellitus. #10 Hypertension. #11 Hyperlipidemia. #12 Previous history of CVA/TIA. #13 Osteoarthritis. #14 urinary tract infection secondary to E. coli, ESBL. Initiated on vancomycin and ertapenem. Plan: The patient was seen and evaluated by Dr. Jason. She has been initiated on vancomycin and ertapenem due to the ESBL E. coli in her urine. We'll continue with IV diuretics. Continue bronchodilators. Continue to utilize the hospital BiPAP machine at the current settings. Home BiPAP settings are correct per Dr. Driver. We will increase her activity as tolerated. Repeat a chest x-ray in the a.m. We'll continue to follow make further recommendations based on her clinical status. I, the cosigning physician, performed a history & physical examination of the patient. Lungs sounds with crackles in the posterior bases. Maintaining good O2 saturations in the 90s on 40% FiO2 per BiPAP alternating with 3 L/m per nasal cannula. I discussed the assessment and plan of care with my nurse practitioner, Graciela Ashford. I attest to the above note as dictated by her.
[2018-07-23 16:49] LABS: Glucose,Whole Blood 153 mg/dL (75-99)
[2018-07-23] MEDS: FERROUS SULFATE 325 MG TAB PO SCH (16:56)
[2018-07-23] MEDS: MAGNESIUM OXIDE 400 MG TAB PO SCH (16:56)
[2018-07-23] MEDS: MULTIVITAMINS, THERA 1 EACH TAB PO SCH (16:56)
[2018-07-23 20:52] LABS: Glucose,Whole Blood 138 mg/dL (75-99)
[2018-07-23] MEDS: ATORVASTATIN 10 MG TAB PO SCH (21:35)
[2018-07-23] MEDS: PENTOXIFYLLINE 400 MG TABLET.ER PO SCH (21:36)
--- NOTE | 2018-07-23 22:58 | P.PN ---
Subjective Progress Note Date: 07/23/18 Principal diagnosis: Acute on chronic hypoxic respiratory failure Acute on chronic CHF with diastolic dysfunction Obstructive sleep apnea Patient is a 77-year-old female with a known history of chronic persistent Atrial Fibrillation on anticoagulation, COPD, CVA/TIA, Dementia, Diabetes Mellitus, Fibromyalgia, Hyperlipidemia, Hypertension, Osteoarthritis (OA), Rheumatoid Arthritis (RA), morbid obesity, obesity hypoventilation syndrome and chronic CHF with diastolic dysfunction on home oxygen and BiPAP, currently residing at extended care facility sent to ER with complaints of shortness of breath and hypoxia. Patient was recently discharged from the hospital on 2017, admitted for CHF exacerbation and metabolic encephalopathy. Patient had left humerus shaft spiral fracture and currently on cast. Patient otherwise denied any complaints of fever or chills. No worsening cough or sputum production. Patient does have hearing difficulty otherwise. ABGs on admission showed PaO2 of 83 and pCO2 90 pH 7.29. Chest x-ray showed findings suggestive of congestive heart failure. There may be associated effusion. Follow-up recommended. Patient is a chronic CO2 retainer. Bicarb level was 47 during previous admission. 07/23/2018 Patient says that she feels better today. Currently saturating well on nasal cannula. Requiring BiPAP on and off. Patient remained on IV Lasix. Urine culture showed ESBL E. coli. Currently on vancomycin and ertapenem. ID was consulted. Follow-up renal function. No fever no chills. No other acute overnight issues. No nausea vomiting or abdominal pain. Current medications reviewed Objective - Vital Signs Vital signs: Vital Signs Temp 98.4 F 07/23/18 20:00 Pulse 88 07/23/18 20:53 Resp 18 07/23/18 20:00 BP 131/80 07/23/18 20:00 Pulse Ox 97 07/23/18 16:00 Intake & Output 07/23/18 07/23/18 07/24/18 06:59 18:59 06:59 Intake Total 118 Output Total 250 920 Balance -250 -802 Weight 137.5 kg Intake: Oral 118 Output: Urine 250 920 Other: Voiding Method Indwelling Catheter Indwelling Catheter Indwelling Catheter # Voids 300 # Bowel Movements 0 - Exam Patient is lying in the bed comfortably, no acute distress, awake alert and oriented. Hard of hearing. HEENT: Normocephalic. Neck is supple. Pupils reactive. Nostrils clear. Oral cavity is moist. Ears reveal no drainage. Neck reveals no JVD, carotid bruits, or thyromegaly. CHEST EXAMINATION: Trachea is central. Symmetrical expansion. Bibasilar crackles. Diminished air entry overall.. CARDIAC: Normal S1, S2 with no gallops. No murmurs . Irregularly irregular rhythm ABDOMEN: Soft. Bowel sounds normal. No organomegaly. No abdominal bruits. Extremities: 2+ edema. No clubbing or cyanosis Neurologically awake, alert, oriented x3 with well-coordinated movements. No focal deficits noted Skin: No rash or skin lesions. Psychiatric: Coperative. Could not be assessed completely.. Musculoskeletal: No joint swelling or deformity. Normal range of motion. - Labs CBC & Chem 7: 07/22/18 11:10 07/22/18 11:10 Labs: Abnormal Lab Results - Last 24 Hours (Table) 07/23/18 07/23/18 07/23/18 Range/Units 06:05 12:08 16:47 POC Glucose (mg/dL) 128 H 134 H 153 H (75-99) mg/dL 07/23/18 Range/Units 20:51 POC Glucose (mg/dL) 138 H (75-99) mg/dL Microbiology - Last 24 Hours (Table) 07/21/18 16:45 Urine Culture - Final Urine,Voided Escherichia coli 07/21/18 15:48 Blood Culture Gram Stain - Preliminary Blood Blood Culture - Preliminary Coagulase Negative Staph 07/21/18 15:48 Blood Culture - Final Blood Assessment and Plan Assessment: Shortness of breath and hypoxia secondary to acute on chronic CHF with diastolic dysfunction. Acute on chronic hypoxic and hypercapnic respiratory failure Morbid obesity with obesity with obesity hypoventilation syndrome Moderate obesity with BMI 58.3 Obstructive sleep apnea on BiPAP at home COPD Chronic persistent it fibrillation. On anticoagulation with eliquis Fibromyalgia Diabetes type 2 Left humerus fracture with displaced midshaft and nondisplaced articular surface. Currently on cast Hypertension Hyperlipidemia History of CVA/TIA Osteoarthritis CODE STATUS is DO NOT RESUSCITATE/DO NOT INTUBATE next Plan: Patient be continued on IV Lasix 40 m twice a day. BiPAP machine settings were checked by pulmonary and a distended.. Continue with the breathing treatments and home medications and follow up closely. Pulmonary is on board. Oxygen therapy. Further recommendations based on the clinical course. Prognosis is guarded with multiple medical problems and comorbid conditions. Time with Patient: Greater than 30
[2018-07-24 06:03] LABS: Glucose,Whole Blood 133 mg/dL (75-99)
[2018-07-24 06:14] LABS: Basophils % (A) 0 %; Eosinophils # (A) 0.3 k/uL (0-0.7); Eosinophils % (A) 4 %; HCT 35.2 % (34.0-46.0); HGB 10.1 gm/dL (11.4-16.0); Hypochromasia Marked; Lymphocytes % (A) 32 %; MCH 29.8 pg (25.0-35.0); MCHC 28.6 g/dL (31.0-37.0); MCV 104.4 fL (80.0-100.0); Macrocytosis Slight; Mean Platelet Volume 7.6; Monocytes # (A) 0.6 k/uL (0-1.0); Monocytes % (A) 9 %; Neutrophils # (A) 3.4 k/uL (1.3-7.7); Neutrophils % (A) 53 %; Platelet Count 204 k/uL (150-450); RBC 3.37 m/uL (3.80-5.40); WBC 6.4 k/uL (3.8-10.6)
[2018-07-24 06:27] LABS: Blood Urea Nitrogen 13 mg/dL (7-17); Calcium 9.1 mg/dL (8.4-10.2); Chloride 91 mmol/L (98-107); Glucose 106 mg/dL (74-99); Potassium 3.6 mmol/L (3.5-5.1); Sodium 141 mmol/L (137-145)
[2018-07-24 06:33] LABS: Anion Gap 2 mmol/L
[2018-07-24] MEDS: PANTOPRAZOLE 40 MG TABLET PO SCH (06:35)
[2018-07-24] MEDS: GABAPENTIN 100 MG CAP PO SCH ×3 (06:35→20:49)
[2018-07-24] MEDS: METOPROLOL TARTRATE 25 MG TAB PO SCH ×3 (06:36→20:44)
[2018-07-24] MEDS: FUROSEMIDE 10 MG/ML 4 ML VIAL IV SCH ×2 (06:36→17:10)
[2018-07-24] MEDS: INSULIN ASPART 100 UNIT/ML 1 ML 10 ML VIAL SQ SCH ×4 (06:36→20:51)
[2018-07-24] MEDS: oxyCODONE-APAP 10-325MG 1 EACH TAB PO PRN ×3 (06:37→21:12)
[2018-07-24 06:43] LABS: Carbon Dioxide 48 mmol/L (22-30)
--- NOTE | 2018-07-24 06:43 | CONS ---
CONSULTATION DATE OF SERVICE: 07/23/2018 REASON FOR CONSULTATION: 1. UTI. 2. Positive blood culture. HISTORY OF PRESENT ILLNESS: The patient is a 77-year-old female who recently did have a displaced oblique fracture of the shaft of the left humerus, currently with a cast on and also with a history of metabolic encephalopathy and acute renal failure. The patient has been brought into the ER at [facility] on 07/21/2018 for evaluation of difficulty in breathing. Apparently the patient seems to have been on BiPAP at the intermediate; however, the patient seemed to be not responding well to it and did have low O2 sats. Patient has been complaining of shortness of breath, but no significant chest pain or cough. No nausea, no vomiting. No abdominal pain or any diarrhea. The patient also apparently has been diagnosed with UTI in the intermediate and has been treated with antibiotics. However, the patient not sure about the name of those and apparently not responding well per the ER note. With these symptoms, the patient has been evaluated by the ER physician. On arrival to the ER, the patient has been . Chest x-ray was reported to be congestive heart failure. Urine was cloudy with small leukocyte esterases, occasional bacteria. She did have a urine culture obtained showing a ESBL and E coli and the blood culture with gram-positive cocci for which Infectious Disease was consulted for further recommendation regarding antibiotic therapy. The patient is not a very good historian so most of the information has been obtained from review of the chart and talking to the nursing staff. REVIEW OF SYSTEMS: Positive points has been mentioned in HPI, the rest of system review has been negative. PAST MEDICAL HISTORY: Her past medical history is significant for atrial fibrillation, COPD, CVA, TIA, dementia, diabetes mellitus, fibromyalgia, hyperlipidemia, hypertension, osteoarthritis, rheumatoid arthritis, left humerus fracture, and acute renal failure. PAST SURGICAL HISTORY: Appendectomy, bariatric surgery, bladder surgery, cholecystectomy, tubal ligation, bilateral carpal tunnel release, gastric stapling, EGD. SOCIAL HISTORY: No history of smoking, drinking or any drug use. FAMILY HISTORY: Father had history of leukemia. Mother history of lung cancer. ALLERGIES: Allergies to NITROFURANTOIN, SULFA ANTIBIOTIC and LATEX. MEDICATIONS: Medications include the patient is currently on DuoNeb, Eliquis, Lipitor, Dulcolax, Calmoseptine ointment, Aricept Cymbalta, ertapenem 1 gram daily, iron sulfate, Lasix. Neurontin, milk of magnesia, Lopressor, Theragran, Trental, MiraLAX, vancomycin pharmacy to dose. PHYSICAL EXAMINATION: On examination, blood pressure is 131/80 with a pulse of 102, temperature 98.4. She is 95% on BiPAP. General description is an elderly female up in the bed in no distress. No tachypnea or accessory muscle of respiration use. HEENT examination shows slight pallor. No scleral icterus. Oral mucous membrane is dry. No pharyngeal erythema or thrush. NECK: Trachea central. No thyromegaly. LUNGS: Unlabored breathing with decreased breath sounds at the bases. No wheeze or crackle. HEART: S1, S2. Irregular . No added sounds. ABDOMEN: Soft, no tenderness. No guarding or rigidity. EXTREMITIES: No edema of feet. SKIN EXAMINATION: No rash or mass palpable. NEUROLOGICAL: Patient awake, alert, oriented x2. Mood and affect normal. LABS: Urine is cloudy with small leukocyte esterases. Urine culture revealed ESBL E coli. Hemoglobin is 10.9, white count 7.5. BUN of 13, creatinine 0.68. DIAGNOSTIC IMPRESSION AND PLAN: 1. Patient admitted to the hospital with multiple symptoms including increasing shortness of breath, which is more likely to an underlying fluid overload, , clinically suspicious for underlying pneumonia. 2. Patient with a positive blood culture which is now finalized with on admission. The patient has to go along with it. 3. Patient with ESBL Escherichia coli urinary tract infection with a history of recurrent urinary tract infections. 4. Multiple antibiotic allergy. PLAN: 1. Discontinue the vancomycin to decrease risk of any nephrotoxicity and suspicion low for underlying true gram-positive infection. 2. . 3. We will follow on clinical condition and culture to further adjust medication if needed. Thank you for this consultation. We will follow this patient along with you. MMODL / IJN: [id number] /
--- NOTE | 2018-07-24 08:04 | XR ---
EXAMINATION TYPE: XR chest 1V portable DATE OF EXAM: 07/24/2018 CLINICAL HISTORY: Difficulty breathing , CHF, and hypoxemia progress study. TECHNIQUE: Single AP portable upright view of the chest is obtained. COMPARISON: Chest x-ray from 3 days earlier and older studies. FINDINGS: Exam noted suboptimal due to portable technique and patient's large body habitus. There is persistent cardiomegaly with atherosclerotic thoracic aorta. There is persistent low lung volumes wi th reticular interstitial changes bilaterally redemonstrated there is persistent small left pleural e ffusion and/or pleural thickening. There is no new suspicious focal airspace opacity or pneumothorax seen bilaterally. Osseous structures are intact. IMPRESSION: Overall stable findings, low lung volumes and cardiomegaly with suspected mild acute in terstitial edema on background of chronic fibrosis and suspected small left pleural effusion. No sign ificant change from most recent x-ray.
[2018-07-24] MEDS: IPRATROPIUM-ALBUTEROL 3 ML NEB INHALATION SCH ×4 (08:16→19:27)
[2018-07-24] MEDS: DONEPEZIL 10 MG TAB PO SCH (08:28)
[2018-07-24] MEDS: POLYETHYLENE GLYCOL 3350 17 GM POWD.PACK PO SCH (08:28)
[2018-07-24] MEDS: DULoxetine HCL 30 MG CAPSULE.DR PO SCH (08:28)
[2018-07-24] MEDS: TOPIRAMATE 25 MG TAB PO SCH ×2 (08:28→20:50)
[2018-07-24] MEDS: METHOCARBAMOL 750 MG TAB PO SCH ×2 (08:28→17:10)
[2018-07-24] MEDS: APIXABAN 5 MG TAB PO SCH ×2 (08:28→17:10)
[2018-07-24] MEDS: MENTHOL-ZINC OXIDE OINT 113 GM TUBE TOPICAL SCH ×2 (10:11→21:11)
[2018-07-24] MEDS: ERTAPENEM 1 GM in SODIUM CHLORIDE 0.9% 50 ML IVPB SCH (10:11)
--- NOTE | 2018-07-24 10:36 | P.PN ---
Subjective Progress Note Date: 07/24/18 Principal diagnosis: Acute on chronic hypercapnic and hypoxic respiratory failure secondary to diastolic congestive heart failure This is a very pleasant 77-year-old female patient who follows with Dr. Muniz as her primary care physician. She has a history of CVA/TIA, dementia, diabetes mellitus, fibromyalgia, hyperlipidemia, hypertension, osteoarthritis, rheumatoid arthritis, morbid obesity previous gastric stapling, chronic atrial fibrillation anticoagulated with Eliquis. She had also sustained a fall and sustained a fracture of the shaft of the left humerus and currently is in a cast. She follows with Dr. Driver. She does have morbid obesity with obesity/ hypoventilation syndrome and utilizes a BiPAP machine in the outpatient setting. She utilizes 2 L/m per nasal cannula as well and she is currently residing in the [facility] care facility and they found her O2 saturations to be dropping into the 60s and 70s during her sleep and had concerns regarding the function of the BiPAP machine. The machine was changed out by [facility] with continued nocturnal hypoxemia. She was brought here to the emergency room yesterday for the same. Arterial blood gases on 30% FiO2 revealed a PaO2 of 83, pCO2 of 90 and a pH of 7.29. Chest x-ray revealed evidence of central vascularity and interstitial edema suggestive of congestive heart failure. White count 7.5. Hemoglobin 10.9. Bicarb 39. Creatinine 0.62. Urine with positive nitrates and occasional bacteria. Culture pending. She is seen today in consultation on the selective care unit. She is currently awake and alert in no acute distress. She was placed on the hospital BiPAP settings of 12/6 and 50% FiO2 and her O2 saturations stayed in the 90s throughout the night. Otherwise she is maintaining O2 saturations in the 90s on 3 L/m per nasal cannula. She's been afebrile. Of note, the patient was admitted for a very similar situation of hypoxic and hypercapnic respiratory failure causing altered mental status on 06/25/2018. Her home BiPAP machine was evaluated by Dr. Driver and no changes were needed. The patient is seen again today 07/23/2018 in follow-up on the selective care unit. She remains awake and alert in no acute distress. She is been intermittently using the hospital BiPAP. When off the BiPAP she is maintaining good O2 saturations in the 90s on 2 L/m per nasal cannula. She is breathing easier today as compared to yesterday. She remains on Lasix 40 mg every 12 hours. She remains in a negative balance. She has been initiated on vancomycin and ertapenem for her gram-negative bacilli. ESBL. Seen again today 07/24/2018 in follow-up on the selective care unit. She is currently awake and alert in no acute distress. She denies any worsening shortness of breath, cough or congestion. Currently maintaining good O2 saturations in the 90s on 3 L/m per nasal cannula. Chest x-ray remains stable with low lung volumes and cardiomegaly and mild interstitial edema. She remains on IV diuretics. She's been afebrile. Hemodynamically stable. Blood cultures positive for staph hominis. Urine culture positive for ESBL E. coli. She remains on ertapenem. Vancomycin discontinued per ID. White count 6.4. Hemoglobin 10.1. Bicarb 48. Creatinine 0.72. Objective - Vital Signs Vital signs: Vital Signs Temp 98.3 F 07/24/18 08:00 Pulse 84 07/24/18 08:31 Resp 20 07/24/18 08:00 BP 112/65 07/24/18 08:00 Pulse Ox 96 07/24/18 08:17 Intake & Output 07/23/18 07/24/18 07/24/18 18:59 06:59 18:59 Intake Total 118 10 240 Output Total 920 400 900 Balance -802 -390 -660 Weight 138.5 kg Intake: IV 10 .9 10 Oral 118 240 Output: Urine 920 400 900 Straight 900 Other: Voiding Method Indwelling Catheter Indwelling Catheter Indwelling Catheter # Bowel Movements 0 - Exam GENERAL EXAM: Morbidly obese. Alert, comfortable in no apparent distress. HEAD: Normocephalic. EYES: Normal reaction of pupils, equal size. NOSE: Clear with pink turbinates. THROAT: There is crowding of the posterior pharynx. No erythema or exudates. NECK: Short. No masses, no JVD. CHEST: No chest wall deformity. LUNGS: Equal air entry with crackles in the posterior bases. CVS: S1 and S2 normal with no audible murmur, irregular rhythm. ABDOMEN: No hepatosplenomegaly, normal bowel sounds, no guarding or rigidity. SPINE: Kyphoscoliosis SKIN: No rashes CENTRAL NERVOUS SYSTEM: No focal deficits, tone is normal in all 4 extremities. EXTREMITIES: There is a cast of the left upper extremity. There is no peripheral edema. No clubbing, no cyanosis. Peripheral pulses are intact. - Labs CBC & Chem 7: 07/24/18 05:29 07/24/18 05:29 Labs: Abnormal Lab Results - Last 24 Hours (Table) 07/23/18 07/23/18 07/23/18 Range/Units 12:08 16:47 20:51 RBC (3.80-5.40) m/uL Hgb (11.4-16.0) gm/dL MCV (80.0-100.0) fL MCHC (31.0-37.0) g/dL Chloride (98-107) mmol/L Carbon Dioxide (22-30) mmol/L Glucose (74-99) mg/dL POC Glucose (mg/dL) 134 H 153 H 138 H (75-99) mg/dL 07/24/18 07/24/18 07/24/18 Range/Units 05:29 05:29 06:01 RBC 3.37 L (3.80-5.40) m/uL Hgb 10.1 L (11.4-16.0) gm/dL MCV 104.4 H (80.0-100.0) fL MCHC 28.6 L (31.0-37.0) g/dL Chloride 91 L (98-107) mmol/L Carbon Dioxide 48 H* (22-30) mmol/L Glucose 106 H (74-99) mg/dL POC Glucose (mg/dL) 133 H (75-99) mg/dL Microbiology - Last 24 Hours (Table) 07/21/18 15:48 Blood Culture Gram Stain - Final Blood Blood Culture - Final Staph hominis sub sp. hominis 07/21/18 16:45 Urine Culture - Final Urine,Voided Escherichia coli Assessment and Plan Assessment: Impression: #1 Acute on chronic hypercapnic respiratory failure secondary to diastolic congestive heart failure. Continues to diurese well. Chest x-ray stable. #2 Acute on chronic hypoxic respiratory failure secondary to above. Improved. Oxygen at 3 L/m per nasal cannula. #3 Morbid obesity with a BMI of 54.8 kg/m #4 Obesity/hypoventilation syndrome. The patient's baseline AHI is 104 and the patient on BiPAP pressure 15/10 cm of water in the outpatient setting. #5 Chronic obstructive pulmonary disease. #6 Chronic atrial fibrillation, anticoagulated with Eliquis. #7 Recent left humeral fracture currently casted and in a sling. #8 Fibromyalgia. #9 Diabetes mellitus. #10 Hypertension. #11 Hyperlipidemia. #12 Previous history of CVA/TIA. #13 Osteoarthritis. #14 urinary tract infection secondary to E. coli, ESBL. Remains on ertapenem. Plan: The patient was seen and evaluated by Dr. Jason. Chest x-ray and labs reviewed. We'll continue with the current treatment plan. We'll continue to follow make further recommendations based on her clinical status. I, the cosigning physician, performed a history & physical examination of the patient. Lungs sounds with crackles in the posterior bases. Maintaining good O2 saturations in the 90s on 3 L/m per nasal cannula. I discussed the assessment and plan of care with my nurse practitioner, Graciela Ashford. I attest to the above note as dictated by her.
[2018-07-24 11:40] LABS: Glucose,Whole Blood 125 mg/dL (75-99)
[2018-07-24 16:35] LABS: Glucose,Whole Blood 119 mg/dL (75-99)
[2018-07-24] MEDS: MULTIVITAMINS, THERA 1 EACH TAB PO SCH (17:10)
[2018-07-24] MEDS: FERROUS SULFATE 325 MG TAB PO SCH (17:10)
[2018-07-24] MEDS: MAGNESIUM OXIDE 400 MG TAB PO SCH (17:10)
[2018-07-24] MEDS: PENTOXIFYLLINE 400 MG TABLET.ER PO SCH (20:49)
[2018-07-24] MEDS: ATORVASTATIN 10 MG TAB PO SCH (20:49)
[2018-07-24 20:53] LABS: Glucose,Whole Blood 206 mg/dL (75-99)
--- NOTE | 2018-07-25 06:08 | PN ---
PROGRESS NOTE DATE OF SERVICE: 07/24/2018. REASON FOR FOLLOWUP: 1. ESBL E coli urinary tract infection. 2. Positive blood culture with Streptococcus hominis likely contamination. INTERVAL HISTORY: The patient is afebrile. She is breathing comfortably. Denies significant chest pain, shortness of breath. Occasional cough. No abdominal pain and no diarrhea. EXAMINATION: Blood pressure 159/77 with a pulse of 88, temperature 98.3. She is 97% on 3 L nasal cannula. General description is an elderly female up in the chair in no distress. RESPIRATORY SYSTEM: Unlabored breathing. Clear to auscultation anteriorly. HEART: S1, S2. Regular rate and rhythm. ABDOMEN: Soft, no tenderness. LABS: Hemoglobin is 10.1, white count 6.4, BUN of 13, creatinine 0.72. DIAGNOSTIC IMPRESSION AND PLAN: 1. Patient with ESBL E coli urinary tract infection currently covered with Invanz. Recommend a short course of antibiotics for possible cystitis. Clinically doubt the patient has any deep infection. 2. Positive blood culture with Staphylococcus haemolyticus, likely skin contamination. No need for antibiotic therapy for the same. MMODL / IJN: [id number] /
[2018-07-25] MEDS: PANTOPRAZOLE 40 MG TABLET PO SCH (06:21)
[2018-07-25] MEDS: FUROSEMIDE 10 MG/ML 4 ML VIAL IV SCH ×2 (06:21→17:10)
[2018-07-25] MEDS: oxyCODONE-APAP 10-325MG 1 EACH TAB PO PRN ×3 (06:21→21:26)
[2018-07-25] MEDS: METOPROLOL TARTRATE 25 MG TAB PO SCH ×3 (06:21→20:33)
[2018-07-25] MEDS: GABAPENTIN 100 MG CAP PO SCH ×3 (06:22→20:33)
[2018-07-25] MEDS: IPRATROPIUM-ALBUTEROL 3 ML NEB INHALATION SCH ×4 (07:31→19:59)
[2018-07-25] MEDS: INSULIN ASPART 100 UNIT/ML 1 ML 10 ML VIAL SQ SCH ×4 (07:41→21:26)
[2018-07-25 07:48] LABS: Glucose,Whole Blood 110 mg/dL (75-99)
[2018-07-25] MEDS: POLYETHYLENE GLYCOL 3350 17 GM POWD.PACK PO SCH (08:30)
[2018-07-25] MEDS: TOPIRAMATE 25 MG TAB PO SCH ×2 (08:30→20:33)
[2018-07-25] MEDS: DULoxetine HCL 30 MG CAPSULE.DR PO SCH (08:30)
[2018-07-25] MEDS: METHOCARBAMOL 750 MG TAB PO SCH ×2 (08:30→17:10)
[2018-07-25] MEDS: APIXABAN 5 MG TAB PO SCH ×2 (08:30→17:10)
[2018-07-25] MEDS: DONEPEZIL 10 MG TAB PO SCH (08:30)
[2018-07-25] MEDS: MENTHOL-ZINC OXIDE OINT 113 GM TUBE TOPICAL SCH ×2 (08:33→20:34)
[2018-07-25] MEDS: ERTAPENEM 1 GM in SODIUM CHLORIDE 0.9% 50 ML IVPB SCH (10:05)
[2018-07-25 12:33] LABS: Glucose,Whole Blood 121 mg/dL (75-99)
--- NOTE | 2018-07-25 13:49 | P.PN ---
Subjective Progress Note Date: 07/25/18 Principal diagnosis: Acute on chronic hypercapnic and hypoxic respiratory failure secondary to diastolic congestive heart failure This is a very pleasant 77-year-old female patient who follows with Dr. Muniz as her primary care physician. She has a history of CVA/TIA, dementia, diabetes mellitus, fibromyalgia, hyperlipidemia, hypertension, osteoarthritis, rheumatoid arthritis, morbid obesity previous gastric stapling, chronic atrial fibrillation anticoagulated with Eliquis. She had also sustained a fall and sustained a fracture of the shaft of the left humerus and currently is in a cast. She follows with Dr. Driver. She does have morbid obesity with obesity/ hypoventilation syndrome and utilizes a BiPAP machine in the outpatient setting. She utilizes 2 L/m per nasal cannula as well and she is currently residing in the [facility] care facility and they found her O2 saturations to be dropping into the 60s and 70s during her sleep and had concerns regarding the function of the BiPAP machine. The machine was changed out by [facility] with continued nocturnal hypoxemia. She was brought here to the emergency room yesterday for the same. Arterial blood gases on 30% FiO2 revealed a PaO2 of 83, pCO2 of 90 and a pH of 7.29. Chest x-ray revealed evidence of central vascularity and interstitial edema suggestive of congestive heart failure. White count 7.5. Hemoglobin 10.9. Bicarb 39. Creatinine 0.62. Urine with positive nitrates and occasional bacteria. Culture pending. She is seen today in consultation on the selective care unit. She is currently awake and alert in no acute distress. She was placed on the hospital BiPAP settings of 12/6 and 50% FiO2 and her O2 saturations stayed in the 90s throughout the night. Otherwise she is maintaining O2 saturations in the 90s on 3 L/m per nasal cannula. She's been afebrile. Of note, the patient was admitted for a very similar situation of hypoxic and hypercapnic respiratory failure causing altered mental status on 06/25/2018. Her home BiPAP machine was evaluated by Dr. Driver and no changes were needed. The patient is seen again today 07/23/2018 in follow-up on the selective care unit. She remains awake and alert in no acute distress. She is been intermittently using the hospital BiPAP. When off the BiPAP she is maintaining good O2 saturations in the 90s on 2 L/m per nasal cannula. She is breathing easier today as compared to yesterday. She remains on Lasix 40 mg every 12 hours. She remains in a negative balance. She has been initiated on vancomycin and ertapenem for her gram-negative bacilli. ESBL. Seen again today 07/24/2018 in follow-up on the selective care unit. She is currently awake and alert in no acute distress. She denies any worsening shortness of breath, cough or congestion. Currently maintaining good O2 saturations in the 90s on 3 L/m per nasal cannula. Chest x-ray remains stable with low lung volumes and cardiomegaly and mild interstitial edema. She remains on IV diuretics. She's been afebrile. Hemodynamically stable. Blood cultures positive for staph hominis. Urine culture positive for ESBL E. coli. She remains on ertapenem. Vancomycin discontinued per ID. White count 6.4. Hemoglobin 10.1. Bicarb 48. Creatinine 0.72. The patient is seen again today 07/25/2018 in follow-up on the regular medical floor. She is currently resting in bed. She is on the BiPAP. She denies any worsening shortness of breath. When off the BiPAP she is maintaining good O2 saturations in the 90s on 2 L/m per nasal cannula. She remains on ertapenem for her ESBL urinary tract infection. She is afebrile. Objective - Vital Signs Vital signs: Vital Signs Temp 98.3 F 07/25/18 06:14 Pulse 82 07/25/18 11:31 Resp 18 07/25/18 08:30 BP 125/55 07/25/18 06:14 Pulse Ox 94 L 07/25/18 06:14 Intake & Output 07/24/18 07/25/18 07/25/18 18:59 06:59 18:59 Intake Total 660 750 Output Total 2175 1200 1100 Balance -1515 -450 -1100 Weight 137 kg Intake: IV 80 .9 80 Intake, IV Titration 100 Amount Ertapenem 1 gm In Sodium 100 Chloride 0.9% 50 ml @ 100 mls/hr IVPB DAILY@1000 [facility] Rx#:[id number] Oral 480 750 Output: Urine 2175 1200 1100 Straight 900 Other: Voiding Method Indwelling Catheter Indwelling Catheter Indwelling Catheter # Voids 1 # Bowel Movements 0 - Exam GENERAL EXAM: Morbidly obese. Alert, comfortable in no apparent distress. HEAD: Normocephalic. EYES: Normal reaction of pupils, equal size. NOSE: Clear with pink turbinates. THROAT: There is crowding of the posterior pharynx. No erythema or exudates. NECK: Short. No masses, no JVD. CHEST: No chest wall deformity. LUNGS: Equal air entry with crackles in the posterior bases. CVS: S1 and S2 normal with no audible murmur, irregular rhythm. ABDOMEN: No hepatosplenomegaly, normal bowel sounds, no guarding or rigidity. SPINE: Kyphoscoliosis SKIN: No rashes CENTRAL NERVOUS SYSTEM: No focal deficits, tone is normal in all 4 extremities. EXTREMITIES: There is a cast of the left upper extremity. There is no peripheral edema. No clubbing, no cyanosis. Peripheral pulses are intact. - Labs CBC & Chem 7: 07/24/18 05:29 07/24/18 05:29 Labs: Abnormal Lab Results - Last 24 Hours (Table) 07/24/18 07/24/18 07/25/18 Range/Units 16:33 20:35 07:37 POC Glucose (mg/dL) 119 H 206 H 110 H (75-99) mg/dL 07/25/18 Range/Units 12:31 POC Glucose (mg/dL) 121 H (75-99) mg/dL Assessment and Plan Assessment: Impression: #1 Acute on chronic hypercapnic respiratory failure secondary to diastolic congestive heart failure. Continues to diurese well. Chest x-ray stable. #2 Acute on chronic hypoxic respiratory failure secondary to above. Improved. Oxygen at 3 L/m per nasal cannula. #3 Morbid obesity with a BMI of 54.8 kg/m #4 Obesity/hypoventilation syndrome. The patient's baseline AHI is 104 and the patient on BiPAP pressure 15/10 cm of water in the outpatient setting. #5 Chronic obstructive pulmonary disease. #6 Chronic atrial fibrillation, anticoagulated with Eliquis. #7 Recent left humeral fracture currently casted and in a sling. #8 Fibromyalgia. #9 Diabetes mellitus. #10 Hypertension. #11 Hyperlipidemia. #12 Previous history of CVA/TIA. #13 Osteoarthritis. #14 Urinary tract infection secondary to E. coli, ESBL. Remains on ertapenem. Plan: The patient was seen and evaluated by Dr. Jason. We'll continue with the current treatment plan. Continue BiPAP at night and during the day while napping. We'll continue to follow make further recommendations based on her clinical status. I, the cosigning physician, performed a history & physical examination of the patient. Lungs sounds with crackles in the posterior bases. Maintaining good O2 saturations in the 90s on L/m per nasal cannula. I discussed the assessment and plan of care with my nurse practitioner, Graciela Ashford. I attest to the above note as dictated by her.
[2018-07-25] MEDS: FERROUS SULFATE 325 MG TAB PO SCH (17:10)
[2018-07-25] MEDS: MULTIVITAMINS, THERA 1 EACH TAB PO SCH (17:10)
[2018-07-25] MEDS: MAGNESIUM OXIDE 400 MG TAB PO SCH (17:10)
[2018-07-25 17:23] LABS: Glucose,Whole Blood 129 mg/dL (75-99)
[2018-07-25] MEDS: ATORVASTATIN 10 MG TAB PO SCH (20:33)
[2018-07-25] MEDS: PENTOXIFYLLINE 400 MG TABLET.ER PO SCH (20:33)
[2018-07-25 21:10] LABS: Glucose,Whole Blood 195 mg/dL (75-99)
[2018-07-26] MEDS: GABAPENTIN 100 MG CAP PO SCH ×3 (05:38→20:43)
[2018-07-26] MEDS: PANTOPRAZOLE 40 MG TABLET PO SCH (05:38)
[2018-07-26] MEDS: METOPROLOL TARTRATE 25 MG TAB PO SCH ×3 (05:38→20:43)
[2018-07-26] MEDS: FUROSEMIDE 10 MG/ML 4 ML VIAL IV SCH ×2 (05:38→18:12)
[2018-07-26] MEDS: IPRATROPIUM-ALBUTEROL 3 ML NEB INHALATION SCH ×4 (07:18→19:24)
[2018-07-26] MEDS: INSULIN ASPART 100 UNIT/ML 1 ML 10 ML VIAL SQ SCH ×4 (07:43→20:42)
[2018-07-26 07:57] LABS: Glucose,Whole Blood 118 mg/dL (75-99)
[2018-07-26] MEDS: DULoxetine HCL 30 MG CAPSULE.DR PO SCH (08:17)
[2018-07-26] MEDS: APIXABAN 5 MG TAB PO SCH ×2 (08:17→18:12)
[2018-07-26] MEDS: METHOCARBAMOL 750 MG TAB PO SCH ×2 (08:17→18:12)
[2018-07-26] MEDS: POLYETHYLENE GLYCOL 3350 17 GM POWD.PACK PO SCH (08:17)
[2018-07-26] MEDS: DONEPEZIL 10 MG TAB PO SCH (08:18)
[2018-07-26] MEDS: TOPIRAMATE 25 MG TAB PO SCH ×2 (08:18→20:44)
[2018-07-26] MEDS: MENTHOL-ZINC OXIDE OINT 113 GM TUBE TOPICAL SCH ×2 (08:19→20:48)
[2018-07-26] MEDS: ERTAPENEM 1 GM in SODIUM CHLORIDE 0.9% 50 ML IVPB SCH (09:13)
--- NOTE | 2018-07-26 12:05 | P.PN ---
Subjective Progress Note Date: 07/26/18 Principal diagnosis: Acute on chronic hypercapnic and hypoxic rest or a failure secondary to diastolic congestive heart failure This is a very pleasant 77-year-old female patient who follows with Dr. Muniz as her primary care physician. She has a history of CVA/TIA, dementia, diabetes mellitus, fibromyalgia, hyperlipidemia, hypertension, osteoarthritis, rheumatoid arthritis, morbid obesity previous gastric stapling, chronic atrial fibrillation anticoagulated with Eliquis. She had also sustained a fall and sustained a fracture of the shaft of the left humerus and currently is in a cast. She follows with Dr. Driver. She does have morbid obesity with obesity/ hypoventilation syndrome and utilizes a BiPAP machine in the outpatient setting. She utilizes 2 L/m per nasal cannula as well and she is currently residing in the [facility] and they found her O2 saturations to be dropping into the 60s and 70s during her sleep and had concerns regarding the function of the BiPAP machine. The machine was changed out by [facility] with continued nocturnal hypoxemia. She was brought here to the emergency room yesterday for the same. Arterial blood gases on 30% FiO2 revealed a PaO2 of 83, pCO2 of 90 and a pH of 7.29. Chest x-ray revealed evidence of central vascularity and interstitial edema suggestive of congestive heart failure. White count 7.5. Hemoglobin 10.9. Bicarb 39. Creatinine 0.62. Urine with positive nitrates and occasional bacteria. Culture pending. She is seen today in consultation on the selective care unit. She is currently awake and alert in no acute distress. She was placed on the hospital BiPAP settings of 12/6 and 50% FiO2 and her O2 saturations stayed in the 90s throughout the night. Otherwise she is maintaining O2 saturations in the 90s on 3 L/m per nasal cannula. She's been afebrile. Of note, the patient was admitted for a very similar situation of hypoxic and hypercapnic respiratory failure causing altered mental status on 06/25/2018. Her home BiPAP machine was evaluated by Dr. Driver and no changes were needed. The patient is seen again today 07/23/2018 in follow-up on the selective care unit. She remains awake and alert in no acute distress. She is been intermittently using the hospital BiPAP. When off the BiPAP she is maintaining good O2 saturations in the 90s on 2 L/m per nasal cannula. She is breathing easier today as compared to yesterday. She remains on Lasix 40 mg every 12 hours. She remains in a negative balance. She has been initiated on vancomycin and ertapenem for her gram-negative bacilli. ESBL. Seen again today 07/24/2018 in follow-up on the selective care unit. She is currently awake and alert in no acute distress. She denies any worsening shortness of breath, cough or congestion. Currently maintaining good O2 saturations in the 90s on 3 L/m per nasal cannula. Chest x-ray remains stable with low lung volumes and cardiomegaly and mild interstitial edema. She remains on IV diuretics. She's been afebrile. Hemodynamically stable. Blood cultures positive for staph hominis. Urine culture positive for ESBL E. coli. She remains on ertapenem. Vancomycin discontinued per ID. White count 6.4. Hemoglobin 10.1. Bicarb 48. Creatinine 0.72. The patient is seen again today 07/25/2018 in follow-up on the regular medical floor. She is currently resting in bed. She is on the BiPAP. She denies any worsening shortness of breath. When off the BiPAP she is maintaining good O2 saturations in the 90s on 2 L/m per nasal cannula. She remains on ertapenem for her ESBL urinary tract infection. She is afebrile. On 07/26/2018 patient seen again in follow-up on medical surgical floor. She is resting in bed, and feet on BiPAP, with pressures 12/6, and 40%. Lung sounds are positive for fine rales at bilateral bases, no rhonchi, no wheezes. Patient is being treated for RSV E. coli urinary tract infection, with ertapenem. She continues on IV diuretics in the form of Lasix 40 mg every 12 hours, negative 930 mL fluid balance over the last 24 hours, her weight is down 5 kg in the last 24 hours. Afebrile, no chest pain. No new labs or chest x- rays today, we will repeat labs and chest x-ray in the morning, for now patient remains stable, continue current medical treatment. Objective - Vital Signs Vital signs: Vital Signs Temp 96.7 F L 07/26/18 07:00 Pulse 72 07/26/18 11:14 Resp 22 07/26/18 08:00 BP 123/59 07/26/18 07:00 Pulse Ox 97 07/26/18 07:00 Intake & Output 07/25/18 07/26/18 07/26/18 18:59 06:59 18:59 Intake Total 300 120 Output Total 1400 1000 1050 Balance -1400 -700 -930 Weight 132 kg Intake: Oral 300 120 Output: Urine 1400 1000 1050 Other: Voiding Method Indwelling Catheter Indwelling Catheter Indwelling Catheter # Bowel Movements 0 - Exam GENERAL EXAM: Morbidly obese. Alert, comfortable in no apparent distress. On BiPAP support with pressures 12/6 of 40% HEAD: Normocephalic. EYES: Normal reaction of pupils, equal size. NOSE: Clear with pink turbinates. THROAT: There is crowding of the posterior pharynx. No erythema or exudates. NECK: Short. No masses, no JVD. CHEST: No chest wall deformity. LUNGS: Equal air entry with fine crackles in the posterior bases. CVS: S1 and S2 normal with no audible murmur, irregular rhythm. ABDOMEN: No hepatosplenomegaly, normal bowel sounds, no guarding or rigidity. SPINE: Kyphoscoliosis SKIN: No rashes CENTRAL NERVOUS SYSTEM: No focal deficits, tone is normal in all 4 extremities. EXTREMITIES: There is a cast of the left upper extremity. There is no peripheral edema. No clubbing, no cyanosis. Peripheral pulses are intact. - Labs CBC & Chem 7: 07/24/18 05:29 07/24/18 05:29 Labs: Abnormal Lab Results - Last 24 Hours (Table) 07/25/18 07/25/18 07/25/18 Range/Units 12:31 17:21 21:05 POC Glucose (mg/dL) 121 H 129 H 195 H (75-99) mg/dL 07/26/18 Range/Units 07:28 POC Glucose (mg/dL) 118 H (75-99) mg/dL Assessment and Plan Plan: Assessment: #1 Acute on chronic hypercapnic respiratory failure secondary to diastolic congestive heart failure. Continues to diurese well. Chest x-ray stable. #2 Acute on chronic hypoxic respiratory failure secondary to above. Improved. Oxygen at 3 L/m per nasal cannula. #3 Morbid obesity with a BMI of 54.8 kg/m #4 Obesity/hypoventilation syndrome. The patient's baseline AHI is 104 and the patient on BiPAP pressure 15/10 cm of water in the outpatient setting. #5 Chronic obstructive pulmonary disease. #6 Chronic atrial fibrillation, anticoagulated with Eliquis. #7 Recent left humeral fracture currently casted and in a sling. #8 Fibromyalgia. #9 Diabetes mellitus. #10 Hypertension. #11 Hyperlipidemia. #12 Previous history of CVA/TIA. #13 Osteoarthritis. #14 Urinary tract infection secondary to E. coli, ESBL. Remains on ertapenem. Plan: Continue IV diuretics, continue BiPAP support at night, and as needed during the day, we'll repeat chest x-ray in the morning, repeat blood work in the morning. No chills, no altered mentation, patient is maintaining negative fluid balance, breathing easier. I performed a history & physical examination of the patient and discussed their management with my nurse practitioner, Lexi Cronin. I reviewed the nurse practitioner's note and agree with the documented findings and plan of care. Lung sounds are positive for fine rales at the bases. The findings and the impression was discussed with the patient. I attest to the documentation by the nurse practitioner. Time with Patient: Less than 30
[2018-07-26 12:09] LABS: Basophils % (A) 1 %; Eosinophils # (A) 0.3 k/uL (0-0.7); Eosinophils % (A) 5 %; HCT 34.5 % (34.0-46.0); Hypochromasia Marked; Lymphocytes # (A) 1.9 k/uL (1.0-4.8); Lymphocytes % (A) 28 %; MCH 30.1 pg (25.0-35.0); MCHC 28.9 g/dL (31.0-37.0); MCV 104.1 fL (80.0-100.0); Macrocytosis Slight; Mean Platelet Volume 7.1; Monocytes # (A) 0.5 k/uL (0-1.0); Monocytes % (A) 8 %; Neutrophils # (A) 3.9 k/uL (1.3-7.7); Neutrophils % (A) 57 %; Platelet Count 230 k/uL (150-450); RBC 3.31 m/uL (3.80-5.40); WBC 6.8 k/uL (3.8-10.6)
[2018-07-26 12:29] LABS: Glucose,Whole Blood 121 mg/dL (75-99)
[2018-07-26 12:58] LABS: Blood Urea Nitrogen 14 mg/dL (7-17); Calcium 9.5 mg/dL (8.4-10.2); Chloride 87 mmol/L (98-107); Glucose 119 mg/dL (74-99); Potassium 3.8 mmol/L (3.5-5.1); Sodium 142 mmol/L (137-145)
[2018-07-26 13:05] LABS: Anion Gap 4 mmol/L
[2018-07-26 13:09] LABS: Carbon Dioxide 51 mmol/L (22-30)
[2018-07-26 17:08] LABS: Glucose,Whole Blood 154 mg/dL (75-99)
[2018-07-26] MEDS: FERROUS SULFATE 325 MG TAB PO SCH (18:12)
[2018-07-26] MEDS: MAGNESIUM OXIDE 400 MG TAB PO SCH (18:12)
[2018-07-26] MEDS: MULTIVITAMINS, THERA 1 EACH TAB PO SCH (18:12)
[2018-07-26] MEDS: oxyCODONE-APAP 10-325MG 1 EACH TAB PO PRN (18:19)
[2018-07-26 20:28] LABS: Glucose,Whole Blood 123 mg/dL (75-99)
[2018-07-26] MEDS: ATORVASTATIN 10 MG TAB PO SCH (20:43)
[2018-07-26] MEDS: PENTOXIFYLLINE 400 MG TABLET.ER PO SCH (20:44)
[2018-07-27] MEDS: oxyCODONE-APAP 10-325MG 1 EACH TAB PO PRN ×4 (00:14→21:19)
--- NOTE | 2018-07-27 00:48 | PN ---
PROGRESS NOTE DATE OF SERVICE: 07/26/2018. REASON FOR FOLLOWUP: 1. ESBL E coli urinary tract infection. 2. Positive blood culture, likely contamination. INTERVAL HISTORY: The patient is afebrile. She is feeling better. Breathing comfortably. Denies significant chest pain. No cough. No abdominal pain. No diarrhea. EXAMINATION: Blood pressure 136/59 with a pulse of 89, temperature of 97.3. She is 98% on room air. GENERAL DESCRIPTION: An elderly female up in the bed in no distress. RESPIRATORY SYSTEM: Unlabored breathing. Clear to auscultation anteriorly. HEART: S1, S2. Regular rate and rhythm. ABDOMEN: Soft, no tenderness. LABS: Hemoglobin is 10, white count 6.8. BUN of 14, creatinine 0.53. DIAGNOSTIC IMPRESSION AND PLAN: 1. Patient with a positive blood culture, Staphylococcus haemolyticus, likely contamination. No need for further workup for the same. 2. The patient with ESBL E coli urinary tract infection, likely cystitis. He was given a 5-day course of antibiotic in the form of Invanz. Continue supportive care thank condition. MMODL / IJN: [id number] /
[2018-07-27] MEDS: FUROSEMIDE 10 MG/ML 4 ML VIAL IV SCH (05:01)
[2018-07-27] MEDS: GABAPENTIN 100 MG CAP PO SCH ×3 (05:02→21:13)
[2018-07-27] MEDS: PANTOPRAZOLE 40 MG TABLET PO SCH (05:02)
[2018-07-27] MEDS: METOPROLOL TARTRATE 25 MG TAB PO SCH ×3 (06:25→21:13)
[2018-07-27] MEDS: INSULIN ASPART 100 UNIT/ML 1 ML 10 ML VIAL SQ SCH ×4 (07:37→21:13)
[2018-07-27 07:47] LABS: Glucose,Whole Blood 126 mg/dL (75-99)
[2018-07-27] MEDS: DONEPEZIL 10 MG TAB PO SCH (08:26)
[2018-07-27] MEDS: DULoxetine HCL 30 MG CAPSULE.DR PO SCH (08:27)
[2018-07-27] MEDS: POLYETHYLENE GLYCOL 3350 17 GM POWD.PACK PO SCH (08:27)
[2018-07-27] MEDS: APIXABAN 5 MG TAB PO SCH ×2 (08:27→17:53)
[2018-07-27] MEDS: METHOCARBAMOL 750 MG TAB PO SCH ×2 (08:27→17:53)
[2018-07-27] MEDS: ERTAPENEM 1 GM in SODIUM CHLORIDE 0.9% 50 ML IVPB SCH (08:28)
[2018-07-27] MEDS: MENTHOL-ZINC OXIDE OINT 113 GM TUBE TOPICAL SCH ×2 (08:28→21:13)
[2018-07-27] MEDS: TOPIRAMATE 25 MG TAB PO SCH ×2 (08:28→21:13)
[2018-07-27] MEDS: IPRATROPIUM-ALBUTEROL 3 ML NEB INHALATION SCH ×4 (08:30→20:07)
--- NOTE | 2018-07-27 10:37 | XR ---
EXAMINATION TYPE: XR chest 1V portable DATE OF EXAM: 07/27/2018 COMPARISON: 07/24/2018 HISTORY: Shortness of breath TECHNIQUE: Single frontal view of the chest is obtained. FINDINGS: Persistent diffuse interstitial pattern with bilateral infiltrate and pleural effusion. He art prominent. Atherosclerotic change aorta. No pneumothorax. IMPRESSION: 1. Stable pleural-parenchymal changes. CHF in the differential diagnosis. Underlying pneumonia not ex cluded.
[2018-07-27 10:41] LABS: Blood Urea Nitrogen 14 mg/dL (7-17); Calcium 9.4 mg/dL (8.4-10.2); Chloride 86 mmol/L (98-107); Glucose 96 mg/dL (74-99); Sodium 140 mmol/L (137-145)
[2018-07-27 10:48] LABS: Anion Gap 4 mmol/L
[2018-07-27 11:04] LABS: Potassium 3.4 mmol/L (3.5-5.1)
[2018-07-27 11:05] LABS: Carbon Dioxide 50 mmol/L (22-30)
--- NOTE | 2018-07-27 11:09 | P.PN ---
Subjective Progress Note Date: 07/24/18 Principal diagnosis: Acute on chronic hypoxic respiratory failure Acute on chronic CHF with diastolic dysfunction Obstructive sleep apnea Patient is a 77-year-old female with a known history of chronic persistent Atrial Fibrillation on anticoagulation, COPD, CVA/TIA, Dementia, Diabetes Mellitus, Fibromyalgia, Hyperlipidemia, Hypertension, Osteoarthritis (OA), Rheumatoid Arthritis (RA), morbid obesity, obesity hypoventilation syndrome and chronic CHF with diastolic dysfunction on home oxygen and BiPAP, currently residing at extended care facility sent to ER with complaints of shortness of breath and hypoxia. Patient was recently discharged from the hospital on 2017, admitted for CHF exacerbation and metabolic encephalopathy. Patient had left humerus shaft spiral fracture and currently on cast. Patient otherwise denied any complaints of fever or chills. No worsening cough or sputum production. Patient does have hearing difficulty otherwise. ABGs on admission showed PaO2 of 83 and pCO2 90 pH 7.29. Chest x-ray showed findings suggestive of congestive heart failure. There may be associated effusion. Follow-up recommended. Patient is a chronic CO2 retainer. Bicarb level was 47 during previous admission. 07/23/2018 Patient says that she feels better today. Currently saturating well on nasal cannula. Requiring BiPAP on and off. Patient remained on IV Lasix. Urine culture showed ESBL E. coli. Currently on vancomycin and ertapenem. ID was consulted. Follow-up renal function. No fever no chills. No other acute overnight issues. No nausea vomiting or abdominal pain. 07/24/2018 Patient is currently awake alert oriented 3. Saturating well on nausea cannula at 3 L. Chest x-ray showed stable low lung volumes and cardiomegaly and mild interstitial edema. Patient is being continued on IV diuresis. No fever no chills. No compressive chest pain. Patient is being continued on antibiotics no cough at ertapenem for ESBL E. coli. Vancomycin has been discontinued. No other acute overnight issues. Patient is being transferred to medical floor today. Current medications reviewed Objective - Vital Signs Vital signs: Vital Signs Temp 98.3 F 07/24/18 08:00 Pulse 81 07/24/18 11:54 Resp 20 07/24/18 08:00 BP 112/65 07/24/18 08:00 Pulse Ox 96 07/24/18 08:17 Intake & Output 07/23/18 07/24/18 07/24/18 18:59 06:59 18:59 Intake Total 118 10 240 Output Total 920 400 900 Balance -802 -390 -459 Weight 138.5 kg Intake: IV 10 .9 10 Oral 118 240 Output: Urine 920 400 900 Straight 900 Other: Voiding Method Indwelling Catheter Indwelling Catheter Indwelling Catheter # Bowel Movements 0 - Exam Patient is lying in the bed comfortably, no acute distress, awake alert and oriented. Hard of hearing. HEENT: Normocephalic. Neck is supple. Pupils reactive. Nostrils clear. Oral cavity is moist. Ears reveal no drainage. Neck reveals no JVD, carotid bruits, or thyromegaly. CHEST EXAMINATION: Trachea is central. Symmetrical expansion. Bibasilar crackles. Diminished air entry overall.. CARDIAC: Normal S1, S2 with no gallops. No murmurs . Irregularly irregular rhythm ABDOMEN: Soft. Bowel sounds normal. No organomegaly. No abdominal bruits. Extremities: 2+ edema. No clubbing or cyanosis Neurologically awake, alert, oriented x3 with well-coordinated movements. No focal deficits noted Skin: No rash or skin lesions. Psychiatric: Coperative. Could not be assessed completely.. Musculoskeletal: No joint swelling or deformity. Normal range of motion. - Labs CBC & Chem 7: 07/26/18 11:53 07/27/18 07:54 Labs: Abnormal Lab Results - Last 24 Hours (Table) 07/23/18 07/23/18 07/23/18 Range/Units 12:08 16:47 20:51 RBC (3.80-5.40) m/uL Hgb (11.4-16.0) gm/dL MCV (80.0-100.0) fL MCHC (31.0-37.0) g/dL Chloride (98-107) mmol/L Carbon Dioxide (22-30) mmol/L Glucose (74-99) mg/dL POC Glucose (mg/dL) 134 H 153 H 138 H (75-99) mg/dL 07/24/18 07/24/18 07/24/18 Range/Units 05:29 05:29 06:01 RBC 3.37 L (3.80-5.40) m/uL Hgb 10.1 L (11.4-16.0) gm/dL MCV 104.4 H (80.0-100.0) fL MCHC 28.6 L (31.0-37.0) g/dL Chloride 91 L (98-107) mmol/L Carbon Dioxide 48 H* (22-30) mmol/L Glucose 106 H (74-99) mg/dL POC Glucose (mg/dL) 133 H (75-99) mg/dL 07/24/18 Range/Units 11:38 RBC (3.80-5.40) m/uL Hgb (11.4-16.0) gm/dL MCV (80.0-100.0) fL MCHC (31.0-37.0) g/dL Chloride (98-107) mmol/L Carbon Dioxide (22-30) mmol/L Glucose (74-99) mg/dL POC Glucose (mg/dL) 125 H (75-99) mg/dL Microbiology - Last 24 Hours (Table) 07/21/18 15:48 Blood Culture Gram Stain - Final Blood Blood Culture - Final Staph hominis sub sp. hominis 07/21/18 16:45 Urine Culture - Final Urine,Voided Escherichia coli Assessment and Plan Assessment: Shortness of breath and hypoxia secondary to acute on chronic CHF with diastolic dysfunction. Acute on chronic hypoxic and hypercapnic respiratory failure Morbid obesity with obesity with obesity hypoventilation syndrome Moderate obesity with BMI 58.3 Obstructive sleep apnea on BiPAP at home COPD Chronic persistent it fibrillation. On anticoagulation with eliquis Fibromyalgia Diabetes type 2 Left humerus fracture with displaced midshaft and nondisplaced articular surface. Currently on cast Hypertension Hyperlipidemia History of CVA/TIA Osteoarthritis CODE STATUS is DO NOT RESUSCITATE/DO NOT INTUBATE next Plan: Patient be continued on IV Lasix 40 m twice a day. BiPAP machine settings were checked by pulmonary and a distended.. Continue with the breathing treatments and home medications and follow up closely. Pulmonary is on board. Oxygen therapy. Further recommendations based on the clinical course. Prognosis is guarded with multiple medical problems and comorbid conditions. Time with Patient: Greater than 30
--- NOTE | 2018-07-27 11:10 | P.PN ---
Subjective Progress Note Date: 07/25/18 Principal diagnosis: Acute on chronic hypoxic respiratory failure Acute on chronic CHF with diastolic dysfunction Obstructive sleep apnea Patient is a 77-year-old female with a known history of chronic persistent Atrial Fibrillation on anticoagulation, COPD, CVA/TIA, Dementia, Diabetes Mellitus, Fibromyalgia, Hyperlipidemia, Hypertension, Osteoarthritis (OA), Rheumatoid Arthritis (RA), morbid obesity, obesity hypoventilation syndrome and chronic CHF with diastolic dysfunction on home oxygen and BiPAP, currently residing at extended care facility sent to ER with complaints of shortness of breath and hypoxia. Patient was recently discharged from the hospital on 2017, admitted for CHF exacerbation and metabolic encephalopathy. Patient had left humerus shaft spiral fracture and currently on cast. Patient otherwise denied any complaints of fever or chills. No worsening cough or sputum production. Patient does have hearing difficulty otherwise. ABGs on admission showed PaO2 of 83 and pCO2 90 pH 7.29. Chest x-ray showed findings suggestive of congestive heart failure. There may be associated effusion. Follow-up recommended. Patient is a chronic CO2 retainer. Bicarb level was 47 during previous admission. 07/23/2018 Patient says that she feels better today. Currently saturating well on nasal cannula. Requiring BiPAP on and off. Patient remained on IV Lasix. Urine culture showed ESBL E. coli. Currently on vancomycin and ertapenem. ID was consulted. Follow-up renal function. No fever no chills. No other acute overnight issues. No nausea vomiting or abdominal pain. 07/24/2018 Patient is currently awake alert oriented 3. Saturating well on nausea cannula at 3 L. Chest x-ray showed stable low lung volumes and cardiomegaly and mild interstitial edema. Patient is being continued on IV diuresis. No fever no chills. No compressive chest pain. Patient is being continued on antibiotics no cough at ertapenem for ESBL E. coli. Vancomycin has been discontinued. No other acute overnight issues. Patient is being transferred to medical floor today. 07/25/2018 Patient is awake alert oriented 3. Currently on BiPAP machine. Patient has been requiring BiPAP machine last night. Continued on diuresis and antibiotics for ESBL E. coli. No other acute overnight issues. Current medications reviewed Objective - Vital Signs Vital signs: Vital Signs Temp 98.3 F 07/25/18 06:14 Pulse 90 07/25/18 15:18 Resp 18 07/25/18 08:30 BP 125/55 07/25/18 06:14 Pulse Ox 94 L 07/25/18 06:14 Intake & Output 07/24/18 07/25/18 07/25/18 18:59 06:59 18:59 Intake Total 660 750 Output Total 2175 1200 1400 Balance -6258 -078 -4047 Weight 137 kg Intake: IV 80 .9 80 Intake, IV Titration 100 Amount Ertapenem 1 gm In Sodium 100 Chloride 0.9% 50 ml @ 100 mls/hr IVPB DAILY@1000 [facility] Rx#:[id number] Oral 480 750 Output: Urine 2175 1200 1400 Straight 900 Other: Voiding Method Indwelling Catheter Indwelling Catheter Indwelling Catheter # Voids 1 # Bowel Movements 0 - Exam Patient is lying in the bed comfortably, no acute distress, awake alert and oriented. Hard of hearing. HEENT: Normocephalic. Neck is supple. Pupils reactive. Nostrils clear. Oral cavity is moist. Ears reveal no drainage. Neck reveals no JVD, carotid bruits, or thyromegaly. CHEST EXAMINATION: Trachea is central. Symmetrical expansion. Bibasilar crackles. Diminished air entry overall.. CARDIAC: Normal S1, S2 with no gallops. No murmurs . Irregularly irregular rhythm ABDOMEN: Soft. Bowel sounds normal. No organomegaly. No abdominal bruits. Extremities: 2+ edema. No clubbing or cyanosis Neurologically awake, alert, oriented x3 with well-coordinated movements. No focal deficits noted Skin: No rash or skin lesions. Psychiatric: Coperative. Could not be assessed completely.. Musculoskeletal: No joint swelling or deformity. Normal range of motion. - Labs CBC & Chem 7: 07/26/18 11:53 07/27/18 07:54 Labs: Abnormal Lab Results - Last 24 Hours (Table) 07/24/18 07/24/18 07/25/18 Range/Units 16:33 20:35 07:37 POC Glucose (mg/dL) 119 H 206 H 110 H (75-99) mg/dL 07/25/18 Range/Units 12:31 POC Glucose (mg/dL) 121 H (75-99) mg/dL Assessment and Plan Assessment: Shortness of breath and hypoxia secondary to acute on chronic CHF with diastolic dysfunction. Acute on chronic hypoxic and hypercapnic respiratory failure Morbid obesity with obesity with obesity hypoventilation syndrome Moderate obesity with BMI 58.3 Obstructive sleep apnea on BiPAP at home COPD Chronic persistent it fibrillation. On anticoagulation with eliquis Fibromyalgia Diabetes type 2 Left humerus fracture with displaced midshaft and nondisplaced articular surface. Currently on cast Hypertension Hyperlipidemia History of CVA/TIA Osteoarthritis CODE STATUS is DO NOT RESUSCITATE/DO NOT INTUBATE next Plan: Patient be continued on IV Lasix 40 m twice a day. BiPAP machine settings were checked by pulmonary and a distended.. Continue with the breathing treatments and home medications and follow up closely. Pulmonary is on board. Oxygen therapy. Further recommendations based on the clinical course. Prognosis is guarded with multiple medical problems and comorbid conditions. Time with Patient: Greater than 30
[2018-07-27 11:12] LABS: Basophils % (A) 1 %; Eosinophils # (A) 0.4 k/uL (0-0.7); Eosinophils % (A) 6 %; HCT 32.5 % (34.0-46.0); HGB 9.8 gm/dL (11.4-16.0); Hypochromasia Marked; Lymphocytes # (A) 2.3 k/uL (1.0-4.8); Lymphocytes % (A) 32 %; MCH 30.1 pg (25.0-35.0); MCHC 30.3 g/dL (31.0-37.0); MCV 99.5 fL (80.0-100.0); Mean Platelet Volume 9.2; Monocytes # (A) 0.7 k/uL (0-1.0); Monocytes % (A) 10 %; Neutrophils # (A) 3.4 k/uL (1.3-7.7); Neutrophils % (A) 48 %; Platelet Count 237 k/uL (150-450); RBC 3.26 m/uL (3.80-5.40); RDW 14.1 % (11.5-15.5); WBC 7.1 k/uL (3.8-10.6)
--- NOTE | 2018-07-27 11:13 | P.PN ---
Subjective Progress Note Date: 07/26/18 Principal diagnosis: Acute on chronic hypoxic respiratory failure Acute on chronic CHF with diastolic dysfunction Obstructive sleep apnea Patient is a 77-year-old female with a known history of chronic persistent Atrial Fibrillation on anticoagulation, COPD, CVA/TIA, Dementia, Diabetes Mellitus, Fibromyalgia, Hyperlipidemia, Hypertension, Osteoarthritis (OA), Rheumatoid Arthritis (RA), morbid obesity, obesity hypoventilation syndrome and chronic CHF with diastolic dysfunction on home oxygen and BiPAP, currently residing at extended care facility sent to ER with complaints of shortness of breath and hypoxia. Patient was recently discharged from the hospital on 2017, admitted for CHF exacerbation and metabolic encephalopathy. Patient had left humerus shaft spiral fracture and currently on cast. Patient otherwise denied any complaints of fever or chills. No worsening cough or sputum production. Patient does have hearing difficulty otherwise. ABGs on admission showed PaO2 of 83 and pCO2 90 pH 7.29. Chest x-ray showed findings suggestive of congestive heart failure. There may be associated effusion. Follow-up recommended. Patient is a chronic CO2 retainer. Bicarb level was 47 during previous admission. 07/23/2018 Patient says that she feels better today. Currently saturating well on nasal cannula. Requiring BiPAP on and off. Patient remained on IV Lasix. Urine culture showed ESBL E. coli. Currently on vancomycin and ertapenem. ID was consulted. Follow-up renal function. No fever no chills. No other acute overnight issues. No nausea vomiting or abdominal pain. 07/24/2018 Patient is currently awake alert oriented 3. Saturating well on nausea cannula at 3 L. Chest x-ray showed stable low lung volumes and cardiomegaly and mild interstitial edema. Patient is being continued on IV diuresis. No fever no chills. No compressive chest pain. Patient is being continued on antibiotics no cough at ertapenem for ESBL E. coli. Vancomycin has been discontinued. No other acute overnight issues. Patient is being transferred to medical floor today. 07/25/2018 Patient is awake alert oriented 3. Currently on BiPAP machine. Patient has been requiring BiPAP machine last night. Continued on diuresis and antibiotics for ESBL E. coli. No other acute overnight issues. 07/26/2018 Patient is currently on BiPAP admission. With FiO2 40%. No fever no chills. No complaints of chest pain or worsening shortness of breath. Otherwise patient is being current antibiotics for ESBL E. coli infection in the form of at ertapenem. Pulmonary and ID is following. Patient is comfortable in the bed. No complaints of chest pain. No headache or dizziness or lightheadedness. Patient still with hypercapnia with bicarb level 51. Potassium will be replaced. Current medications reviewed. Objective - Vital Signs Vital signs: Vital Signs Temp 98.0 F 07/26/18 13:40 Pulse 100 07/26/18 15:07 Resp 20 07/26/18 13:40 BP 143/72 07/26/18 13:40 Pulse Ox 95 07/26/18 13:40 Intake & Output 07/25/18 07/26/18 07/26/18 18:59 06:59 18:59 Intake Total 300 120 Output Total 1400 1000 1250 Balance -1400 -700 -1130 Weight 132 kg Intake: Oral 300 120 Output: Urine 1400 1000 1250 Other: Voiding Method Indwelling Catheter Indwelling Catheter Indwelling Catheter # Bowel Movements 0 - Exam Patient is lying in the bed comfortably, no acute distress, awake alert and oriented. Hard of hearing. HEENT: Normocephalic. Neck is supple. Pupils reactive. Nostrils clear. Oral cavity is moist. Ears reveal no drainage. Neck reveals no JVD, carotid bruits, or thyromegaly. CHEST EXAMINATION: Trachea is central. Symmetrical expansion. Bibasilar crackles. Diminished air entry overall.. CARDIAC: Normal S1, S2 with no gallops. No murmurs . Irregularly irregular rhythm ABDOMEN: Soft. Bowel sounds normal. No organomegaly. No abdominal bruits. Extremities: 2+ edema. No clubbing or cyanosis Neurologically awake, alert, oriented x3 with well-coordinated movements. No focal deficits noted Skin: No rash or skin lesions. Psychiatric: Coperative. Could not be assessed completely.. Musculoskeletal: No joint swelling or deformity. Normal range of motion. - Labs CBC & Chem 7: 07/26/18 11:53 07/27/18 07:54 Labs: Abnormal Lab Results - Last 24 Hours (Table) 07/25/18 07/25/18 07/26/18 Range/Units 17:21 21:05 07:28 RBC (3.80-5.40) m/uL Hgb (11.4-16.0) gm/dL MCV (80.0-100.0) fL MCHC (31.0-37.0) g/dL Chloride (98-107) mmol/L Carbon Dioxide (22-30) mmol/L Glucose (74-99) mg/dL POC Glucose (mg/dL) 129 H 195 H 118 H (75-99) mg/dL 07/26/18 07/26/18 07/26/18 Range/Units 11:53 11:53 12:26 RBC 3.31 L (3.80-5.40) m/uL Hgb 10.0 L (11.4-16.0) gm/dL MCV 104.1 H (80.0-100.0) fL MCHC 28.9 L (31.0-37.0) g/dL Chloride 87 L (98-107) mmol/L Carbon Dioxide 51 H* (22-30) mmol/L Glucose 119 H (74-99) mg/dL POC Glucose (mg/dL) 121 H (75-99) mg/dL Assessment and Plan Assessment: Shortness of breath and hypoxia secondary to acute on chronic CHF with diastolic dysfunction. Acute on chronic hypoxic and hypercapnic respiratory failure Morbid obesity with obesity with obesity hypoventilation syndrome Moderate obesity with BMI 58.3 Obstructive sleep apnea on BiPAP at home COPD Chronic persistent it fibrillation. On anticoagulation with eliquis Fibromyalgia Diabetes type 2 Left humerus fracture with displaced midshaft and nondisplaced articular surface. Currently on cast Hypertension Hyperlipidemia History of CVA/TIA Osteoarthritis CODE STATUS is DO NOT RESUSCITATE/DO NOT INTUBATE next Plan: Patient be continued on IV Lasix 40 m twice a day. BiPAP machine settings were checked by pulmonary and adjusted.. Continue with the breathing treatments and home medications and follow up closely. Pulmonary is on board. Oxygen therapy. Further recommendations based on the clinical course. Prognosis is guarded with multiple medical problems and comorbid conditions. Time with Patient: Greater than 30
[2018-07-27 11:46] LABS: Glucose,Whole Blood 144 mg/dL (75-99)
--- NOTE | 2018-07-27 13:12 | P.PN ---
Subjective Progress Note Date: 07/27/18 Principal diagnosis: Acute on chronic hypercapnic and hypoxic rest or a failure secondary to diastolic congestive heart failure This is a very pleasant 77-year-old female patient who follows with Dr. Muniz as her primary care physician. She has a history of CVA/TIA, dementia, diabetes mellitus, fibromyalgia, hyperlipidemia, hypertension, osteoarthritis, rheumatoid arthritis, morbid obesity previous gastric stapling, chronic atrial fibrillation anticoagulated with Eliquis. She had also sustained a fall and sustained a fracture of the shaft of the left humerus and currently is in a cast. She follows with Dr. Driver. She does have morbid obesity with obesity/ hypoventilation syndrome and utilizes a BiPAP machine in the outpatient setting. She utilizes 2 L/m per nasal cannula as well and she is currently residing in the [facility] care facility and they found her O2 saturations to be dropping into the 60s and 70s during her sleep and had concerns regarding the function of the BiPAP machine. The machine was changed out by [facility] with continued nocturnal hypoxemia. She was brought here to the emergency room yesterday for the same. Arterial blood gases on 30% FiO2 revealed a PaO2 of 83, pCO2 of 90 and a pH of 7.29. Chest x-ray revealed evidence of central vascularity and interstitial edema suggestive of congestive heart failure. White count 7.5. Hemoglobin 10.9. Bicarb 39. Creatinine 0.62. Urine with positive nitrates and occasional bacteria. Culture pending. She is seen today in consultation on the selective care unit. She is currently awake and alert in no acute distress. She was placed on the hospital BiPAP settings of 12/6 and 50% FiO2 and her O2 saturations stayed in the 90s throughout the night. Otherwise she is maintaining O2 saturations in the 90s on 3 L/m per nasal cannula. She's been afebrile. Of note, the patient was admitted for a very similar situation of hypoxic and hypercapnic respiratory failure causing altered mental status on 06/25/2018. Her home BiPAP machine was evaluated by Dr. Driver and no changes were needed. The patient is seen again today 07/23/2018 in follow-up on the selective care unit. She remains awake and alert in no acute distress. She is been intermittently using the hospital BiPAP. When off the BiPAP she is maintaining good O2 saturations in the 90s on 2 L/m per nasal cannula. She is breathing easier today as compared to yesterday. She remains on Lasix 40 mg every 12 hours. She remains in a negative balance. She has been initiated on vancomycin and ertapenem for her gram-negative bacilli. ESBL. Seen again today 07/24/2018 in follow-up on the selective care unit. She is currently awake and alert in no acute distress. She denies any worsening shortness of breath, cough or congestion. Currently maintaining good O2 saturations in the 90s on 3 L/m per nasal cannula. Chest x-ray remains stable with low lung volumes and cardiomegaly and mild interstitial edema. She remains on IV diuretics. She's been afebrile. Hemodynamically stable. Blood cultures positive for staph hominis. Urine culture positive for ESBL E. coli. She remains on ertapenem. Vancomycin discontinued per ID. White count 6.4. Hemoglobin 10.1. Bicarb 48. Creatinine 0.72. The patient is seen again today 07/25/2018 in follow-up on the regular medical floor. She is currently resting in bed. She is on the BiPAP. She denies any worsening shortness of breath. When off the BiPAP she is maintaining good O2 saturations in the 90s on 2 L/m per nasal cannula. She remains on ertapenem for her ESBL urinary tract infection. She is afebrile. On 07/26/2018 patient seen again in follow-up on medical surgical floor. She is resting in bed, and feet on BiPAP, with pressures 12/6, and 40%. Lung sounds are positive for fine rales at bilateral bases, no rhonchi, no wheezes. Patient is being treated for RSV E. coli urinary tract infection, with ertapenem. She continues on IV diuretics in the form of Lasix 40 mg every 12 hours, negative 930 mL fluid balance over the last 24 hours, her weight is down 5 kg in the last 24 hours. Afebrile, no chest pain. No new labs or chest x- rays today, we will repeat labs and chest x-ray in the morning, for now patient remains stable, continue current medical treatment. On 07/27/2018 patient seen in follow-up on medical surgical floor. She is awake and alert, in no acute distress, currently working with therapy, get ready to to the chair with assistance. Denies any shortness of breath or chest pain. Did wear her BiPAP last night, currently on nasal cannula 2 L. Lung sounds are diminished, with limited fine crackles at the bases, patient is hemodynamically stable, afebrile. Today's chest x-ray has been reviewed, and showed persistent diffuse interstitial pattern with bilateral pleural effusions and atelectasis. She remains on IV diuretics, and she is maintaining negative fluid balance, -2630 in the last 24 hours. Her weight remains stable. Patient is being treated for E. coli urinary tract infection, and blood cultures were positive for staph hominis which is thought to be a contaminated specimen. The service is following. From pulmonary perspective patient remains stable, she could possibly be transitioned to oral diuretics, and could be considered for discharge back to the subacute rehab today. She has her CPAP unit from home, we will ask [facility] to check the settings, and make sure it's functioning properly before she is transferred back to the skilled nursing. Objective - Vital Signs Vital signs: Vital Signs Temp 97.6 F 07/27/18 07:20 Pulse 98 07/27/18 12:30 Resp 18 07/27/18 07:20 BP 118/57 07/27/18 07:20 Pulse Ox 98 07/27/18 07:20 Intake & Output 07/26/18 07/27/18 07/27/18 18:59 06:59 18:59 Intake Total 120 100 Output Total 1250 1500 Balance -1130 -1500 100 Weight 132 kg Intake: Intake, IV Titration 100 Amount Ertapenem 1 gm In Sodium 100 Chloride 0.9% 50 ml @ 100 mls/hr IVPB DAILY@1000 [facility] Rx#:[id number] Oral 120 Output: Urine 1250 1500 Other: Voiding Method Indwelling Catheter Indwelling Catheter # Bowel Movements 1 - Exam GENERAL EXAM: Morbidly obese. Alert, comfortable in no apparent distress. Nasal Cannula at 2 L HEAD: Normocephalic. EYES: Normal reaction of pupils, equal size. NOSE: Clear with pink turbinates. THROAT: There is crowding of the posterior pharynx. No erythema or exudates. NECK: Short. No masses, no JVD. CHEST: No chest wall deformity. LUNGS: Equal air entry with fine crackles in the posterior bases. CVS: S1 and S2 normal with no audible murmur, irregular rhythm. ABDOMEN: No hepatosplenomegaly, normal bowel sounds, no guarding or rigidity. SPINE: Kyphoscoliosis SKIN: No rashes CENTRAL NERVOUS SYSTEM: No focal deficits, tone is normal in all 4 extremities. EXTREMITIES: There is a cast of the left upper extremity. There is no peripheral edema. No clubbing, no cyanosis. Peripheral pulses are intact. - Labs CBC & Chem 7: 07/27/18 07:54 07/27/18 07:54 Labs: Abnormal Lab Results - Last 24 Hours (Table) 07/26/18 07/26/18 07/26/18 Range/Units 11:53 17:07 20:26 RBC (3.80-5.40) m/uL Hgb (11.4-16.0) gm/dL Hct (34.0-46.0) % MCHC (31.0-37.0) g/dL Potassium (3.5-5.1) mmol/L Chloride 87 L (98-107) mmol/L Carbon Dioxide 51 H* (22-30) mmol/L Glucose 119 H (74-99) mg/dL POC Glucose (mg/dL) 154 H 123 H (75-99) mg/dL 07/27/18 07/27/18 07/27/18 Range/Units 07:17 07:54 07:54 RBC 3.26 L (3.80-5.40) m/uL Hgb 9.8 L (11.4-16.0) gm/dL Hct 32.5 L (34.0-46.0) % MCHC 30.3 L (31.0-37.0) g/dL Potassium 3.4 L (3.5-5.1) mmol/L Chloride 86 L (98-107) mmol/L Carbon Dioxide 50 H* (22-30) mmol/L Glucose (74-99) mg/dL POC Glucose (mg/dL) 126 H (75-99) mg/dL 07/27/18 Range/Units 11:39 RBC (3.80-5.40) m/uL Hgb (11.4-16.0) gm/dL Hct (34.0-46.0) % MCHC (31.0-37.0) g/dL Potassium (3.5-5.1) mmol/L Chloride (98-107) mmol/L Carbon Dioxide (22-30) mmol/L Glucose (74-99) mg/dL POC Glucose (mg/dL) 144 H (75-99) mg/dL Assessment and Plan Plan: Assessment: #1 Acute on chronic hypercapnic respiratory failure secondary to diastolic congestive heart failure. Continues to diurese well. Chest x-ray stable. #2 Acute on chronic hypoxic respiratory failure secondary to above. Improved. Oxygen at 3 L/m per nasal cannula. #3 Morbid obesity with a BMI of 54.8 kg/m #4 Obesity/hypoventilation syndrome. The patient's baseline AHI is 104 and the patient on BiPAP pressure 15/10 cm of water in the outpatient setting. #5 Chronic obstructive pulmonary disease. #6 Chronic atrial fibrillation, anticoagulated with Eliquis. #7 Recent left humeral fracture currently casted and in a sling. #8 Fibromyalgia. #9 Diabetes mellitus. #10 Hypertension. #11 Hyperlipidemia. #12 Previous history of CVA/TIA. #13 Osteoarthritis. #14 Urinary tract infection secondary to E. coli, ESBL. Remains on ertapenem. Plan: We'll switch the IV Lasix to oral Lasix 40 mg twice daily. Continue BiPAP support and patient has her unit from home, we'll ask [facility] to check the settings, and make sure the unit is functioning properly. From pulmonary standpoint patient is stable, and could be considered for discharge back to the subacute rehab today. No shortness of breath, no chest pain. Vital signs are stable. I performed a history & physical examination of the patient and discussed their management with my nurse practitioner, Lexi Cronin. I reviewed the nurse practitioner's note and agree with the documented findings and plan of care. Lung sounds are positive for fine rales at the bases. The findings and the impression was discussed with the patient. I attest to the documentation by the nurse practitioner. Time with Patient: Less than 30
[2018-07-27] MEDS: FUROSEMIDE 40 MG TAB PO SCH (15:43)
[2018-07-27 17:03] LABS: Glucose,Whole Blood 127 mg/dL (75-99)
[2018-07-27] MEDS: MULTIVITAMINS, THERA 1 EACH TAB PO SCH (17:53)
[2018-07-27] MEDS: FERROUS SULFATE 325 MG TAB PO SCH (17:53)
[2018-07-27] MEDS: MAGNESIUM OXIDE 400 MG TAB PO SCH (17:53)
[2018-07-27 20:58] LABS: Glucose,Whole Blood 161 mg/dL (75-99)
[2018-07-27] MEDS: PENTOXIFYLLINE 400 MG TABLET.ER PO SCH (21:13)
[2018-07-27] MEDS: ATORVASTATIN 10 MG TAB PO SCH (21:13)
[2018-07-28] MEDS: GABAPENTIN 100 MG CAP PO SCH ×2 (06:44→12:58)
[2018-07-28] MEDS: PANTOPRAZOLE 40 MG TABLET PO SCH (06:44)
[2018-07-28] MEDS: METOPROLOL TARTRATE 25 MG TAB PO SCH ×2 (06:44→12:58)
[2018-07-28 07:48] LABS: Glucose,Whole Blood 113 mg/dL (75-99)
[2018-07-28] MEDS: INSULIN ASPART 100 UNIT/ML 1 ML 10 ML VIAL SQ SCH ×3 (07:57→17:03)
[2018-07-28] MEDS: FUROSEMIDE 40 MG TAB PO SCH ×2 (08:06→16:49)
[2018-07-28] MEDS: POLYETHYLENE GLYCOL 3350 17 GM POWD.PACK PO SCH (08:06)
[2018-07-28] MEDS: METHOCARBAMOL 750 MG TAB PO SCH ×2 (08:07→16:49)
[2018-07-28] MEDS: DONEPEZIL 10 MG TAB PO SCH (08:07)
[2018-07-28] MEDS: APIXABAN 5 MG TAB PO SCH ×2 (08:07→16:49)
[2018-07-28] MEDS: DULoxetine HCL 30 MG CAPSULE.DR PO SCH (08:07)
[2018-07-28] MEDS: IPRATROPIUM-ALBUTEROL 3 ML NEB INHALATION SCH ×3 (08:09→15:16)
[2018-07-28] MEDS: MENTHOL-ZINC OXIDE OINT 113 GM TUBE TOPICAL SCH (08:09)
[2018-07-28] MEDS: ERTAPENEM 1 GM in SODIUM CHLORIDE 0.9% 50 ML IVPB SCH (08:10)
[2018-07-28] MEDS: oxyCODONE-APAP 10-325MG 1 EACH TAB PO PRN ×2 (08:10→13:19)
--- NOTE | 2018-07-28 08:11 | PN ---
PROGRESS NOTE DATE OF SERVICE: 07/27/2018 REASON FOR FOLLOWUP VISIT: 1. ESBL E. coli urinary tract infection. 2. Positive blood culture, likely contamination. INTERVAL HISTORY: The patient is currently afebrile. She is breathing comfortably. Denies having any chest pain, shortness of breath or cough. No abdominal pain, no diarrhea. PHYSICAL EXAMINATION: Blood pressure 117/61 with a pulse of 81, temperature 97.6. She is 99% on 2 L nasal cannula. General description is an elderly female, up in the chair, in no distress RESPIRATORY SYSTEM: Unlabored breathing, clear to auscultation anteriorly. HEART: S1, S2. Regular rate and rhythm. ABDOMEN: Soft, no tenderness. EXTREMITIES: No edema of the feet. LABS: Hemoglobin 9.8, white count 7.1. BUN 14, creatinine 0.55. DIAGNOSTIC IMPRESSION AND PLAN: Patient with ESBL Escherichia coli urinary tract infection, possible cystitis, adequately treated. RECOMMENDATION: 1. Discontinue Invanz on discharge. 2. Patient with a positive blood culture, Staphylococcus haemolyticus, likely skin contamination. No specific treatment for the same thing. MMODL / IJN: [id number] /
[2018-07-28] MEDS: TOPIRAMATE 25 MG TAB PO SCH (08:12)
--- NOTE | 2018-07-28 09:07 | PN ---
PROGRESS NOTE DATE OF SERVICE: 07/27/2018 PRESENT COMPLAINT: Tired. INTERVAL HISTORY: This patient admitted with UTI which has been treated, antibiotic course has been done. Blood culture result to be a contaminant. Tolerating a diet. Currently left arm is in a cast, being followed by Dr. Townsend. Daughter is at the bedside. REVIEW OF SYSTEMS: Done for constitutional, cardiovascular, GI, pulmonary; relevant findings as above. CURRENT MEDICATIONS: Reviewed. PHYSICAL EXAMINATION: Temperature 97.6 pulse 81, respiration 20, blood pressure 117/61, pulse ox 99 percent on 2 L. GENERAL APPEARANCE: Lying in bed, comfortable. EYES: Pupils equal. Conjunctivae normal. HEENT: External ears and nose normal. Oral cavity normal. NECK: JVD unable to assess. Mass not palpable. Respiratory effort normal. LUNGS: Diminished breath sounds. CARDIOVASCULAR: First and second sounds normal. Minimal edema. ABDOMEN: Soft, nontender. Liver and spleen not palpable. EXTREMITIES: Left arm in a cast. INVESTIGATIONS: White count 7.1, hemoglobin 9.8, potassium 3.4. BUN and creatinine normal. ASSESSMENT: 1. Acute urinary tract infection from Escherichia coli, completed a course of antibiotic. 2. Positive blood culture, felt to be contaminant. 3. Chronic CO2 narcosis. 4. Morbid obesity, BMI greater than 50. 5. Left humerus fracture, has a splint and a cast in place, being followed by Dr. Townsend. 6. Chronic obstructive pulmonary disease in an ex-smoker. 7. Obesity hypoventilation syndrome on BiPAP. 8. Persistent atrial fibrillation on Eliquis. 9. Essential hypertension. 10.Hyperlipidemia. 11.Mild cognitive impairment from Alzheimer's dementia, late onset type. 12.Primary osteoarthritis of multiple joints bilateral. 13.Severe gait dysfunction, multifactorial. 14.Obstructive sleep apnea. PLAN: Care was discussed with the patient's daughter at length at the bedside. I spoke to Henrietta, the director of social media marketing, who is going to work on the discharge. Daughter had several questions about the UTI. Did talk about that, the chance of recurrence and why. Total time spent today was about 40 minutes with over 25 minutes of discussion. Looking at possibly going to the [facility] tomorrow. MMODL / IJN: [id number] /
[2018-07-28] MEDS ORDERED: Potassium Replacement Protocol 1 EACH MISC MISCELLANE PRN (09:23)
[2018-07-28 10:01] LABS: Basophils % (A) 1 %; Eosinophils # (A) 0.4 k/uL (0-0.7); Eosinophils % (A) 6 %; HGB 9.9 gm/dL (11.4-16.0); Hypochromasia Marked; Lymphocytes # (A) 1.8 k/uL (1.0-4.8); Lymphocytes % (A) 32 %; MCH 29.9 pg (25.0-35.0); MCHC 29.1 g/dL (31.0-37.0); MCV 102.9 fL (80.0-100.0); Macrocytosis Slight; Mean Platelet Volume 7.3; Monocytes # (A) 0.4 k/uL (0-1.0); Monocytes % (A) 8 %; Neutrophils # (A) 2.9 k/uL (1.3-7.7); Neutrophils % (A) 51 %; Platelet Count 254 k/uL (150-450); RBC 3.31 m/uL (3.80-5.40); RDW 13.6 % (11.5-15.5); WBC 5.7 k/uL (3.8-10.6)
[2018-07-28 10:17] LABS: Blood Urea Nitrogen 13 mg/dL (7-17); Calcium 9.1 mg/dL (8.4-10.2); Chloride 85 mmol/L (98-107); Glucose 123 mg/dL (74-99); Potassium 3.3 mmol/L (3.5-5.1); Sodium 142 mmol/L (137-145)
[2018-07-28 10:25] LABS: Anion Gap 2 mmol/L
[2018-07-28] MEDS: POTASSIUM CHLORIDE ER 20 MEQ TAB.ER PO SCH ×2 (10:30→11:18)
[2018-07-28 10:31] LABS: Carbon Dioxide 55 mmol/L (22-30)
[2018-07-28 11:17] VITALS: BMI 53.2
--- NOTE | 2018-07-28 11:31 | P.PN ---
Subjective Progress Note Date: 07/28/18 Principal diagnosis: Acute on chronic hypercapnic and hypoxic rest or a failure secondary to diastolic congestive heart failure This is a very pleasant 77-year-old female patient who follows with Dr. Muniz as her primary care physician. She has a history of CVA/TIA, dementia, diabetes mellitus, fibromyalgia, hyperlipidemia, hypertension, osteoarthritis, rheumatoid arthritis, morbid obesity previous gastric stapling, chronic atrial fibrillation anticoagulated with Eliquis. She had also sustained a fall and sustained a fracture of the shaft of the left humerus and currently is in a cast. She follows with Dr. Driver. She does have morbid obesity with obesity/ hypoventilation syndrome and utilizes a BiPAP machine in the outpatient setting. She utilizes 2 L/m per nasal cannula as well and she is currently residing in the [facility] care facility and they found her O2 saturations to be dropping into the 60s and 70s during her sleep and had concerns regarding the function of the BiPAP machine. The machine was changed out by [facility] with continued nocturnal hypoxemia. She was brought here to the emergency room yesterday for the same. Arterial blood gases on 30% FiO2 revealed a PaO2 of 83, pCO2 of 90 and a pH of 7.29. Chest x-ray revealed evidence of central vascularity and interstitial edema suggestive of congestive heart failure. White count 7.5. Hemoglobin 10.9. Bicarb 39. Creatinine 0.62. Urine with positive nitrates and occasional bacteria. Culture pending. She is seen today in consultation on the selective care unit. She is currently awake and alert in no acute distress. She was placed on the hospital BiPAP settings of 12/6 and 50% FiO2 and her O2 saturations stayed in the 90s throughout the night. Otherwise she is maintaining O2 saturations in the 90s on 3 L/m per nasal cannula. She's been afebrile. Of note, the patient was admitted for a very similar situation of hypoxic and hypercapnic respiratory failure causing altered mental status on 06/25/2018. Her home BiPAP machine was evaluated by Dr. Driver and no changes were needed. The patient is seen again today 07/23/2018 in follow-up on the selective care unit. She remains awake and alert in no acute distress. She is been intermittently using the hospital BiPAP. When off the BiPAP she is maintaining good O2 saturations in the 90s on 2 L/m per nasal cannula. She is breathing easier today as compared to yesterday. She remains on Lasix 40 mg every 12 hours. She remains in a negative balance. She has been initiated on vancomycin and ertapenem for her gram-negative bacilli. ESBL. Seen again today 07/24/2018 in follow-up on the selective care unit. She is currently awake and alert in no acute distress. She denies any worsening shortness of breath, cough or congestion. Currently maintaining good O2 saturations in the 90s on 3 L/m per nasal cannula. Chest x-ray remains stable with low lung volumes and cardiomegaly and mild interstitial edema. She remains on IV diuretics. She's been afebrile. Hemodynamically stable. Blood cultures positive for staph hominis. Urine culture positive for ESBL E. coli. She remains on ertapenem. Vancomycin discontinued per ID. White count 6.4. Hemoglobin 10.1. Bicarb 48. Creatinine 0.72. The patient is seen again today 07/25/2018 in follow-up on the regular medical floor. She is currently resting in bed. She is on the BiPAP. She denies any worsening shortness of breath. When off the BiPAP she is maintaining good O2 saturations in the 90s on 2 L/m per nasal cannula. She remains on ertapenem for her ESBL urinary tract infection. She is afebrile. On 07/26/2018 patient seen again in follow-up on medical surgical floor. She is resting in bed, and feet on BiPAP, with pressures 12/6, and 40%. Lung sounds are positive for fine rales at bilateral bases, no rhonchi, no wheezes. Patient is being treated for RSV E. coli urinary tract infection, with ertapenem. She continues on IV diuretics in the form of Lasix 40 mg every 12 hours, negative 930 mL fluid balance over the last 24 hours, her weight is down 5 kg in the last 24 hours. Afebrile, no chest pain. No new labs or chest x- rays today, we will repeat labs and chest x-ray in the morning, for now patient remains stable, continue current medical treatment. On 07/27/2018 patient seen in follow-up on medical surgical floor. She is awake and alert, in no acute distress, currently working with therapy, get ready to to the chair with assistance. Denies any shortness of breath or chest pain. Did wear her BiPAP last night, currently on nasal cannula 2 L. Lung sounds are diminished, with limited fine crackles at the bases, patient is hemodynamically stable, afebrile. Today's chest x-ray has been reviewed, and showed persistent diffuse interstitial pattern with bilateral pleural effusions and atelectasis. She remains on IV diuretics, and she is maintaining negative fluid balance, -2630 in the last 24 hours. Her weight remains stable. Patient is being treated for E. coli urinary tract infection, and blood cultures were positive for staph hominis which is thought to be a contaminated specimen. The service is following. From pulmonary perspective patient remains stable, she could possibly be transitioned to oral diuretics, and could be considered for discharge back to the subacute rehab today. She has her CPAP unit from home, we will ask [facility] to check the settings, and make sure it's functioning properly before she is transferred [facility] to the [facility]. On 07/28/2018 patient seen again in follow-up on medical surgical floor. She is awake and alert, can distress, pulse ox on 2 L per nasal cannula is 98%. She did wear her BiPAP last night, her home BiPAP unit is at the bedside, and apparently patient is 7 desaturation issues while on it. Her FiO2 on her BiPAP unit was 2 L, her settings were adjusted to 12 and 6 diminished dose of the inpatient BiPAP unit settings, patient may require higher FiO2 at 40%. Otherwise clinically patient has improved, less short of breath, patient is maintaining negative fluid balance, negative for 60 over the last 24 hours, she is on oral Lasix of 40 mg twice daily, lung sounds are diminished, with some limited crackles at the bases. Aspirin, patient was able to get up and sit up in the chair yesterday, tolerated activity fairly well. Objective - Vital Signs Vital signs: Vital Signs Temp 98.1 F 07/28/18 06:46 Pulse 94 07/28/18 08:20 Resp 16 07/28/18 08:09 BP 110/57 07/28/18 06:46 Pulse Ox 98 07/28/18 06:46 Intake & Output 07/27/18 07/28/18 07/28/18 18:59 06:59 18:59 Intake Total 340 600 50 Output Total 1400 Balance -1060 600 50 Weight 132 kg 132 kg 132 kg Intake: Intake, IV Titration 100 50 Amount Ertapenem 1 gm In Sodium 100 50 Chloride 0.9% 50 ml @ 100 mls/hr IVPB DAILY@1000 [facility] Rx#:[id number] Oral 240 600 Output: Urine 1400 Straight 650 Other: Voiding Method Diaper Incontinent # Voids 1 2 1 - Exam GENERAL EXAM: Morbidly obese. Alert, comfortable in no apparent distress. Nasal Cannula at 2 L HEAD: Normocephalic. EYES: Normal reaction of pupils, equal size. NOSE: Clear with pink turbinates. THROAT: There is crowding of the posterior pharynx. No erythema or exudates. NECK: Short. No masses, no JVD. CHEST: No chest wall deformity. LUNGS: Equal air entry with fine crackles in the posterior bases. CVS: S1 and S2 normal with no audible murmur, irregular rhythm. ABDOMEN: No hepatosplenomegaly, normal bowel sounds, no guarding or rigidity. SPINE: Kyphoscoliosis SKIN: No rashes CENTRAL NERVOUS SYSTEM: No focal deficits, tone is normal in all 4 extremities. EXTREMITIES: There is a cast of the left upper extremity. There is no peripheral edema. No clubbing, no cyanosis. Peripheral pulses are intact. - Labs CBC & Chem 7: 07/28/18 09:36 07/28/18 09:36 Labs: Abnormal Lab Results - Last 24 Hours (Table) 07/27/18 07/27/18 07/27/18 Range/Units 11:39 16:58 20:56 RBC (3.80-5.40) m/uL Hgb (11.4-16.0) gm/dL MCV (80.0-100.0) fL MCHC (31.0-37.0) g/dL Potassium (3.5-5.1) mmol/L Chloride (98-107) mmol/L Carbon Dioxide (22-30) mmol/L Glucose (74-99) mg/dL POC Glucose (mg/dL) 144 H 127 H 161 H (75-99) mg/dL 07/28/18 07/28/18 07/28/18 Range/Units 07:42 09:36 09:36 RBC 3.31 L (3.80-5.40) m/uL Hgb 9.9 L (11.4-16.0) gm/dL MCV 102.9 H (80.0-100.0) fL MCHC 29.1 L (31.0-37.0) g/dL Potassium 3.3 L (3.5-5.1) mmol/L Chloride 85 L (98-107) mmol/L Carbon Dioxide 55 H* (22-30) mmol/L Glucose 123 H (74-99) mg/dL POC Glucose (mg/dL) 113 H (75-99) mg/dL Assessment and Plan Plan: Assessment: #1 Acute on chronic hypercapnic respiratory failure secondary to diastolic congestive heart failure. Continues to diurese well. Chest x-ray stable. #2 Acute on chronic hypoxic respiratory failure secondary to above. Improved. Oxygen at 3 L/m per nasal cannula. #3 Morbid obesity with a BMI of 54.8 kg/m #4 Obesity/hypoventilation syndrome. The patient's baseline AHI is 104 and the patient on BiPAP pressure 15/10 cm of water in the outpatient setting. #5 Chronic obstructive pulmonary disease. #6 Chronic atrial fibrillation, anticoagulated with Eliquis. #7 Recent left humeral fracture currently casted and in a sling. #8 Fibromyalgia. #9 Diabetes mellitus. #10 Hypertension. #11 Hyperlipidemia. #12 Previous history of CVA/TIA. #13 Osteoarthritis. #14 Urinary tract infection secondary to E. coli, ESBL. Remains on ertapenem. Plan: Continue oral diuretics, nebulized bronchodilators. No worsening shortness of breath, chest pain. Vital signs are stable. No acute issues overnight. Patient is stable for transfer back to the subacute rehab today, if settings were adjusted to match dose of the inpatient BiPAP settings, 12/6 and FiO2 of 40 %. Will need to follow-up with Dr. Driver in the office, for BiPAP setting titration, especially if she continues to have desaturation issues. I performed a history & physical examination of the patient and discussed their management with my nurse practitioner, Lexi Cronin. I reviewed the nurse practitioner's note and agree with the documented findings and plan of care. Lung sounds are positive for fine rales at the bases. The findings and the impression was discussed with the patient. I attest to the documentation by the nurse practitioner. Time with Patient: Less than 30
--- NOTE | 2018-07-28 12:14 | CDI ---
Last Revision, October 2017 Documentation Clarification Form Date: 07/28/2018 From: Leah Vora covering for Fay Canales Admit Date: 07/21/2018 5:36:00 PM Patient Name: Tonia Ortiz Visit Number: [id number] ATTENTION: The Clinical Documentation Specialists (CDI) and [facility] Coding Staff appreciate your assistance in clarifying documentation. Please respond to the clarification below the line at the bottom and electronically sign. The CDI & [facility] Coding staff will review the response and follow-up if needed. Please note: Queries are made part of the Legal Health Record. If you have any questions, please contact the author of this message via ITS. Santiago Hdz MD Acute on chronic CHF with diastolic dysfunction is documented in the H&P and Progress notes by Dr Moreira as being present on admission. Patient history/risk factors: HTN, COPD, AFib, CVA/TIA, DM type 2, Morbid Obesity, on home O2 and BiPAP Clinical Indicators: Patient [facility] the ED from [facility] for a chief complaint of shortness of breath CXR on 07/21: 'findings suggest CHF, there may be associated effusion' Labs on 07/21: BNP 3740 Vital Signs: sats on admission were 90% Treatment: Oxygen: nasal cannula 2-3L, and BiPAP Medication: IV Lasix administered from 07/21 - 07/27 and then changed to PO Consults: Pulmonary and ID only Please confirm the diagnosis of 'Acute on Chronic Diastolic CHF'. Acute on Chronic Diastolic CHF was present on admission and treated - now resolved Acute on Chronic Diastolic CHF ruled out Chronic Diastolic CHF present only Other Diagnosis (please clarify) Unable to Determine Please continue to document in your progress notes and discharge summary in order to capture severity of illness and risk of mortality. Include clinical findings that support your diagnosis. MTDD
[2018-07-28 12:23] LABS: Glucose,Whole Blood 197 mg/dL (75-99)
[2018-07-28 16:38] VITALS: BP 106/64; PULSE 80; RESP 18; TEMP 97.8
[2018-07-28] MEDS: MAGNESIUM OXIDE 400 MG TAB PO SCH (16:49)
[2018-07-28] MEDS: FERROUS SULFATE 325 MG TAB PO SCH (16:49)
[2018-07-28] MEDS: MULTIVITAMINS, THERA 1 EACH TAB PO SCH (16:51)
[2018-07-28 17:04] LABS: Glucose,Whole Blood 110 mg/dL (75-99)
--- NOTE | 2018-07-28 17:11 | DS ---
DISCHARGE SUMMARY DATE OF ADMISSION: 07/21/2018 DATE OF DISCHARGE: 07/28/2018 FINAL DIAGNOSES: 1. Acute on chronic exacerbation of diastolic congestive heart failure exacerbation, present on admission. Ejection fraction not known. 2. Acute urinary tract infection from Escherichia coli; completed a course of antibiotic. 3. Positive blood culture, felt to be a contaminant. 4. Chronic carbon dioxide narcosis. 5. Morbid obesity; body mass index greater than 50. 6. Left humerus fracture; has a splint and a cast in place, being followed by Dr. Townsend. 7. Chronic obstructive pulmonary disease in an ex-smoker. 8. Obesity hypoventilation syndrome, on BiPAP. 9. Persistent atrial fibrillation, on Eliquis. 10.Essential hypertension. 11.Hyperlipidemia. 12.Mild cognitive impairment from Alzheimer's dementia, late onset type. 13.Primary osteoarthritis of multiple joints, bilateral. 14.Severe gait dysfunction, multifactorial. 15.Obstructive sleep apnea. HOSPITAL COURSE: This patient presented with CHF exacerbation and also UTI. Blood cultures were felt to be a contaminant. The patient did complete a course of antibiotic for UTI. Currently patient is tolerating a diet. She has a cast on the left arm, being followed by Dr. Townsend. Patient's BiPAP machine was changed and will be discharged on the current setting. Care was discussed with the daughter. Questions were answered. PHYSICAL EXAMINATION: Temperature 98.1, pulse 81, respiration 18, blood pressure 110/57, pulse ox 98% on 2 L. LUNGS: Distant breath sounds. PSYCHIATRY: Alert and oriented x3. Left arm in a cast. Hemoglobin 9.9. Patient's bicarb is 55. DISCHARGE MEDICATIONS: 1. Cymbalta 30 mg a day. 2. Aricept 10 mg a day. 3. Protonix 40 mg a day. 4. Topamax 50 mg b.i.d. 5. Methocarbamol 750 mg p.o. b.i.d. 6. Incruse Ellipta 1 puff b.i.d. 7. Mevacor 40 mg at bedtime. 8. Ferrous sulfate 325 mg p.o. daily. 9. Magnesium oxide 400 mg p.o. daily. 10.Pentoxifylline 400 mg at bedtime. 11.MiraLAX 17 grams p.o. daily. 12.Eliquis 5 mg p.o. b.i.d. 13.Dulcolax 10 mg rectally daily p.r.n. 14.Calmoseptine ointment topically b.i.d. 15.Adult Fleet 133 mL rectally daily p.r.n. 16.Talc/zinc oxide 81/15% topically b.i.d. 17.Lasix 40 mg p.o. b.i.d. 18.Neurontin 100 mg t.i.d. 19.DuoNeb q.i.d. 20.Milk of Magnesia 2400 mg p.o. daily p.r.n. 21.Calmoseptine ointment topically b.i.d. 22.Lopressor 25 p.o. t.i.d. 23.Multivitamin 1 tablet p.o. daily. 24.Percocet 10 one tablet p.o. 5 times a day p.r.n. DISPOSITION: [facility]. Follow up with Dr. Muniz at [facility]. BiPAP setting 10/08 with 5 L nasal cannula at nighttime. Discussion and discharge planning more than 35 minutes. MMODL / IJN: [id number] /
--- NOTE | 2018-07-28 22:08 | PN ---
PROGRESS NOTE DATE OF SERVICE: 07/28/2018. REASON FOR FOLLOWUP: ESBL E coli urinary tract infection with positive blood culture likely contamination. INTERVAL HISTORY: The patient was seen on rounds today. This afternoon the patient has been afebrile. She has been BiPAP dependent responding to the daughter. No nausea or vomiting has been noticed or any diarrhea. Patient herself was unable to provide any history. EXAMINATION: Blood pressure 106/64 with a pulse of 80, temperature 97.8. She is 95% on 2 L nasal cannula. General description is an elderly female lying in bed in no distress. Respiratory system: Unlabored breathing. Clear to auscultation anteriorly. Heart S1, S2. Regular rate and rhythm. ABDOMEN: Soft, no tenderness. LABS: Hemoglobin is 9.8, white count 5.7, BUN of 13, creatinine 0.65. DIAGNOSTIC IMPRESSION AND PLAN: 1. Patient with ESBL E. coli urinary tract infection adequately treated. 2. Patient with likely contamination, no need for antibiotic therapy for the same. MMODL / IJN: [id number] /
== END 2018-07-28 17:55 | DRG 291 ==
LOC: EC 15:04 → 6SEL 17:36 → 4MS4W 07-24 18:09
PROVIDERS: ADMIT Hospitalist; ATTEND Hospitalist
PROC: 5A09557 Assistance with Respiratory Ventilation, Greater than 96 Consecutive Hours, Continuous Positive Airway Pressure (ICD-10-PCS; principal; 2018-07-21)
DX: I11.0 Hypertensive heart disease with heart failure (principal); J96.21 Acute and chronic respiratory failure with hypoxia; E66.2 Morbid (severe) obesity with alveolar hypoventilation; J98.11 Atelectasis; N30.00 Acute cystitis without hematuria; Z68.43 Body mass index [BMI] 50.0-59.9, adult; E11.9 Type 2 diabetes mellitus without complications; E78.5 Hyperlipidemia, unspecified; F02.80 Dementia in other diseases classified elsewhere, unspecified severity, without behavioral disturbance, psychotic disturbance, mood disturbance, and anxiety; G30.1 Alzheimer's disease with late onset; I48.2 Chronic atrial fibrillation; I50.33 Acute on chronic diastolic (congestive) heart failure; J44.9 Chronic obstructive pulmonary disease, unspecified; M06.9 Rheumatoid arthritis, unspecified; M15.9 Polyosteoarthritis, unspecified; M79.7 Fibromyalgia; S42.342D Displaced spiral fracture of shaft of humerus, left arm, subsequent encounter for fracture with routine healing; B96.20 Unspecified Escherichia coli [E. coli] as the cause of diseases classified elsewhere; R25.1 Tremor, unspecified; R32 Unspecified urinary incontinence; R26.9 Unspecified abnormalities of gait and mobility; H91.90 Unspecified hearing loss, unspecified ear; Z66 Do not resuscitate; Z16.12 Extended spectrum beta lactamase (ESBL) resistance; Z79.01 Long term (current) use of anticoagulants; Z79.899 Other long term (current) drug therapy; Z99.81 Dependence on supplemental oxygen; Z88.1 Allergy status to other antibiotic agents; Z88.2 Allergy status to sulfonamides; Z91.040 Latex allergy status; Z87.891 Personal history of nicotine dependence; Z87.440 Personal history of urinary (tract) infections; Z86.73 Personal history of transient ischemic attack (TIA), and cerebral infarction without residual deficits; Z90.49 Acquired absence of other specified parts of digestive tract; Z96.60 Presence of unspecified orthopedic joint implant; Z98.84 Bariatric surgery status; Z80.6 Family history of leukemia; Z80.1 Family history of malignant neoplasm of trachea, bronchus and lung
CPT/HCPCS: 36415; 36600; 71045; 71046; 80048; 80053; 81001; 82550; 82553; 82607; 82805; 83036; 83605; 83735; 83880; 85025; 87040; 87077; 87086; 87186; 93005; 94640; 94660; 96374; 99291

== ENCOUNTER → 2018-07-31 | Outpatient (CLI) | payer MEDICARE, OTHER ==
[2018-07-31 16:01] LABS: ABG PH 7.37 (7.35-7.45)
[2018-07-31 16:10] LABS: ABG PCO2 85 mmHg (35-45); ABG PO2 87 mmHg (83-108)
[2018-07-31 16:11] LABS: ABG Base Excess 22.9 mmol/L; ABG HCO3 48 mmol/L (21-25); ABG Oxygen Saturation 96.8 % (94-97); ABG TCO2 51 mmol/L (19-24)
== END ==
LOC: LABWHC1 15:17
PROVIDERS: ATTEND Internal Medicine Critical Care Medicine
DX: J44.9 Chronic obstructive pulmonary disease, unspecified (principal)
CPT/HCPCS: 36600; 82805

== ENCOUNTER 2018-08-01 21:07 | Inpatient (IN) | payer MEDICARE, OTHER ==
[2018-08-01] MEDS ORDERED: methylPREDNISolone SOD SUCCI 125 MG/2 ML VIAL IV STA (21:17)
[2018-08-01] MEDS ORDERED: IPRATROPIUM-ALBUTEROL 3 ML NEB INHALATION STA (21:17)
--- NOTE | 2018-08-01 21:41 | ED ---
General Adult HPI - General Chief complaint: Shortness of Breath Stated complaint: Low O2 Time Seen by Provider: 08/01/18 21:12 Source: patient, EMS, RN notes reviewed, old records reviewed Mode of arrival: EMS Limitations: no limitations - History of Present Illness Initial comments: This is a 77-year-old female presents to the ER for evaluation of shortness of breath and outpatient lab tests abnormal. Patient has multiple medical comorbidities. Patient's family is here for right helped provide history. Patient and normal ABG. Patient is very low oxygen at night for quite some time. But significantly worse lately. Patient does use BiPAP at night - Related Data Home Medications Medication Instructions Recorded Confirmed DULoxetine HCL [Cymbalta] 30 mg PO DAILY@0800 04/28/15 08/02/18 Donepezil [Aricept] 10 mg PO DAILY@0804/28/15 08/02/18 Pantoprazole Sodium 40 mg PO DAILY@0604/28/15 08/02/18 Topiramate 50 mg PO BID@0800,209910/03/15 08/02/18 Methocarbamol 750 mg PO BID@0800,1700 03/13/17 08/02/18 Umeclidinium [place] [Incruse 1 puff INHALATION RT-BID@0800,169903/13/17 Ellipta] Lovastatin [Mevacor] 40 mg PO HS@209903/20/17 08/02/18 Ferrous Sulfate [Iron (65 MG 325 mg PO DAILY@169906/07/18 08/02/18 Elemental)] Magnesium Oxide [Mag-Ox] 400 mg PO DAILY@169906/07/18 08/02/18 Pentoxifylline 400 mg PO HS@209906/07/18 08/02/18 Polyethylene Glycol 3350 [Miralax] 17 gm PO DAILY@0800 06/07/18 08/02/18 Apixaban [Eliquis] 5 mg PO BID@0800,1700 06/25/18 08/02/18 Bisacodyl [Dulcolax] 10 mg RECTAL DAILY PRN 06/25/18 08/02/18 Na Phos,M-B/Na Phos,Di-Ba [Fleet 133 ml RECTAL DAILY PRN 06/25/18 08/02/18 Adult] Furosemide [Lasix] 40 mg PO BID@0600,1400 07/21/18 08/02/18 Gabapentin [Neurontin] 100 mg PO TID@06,14,21 07/21/18 08/02/18 Ipratropium-Albuterol Nebulize 3 ml INHALATION RT-QID@08,12,17,21 07/21/1808/02 [Duoneb 0.5 mg-3 mg/3 ml Soln] Magnesium Hydroxide [Milk of 2,400 mg PO DAILY PRN 07/21/18 08/02/18 Magnesia] Menthol-Zinc Oxide Oint 1 applic TOPICAL BID 07/21/18 08/02/18 [Calmoseptine Oint] Metoprolol Tartrate [Lopressor] 25 mg PO TID@06,14,07/21/18 08/02/18 Multivitamins, Thera [Multivitamin 1 tab PO DAILY@1700 07/21/18 08/02/18 (formulary)] Previous Rx's Medication Instructions Recorded oxyCODONE-APAP 10-325MG [Percocet 1 tab PO 5XD PRN #10 tab 07/28/18 10-325 mg] Allergies Allergy/AdvReac Type Severity Reaction Status Date / Time latex Allergy Unknown Verified 08/02/18 12:15 nitrofurantoin Allergy Unknown Verified 08/02/18 12:15 [From Macrobid] nitrofurantoin Allergy Unknown Verified 08/02/18 12:15 macrocrystalline [From Macrobid] Sulfa (Sulfonamide Allergy Unknown Verified 08/02/18 12:15 Antibiotics) Review of Systems ROS Statement: Those systems with pertinent positive or pertinent negative responses have been documented in the HPI. ROS Other: All systems not noted in ROS Statement are negative. Past Medical History Past Medical History: Atrial Fibrillation, COPD, CVA/TIA, Dementia, Diabetes Mellitus, Fibromyalgia, Hyperlipidemia, Hypertension, Osteoarthritis (OA), Rheumatoid Arthritis (RA) Additional Past Medical History / Comment(s): Pt recently admitted to [facility] on 06/09/18 with acute renal failure, L humerus fracture (fell out of wheelchair), hypoventilating syndrome, obesity. Other hx: Pt wears oxygen at 2L/NC during the day and bipap at night, L arm is casted and pt to be at 45-90 degree angle with L arm down at side, severe gait dysfunction, diabetes-diet controlled , arthritis in multiple joints bilaterally, tremors, pyelonephritis in 2015, UTIs, urinary incontinence. History of Any Multi-Drug Resistant Organisms: ESBL Date of last positivie culture/infection: 07/20/18 MDRO Source:: URINE Past Surgical History: Appendectomy, Bariatric Surgery, Bladder Surgery, Cholecystectomy, Joint Replacement, Orthopedic Surgery, Tubal Ligation Additional Past Surgical History / Comment(s): Bilateral carpal tunnel releases , bilateral thumb reattachments, gastric stapling, EGD. Past Anesthesia/Blood Transfusion Reactions: No Reported Reaction Past Psychological History: No Psychological Hx Reported Smoking Status: Never smoker Past Alcohol Use History: None Reported Past Drug Use History: None Reported - Past Family History Father Family Medical History: Cancer Additional Family Medical History / Comment(s): leukemia Mother Family Medical History: Cancer Additional Family Medical History / Comment(s): lung ca General Exam Limitations: no limitations General appearance: alert, in no apparent distress, lethargic, obese Head exam: Present: atraumatic, normocephalic, normal inspection Eye exam: Present: normal appearance, PERRL, EOMI. Absent: scleral icterus, conjunctival injection, periorbital swelling ENT exam: Present: normal exam, mucous membranes moist Neck exam: Present: normal inspection. Absent: tenderness, meningismus, lymphadenopathy Respiratory exam: Present: normal lung sounds bilaterally, wheezes, chest wall tenderness, accessory muscle use, decreased breath sounds, prolonged expiratory. Absent: respiratory distress, rales, rhonchi, stridor Cardiovascular Exam: Present: regular rate, normal rhythm, normal heart sounds. Absent: systolic murmur, diastolic murmur, rubs, gallop, clicks GI/Abdominal exam: Present: soft, normal bowel sounds. Absent: distended, tenderness, guarding, rebound, rigid Extremities exam: Present: normal inspection, full ROM, normal capillary refill. Absent: tenderness, pedal edema, joint swelling, calf tenderness Back exam: Present: normal inspection Neurological exam: Present: alert, oriented X3, CN II-XII intact Psychiatric exam: Present: normal affect, normal mood Skin exam: Present: warm, dry, intact, normal color. Absent: rash Course Vital Signs 08/01/18 08/01/18 08/01/18 21:11 21:37 21:52 Temperature 98.2 F Pulse Rate 82 79 94 Pulse Rate [ Right] Respiratory 18 Rate Blood Pressure 141/80 Blood Pressure [Right Arm] O2 Sat by Pulse 100 Oximetry 08/01/18 08/01/18 23:00 23:33 Temperature 98.3 F 97.3 F L Pulse Rate 87 Pulse Rate [ 74 Right] Respiratory 18 18 Rate Blood Pressure 139/79 Blood Pressure 109/51 [Right Arm] O2 Sat by Pulse 97 96 Oximetry - Reevaluation(s) Reevaluation #1: Patient has minimal improvement with breathing treatment Patient given light replacement Patient is medical record is reviewed as well as patient's outpatient lab values EKG Findings - EKG Comments: EKG Findings:: EKG shows A. fib rate of 77, QRS 74, QTc 436 Medical Decision Making - Medical Decision Making 77 female the ER known to facility coming in with severe shortness of breath and low pulse ox, hypercapnia. Patient replace some periodic BiPAP. Electronically replacement. - Lab Data Result diagrams: 08/01/18 21:25 08/02/18 07:12 Lab Results 08/01/18 08/01/18 08/01/18 Range/Units 21:25 21:25 21:25 WBC 5.0 (3.8-10.6) k/uL RBC 2.99 L (3.80-5.40) m/uL Hgb 8.8 L (11.4-16.0) gm/dL Hct 30.6 L (34.0-46.0) % MCV 102.4 H (80.0-100.0) fL MCH 29.5 (25.0-35.0) pg MCHC 28.9 L (31.0-37.0) g/dL RDW 14.0 (11.5-15.5) % Plt Count 230 (150-450) k/uL Neutrophils % 45 % Lymphocytes % 37 % Monocytes % 9 % Eosinophils % 5 % Basophils % 1 % Neutrophils # 2.3 (1.3-7.7) k/uL Lymphocytes # 1.8 (1.0-4.8) k/uL Monocytes # 0.4 (0-1.0) k/uL Eosinophils # 0.3 (0-0.7) k/uL Basophils # 0.0 (0-0.2) k/uL Manual Slide Review Performed Hypochromasia Marked Macrocytosis Slight PT (9.0-12.0) sec INR (<1.2) APTT (22.0-30.0) sec Sodium 145 (137-145) mmol/L Potassium 2.3 L* (3.5-5.1) mmol/L Chloride 108 H (98-107) mmol/L Carbon Dioxide 37 H (22-30) mmol/L Anion Gap 0 mmol/L BUN 8 (7-17) mg/dL Creatinine 0.48 L (0.52-1.04) mg/dL Est GFR (CKD-EPI)AfAm >90 (>60 ml/min/1.73 sqM) Est GFR (CKD-EPI)NonAf >90 (>60 ml/min/1.73 sqM) Glucose 80 (74-99) mg/dL Calcium 6.0 L* (8.4-10.2) mg/dL Phosphorus 2.5 (2.5-4.5) mg/dL Magnesium 1.3 L (1.6-2.3) mg/dL Total Bilirubin 0.2 (0.2-1.3) mg/dL AST 14 (14-36) U/L ALT 26 (9-52) U/L Alkaline Phosphatase 50 (38-126) U/L Total Creatine Kinase <20 L (30-135) U/L CK-MB (CK-2) 0.3 (0.0-2.4) ng/mL CK-MB (CK-2) Rel Index Troponin I <0.012 (0.000-0.034) ng/mL Total Protein 3.8 L (6.3-8.2) g/dL Albumin 1.8 L (3.5-5.0) g/dL Urine Color Urine Appearance (Clear) Urine pH (5.0-8.0) Ur Specific [place] (1.001-1.035) Urine Protein (Negative) Urine Glucose (UA) (Negative) Urine Ketones (Negative) Urine Blood (Negative) Urine Nitrite (Negative) Urine Bilirubin (Negative) Urine Urobilinogen (<2.0) mg/dL Ur Leukocyte Esterase (Negative) 08/01/18 08/01/18 Range/Units 21:25 22:20 WBC (3.8-10.6) k/uL RBC (3.80-5.40) m/uL Hgb (11.4-16.0) gm/dL Hct (34.0-46.0) % MCV (80.0-100.0) fL MCH (25.0-35.0) pg MCHC (31.0-37.0) g/dL RDW (11.5-15.5) % Plt Count (150-450) k/uL Neutrophils % % Lymphocytes % % Monocytes % % Eosinophils % % Basophils % % Neutrophils # (1.3-7.7) k/uL Lymphocytes # (1.0-4.8) k/uL Monocytes # (0-1.0) k/uL Eosinophils # (0-0.7) k/uL Basophils # (0-0.2) k/uL Manual Slide Review Hypochromasia Macrocytosis PT 12.2 H (9.0-12.0) sec INR 1.3 H (<1.2) APTT 27.0 (22.0-30.0) sec Sodium (137-145) mmol/L Potassium (3.5-5.1) mmol/L Chloride (98-107) mmol/L Carbon Dioxide (22-30) mmol/L Anion Gap mmol/L BUN (7-17) mg/dL Creatinine (0.52-1.04) mg/dL Est GFR (CKD-EPI)AfAm (>60 ml/min/1.73 sqM) Est GFR (CKD-EPI)NonAf (>60 ml/min/1.73 sqM) Glucose (74-99) mg/dL Calcium (8.4-10.2) mg/dL Phosphorus (2.5-4.5) mg/dL Magnesium (1.6-2.3) mg/dL Total Bilirubin (0.2-1.3) mg/dL AST (14-36) U/L ALT (9-52) U/L Alkaline Phosphatase (38-126) U/L Total Creatine Kinase (30-135) U/L CK-MB (CK-2) (0.0-2.4) ng/mL CK-MB (CK-2) Rel Index Troponin I (0.000-0.034) ng/mL Total Protein (6.3-8.2) g/dL Albumin (3.5-5.0) g/dL Urine Color Light Yellow Urine Appearance Clear (Clear) Urine pH 7.5 (5.0-8.0) Ur Specific [place] 1.007 (1.001-1.035) Urine Protein Negative (Negative) Urine Glucose (UA) Negative (Negative) Urine Ketones Negative (Negative) Urine Blood Negative (Negative) Urine Nitrite Negative (Negative) Urine Bilirubin Negative (Negative) Urine Urobilinogen <2.0 (<2.0) mg/dL Ur Leukocyte Esterase Negative (Negative) - Radiology Data Radiology results: report reviewed (Chest x-ray shows CHF), image reviewed Critical Care Time Critical Care Time: Yes Total Critical Care Time: 31 Disposition Clinical Impression: Generalized weakness, Respiratory failure with hypoxia and hypercapnia, Failure of outpatient treatment, Hypokalemia, Hypomagnesemia Disposition: ADMITTED IP TO THIS HOSP Condition: Fair Is patient prescribed a controlled substance at d/c from ED?: No
[2018-08-01 21:48] LABS: ALT 26 U/L (9-52); AST 14 U/L (14-36); Albumin 1.8 g/dL (3.5-5.0); Alkaline Phosphatase 50 U/L (38-126); Anion Gap 0 mmol/L; Blood Urea Nitrogen 8 mg/dL (7-17); Carbon Dioxide 37 mmol/L (22-30); Chloride 108 mmol/L (98-107); Glucose 80 mg/dL (74-99); Magnesium 1.3 mg/dL (1.6-2.3); Phosphorus 2.5 mg/dL (2.5-4.5); Sodium 145 mmol/L (137-145); Total Bilirubin 0.2 mg/dL (0.2-1.3); Total Protein 3.8 g/dL (6.3-8.2)
[2018-08-01 21:51] LABS: Creatine Kinase <20 U/L (30-135)
[2018-08-01 21:53] LABS: INR 1.3 (<1.2); Prothrombin Time 12.2 sec (9.0-12.0)
[2018-08-01 22:00] LABS: Basophils % (A) 1 %; Eosinophils # (A) 0.3 k/uL (0-0.7); Eosinophils % (A) 5 %; HCT 30.6 % (34.0-46.0); HGB 8.8 gm/dL (11.4-16.0); Hypochromasia Marked; Lymphocytes # (A) 1.8 k/uL (1.0-4.8); Lymphocytes % (A) 37 %; MCH 29.5 pg (25.0-35.0); MCHC 28.9 g/dL (31.0-37.0); MCV 102.4 fL (80.0-100.0); Macrocytosis Slight; Monocytes # (A) 0.4 k/uL (0-1.0); Monocytes % (A) 9 %; Neutrophils # (A) 2.3 k/uL (1.3-7.7); Neutrophils % (A) 45 %; Platelet Count 230 k/uL (150-450); RBC 2.99 m/uL (3.80-5.40)
[2018-08-01 22:04] LABS: Creatine Kinase MB 0.3 ng/mL (0.0-2.4); Troponin I <0.012 ng/mL (0.000-0.034)
[2018-08-01 22:12] LABS: Potassium 2.3 mmol/L (3.5-5.1)
[2018-08-01] MEDS ORDERED: MAGNESIUM OXIDE 400 MG TAB PO STA (22:29)
[2018-08-01] MEDS ORDERED: POTASSIUM BICARBONATE/CIT AC 20 MEQ TABLET.EFF PO ONE (22:29)
[2018-08-01] MEDS: MAGNESIUM SULFATE-D5W PMX 1 GM in DEXTROSE/WATER 1 100ML.BAG IVPB SCH (22:53)
[2018-08-01] MEDS: POTASSIUM CHLORIDE 20 MEQ in WATER FOR INJECTION 1 100ML.BAG IVPB SCH (23:29)
[2018-08-01 23:44] LABS: Appearance,Urine Clear (Clear); Bilirubin,Urine Negative (Negative); Blood,Urine Negative (Negative); Color,Urine Light Yellow; Glucose,Urine (UA) Negative (Negative); Ketones,Urine Negative (Negative); Leukocyte Esterase,Urine Negative (Negative); Nitrite,Urine Negative (Negative); PH, Urine 7.5 (5.0-8.0); Protein,Urine Negative (Negative); Specific Gravity,Urine 1.007 (1.001-1.035); Urobilinogen,Urine <2.0 mg/dL (<2.0)
--- NOTE | 2018-08-02 00:14 | XR ---
EXAMINATION TYPE: XR chest 2V DATE OF EXAM: 08/01/2018 COMPARISON: 07/27/2018 HISTORY: Weakness TECHNIQUE: Frontal and lateral views of the chest are obtained. FINDINGS: Heart is enlarged. There is some pulmonary vascular congestion. There is blunting of the c ostophrenic angles. Exam is limited by the patient's size. Bony thorax is intact. There are chest aydee ds. IMPRESSION: Congestive heart failure with pleural effusions. Limited exam. No change compared to old exam.
[2018-08-02 00:36] VITALS: BMI 25.2
[2018-08-02] MEDS: MAGNESIUM SULFATE-D5W PMX 1 GM in DEXTROSE/WATER 1 100ML.BAG IVPB SCH (01:05)
[2018-08-02] MEDS: methylPREDNISolone SOD SUCCI 125 MG/2 ML VIAL IV SCH ×2 (01:08→05:07)
[2018-08-02 01:09] LABS: Glucose,Whole Blood 126 mg/dL (75-99)
[2018-08-02] MEDS: POTASSIUM CHLORIDE 20 MEQ in WATER FOR INJECTION 1 100ML.BAG IVPB SCH (01:39)
[2018-08-02 07:17] LABS: Glucose,Whole Blood 158 mg/dL (75-99)
[2018-08-02] MEDS: IPRATROPIUM-ALBUTEROL 3 ML NEB INHALATION SCH ×6 (07:49→19:21)
[2018-08-02] MEDS: INSULIN ASPART 100 UNIT/ML 1 ML 10 ML VIAL SQ SCH ×4 (07:53→20:31)
[2018-08-02 08:39] LABS: ALT 20 U/L (9-52); AST 19 U/L (14-36); Albumin 3.2 g/dL (3.5-5.0); Alkaline Phosphatase 93 U/L (38-126); Blood Urea Nitrogen 12 mg/dL (7-17); Calcium 9.3 mg/dL (8.4-10.2); Chloride 91 mmol/L (98-107); Glucose 145 mg/dL (74-99); Magnesium 2.4 mg/dL (1.6-2.3); Sodium 141 mmol/L (137-145); Total Bilirubin 0.4 mg/dL (0.2-1.3)
[2018-08-02 08:45] LABS: Anion Gap 8 mmol/L
[2018-08-02 08:48] LABS: Carbon Dioxide 42 mmol/L (22-30)
--- NOTE | 2018-08-02 11:51 | P.CNPUL ---
History of Present Illness Consult date: 08/02/18 Reason for consult: dyspnea, COPD, hypoxemia, pleural effusion, abnormal CXR/CT , obstructive sleep apnea Chief complaint: Low saturations and hypoxemia with shortness of breath History of present illness: Pulmonary consult dated 08/02/2018 77-year-old morbidly obese female who was recently inpatient for an episode of hypoxemic respiratory failure secondary to heart failure. The patient has chronic diastolic CHF. She was apparently seen by the ER physician yesterday and apparently came in because her saturations were low and she was short of breath. No additional history can be obtained. Anyway, the patient was evaluated and admitted to the third floor. The patient spent some time last night on BiPAP. Currently she is on a couple liters of O2 and her saturations are in the mid 90s. She has a history of chronic atrial fibrillation, COPD, CVA , dementia, diabetes, fibromyalgia, hyperlipidemia, hypertension, DJD, rheumatoid arthritis, renal failure, left humeral fracture, pickwickian syndrome , chronic diastolic CHF, diffuse arthritis, tremors, pyelonephritis, and urinary tract infections. The patient's very somnolent and lethargic and not a good historian but apparently she came in because of difficulty breathing. Chest x-ray was consistent with heart failure and pleural effusions. The patient has a history of lifelong nontobacco use. She's also had multiple surgeries including appendectomy bladder surgery cholecystectomy, joint replacement and tubal ligation. Chest x-rays consistent with heart failure and pleural effusions. Review of Systems The patient is not a particularly good historian but she does admit to shortness breath for which she came into the hospital to be evaluated. In addition, she states that she's been feeling very weak and fatigue. She tells me that she has gained quite a bit of weight recently. ROS unobtainable: due to mental status Past Medical History Past Medical History: Atrial Fibrillation, COPD, CVA/TIA, Dementia, Diabetes Mellitus, Fibromyalgia, Hyperlipidemia, Hypertension, Osteoarthritis (OA), Rheumatoid Arthritis (RA) Additional Past Medical History / Comment(s): Pt recently admitted to [facility] on 06/09/18 with acute renal failure, L humerus fracture (fell out of wheelchair), hypoventilating syndrome, obesity. Other hx: Pt wears oxygen at 2L/NC during the day and bipap at night, L arm is casted and pt to be at 45-90 degree angle with L arm down at side, severe gait dysfunction, diabetes-diet controlled , arthritis in multiple joints bilaterally, tremors, pyelonephritis in 2015, UTIs, urinary incontinence. History of Any Multi-Drug Resistant Organisms: ESBL Date of last positivie culture/infection: 07/20/18 MDRO Source:: URINE Past Surgical History: Appendectomy, Bariatric Surgery, Bladder Surgery, Cholecystectomy, Joint Replacement, Orthopedic Surgery, Tubal Ligation Additional Past Surgical History / Comment(s): Bilateral carpal tunnel releases , bilateral thumb reattachments, gastric stapling, EGD. Past Anesthesia/Blood Transfusion Reactions: No Reported Reaction Past Psychological History: No Psychological Hx Reported Additional Psychological History / Comment(s): Pt currently resides at [facility]. She gets up into a wheelchair with 2 assists. She is right handed. She feeds herself. She wears O2 during the day and bipap at night. Smoking Status: Never smoker Past Alcohol Use History: None Reported Past Drug Use History: None Reported - Past Family History Father Family Medical History: Cancer Additional Family Medical History / Comment(s): leukemia Mother Family Medical History: Cancer Additional Family Medical History / Comment(s): lung ca Medications and Allergies Home Medications Medication Instructions Recorded Confirmed Type DULoxetine HCL [Cymbalta] 30 mg PO DAILY 04/28/15 08/01/18 History Donepezil [Aricept] 10 mg PO DAILY 04/28/15 08/01/18 History Pantoprazole Sodium 40 mg PO DAILY@0600 04/28/15 08/01/18 History Topiramate 50 mg PO BID 10/03/15 08/01/18 History Methocarbamol 750 mg PO BID@0800,1700 03/13/17 08/01/18 History Umeclidinium [place] [Incruse 1 puff INHALATION RT-BID@0800,1700 03/13/17 History Ellipta] Lovastatin [Mevacor] 40 mg PO HS 03/20/17 08/01/18 History Ferrous Sulfate [Iron (65 MG 325 mg PO DAILY@1700 06/07/18 08/01/18 History Elemental)] Magnesium Oxide [Mag-Ox] 400 mg PO DAILY@1700 06/07/18 08/01/18 History Pentoxifylline 400 mg PO HS 06/07/18 08/01/18 History Polyethylene Glycol 3350 [Miralax] 17 gm PO DAILY 06/07/18 08/01/18 History Apixaban [Eliquis] 5 mg PO BID@08,17 06/25/18 08/01/18 History Bisacodyl [Dulcolax] 10 mg RECTAL DAILY PRN 06/25/18 08/01/18 History Menthol/Zinc Oxide [Calmoseptine 1 applic TOPICAL BID 06/25/18 08/01/18 History Ointment] Na Phos,M-B/Na Phos,Di-Ba [Fleet 133 ml RECTAL DAILY PRN 06/25/18 08/01/18 History Adult] [place]-Zinc Oxide Powder 81-15% 1 applic TOPICAL BID 06/25/18 08/01/18 History Furosemide [Lasix] 40 mg PO BID@06,14 07/21/18 08/01/18 History Gabapentin [Neurontin] 100 mg PO TID@,,07/21/18 08/01/18 History Ipratropium-Albuterol Nebulize 3 ml INHALATION RT-QID@08,12,,07/21/1808/01 History [Duoneb 0.5 mg-3 mg/3 ml Soln] Magnesium Hydroxide [Milk of 2,400 mg PO DAILY PRN 07/21/18 08/01/18 History Magnesia] Menthol-Zinc Oxide Oint 1 applic TOPICAL BID 07/21/18 08/01/18 History [Calmoseptine Oint] Metoprolol Tartrate [Lopressor] 25 mg PO TID@,,07/21/18 08/01/18 History Multivitamins, Thera [Multivitamin 1 tab PO DAILY@1700 07/21/18 08/01/18 History (formulary)] oxyCODONE-APAP 10-325MG [Percocet 1 tab PO 5XD PRN #10 tab 07/28/18 08/01/18 Rx 10-325 mg] Allergies Allergy/AdvReac Type Severity Reaction Status Date / Time latex Allergy Unknown Verified 08/01/18 21:14 nitrofurantoin Allergy Unknown Verified 08/01/18 21:14 [From Macrobid] nitrofurantoin Allergy Unknown Verified 08/01/18 21:14 macrocrystalline [From Macrobid] Sulfa (Sulfonamide Allergy Unknown Verified 08/01/18 21:14 Antibiotics) Physical Exam Osteopathic Statement: *. No significant issues noted on an osteopathic structural exam other than those noted in the History and Physical/Consult. Vitals: Vital Signs Temp Pulse Pulse Resp BP BP Pulse Ox 08/02/18 08:00 83 08/02/18 07:52 77 98 08/02/18 07:00 96.8 F L 100 19 135/64 08/02/18 03:38 85 18 08/02/18 03:37 97.6 F 85 18 110/62 97 08/01/18 23:33 97.3 F L 74 18 109/51 96 08/01/18 23:00 98.3 F 87 18 139/79 97 08/01/18 21:52 94 08/01/18 21:37 79 08/01/18 21:11 98.2 F 82 18 141/80 100 Intake and Output 08/01/18 08/02/18 08/02/18 22:59 06:59 14:59 Intake Total 358 Balance 358 Intake: Oral 358 Other: Voiding Method Diaper Diaper # Voids 1 Weight 136.078 kg 58.6 kg No acute distress, sleepy and lethargic, nasal O2 in place. The patient's a very poor historian. Nodding off frequently. HEENT examination is grossly unremarkable. Mucous membranes are moist. No oral lesions. Neck supple. Full range of motion. No adenopathy thyromegaly or neck vein distention. Cardiovascular examination reveals regular rhythm rate. S1-S2 normal. No S3 or S4. No discernible murmur noted. Heart rate is 88. Lungs reveal coarse bilateral breath sounds. There is bibasilar crackles. Breath sounds are diminished throughout. There is prolongation on forced maneuver. Breath sounds are equal bilaterally. Abdomen is obese. It is soft. Bowel sounds are heard. No masses noted. Extremities are intact. No cyanosis or clubbing. The patient has substantial lower extremity edema with some chronic venous stasis changes. Skin has chronic venous stasis and edema. Neurologic examination is brief but nonfocal. Results - Laboratory Findings CBC and BMP: 08/01/18 21:25 08/02/18 07:12 PT/INR, D-dimer PT 12.2 sec (9.0-12.0) H 08/01/18 21:25 INR 1.3 (<1.2) H 08/01/18 21:25 Abnormal lab findings: Abnormal Labs 08/01/18 08/01/18 08/01/18 21:25 21:25 21:25 RBC 2.99 L Hgb 8.8 L Hct 30.6 L MCV 102.4 H MCHC 28.9 L PT INR Potassium 2.3 L* Chloride 108 H Carbon Dioxide 37 H Creatinine 0.48 L Glucose POC Glucose (mg/dL) Calcium 6.0 L* Magnesium 1.3 L Total Creatine Kinase <20 L Total Protein 3.8 L Albumin 1.8 L 08/01/18 08/02/18 08/02/18 21:25 01:07 07:12 RBC Hgb Hct MCV MCHC PT 12.2 H INR 1.3 H Potassium Chloride 91 L Carbon Dioxide 42 H* Creatinine Glucose 145 H POC Glucose (mg/dL) 126 H Calcium Magnesium 2.4 H Total Creatine Kinase Total Protein 6.0 L Albumin 3.2 L 08/02/18 07:15 RBC Hgb Hct MCV MCHC PT INR Potassium Chloride Carbon Dioxide Creatinine Glucose POC Glucose (mg/dL) 158 H Calcium Magnesium Total Creatine Kinase Total Protein Albumin - Diagnostic Findings Chest x-ray: report reviewed (Chest x-rays consistent with cardiomegaly and congestive heart failure. Labs x-rays a medications are all reviewed.), image reviewed Assessment and Plan Assessment: Assessment Shortness of breath and hypoxemia, likely related to patient's history of chronic diastolic heart failure History of atrial fibrillation Recent admission to this hospital for acute renal fire and left humeral fracture History of pickwickian syndrome Rule out sleep apnea syndrome Profound gait disturbance Morbid obesity History of COPD Previous history of CVA History of dementia Diabetes mellitus by history Fibromyalgia Hyperlipidemia Hypertension DJD Rheumatoid arthritis Plan: Plan dated 08/02/2018 The patient will need diuretic therapy. The patient should also be on breathing treatments. In my opinion, the patient does not need steroids. Labs x-rays a medications are all reviewed. White count 5.0 hemoglobin 8.8 hematocrit 30.6 and platelet count 230,000. PT 12.2 INR 1.3. Sodium and potassium are normal. Chloride 91 CO2 42. BUN and creatinine were 12 and 0.65. Urine was clean. There is no N-terminal proBNP measurement. Medications labs and x-rays all reviewed. Additional recommendations and suggestions are forthcoming. Her current BiPAP setting should be IPAP 12 EPAP 6 and 40% FiO2. Time with Patient: Greater than 30
[2018-08-02 11:55] LABS: Glucose,Whole Blood 162 mg/dL (75-99)
[2018-08-02] MEDS ORDERED: MAGNESIUM HYDROXIDE 2,400 MG/10 ML CUP PO PRN (12:06)
[2018-08-02] MEDS ORDERED: NA PHOS,M-B/NA PHOS,DI-BA 133 ML ENEMA RECTAL PRN (12:06)
[2018-08-02] MEDS ORDERED: BISACODYL 10 MG SUPP RECTAL PRN (12:06)
[2018-08-02] MEDS: POLYETHYLENE GLYCOL 3350 17 GM POWD.PACK PO SCH (12:53)
[2018-08-02] MEDS: DULoxetine HCL 30 MG CAPSULE.DR PO SCH (12:53)
[2018-08-02] MEDS: DONEPEZIL 10 MG TAB PO SCH (12:53)
[2018-08-02] MEDS: TOPIRAMATE 25 MG TAB PO SCH ×2 (12:53→20:28)
[2018-08-02] MEDS: APIXABAN 5 MG TAB PO SCH (15:39)
[2018-08-02] MEDS: MAGNESIUM OXIDE 400 MG TAB PO SCH (15:39)
[2018-08-02] MEDS: GABAPENTIN 100 MG CAP PO SCH ×2 (15:40→20:27)
[2018-08-02] MEDS: METHOCARBAMOL 750 MG TAB PO SCH (15:40)
[2018-08-02] MEDS: METOPROLOL TARTRATE 25 MG TAB PO SCH ×2 (15:40→20:28)
[2018-08-02] MEDS: FUROSEMIDE 40 MG TAB PO SCH (15:40)
--- NOTE | 2018-08-02 15:44 | HP ---
HISTORY AND PHYSICAL DATE OF ADMISSION: August 01, 2018 DATE OF SERVICE: 08/02/2018 PRESENTING COMPLAINT: Hypoxia. HISTORY OF PRESENTING COMPLAINT: This is a 77-year-old patient who was discharged from here on July 28 to [facility]. Last admission patient admitted with CHF exacerbation, underlying diastolic dysfunction. Also had a UTI with E coli. Did complete a course of antibiotics. Also had positive blood cultures, felt to be contaminant. The patient has a left humerus cast with a splint that is being followed by Dr. Townsend. The patient also was sent with a new BiPAP machine and the setting was changed to 12/6 with 5 L at night. The patient was seen by Dr. Moody from Pulmonary. The patient was sent in from the F when the EMT was called out. It was reported that they were called in for difficulty in breathing. Upon arrival, they found the patient lying in bed with no obvious distress. The patient is found to be A/O x4 with a GCS of 15. The patient had poor skin turgor. The patient is on a BiPAP device and a pulse ox value of 90%. The facility staff did inform the patient normally on 2 L during the day and switched to BiPAP for the nighttime. The patient's pulse ox dropped from 98% to 90% on the BiPAP. Hence, the patient was transferred over to the hospital. The patient is lying in bed, comfortable. Denies any shortness of breath. She is not exactly sure why she is here just knows that she was sent in. The patient has been tolerating a diet, comfortable. Denies any fever or chills. No cough. Denies any obvious shortness of breath. REVIEW OF SYSTEMS: CONSTITUTIONAL: Tired. HEENT none. RESPIRATORY: Baseline some shortness of breath. CARDIOVASCULAR: None. GASTROINTESTINAL: None. GENITOURINARY: None. MUSCULOSKELETAL: Left humerus fracture with a splint and cast in place. DERMATOLOGICAL: Some chronic skin changes. HEMATOLOGIC, LYMPHATIC: None. PSYCHIATRY: The patient is a bit forgetful. Often times sleeps. PAST MEDICAL HISTORY: Atrial fibrillation, COPD, mild cognitive impairment, diabetes, fibromyalgia, hyperlipidemia, hypertension, osteoarthritis, rheumatoid arthritis, left humerus fracture falling out of a wheelchair, obesity hypoventilation syndrome, has a BiPAP at a setting of 12 and 6, on oxygen at night. Left arm is casted. Severe gait dysfunction, arthritis in multiple joints, urinary incontinence. PAST SURGICAL HISTORY: Appendectomy, bariatric surgery, bladder surgery, cholecystectomy, joint replacement, orthopedic surgery, tubal ligation, bilateral carpal tunnel release, bilateral thumb reattachment, gastric stapling, EGD. SOCIAL HISTORY: Resident of [facility]. Gets into wheelchair with two assist. Right handed. Feeds herself. Oxygen during the daytime, BiPAP at night. No smoking. No alcohol. FAMILY HISTORY: Of cancer, leukemia. HOME MEDICATIONS: 1. Percocet 10 1 tablet 5 times a day p.r.n. 2. Incruse Ellipta 1 puff b.i.d. 3. Topamax 50 mg b.i.d. 4. MiraLAX 17 g p.o. daily. 5. 400 mg p.o. q.h.s. 6. Protonix 40 mg a day. 7. Adult Fleet 133 mL daily p.r.n. 8. Multivitamin 1 tablet p.o. daily. 9. Lopressor 25 mg t.i.d. 10.Methocarbamol 750 mg b.i.d. 11.Calmoseptine ointment topical b.i.d. 12.Magnesium oxide 400 mg p.o. daily. 13.Milk of magnesia 25 mg p.o. daily p.r.n. 14.Mevacor 40 mg p.o. q.h.s. 15.DuoNeb 3 mL q.i.d. 16.Neurontin 100 mg p.o. t.i.d. 17.Lasix 40 mg p.o. b.i.d. 18.Iron 325 p.o. daily. 19.Aricept 10 mg p.o. daily. 20.Cymbalta 30 mg p.o. daily. 21.Dulcolax 10 mg rectal daily p.r.n. 22.Eliquis 5 mg p.o. b.i.d. ALLERGIES: To LATEX, NITROFURANTOIN, SULFUR. PHYSICAL EXAMINATION: VITAL SIGNS: Temperature 98.2, pulse 72, respiratory 18, blood pressure 141/80 pulse 100 percent on 3 L. GENERAL APPEARANCE: Well built BMI 53.2. Lying in bed, lethargic but arousable. EYES: Pupils equal. Conjunctivae normal. HEENT: External appearance of nose and ears normal. Oral cavity normal. NECK: Short, thick. JVD unable to assess. Mass not palpable. RESPIRATORY: Effort increased. LUNGS: Distant breath sounds. CARDIOVASCULAR: Heart sounds muffled. Some nonpitting edema. ABDOMEN: Distended, soft. Liver and spleen not palpable. LYMPHATICS: No lymph nodes palpable in the neck and axilla. PSYCHIATRY: The patient is able to answer simple questions. Mood and affect normal. NEUROLOGICAL: Pupils equal. Cranial nerves grossly intact. Power and sensation grossly intact. EXTREMITIES: Left arm in a cast and splint. INVESTIGATIONS: Potassium 4, bicarb 42, BUN 12, creatinine 0.65. UA negative. EKG tracing personally reviewed by me shows atrial fibrillation, rate controlled. Nonspecific ST-segment changes. Chest x-ray film personally reviewed by me shows some under penetration. No obvious infiltrates. ASSESSMENT: 1. Possible acute hypoxic respiratory failure from obesity hypoventilation syndrome. 2. Chronic congestive heart failure from diastolic dysfunction. Ejection fraction not known. 3. Chronic carbon dioxide narcosis. 4. Morbid obesity BMI more than 50. 5. Left humerus fracture has a splint and cast in place, chronic, treated by Dr. Townsend. 6. Chronic obstructive pulmonary disease in an ex-smoker. 7. Obesity hypoventilation syndrome on BiPAP. 8. Persistent atrial fibrillation chronically on Eliquis. 9. Essential hypertension. 10.Hyperlipidemia. 11.Mild cognitive impairment from Alzheimer's dementia, late onset type. 12.Primary osteoarthritis of multiple joints bilateral. 13.Severe gait dysfunction, multifactorial. 14.Obstructive sleep apnea. 15.Severe hypokalemia. 16.Hypomagnesemia. PLAN: Home medications are resumed. Oxygen will be supplemented. BiPAP to be adjusted as per Pulmonary. Dr. Moody was consulted. We will add a proBNP. The patient's potassium was 2.3 when she had first come, and now corrected to 4. Scheduled magnesium will be added. Care was discussed with the patient. Follow. MMODL / IJN: [id number] /
[2018-08-02 16:43] LABS: Glucose,Whole Blood 193 mg/dL (75-99)
[2018-08-02] MEDS ORDERED: FERROUS SULFATE 325 MG TAB PO SCH (17:00)
[2018-08-02] MEDS ORDERED: MAGNESIUM OXIDE 400 MG TAB PO SCH (17:00)
[2018-08-02] MEDS ORDERED: NON-FORMULARY DRUG (Umeclidinium Bromide [Incruse Ellipta] 1 PUFF) INHALATION SCH (17:00)
[2018-08-02] MEDS ORDERED: MULTIVITAMINS, THERA 1 EACH TAB PO SCH (17:00)
[2018-08-02] MEDS: oxyCODONE-APAP 10-325MG 1 EACH TAB PO PRN (19:16)
[2018-08-02 20:08] LABS: Glucose,Whole Blood 113 mg/dL (75-99)
[2018-08-02] MEDS: MENTHOL-ZINC OXIDE OINT 113 GM TUBE TOPICAL SCH (20:30)
[2018-08-02] MEDS: ZINC OXIDE-CORN STARCH 142 GM POWDER TOPICAL SCH (20:30)
[2018-08-02] MEDS ORDERED: ATORVASTATIN 10 MG TAB PO SCH (21:00)
[2018-08-02] MEDS ORDERED: PENTOXIFYLLINE 400 MG TABLET.ER PO SCH (21:00)
[2018-08-03 00:31] VITALS: RESP 18
[2018-08-03] MEDS ORDERED: PANTOPRAZOLE 40 MG TABLET PO SCH (06:00)
[2018-08-03] MEDS: METOPROLOL TARTRATE 25 MG TAB PO SCH ×2 (06:19→15:37)
[2018-08-03] MEDS: FUROSEMIDE 40 MG TAB PO SCH ×2 (06:19→15:37)
[2018-08-03] MEDS: GABAPENTIN 100 MG CAP PO SCH ×2 (06:20→15:37)
[2018-08-03] MEDS: oxyCODONE-APAP 10-325MG 1 EACH TAB PO PRN (06:23)
[2018-08-03 07:02] LABS: Glucose,Whole Blood 119 mg/dL (75-99)
[2018-08-03] MEDS: IPRATROPIUM-ALBUTEROL 3 ML NEB INHALATION SCH ×4 (07:08→15:25)
[2018-08-03] MEDS: MENTHOL-ZINC OXIDE OINT 113 GM TUBE TOPICAL SCH (09:34)
[2018-08-03] MEDS: APIXABAN 5 MG TAB PO SCH (09:35)
[2018-08-03] MEDS: POLYETHYLENE GLYCOL 3350 17 GM POWD.PACK PO SCH (09:35)
[2018-08-03] MEDS: METHOCARBAMOL 750 MG TAB PO SCH (09:36)
[2018-08-03] MEDS: DONEPEZIL 10 MG TAB PO SCH (09:36)
[2018-08-03] MEDS: DULoxetine HCL 30 MG CAPSULE.DR PO SCH (09:37)
[2018-08-03] MEDS: TOPIRAMATE 25 MG TAB PO SCH (09:37)
[2018-08-03] MEDS: ZINC OXIDE-CORN STARCH 142 GM POWDER TOPICAL SCH (09:38)
[2018-08-03] MEDS: MAGNESIUM OXIDE 400 MG TAB PO SCH (09:46)
[2018-08-03 09:59] LABS: Hemoglobin A1C 4.7 % (4.0-6.0)
--- NOTE | 2018-08-03 10:33 | CDI ---
Last Revision, October 2017 Documentation Clarification Form Date: 08/03/18 From: Natali Logan RN Admit Date: 08/01/2018 10:54:00 PM Patient Name: Tonia Ortiz Visit Number: [id number] ATTENTION: The Clinical Documentation Specialists (CDI) and [facility] Coding Staff appreciate your assistance in clarifying documentation. Please respond to the clarification below the line at the bottom and electronically sign. The CDI & [facility] Coding staff will review the response and follow-up if needed. Please note: Queries are made part of the Legal Health Record. If you have any questions, please contact the author of this message via ITS. Dr. Juan Moody, DO, The patient presented with the following respiratory symptoms shortness of breath. Documentation and location in medical record included: Respiratory failure with hypoxia and hypercapnic, hx. of COPD. Pt. admitted with Respiratory failure with hypoxia and hypercapnic History/Risk Factors: A FIB, COPD, mild cognitive impairment, DM, fibromyalgia, hyperlipidemia, HTN, OA, RA, left humerus fracture falling out of a wheelchair, obesity hypoventilation syndrome, arthritis, urinary incontinence Home oxygen: BIPAP at night Clinical Indicators: Vital signs on admission: T 98.2, P 82, R 18K 141/80, 100% 3L Pulse oximetry: 3-5 L 94-99 % Lung/Breathing assessment: coarse bilateral breath sounds, bibasilar crackles , diminished throughout, there is prolongation on forced maneuver. ABG/CBG: not done Treatment: Breathing tx: Duoneb, Continuous Pulse ox Bipap at night O2 3-5L In your professional opinion, can you please clarify if these findings signify one of the following conditions? Acuity: Acute hypoxic and hypercapnic respiratory failure Chronic hypoxic and hypercapnic respiratory failure Acute on Chronic hypoxic and hypercapnic respiratory failure Other Diagnosis, please specify Unable to determine Acute on chronic hypoxemic and hypercapnic resp. failure MTDD
[2018-08-03] MEDS: INSULIN ASPART 100 UNIT/ML 1 ML 10 ML VIAL SQ SCH ×2 (10:44→14:35)
[2018-08-03 12:21] LABS: Glucose,Whole Blood 127 mg/dL (75-99)
--- NOTE | 2018-08-03 15:25 | DS ---
DISCHARGE SUMMARY DATE OF ADMISSION: 08/01/2018 DATE OF DISCHARGE: 08/03/2018 FINAL DIAGNOSIS: 1. Acute hypoxic respiratory failure from obesity hypoventilation syndrome, POA. 2. Chronic congestive heart failure from diastolic dysfunction. Ejection fraction of 50%-55%. 3. Chronic carbon dioxide narcosis. 4. Morbid obesity, body mass index more than 50. 5. Left humerus fracture has a splint and a cast in place, chronic, treated by Dr. Townsend. 6. Chronic obstructive pulmonary disease in an ex-smoker. 7. Obesity hypoventilation syndrome on BiPAP. 8. Persistent atrial fibrillation, chronically on Eliquis. 9. Essential hypertension. 10.Hyperlipidemia. 11.Mild cognitive impairment from Alzheimer's dementia, late onset type. 12.Primary osteoarthritis of multiple joints, bilateral. 13.Severe gait dysfunction, multifactorial. 14.Obstructive sleep apnea. 15.Severe hypokalemia. 16.Hypomagnesemia. HOSPITAL COURSE: This is a pleasant 77-year-old patient who was just discharged from [facility] on last admission, had CHF exacerbation and also had a UTI with E coli that was treated. Patient has got a left humerus cast and a splint that is being followed by Dr. Townsend. Patient was sent with the BiPAP machine with new settings. Patient was presented with an episode of hypoxia. No evidence of infection was found. Patient was treated with oxygen and BiPAP and is now back to her baseline, tolerating a diet. Seen by Dr. Moody. CONSULTATION: Dr. Moody from Pulmonary. PHYSICAL EXAMINATION: Temperature 97.6, pulse 99, blood pressure 117/55, pulse ox 99% on nasal cannula. LUNGS: Distant breath sounds. PSYCH: AO x3. Patient's potassium initially was 2.3, now up to 4, bicarb 42. DISCHARGE MEDICATIONS: 1. Cymbalta 30 mg a day. 2. Aricept 10 mg a day. 3. Protonix 40 mg a day. 4. Topamax 50 mg b.i.d. 5. Methocarbamol 750 mg b.i.d. 6. Increase Ellipta 1 puff b.i.d. 7. Mevacor 40 mg q.h.s. 8. Iron 325 p.o. daily at 5 pm. 9. Magnesium oxide 1 mg p.o. daily. 10. mg p.o. q.h.s. 11.MiraLAX 17 g p.o. daily. 12.Eliquis 5 mg p.o. b.i.d. 13.Dulcolax 10 mg rectal daily p.r.n. 14.Adult Fleet 133 mL rectally daily p.r.n. 15.Lasix 40 mg b.i.d. 16.Neurontin 100 mg p.o. t.i.d. 17.DuoNeb q.i.d. 18.Milk of magnesia 2400 mg p.o. daily p.r.n. 19.Calmoseptine ointment topical b.i.d. 20.Lopressor 25 mg p.o. t.i.d. 21.Multivitamin 1 tablet p.o. daily. 22.Percocet 10 one tablet 5 times a day p.r.n. DISPOSITION: [facility]. CONDITION AT DISCHARGE: Stable. Follow up with Dr. Muniz at [facility]. BiPAP settings, IPAP 12, EPAP 6, FiO2 40%. MMODL / IJN: [id number] /
[2018-08-03 15:58] VITALS: BP 149/103; PULSE 99; TEMP 97.3
--- NOTE | 2018-08-03 18:39 | P.PN ---
Subjective Progress Note Date: 08/03/18 Principal diagnosis: shortness of breath and hypoxemia, acute exacerbation of diastolic heart failure Pulmonary consult dated 08/02/2018 77-year-old morbidly obese female who was recently inpatient for an episode of hypoxemic respiratory failure secondary to heart failure. The patient has chronic diastolic CHF. She was apparently seen by the ER physician yesterday and apparently came in because her saturations were low and she was short of breath. No additional history can be obtained. Anyway, the patient was evaluated and admitted to the third floor. The patient spent some time last night on BiPAP. Currently she is on a couple liters of O2 and her saturations are in the mid 90s. She has a history of chronic atrial fibrillation, COPD, CVA , dementia, diabetes, fibromyalgia, hyperlipidemia, hypertension, DJD, rheumatoid arthritis, renal failure, left humeral fracture, pickwickian syndrome , chronic diastolic CHF, diffuse arthritis, tremors, pyelonephritis, and urinary tract infections. The patient's very somnolent and lethargic and not a good historian but apparently she came in because of difficulty breathing. Chest x-ray was consistent with heart failure and pleural effusions. The patient has a history of lifelong nontobacco use. She's also had multiple surgeries including appendectomy bladder surgery cholecystectomy, joint replacement and tubal ligation. Chest x-rays consistent with heart failure and pleural effusions. on 08/03/2018 patient seen in follow-up on the 3 surgical floor, in no acute distress, she is awake and alert, sitting up in the recliner, denies any worsening shortness of breath or chest pain, lung sounds are diminished, rhonchi , no rales, no wheezes. Pulse ox on 3 L per nasal cannula is 95%, she has been compliant with her BiPAP. She continues on oral diuretics with Lasix 40 mg twice daily, no significant bilateral lower extremity edema. Dr. Driver checked the home BiPAP unit, which is functioning appropriately. Very perspective patient remains stable, vital signs are stable, no acute events overnight. she can be discharged back to the rehab facility with a previous BiPAP settings. Objective - Vital Signs Vital signs: Vital Signs Temp 97.3 F L 08/03/18 15:57 Pulse 99 08/03/18 15:57 Resp 18 08/03/18 15:57 BP 149/103 08/03/18 15:57 Pulse Ox 149 H 08/03/18 15:57 Intake & Output 08/02/18 08/03/18 08/03/18 18:59 06:59 18:59 Intake Total 598 600 Balance 598 600 Weight 136 kg Intake: Oral 598 600 Other: Voiding Method Diaper # Voids 1 2 1 - Exam No acute distress, sleepy and lethargic, nasal O2 in place. The patient's a very poor historian. Nodding off frequently. HEENT examination is grossly unremarkable. Mucous membranes are moist. No oral lesions. Neck supple. Full range of motion. No adenopathy thyromegaly or neck vein distention. Cardiovascular examination reveals regular rhythm rate. S1-S2 normal. No S3 or S4. No discernible murmur noted. Heart rate is 88. Lungs reveal coarse bilateral breath sounds. There is bibasilar crackles. Breath sounds are diminished throughout. There is prolongation on forced maneuver. Breath sounds are equal bilaterally. Abdomen is obese. It is soft. Bowel sounds are heard. No masses noted. Extremities are intact. No cyanosis or clubbing. The patient has substantial lower extremity edema with some chronic venous stasis changes. Skin has chronic venous stasis and edema. Neurologic examination is brief but nonfocal. - Labs CBC & Chem 7: 08/01/18 21:25 08/02/18 07:12 Labs: Abnormal Lab Results - Last 24 Hours (Table) 08/02/18 08/03/18 08/03/18 Range/Units 20:06 07:00 12:19 POC Glucose (mg/dL) 113 H 119 H 127 H (75-99) mg/dL Assessment and Plan Plan: assessment: Shortness of breath and hypoxemia, likely related to patient's history of chronic diastolic heart failure History of atrial fibrillation Recent admission to this hospital for acute renal fire and left humeral fracture History of pickwickian syndrome Rule out sleep apnea syndrome Profound gait disturbance Morbid obesity History of COPD Previous history of CVA History of dementia Diabetes mellitus by history Fibromyalgia Hyperlipidemia Hypertension DJD Rheumatoid arthritis Plan: Continue oral diuretics, continue nebulized bronchodilators, patient can continue on her BiPAP with settings of 12 and 6, and 40% FiO2. The home unit was checked by Dr. Driver, and seems to be functioning appropriately. From pulmonary perspective patient is stable, and can be considered for discharge to subacute rehab today. I performed a history & physical examination of the patient and discussed their management with my nurse practitioner, Lexi Cronin. I reviewed the nurse practitioner's note and agree with the documented findings and plan of care. Lung sounds are diminished. The findings and the impression was discussed with the patient. I attest to the documentation by the nurse practitioner. Time with Patient: Less than 30
== END 2018-08-03 16:15 | DRG 189 ==
LOC: EC 21:07 → 3SUR 22:54
PROVIDERS: ADMIT Hospitalist; ATTEND Hospitalist
DX: J96.22 Acute and chronic respiratory failure with hypercapnia (principal); I50.33 Acute on chronic diastolic (congestive) heart failure; S42.302A Unspecified fracture of shaft of humerus, left arm, initial encounter for closed fracture; E66.2 Morbid (severe) obesity with alveolar hypoventilation; Z68.43 Body mass index [BMI] 50.0-59.9, adult; J96.21 Acute and chronic respiratory failure with hypoxia; E11.9 Type 2 diabetes mellitus without complications; E78.5 Hyperlipidemia, unspecified; E83.42 Hypomagnesemia; E87.6 Hypokalemia; F02.80 Dementia in other diseases classified elsewhere, unspecified severity, without behavioral disturbance, psychotic disturbance, mood disturbance, and anxiety; G30.1 Alzheimer's disease with late onset; I11.0 Hypertensive heart disease with heart failure; I48.2 Chronic atrial fibrillation; J44.9 Chronic obstructive pulmonary disease, unspecified; M06.9 Rheumatoid arthritis, unspecified; M15.9 Polyosteoarthritis, unspecified; M79.7 Fibromyalgia; Z79.01 Long term (current) use of anticoagulants; Z79.899 Other long term (current) drug therapy; Z80.1 Family history of malignant neoplasm of trachea, bronchus and lung; Z80.6 Family history of leukemia; Z86.73 Personal history of transient ischemic attack (TIA), and cerebral infarction without residual deficits; Z87.891 Personal history of nicotine dependence; Z99.89 Dependence on other enabling machines and devices
CPT/HCPCS: 36415; 71046; 80053; 81003; 82550; 82553; 83036; 83735; 84100; 84484; 85025; 85610; 85730; 93005; 94640; 94760; 96365; 96368; 96375; 99291

== ENCOUNTER 2018-08-22 21:41 | Inpatient (IN) | payer MEDICARE, OTHER ==
[2018-08-22] MEDS ORDERED: FUROSEMIDE 10 MG/ML 4 ML VIAL IV STA (21:47)
[2018-08-22] MEDS ORDERED: IPRATROPIUM-ALBUTEROL 3 ML NEB INHALATION STA (21:47)
--- NOTE | 2018-08-22 21:49 | ED ---
General Adult HPI - General Stated complaint: CHRIS, CHEST PAIN Time Seen by Provider: 08/22/18 21:47 - History of Present Illness Initial comments: Tonia is a 77 yo female with extensive past medical history most significant for severe COPD and congestive heart failure presents the emergency department today via EMS from a halfway facility that she lives in for evaluation of acute onset of respiratory distress. EMS reports that they were dispatched to the facility for evaluation of respiratory distress. They're told by caregivers at the facility the patient had been in her usual state of health throughout the day. She been afebrile. They report that they were assisting in a diaper change from the patient suddenly became very short of breath. The patient was put on her home BiPAP and only 2 L of oxygen and continued to have worsening shortness of breath. Upon EMS arrival the patient oxygen saturations in the low 90s, they placed her on their CPAP higher oxygen and transferred her to the emergency department. They report that in route the patient was noted to be tachycardic, A. fib with a rate in the 120s on the monitor. Oxygen saturation saturations did improve with their CPAP. Patient was moaning but not answering questions appropriately. - Related Data Home Medications Medication Instructions Recorded Confirmed DULoxetine HCL [Cymbalta] 30 mg PO DAILY@0804/28/15 08/02/18 Donepezil [Aricept] 10 mg PO DAILY@79904/28/15 08/02/18 Pantoprazole Sodium 40 mg PO DAILY@59904/28/15 08/02/18 Topiramate 50 mg PO BID@0800,209910/03/15 08/02/18 Methocarbamol 750 mg PO BID@0800,17003/13/17 08/02/18 Umeclidinium [place] [Incruse 1 puff INHALATION RT-BID@0800,169903/13/17 Ellipta] Lovastatin [Mevacor] 40 mg PO HS@209903/20/17 08/02/18 Ferrous Sulfate [Iron (65 MG 325 mg PO DAILY@169906/07/18 08/02/18 Elemental)] Magnesium Oxide [Mag-Ox] 400 mg PO DAILY@169906/07/18 08/02/18 Pentoxifylline 400 mg PO HS@209906/07/18 08/02/18 Polyethylene Glycol 3350 [Miralax] 17 gm PO DAILY@0800 06/07/18 08/02/18 Apixaban [Eliquis] 5 mg PO BID@0800,1700 06/25/18 08/02/18 Bisacodyl [Dulcolax] 10 mg RECTAL DAILY PRN 06/25/18 08/02/18 Na Phos,M-B/Na Phos,Di-Ba [Fleet 133 ml RECTAL DAILY PRN 06/25/18 08/02/18 Adult] Furosemide [Lasix] 40 mg PO BID@0600,1400 07/21/18 08/02/18 Gabapentin [Neurontin] 100 mg PO TID@06,14,07/21/18 08/02/18 Ipratropium-Albuterol Nebulize 3 ml INHALATION RT-QID@08,12,17,07/21/1808/02 [Duoneb 0.5 mg-3 mg/3 ml Soln] Magnesium Hydroxide [Milk of 2,400 mg PO DAILY PRN 07/21/18 08/02/18 Magnesia] Menthol-Zinc Oxide Oint 1 applic TOPICAL BID 07/21/18 08/02/18 [Calmoseptine Oint] Metoprolol Tartrate [Lopressor] 25 mg PO TID@06,14,07/21/18 08/02/18 Multivitamins, Thera [Multivitamin 1 tab PO DAILY@1700 07/21/18 08/02/18 (formulary)] Previous Rx's Medication Instructions Recorded oxyCODONE-APAP 10-325MG [Percocet 1 tab PO 5XD PRN #10 tab 08/03/18 10-325 mg] Allergies Allergy/AdvReac Type Severity Reaction Status Date / Time latex Allergy Unknown Verified 08/22/18 21:53 nitrofurantoin Allergy Unknown Verified 08/22/18 21:53 [From Macrobid] nitrofurantoin Allergy Unknown Verified 08/22/18 21:53 macrocrystalline [From Macrobid] Sulfa (Sulfonamide Allergy Unknown Verified 08/22/18 21:53 Antibiotics) Review of Systems ROS Statement: Those systems with pertinent positive or pertinent negative responses have been documented in the HPI. ROS Other: All systems not noted in ROS Statement are negative. Past Medical History Past Medical History: Atrial Fibrillation, COPD, CVA/TIA, Dementia, Diabetes Mellitus, Fibromyalgia, Hyperlipidemia, Hypertension, Osteoarthritis (OA), Rheumatoid Arthritis (RA) Additional Past Medical History / Comment(s): Pt recently admitted to [facility] on 06/09/18 with acute renal failure, L humerus fracture (fell out of wheelchair), hypoventilating syndrome, obesity. Other hx: Pt wears oxygen at 2L/NC during the day and bipap at night, L arm is casted and pt to be at 45-90 degree angle with L arm down at side, severe gait dysfunction, diabetes-diet controlled , arthritis in multiple joints bilaterally, tremors, pyelonephritis in 2015, UTIs, urinary incontinence. History of Any Multi-Drug Resistant Organisms: ESBL Date of last positivie culture/infection: 07/20/18 MDRO Source:: URINE Past Surgical History: Appendectomy, Bariatric Surgery, Bladder Surgery, Cholecystectomy, Joint Replacement, Orthopedic Surgery, Tubal Ligation Additional Past Surgical History / Comment(s): Bilateral carpal tunnel releases , bilateral thumb reattachments, gastric stapling, EGD. Past Anesthesia/Blood Transfusion Reactions: No Reported Reaction Past Psychological History: No Psychological Hx Reported Smoking Status: Never smoker Past Alcohol Use History: None Reported Past Drug Use History: None Reported - Past Family History Father Family Medical History: Cancer Additional Family Medical History / Comment(s): leukemia Mother Family Medical History: Cancer Additional Family Medical History / Comment(s): lung ca General Exam - General Exam Comments Initial Comments: GENERAL: Morbidly obese, chronically ill-appearing elderly female in acute respiratory distress HENT: Normocephalic, Atraumatic. Neck is soft and supple. No significant lymphadenopathy is noted. Dry mucous membranes. EYES: The sclera were anicteric and conjunctiva were pink and moist. PULMONARY: Tachypnea, decreased breath sounds in all lung sandoval, perioral cyanosis CARDIOVASCULAR: Irregularly irregular tachycardia ABDOMEN: Soft and nontender with normal bowel sounds. SKIN: Skin is pale with perioral cyanosis NEUROLOGIC: Patient in respiratory distress, CPAP in place, unable to answer questions fully , responds to her name, pulls at her mask MUSCULOSKELETAL: Left upper extremity decreased range of motion, previously had a brace in place which was removed for IV attempt by EMS, brace was reapplied during ER visit. LYMPHATICS: No significant lymphadenopathy is noted PSYCHIATRIC: Normal psychiatric evaluation. Limitations: no limitations Course Vital Signs 08/22/18 08/22/18 08/22/18 21:53 22:06 22:14 Temperature Pulse Rate 111 H 98 Respiratory 24 22 24 Rate Blood Pressure 137/95 144/100 O2 Sat by Pulse 88 L 93 L Oximetry 08/22/18 08/22/18 08/22/18 22:30 22:34 22:58 Temperature 97.5 F L Pulse Rate 104 H 91 Respiratory 22 Rate Blood Pressure 139/93 O2 Sat by Pulse 91 L Oximetry 08/22/18 08/22/18 23:13 23:48 Temperature 98.5 F Pulse Rate 101 H 101 H Respiratory 20 Rate Blood Pressure 108/79 O2 Sat by Pulse 95 Oximetry EKG Findings - EKG Comments: EKG Findings:: EKG obtained at 9:50 PM, rate is 105 rhythm is atrial fibrillation, she no acute ST elevations or depressions no evidence of acute ischemia or infarction. Medical Decision Making - Medical Decision Making The patient was seen and evaluated immediately upon arrival to the emergency department. Patient was noted to be in acute respiratory distress. Unfortunately the CPAP machine from EMS had stopped working prior to arrival patient was receiving any supplemental oxygen, she was noted to be hypoxic and tachycardic. Was placed on our BiPAP machine immediately the SpO2 100% Labs and imaging were ordered Lasix was ordered as I have a high suspicion that there is a congestive heart failure component to this patient's respiratory distress Venous blood glass is consistent with a hypercapnic respiratory failure Given the patient's multiple medical comorbidities, I would like to attempt BiPAP and evaluate for improvement prior to intubation. Patient was reevaluated frequently, patient continued to improve, oxygen saturation saturations improved, FiO2 was decreased on the BiPAP to keep an oxygen saturation of 80-92%. After proximally one hour in the BiPAP patient was much more awake and alert, her family is at bedside. Patient is demented and at her baseline. Patient responding to her daughter's appropriately. Patient able to reach up with her right hand and move her BiPAP mask if needed. Labs with leukocytosis, hypercapnia Urinalysis consistent with urinary tract infection, culture was ordered Rocephin was ordered At this time I feel the patient's respiratory status is improved significantly, I don't feel she warrants intubation. I do feel the patient will require BiPAP throughout the night and close observation. I will plan to admit the patient to the selective unit. And was discussed with the patient's daughters who are in agreement with this. - Lab Data Result diagrams: 08/22/18 21:45 08/22/18 21:45 Lab Results 08/22/18 08/22/18 08/22/18 Range/Units 21:45 21:45 21:45 WBC 17.4 H (3.8-10.6) k/uL RBC 3.90 (3.80-5.40) m/uL Hgb 11.9 (11.4-16.0) gm/dL Hct 41.8 (34.0-46.0) % MCV 107.0 H (80.0-100.0) fL MCH 30.5 (25.0-35.0) pg MCHC 28.5 L (31.0-37.0) g/dL RDW 14.4 (11.5-15.5) % Plt Count 299 (150-450) k/uL Neutrophils % (Manual) 50 % Band Neutrophils % 2 % Lymphocytes % (Manual) 44 % Monocytes % (Manual) 4 % Eosinophils % (Manual) 1 % Myelocytes % 1 % Neutrophils # (Manual) 9.00 H (1.3-7.7) k/uL Lymphocytes # (Manual) 7.66 H (1.0-4.8) k/uL Monocytes # (Manual) 0.70 (0-1.0) k/uL Eosinophils # (Manual) 0.17 (0-0.7) k/uL Myelocytes # (Manual) 0.17 H (0) k/uL Nucleated RBCs 0 (0-0) /100 WBC Manual Slide Review Performed Hypochromasia Marked Anisocytosis (manual) Present Macrocytosis Moderate Stomatocytes Present PT (9.0-12.0) sec INR (<1.2) APTT (22.0-30.0) sec VBG pH (7.31-7.41) VBG pCO2 (37-51) mmHg VBG HCO3 (24-28) mmol/L Sodium 142 (137-145) mmol/L Potassium 4.1 (3.5-5.1) mmol/L Chloride 97 L (98-107) mmol/L Carbon Dioxide 39 H (22-30) mmol/L Anion Gap 6 mmol/L BUN 11 (7-17) mg/dL Creatinine 0.74 (0.52-1.04) mg/dL Est GFR (CKD-EPI)AfAm >90 (>60 ml/min/1.73 sqM) Est GFR (CKD-EPI)NonAf 80 (>60 ml/min/1.73 sqM) Glucose 202 H (74-99) mg/dL Calcium 9.7 (8.4-10.2) mg/dL Magnesium 2.2 (1.6-2.3) mg/dL Total Bilirubin 0.6 (0.2-1.3) mg/dL AST 30 (14-36) U/L ALT 29 (9-52) U/L Alkaline Phosphatase 95 (38-126) U/L Total Creatine Kinase <20 L (30-135) U/L CK-MB (CK-2) 1.0 (0.0-2.4) ng/mL CK-MB (CK-2) Rel Index Troponin I 0.050 H* (0.000-0.034) ng/mL NT-Pro-B Natriuret Pep pg/mL Total Protein 6.9 (6.3-8.2) g/dL Albumin 3.7 (3.5-5.0) g/dL Urine Color Urine Appearance (Clear) Urine pH (5.0-8.0) Ur Specific [place] (1.001-1.035) Urine Protein (Negative) Urine Glucose (UA) (Negative) Urine Ketones (Negative) Urine Blood (Negative) Urine Nitrite (Negative) Urine Bilirubin (Negative) Urine Urobilinogen (<2.0) mg/dL Ur Leukocyte Esterase (Negative) Urine RBC (0-5) /hpf Urine WBC (0-5) /hpf Urine Bacteria (None) /hpf Urine Mucus (None) /hpf 08/22/18 08/22/18 08/22/18 Range/Units 21:45 21:45 22:00 WBC (3.8-10.6) k/uL RBC (3.80-5.40) m/uL Hgb (11.4-16.0) gm/dL Hct (34.0-46.0) % MCV (80.0-100.0) fL MCH (25.0-35.0) pg MCHC (31.0-37.0) g/dL RDW (11.5-15.5) % Plt Count (150-450) k/uL Neutrophils % (Manual) % Band Neutrophils % % Lymphocytes % (Manual) % Monocytes % (Manual) % Eosinophils % (Manual) % Myelocytes % % Neutrophils # (Manual) (1.3-7.7) k/uL Lymphocytes # (Manual) (1.0-4.8) k/uL Monocytes # (Manual) (0-1.0) k/uL Eosinophils # (Manual) (0-0.7) k/uL Myelocytes # (Manual) (0) k/uL Nucleated RBCs (0-0) /100 WBC Manual Slide Review Hypochromasia Anisocytosis (manual) Macrocytosis Stomatocytes PT 10.3 (9.0-12.0) sec INR 1.1 (<1.2) APTT 21.3 L (22.0-30.0) sec VBG pH 7.31 (7.31-7.41) VBG pCO2 81 H* (37-51) mmHg VBG HCO3 39 H (24-28) mmol/L Sodium (137-145) mmol/L Potassium (3.5-5.1) mmol/L Chloride (98-107) mmol/L Carbon Dioxide (22-30) mmol/L Anion Gap mmol/L BUN (7-17) mg/dL Creatinine (0.52-1.04) mg/dL Est GFR (CKD-EPI)AfAm (>60 ml/min/1.73 sqM) Est GFR (CKD-EPI)NonAf (>60 ml/min/1.73 sqM) Glucose (74-99) mg/dL Calcium (8.4-10.2) mg/dL Magnesium (1.6-2.3) mg/dL Total Bilirubin (0.2-1.3) mg/dL AST (14-36) U/L ALT (9-52) U/L Alkaline Phosphatase (38-126) U/L Total Creatine Kinase (30-135) U/L CK-MB (CK-2) (0.0-2.4) ng/mL CK-MB (CK-2) Rel Index Troponin I (0.000-0.034) ng/mL NT-Pro-B Natriuret Pep 4970 pg/mL Total Protein (6.3-8.2) g/dL Albumin (3.5-5.0) g/dL Urine Color Urine Appearance (Clear) Urine pH (5.0-8.0) Ur Specific [place] (1.001-1.035) Urine Protein (Negative) Urine Glucose (UA) (Negative) Urine Ketones (Negative) Urine Blood (Negative) Urine Nitrite (Negative) Urine Bilirubin (Negative) Urine Urobilinogen (<2.0) mg/dL Ur Leukocyte Esterase (Negative) Urine RBC (0-5) /hpf Urine WBC (0-5) /hpf Urine Bacteria (None) /hpf Urine Mucus (None) /hpf 08/22/18 Range/Units 22:30 WBC (3.8-10.6) k/uL RBC (3.80-5.40) m/uL Hgb (11.4-16.0) gm/dL Hct (34.0-46.0) % MCV (80.0-100.0) fL MCH (25.0-35.0) pg MCHC (31.0-37.0) g/dL RDW (11.5-15.5) % Plt Count (150-450) k/uL Neutrophils % (Manual) % Band Neutrophils % % Lymphocytes % (Manual) % Monocytes % (Manual) % Eosinophils % (Manual) % Myelocytes % % Neutrophils # (Manual) (1.3-7.7) k/uL Lymphocytes # (Manual) (1.0-4.8) k/uL Monocytes # (Manual) (0-1.0) k/uL Eosinophils # (Manual) (0-0.7) k/uL Myelocytes # (Manual) (0) k/uL Nucleated RBCs (0-0) /100 WBC Manual Slide Review Hypochromasia Anisocytosis (manual) Macrocytosis Stomatocytes PT (9.0-12.0) sec INR (<1.2) APTT (22.0-30.0) sec VBG pH (7.31-7.41) VBG pCO2 (37-51) mmHg VBG HCO3 (24-28) mmol/L Sodium (137-145) mmol/L Potassium (3.5-5.1) mmol/L Chloride (98-107) mmol/L Carbon Dioxide (22-30) mmol/L Anion Gap mmol/L BUN (7-17) mg/dL Creatinine (0.52-1.04) mg/dL Est GFR (CKD-EPI)AfAm (>60 ml/min/1.73 sqM) Est GFR (CKD-EPI)NonAf (>60 ml/min/1.73 sqM) Glucose (74-99) mg/dL Calcium (8.4-10.2) mg/dL Magnesium (1.6-2.3) mg/dL Total Bilirubin (0.2-1.3) mg/dL AST (14-36) U/L ALT (9-52) U/L Alkaline Phosphatase (38-126) U/L Total Creatine Kinase (30-135) U/L CK-MB (CK-2) (0.0-2.4) ng/mL CK-MB (CK-2) Rel Index Troponin I (0.000-0.034) ng/mL NT-Pro-B Natriuret Pep pg/mL Total Protein (6.3-8.2) g/dL Albumin (3.5-5.0) g/dL Urine Color Light Yellow Urine Appearance Cloudy H (Clear) Urine pH 6.5 (5.0-8.0) Ur Specific [place] 1.007 (1.001-1.035) Urine Protein Trace H (Negative) Urine Glucose (UA) Negative (Negative) Urine Ketones Negative (Negative) Urine Blood Trace H (Negative) Urine Nitrite Positive H (Negative) Urine Bilirubin Negative (Negative) Urine Urobilinogen <2.0 (<2.0) mg/dL Ur Leukocyte Esterase Moderate H (Negative) Urine RBC 4 (0-5) /hpf Urine WBC 13 H (0-5) /hpf Urine Bacteria Rare H (None) /hpf Urine Mucus Rare H (None) /hpf Critical Care Time Critical Care Time: Yes Total Critical Care Time: 30 Disposition Clinical Impression: Generalized weakness, Obesity, Respiratory failure with hypoxia and hypercapnia , Acute pulmonary edema, Acute exacerbation of chronic obstructive airways disease, Confusion Disposition: ADMITTED IP TO THIS [facility] Condition: Serious Referrals: Moe Muniz DO [Primary Care Provider] - 1-2 days
[2018-08-22 22:01] LABS: HCT 41.8 % (34.0-46.0); HGB 11.9 gm/dL (11.4-16.0); Hypochromasia Marked; MCH 30.5 pg (25.0-35.0); MCHC 28.5 g/dL (31.0-37.0); Macrocytosis Moderate; Mean Platelet Volume 7.6; Platelet Count 299 k/uL (150-450); RDW 14.4 % (11.5-15.5); WBC 17.4 k/uL (3.8-10.6)
[2018-08-22 22:10] LABS: ALT 29 U/L (9-52); AST 30 U/L (14-36); Albumin 3.7 g/dL (3.5-5.0); Alkaline Phosphatase 95 U/L (38-126); Anion Gap 6 mmol/L; Blood Urea Nitrogen 11 mg/dL (7-17); Calcium 9.7 mg/dL (8.4-10.2); Carbon Dioxide 39 mmol/L (22-30); Chloride 97 mmol/L (98-107); Glucose 202 mg/dL (74-99); Magnesium 2.2 mg/dL (1.6-2.3); Potassium 4.1 mmol/L (3.5-5.1); Sodium 142 mmol/L (137-145); Total Bilirubin 0.6 mg/dL (0.2-1.3); Total Protein 6.9 g/dL (6.3-8.2)
[2018-08-22 22:12] LABS: Creatine Kinase <20 U/L (30-135)
[2018-08-22 22:13] LABS: VBG PH 7.31 (7.31-7.41)
[2018-08-22 22:19] LABS: INR 1.1 (<1.2); Prothrombin Time 10.3 sec (9.0-12.0)
[2018-08-22 22:22] LABS: Partial Thromboplastin Time 21.3 sec (22.0-30.0)
[2018-08-22 22:39] LABS: Anisocytosis (M) Present; Band Neutrophils % 2 %; Eosinophils # (M) 0.17 k/uL (0-0.7); Lymphocytes # (M) 7.66 k/uL (1.0-4.8); Myelocytes # (M) 0.17 k/uL (0); Myelocytes % 1 %; Neutrophils % (M) 50 %; Nucleated Red Blood Cells 0 /100 WBC (0-0); Stomatocytes Present; Total Cells Counted 200
--- NOTE | 2018-08-22 22:46 | XR ---
EXAMINATION TYPE: XR chest 1V portable DATE OF EXAM: 08/22/2018 COMPARISON: 08/01/2018 HISTORY: Difficulty breathing TECHNIQUE: Single frontal view of the chest is obtained. FINDINGS: There is diffuse pulmonary interstitial edema. Heart appears enlarged. There is probably c ongestive heart failure. Thoracic aorta is atheromatous. There is some blunting of the costophrenic a ngles. IMPRESSION: Congestive heart failure with pleural effusions. Pulmonary congestion is worse than last exam.
[2018-08-22 22:50] LABS: Appearance,Urine Cloudy (Clear); Bacteria,Urine Rare /hpf; Bilirubin,Urine Negative (Negative); Blood,Urine Trace (Negative); Color,Urine Light Yellow; Glucose,Urine (UA) Negative (Negative); Ketones,Urine Negative (Negative); Leukocyte Esterase,Urine Moderate (Negative); Mucus,Urine Rare /hpf; Nitrite,Urine Positive (Negative); PH, Urine 6.5 (5.0-8.0); Protein,Urine Trace (Negative); RBC,Urine 4 /hpf (0-5); Specific Gravity,Urine 1.007 (1.001-1.035); Urobilinogen,Urine <2.0 mg/dL (<2.0); WBC,Urine 13 /hpf (0-5)
[2018-08-23] MEDS: FUROSEMIDE 10 MG/ML 4 ML VIAL IV SCH ×2 (01:42→08:40)
[2018-08-23] MEDS ORDERED: IPRATROPIUM-ALBUTEROL 3 ML NEB INHALATION STA (06:22)
[2018-08-23 07:59] LABS: Creatine Kinase MB 1.3 ng/mL (0.0-2.4)
[2018-08-23 08:02] LABS: Troponin I 0.077 ng/mL (0.000-0.034)
[2018-08-23] MEDS: IPRATROPIUM-ALBUTEROL 3 ML NEB INHALATION SCH ×4 (08:16→20:21)
[2018-08-23] MEDS ORDERED: HEPARIN SODIUM,PORCINE 5,000 UNIT/ML 1 ML VIAL SQ SCH (09:00)
[2018-08-23] MEDS ORDERED: MORPHINE SULFATE 4 MG/ML SYRINGE IVP STA (13:05)
--- NOTE | 2018-08-23 13:08 | P.CNPUL ---
History of Present Illness Consult date: 08/23/18 Requesting physician: Tushar Dick Reason for consult: dyspnea, hypoxemia, abnormal CXR/CT Chief complaint: Congestive heart failure, acute on chronic hypoxemic and hypercapnic respir History of present illness: This is a 77-year-old white female patient of Dr. Muniz, well-known to our service from previous admissions for exacerbations of chronic heart failure with diastolic dysfunction, sleep apnea, obesity hypoventilation syndrome on BiPAP therapy, COPD. he was recently hospitalized for acute exacerbation of chronic diastolic heart failure, she was discharged to [facility] nursing and rehab , on oral diuretics, her BiPAP unit with pressures of 14/6, and FiO2 of 2-3 L. She states she was wearing her BiPAP every night, taking her diuretics. Patient was in her usual state of health throughout the day, in the evening patient became very short of breath, her pulse ox was noted to be low, and she was placed on BiPAP, and did not significantly improve. Patient states she does not remember much of the event that happened last night, but embers feeling well during the day, going to dinner, denies any chest pain, denies fever or chills, denies any chest congestion. [facility] and patient became tachycardic en route to the hospital, went into A. fib RVR with a rate of 120 BPM. She was placed on CPAP unit in the ambulance, her oxygenation did improve.chest x-ray was completed in the emergency department and showed congestive heart failure with pleural effusions. This was compared to prior exam from 08/01/2018 and appears to be worse. Lab work revealed WBC of 17.4, hemoglobin 11.9, sodium 142, potassium 4.1, chloride is 97, CO2 of 39, renal profile was within normal limits, troponins were 0.050, 0.077. ProBNP was 4970. Urinalysis showed positive nitrites, moderate leuk trase, rare bacteria, and WBC 13. Patient was started and empiric antibiotics in the form of Rocephin, IV diuretics of Lasix 40 mg every 8 hours, and nebulized bronchodilators in addition to IV Solu-Medrol. Review of Systems All systems: negative Constitutional: Denies chills, Denies fever Eyes: denies blurred vision, denies pain Ears, nose, mouth and throat: Denies headache, Denies sore throat Cardiovascular: Denies chest pain, Denies shortness of breath Respiratory: Reports dyspnea, Reports home oxygen, Reports sleep apnea, Denies cough Gastrointestinal: Denies abdominal pain, Denies diarrhea, Denies nausea, Denies vomiting Genitourinary: Denies dysuria, Denies hematuria Musculoskeletal: Denies myalgias Integumentary: Denies pruritus, Denies rash Neurological: Denies numbness, Denies weakness Psychiatric: Denies anxiety, Denies depression Endocrine: Denies fatigue, Denies weight change Past Medical History Past Medical History: Atrial Fibrillation, COPD, CVA/TIA, Dementia, Diabetes Mellitus, Fibromyalgia, Hyperlipidemia, Hypertension, Osteoarthritis (OA), Rheumatoid Arthritis (RA) Additional Past Medical History / Comment(s): Pt recently admitted to [facility] on 06/09/18 with acute renal failure, L humerus fracture (fell out of wheelchair), hypoventilating syndrome, obesity. Other hx: Pt wears oxygen at 2L/NC during the day and bipap at night, L arm is casted and pt to be at 45-90 degree angle with L arm down at side, severe gait dysfunction, diabetes-diet controlled , arthritis in multiple joints bilaterally, tremors, pyelonephritis in 2015, UTIs, urinary incontinence. History of Any Multi-Drug Resistant Organisms: ESBL Date of last positivie culture/infection: 07/20/18 MDRO Source:: URINE Past Surgical History: Appendectomy, Bariatric Surgery, Bladder Surgery, Cholecystectomy, Joint Replacement, Orthopedic Surgery, Tubal Ligation Additional Past Surgical History / Comment(s): Bilateral carpal tunnel releases , bilateral thumb reattachments, gastric stapling, EGD. Past Anesthesia/Blood Transfusion Reactions: No Reported Reaction Smoking Status: Never smoker - Past Family History Father Family Medical History: Cancer Additional Family Medical History / Comment(s): leukemia Mother Family Medical History: Cancer Additional Family Medical History / Comment(s): lung ca Medications and Allergies Home Medications Medication Instructions Recorded Confirmed Type DULoxetine HCL [Cymbalta] 30 mg PO DAILY@79904/28/15 08/23/18 History Donepezil [Aricept] 10 mg PO DAILY@79904/28/15 08/23/18 History Pantoprazole Sodium 40 mg PO DAILY@59904/28/15 08/23/18 History Topiramate 50 mg PO BID@0800,2100 10/03/15 08/23/18 History Methocarbamol 750 mg PO BID@0800,1700 03/13/17 08/23/18 History Umeclidinium [place] [Incruse 1 puff INHALATION RT-BID@0800,1700 03/13/17 History Ellipta] Lovastatin [Mevacor] 20 mg PO HS@209903/20/17 08/23/18 History Ferrous Sulfate [Iron (65 MG 325 mg PO DAILY@169906/07/18 08/23/18 History Elemental)] Magnesium Oxide [Mag-Ox] 400 mg PO DAILY@1700 06/07/18 08/23/18 History Pentoxifylline 400 mg PO HS@209906/07/18 08/23/18 History Polyethylene Glycol 3350 [Miralax] 17 gm PO DAILY@0800 06/07/18 08/23/18 History Apixaban [Eliquis] 5 mg PO BID@0800,1700 06/25/18 08/23/18 History Bisacodyl [Dulcolax] 10 mg RECTAL DAILY PRN 06/25/18 08/23/18 History Na Phos,M-B/Na Phos,Di-Ba [Fleet 133 ml RECTAL DAILY PRN 06/25/18 08/23/18 History Adult] Furosemide [Lasix] 40 mg PO BID@0600,1400 07/21/18 08/23/18 History Gabapentin [Neurontin] 100 mg PO TID@0600,1400,209907/21/18 08/23/18 History Ipratropium-Albuterol Nebulize 3 ml INHALATION RT-QID@08,,,07/21/1808/23 History [Duoneb 0.5 mg-3 mg/3 ml Soln] Magnesium Hydroxide [Milk of 2,400 mg PO DAILY PRN 07/21/18 08/23/18 History Magnesia] Menthol-Zinc Oxide Oint 1 applic TOPICAL BID 07/21/18 08/23/18 History [Calmoseptine Oint] Metoprolol Tartrate [Lopressor] 25 mg PO TID@0600,1400,209907/21/18 08/23/18 History Multivitamins, Thera [Multivitamin 1 tab PO DAILY@1700 07/21/18 08/23/18 History (formulary)] oxyCODONE-APAP 10-325MG [Percocet 1 tab PO 5XD PRN #10 tab 08/03/18 08/23/18 Rx 10-325 mg] Potassium Chloride ER [K-Dur 20] 20 meq PO DAILY@1700 08/23/18 08/23/18 History Allergies Allergy/AdvReac Type Severity Reaction Status Date / Time latex Allergy Unknown Verified 08/23/18 07:32 nitrofurantoin Allergy Unknown Verified 08/23/18 07:32 [From Macrobid] nitrofurantoin Allergy Unknown Verified 08/23/18 07:32 macrocrystalline [From Macrobid] Sulfa (Sulfonamide Allergy Unknown Verified 08/23/18 07:32 Antibiotics) Physical Exam Vitals: Vital Signs Temp Pulse Pulse Resp BP BP Pulse Ox 08/23/18 11:52 102 H 08/23/18 11:39 96 08/23/18 11:11 98.1 F 75 18 116/59 85 L 08/23/18 08:28 86 08/23/18 08:19 84 08/23/18 08:00 98.1 F 80 20 143/67 92 L 08/23/18 07:42 92 L 08/23/18 07:00 89 19 105/67 89 L 08/23/18 06:44 93 19 153/71 93 L 08/23/18 06:33 87 08/23/18 06:24 85 86 L 08/23/18 06:00 92 16 129/73 76 L 08/23/18 05:00 71 18 125/67 90 L 08/23/18 04:30 82 17 125/67 95 08/23/18 03:03 84 16 119/62 95 08/23/18 01:35 87 19 97/54 94 L 08/23/18 00:43 82 18 96/50 95 08/22/18 23:48 98.5 F 101 H 20 108/79 95 08/22/18 23:13 101 H 08/22/18 22:58 91 08/22/18 22:34 97.5 F L 08/22/18 22:30 104 H 22 139/93 91 L 10/20/18 22:14 24 08/22/18 22:06 98 22 144/100 93 L 08/22/18 21:53 111 H 24 137/95 88 L Intake and Output 08/22/18 08/23/18 08/23/18 22:59 06:59 14:59 Output Total 800 Balance -800 Output: Urine 800 Other: Voiding Method Indwelling Catheter Weight 145.15 kg 145.15 kg GENERAL EXAM: Alert, pleasant, obese 77-year-old white female comfortable in no apparent distress. HEAD: Normocephalic/atraumatic. EYES: Normal reaction of pupils, equal size. Conjunctiva pink, sclera white. NOSE: Clear with pink turbinates. THROAT: No erythema or exudates. NECK: No masses, no JVD, no thyroid enlargement, no adenopathy. CHEST: No chest wall deformity. Symmetrical expansion. LUNGS: Equal air entry with bibasilar crackles, but no wheeze, rhonchi or dullness. CVS: Regular rate and rhythm, normal S1 and S2, no gallops, no murmurs, no rubs ABDOMEN: Soft, nontender. No hepatosplenomegaly, normal bowel sounds, no guarding or rigidity. EXTREMITIES: No clubbing, no edema, no cyanosis, 2+ pulses and upper and lower extremities. Patient has a left arm brace place MUSCULOSKELETAL: Muscle strength and tone normal. SPINE: No scoliosis or deformity SKIN: No rashes CENTRAL NERVOUS SYSTEM: Alert and oriented -3. No focal deficits, tone is normal in all 4 extremities. PSYCHIATRIC: Alert and oriented -3. Appropriate affect. Intact judgment and insight. Results - Laboratory Findings CBC and BMP: 08/22/18 21:45 08/22/18 21:45 PT/INR, D-dimer PT 10.3 sec (9.0-12.0) 08/22/18 21:45 INR 1.1 (<1.2) 08/22/18 21:45 Abnormal lab findings: Abnormal Labs 08/22/18 08/22/18 08/22/18 21:45 21:45 21:45 WBC 17.4 H MCV 107.0 H MCHC 28.5 L Neutrophils # (Manual) 9.00 H Lymphocytes # (Manual) 7.66 H Myelocytes # (Manual) 0.17 H APTT VBG pCO2 VBG HCO3 Chloride 97 L Carbon Dioxide 39 H Glucose 202 H Total Creatine Kinase <20 L Troponin I 0.050 H* Urine Appearance Urine Protein Urine Blood Urine Nitrite Ur Leukocyte Esterase Urine WBC Urine Bacteria Urine Mucus 08/22/18 08/22/18 08/22/18 21:45 22:00 22:30 WBC MCV MCHC Neutrophils # (Manual) Lymphocytes # (Manual) Myelocytes # (Manual) APTT 21.3 L VBG pCO2 81 H* VBG HCO3 39 H Chloride Carbon Dioxide Glucose Total Creatine Kinase Troponin I Urine Appearance Cloudy H Urine Protein Trace H Urine Blood Trace H Urine Nitrite Positive H Ur Leukocyte Esterase Moderate H Urine WBC 13 H Urine Bacteria Rare H Urine Mucus Rare H 08/23/18 06:57 WBC MCV MCHC Neutrophils # (Manual) Lymphocytes # (Manual) Myelocytes # (Manual) APTT VBG pCO2 VBG HCO3 Chloride Carbon Dioxide Glucose Total Creatine Kinase Troponin I 0.077 H* Urine Appearance Urine Protein Urine Blood Urine Nitrite Ur Leukocyte Esterase Urine WBC Urine Bacteria Urine Mucus - Diagnostic Findings Chest x-ray: report reviewed, image reviewed Additional studies: EKG reviewed Assessment and Plan Plan: Assessment: #1. Acute on chronic hypoxemic and hypercapnic respiratory failure secondary to acute exacerbation of congestive heart failure with diastolic dysfunction #2. Obesity hypoventilation syndrome, obstructive sleep apnea, on BiPAP therapy , currently at 14/6, and FiO2 of 32% #3. Leukocytosis #4. Mild elevation of troponins #5. Small urinary tract infection #6. Altered mental status related to acute hypoxemia, improved #7. A. fib RVR #8. History of atrial fibrillation #9. Gait imbalance #10. Morbid obesity #11. History of COPD #12. History of CVA, dementia, fibromyalgia #13. Hypertension, hyperlipidemia, DJD, rheumatoid arthritis Plan: Continue the IV diuretics, nebulized bronchodilators, continue BiPAP support at bedtime and as needed during the day at current settings of 14/6, and FiO2 of 32 %. He is more awake, her mentation is appropriate, back to baseline. Heart rate is better controlled. She remains afebrile, denies any chest pain. Cardiology is evaluating the patient in regards to elevation of troponins. Continue with current antibiotic coverage, send a urine culture. We'll resume patient's Eliquis I performed a history & physical examination of the patient and discussed their management with my nurse practitioner, Lexi Cronin. I reviewed the nurse practitioner's note and agree with the documented findings and plan of care. Lung sounds are basilar crackles. The findings and the impression was discussed with the patient. I attest to the documentation by the nurse practitioner. Time with Patient: Greater than 30
--- NOTE | 2018-08-23 13:25 | P.CRDCN ---
History of Present Illness Consult date: 08/23/18 Chief complaint: Shortness of breath History of present illness: This is a 77-year-old female patient with an extensive past medical history consistent off morbid obesity, chronic persistent atrial fibrillation on oral anticoagulation, chronic hypoxic respiratory failure secondary to COPD, history of stroke, as well as multiple comorbid conditions, was brought to the hospital by ambulance because of worsening dyspnea. The patient was discharged from the hospital recently after she was admitted with acute hypoxic respiratory failure secondary to COPD exacerbation. The patient was discharged to undergo rehab at [facility]. She was in her usual state of health until yesterday when she started experiencing worsening dyspnea. No symptoms of chest pain or chest discomfort. No fever or chills. No dizziness or lightheadedness. And no syncope. It was noticed at [facility] that her pulse oximetry was reading low saturation and because of that the patient was transferred to the emergency room. Before she was transferred she tried BiPAP and that did not help. On the way to the emergency room the patient was tachycardic and she was in atrial fibrillation with a rapid ventricular response. The patient stated that she did gain significant amount of weight. She did also notice bilateral lower extremities edema. The patient stated that she was compliant with her diet, compliant with her medications, and compliant with using the BiPAP. The EKG showed atrial fibrillation with heart rate around 110 beats per minutes. The chest x-ray showed findings consistent with CHF with pulmonary vascular congestions and bilateral pleural effusion. The cardiac enzymes were checked and came in to be slightly abnormal. The patient did not have any symptoms of chest pain or discomfort. The BNP was significantly elevated. The WBC also was elevated The patient was started on IV diuretics, IV antibiotic, and she was admitted to the hospital. Past Medical History Past Medical History: Atrial Fibrillation, COPD, CVA/TIA, Dementia, Diabetes Mellitus, Fibromyalgia, Hyperlipidemia, Hypertension, Osteoarthritis (OA), Rheumatoid Arthritis (RA) Additional Past Medical History / Comment(s): Pt recently admitted to [facility] on 06/09/18 with acute renal failure, L humerus fracture (fell out of wheelchair), hypoventilating syndrome, obesity. Other hx: Pt wears oxygen at 2L/NC during the day and bipap at night, L arm is casted and pt to be at 45-90 degree angle with L arm down at side, severe gait dysfunction, diabetes-diet controlled , arthritis in multiple joints bilaterally, tremors, pyelonephritis in 2015, UTIs, urinary incontinence. History of Any Multi-Drug Resistant Organisms: ESBL Date of last positivie culture/infection: 07/20/18 MDRO Source:: URINE Past Surgical History: Appendectomy, Bariatric Surgery, Bladder Surgery, Cholecystectomy, Joint Replacement, Orthopedic Surgery, Tubal Ligation Additional Past Surgical History / Comment(s): Bilateral carpal tunnel releases , bilateral thumb reattachments, gastric stapling, EGD. Past Anesthesia/Blood Transfusion Reactions: No Reported Reaction Smoking Status: Never smoker - Past Family History Father Family Medical History: Cancer Additional Family Medical History / Comment(s): leukemia Mother Family Medical History: Cancer Additional Family Medical History / Comment(s): lung ca Medications and Allergies Home Medications Medication Instructions Recorded Confirmed Type DULoxetine HCL [Cymbalta] 30 mg PO DAILY@0800 04/28/15 08/23/18 History Donepezil [Aricept] 10 mg PO DAILY@0800 04/28/15 08/23/18 History Pantoprazole Sodium 40 mg PO DAILY@0604/28/15 08/23/18 History Topiramate 50 mg PO BID@0800,2100 10/03/15 08/23/18 History Methocarbamol 750 mg PO BID@0800,1700 03/13/17 08/23/18 History Umeclidinium [place] [Incruse 1 puff INHALATION RT-BID@0800,1700 03/13/17 History Ellipta] Lovastatin [Mevacor] 20 mg PO HS@209903/20/17 08/23/18 History Ferrous Sulfate [Iron (65 MG 325 mg PO DAILY@169906/07/18 08/23/18 History Elemental)] Magnesium Oxide [Mag-Ox] 400 mg PO DAILY@1700 06/07/18 08/23/18 History Pentoxifylline 400 mg PO HS@209906/07/18 08/23/18 History Polyethylene Glycol 3350 [Miralax] 17 gm PO DAILY@0800 06/07/18 08/23/18 History Apixaban [Eliquis] 5 mg PO BID@0800,1700 06/25/18 08/23/18 History Bisacodyl [Dulcolax] 10 mg RECTAL DAILY PRN 06/25/18 08/23/18 History Na Phos,M-B/Na Phos,Di-Ba [Fleet 133 ml RECTAL DAILY PRN 06/25/18 08/23/18 History Adult] Furosemide [Lasix] 40 mg PO BID@0600,1400 07/21/18 08/23/18 History Gabapentin [Neurontin] 100 mg PO TID@0600,1400,209907/21/18 08/23/18 History Ipratropium-Albuterol Nebulize 3 ml INHALATION RT-QID@08,12,,07/21/1808/23 History [Duoneb 0.5 mg-3 mg/3 ml Soln] Magnesium Hydroxide [Milk of 2,400 mg PO DAILY PRN 07/21/18 08/23/18 History Magnesia] Menthol-Zinc Oxide Oint 1 applic TOPICAL BID 07/21/18 08/23/18 History [Calmoseptine Oint] Metoprolol Tartrate [Lopressor] 25 mg PO TID@0600,1400,209907/21/18 08/23/18 History Multivitamins, Thera [Multivitamin 1 tab PO DAILY@1700 07/21/18 08/23/18 History (formulary)] oxyCODONE-APAP 10-325MG [Percocet 1 tab PO 5XD PRN #10 tab 08/03/18 08/23/18 Rx 10-325 mg] Potassium Chloride ER [K-Dur 20] 20 meq PO DAILY@1700 08/23/18 08/23/18 History Allergies Allergy/AdvReac Type Severity Reaction Status Date / Time latex Allergy Unknown Verified 08/23/18 07:32 nitrofurantoin Allergy Unknown Verified 08/23/18 07:32 [From Macrobid] nitrofurantoin Allergy Unknown Verified 08/23/18 07:32 macrocrystalline [From Macrobid] Sulfa (Sulfonamide Allergy Unknown Verified 08/23/18 07:32 Antibiotics) Physical Exam Vitals: Vital Signs Temp Pulse Pulse Resp BP BP Pulse Ox 08/23/18 11:52 102 H 08/23/18 11:39 96 08/23/18 11:11 98.1 F 75 18 116/59 85 L 08/23/18 08:28 86 08/23/18 08:19 84 08/23/18 08:00 98.1 F 80 20 143/67 92 L 08/23/18 07:42 92 L 08/23/18 07:00 89 19 105/67 89 L 08/23/18 06:44 93 19 153/71 93 L 08/23/18 06:33 87 08/23/18 06:24 85 86 L 08/23/18 06:00 92 16 129/73 76 L 08/23/18 05:00 71 18 125/67 90 L 08/23/18 04:30 82 17 125/67 95 08/23/18 03:03 84 16 119/62 95 08/23/18 01:35 87 19 97/54 94 L 08/23/18 00:43 82 18 96/50 95 08/22/18 23:48 98.5 F 101 H 20 108/79 95 08/22/18 23:13 101 H 08/22/18 22:58 91 08/22/18 22:34 97.5 F L 08/22/18 22:30 104 H 22 139/93 91 L 08/22/18 22:14 24 08/22/18 22:06 98 22 144/100 93 L 08/22/18 21:53 111 H 24 137/95 88 L Intake and Output 08/22/18 08/23/18 08/23/18 22:59 06:59 14:59 Output Total 800 Balance -800 Output: Urine 800 Other: Voiding Method Indwelling Catheter Weight 145.15 kg 145.15 kg - Constitutional General appearance: mild distress - Respiratory Respiratory: bilateral: rales - Cardiovascular Rhythm: irregularly irregular Heart sounds: normal: S1, S2 Results 08/22/18 21:45 08/22/18 21:45 Cardiac Enzymes 08/22/18 08/22/18 08/23/18 Range/Units 21:45 21:45 06:57 AST 30 (14-36) U/L CK-MB (CK-2) 1.0 1.3 (0.0-2.4) ng/mL Troponin I 0.050 H* 0.077 H* (0.000-0.034) ng/mL Coagulation 08/22/18 Range/Units 21:45 PT 10.3 (9.0-12.0) sec APTT 21.3 L (22.0-30.0) sec CBC 08/22/18 Range/Units 21:45 WBC 17.4 H (3.8-10.6) k/uL RBC 3.90 (3.80-5.40) m/uL Hgb 11.9 (11.4-16.0) gm/dL Hct 41.8 (34.0-46.0) % Plt Count 299 (150-450) k/uL Comprehensive Metabolic Panel 08/22/18 Range/Units 21:45 Sodium 142 (137-145) mmol/L Potassium 4.1 (3.5-5.1) mmol/L Chloride 97 L (98-107) mmol/L Carbon Dioxide 39 H (22-30) mmol/L BUN 11 (7-17) mg/dL Creatinine 0.74 (0.52-1.04) mg/dL Glucose 202 H (74-99) mg/dL Calcium 9.7 (8.4-10.2) mg/dL AST 30 (14-36) U/L ALT 29 (9-52) U/L Alkaline Phosphatase 95 (38-126) U/L Total Protein 6.9 (6.3-8.2) g/dL Albumin 3.7 (3.5-5.0) g/dL Current Medications Generic Name Dose Route Start Last Admin Trade Name Freq PRN Reason Stop Dose Admin Albuterol/Ipratropium 3 ml 08/23/18 16:00 Duoneb 0.5 Mg-3 Mg/3 Ml Soln INHALATION RT-QID WILFREDO Apixaban 5 mg 08/23/18 17:00 Eliquis PO BID@0800,1700 PENDING SALE TO [facility] Duloxetine HCl 30 mg 08/24/18 08:00 Cymbalta PO DAILY@0800 PENDING SALE TO [facility] Ferrous Sulfate 325 mg 08/23/18 17:00 Feosol PO DAILY@1700 PENDING SALE TO [facility] Furosemide 40 mg 08/22/18 23:45 08/23/18 08:40 Lasix IV 40 mg Q8H WILFREDO Administration Heparin Sodium (Porcine) 5,000 unit 08/23/18 09:00 08/23/18 08:41 Heparin SQ 5,000 unit Q12HR WILFREDO Administration Ceftriaxone Sodium 1,000 mg/ 50 mls @ 100 mls/hr 08/24/18 09:00 Sodium Chloride IVPB Q24HR PENDING SALE TO [facility] Magnesium Oxide 400 mg 08/23/18 17:00 Mag-Ox PO DAILY@1700 PENDING SALE TO [facility] Methylprednisolone Sodium Succinate 40 mg 08/23/18 16:00 Solu-Medrol IV Q8HR PENDING SALE TO [facility] Metoprolol Tartrate 25 mg 08/23/18 16:00 Lopressor PO TID PENDING SALE TO [facility] Non-Formulary Medication 50 mg 08/23/18 21:00 Topiramate [Topiramate] PO BID@0800,2100 PENDING SALE TO [facility] Pentoxifylline 400 mg 08/23/18 21:00 Trental PO HS@2100 PENDING SALE TO [facility] Potassium Chloride 20 meq 08/23/18 17:00 K-Dur 20 PO DAILY@1700 PENDING SALE TO [facility] Intake and Output 08/22/18 08/23/18 08/23/18 22:59 06:59 14:59 Output Total 800 Balance -800 Output: Urine 800 Other: Voiding Method Indwelling Catheter Weight 145.15 kg 145.15 kg Patient Weight 08/24/18 06:59 Weight 145.15 kg 08/22/18 21:45 08/22/18 21:45 Assessment and Plan Assessment: Assessment #1 acute hypoxic respiratory failure seems to be multifactorial. #2 congestive heart failure exacerbation likely secondary to diastolic dysfunction. The last echocardiogram from 2014 revealed normal LV function. #3 acute exacerbation of chronic obstructive pulmonary disease #4 morbid obesity #5 atrial fibrillation was uncontrolled heart rate #6 history of stroke in the past #7 hypertension #8 multiple comorbid conditions Plan #1 continue the IV Lasix at the current dose which is 40 mg 3 times a day #2 monitor the kidney function and electrolytes on daily basis #3 I will restart the patient back on metoprolol at 25 mg by mouth 3 times a day #4 with adjusted dose of beta mandie if the heart rate continues to be uncontrolled #5 continue oral anticoagulation #6 obtain an echocardiogram was Doppler Thank you for allowing us participate in her care and we will continue following up with the patient
[2018-08-23 13:53] LABS: Creatine Kinase MB 1.1 ng/mL (0.0-2.4)
[2018-08-23 14:14] LABS: Troponin I 0.068 ng/mL (0.000-0.034)
[2018-08-23] MEDS ORDERED: BISACODYL 10 MG SUPP RECTAL PRN (14:52)
[2018-08-23] MEDS ORDERED: MAGNESIUM HYDROXIDE 2,400 MG/10 ML CUP PO PRN (14:52)
[2018-08-23] MEDS ORDERED: NA PHOS,M-B/NA PHOS,DI-BA 133 ML ENEMA RECTAL PRN (14:52)
--- NOTE | 2018-08-23 15:55 | P.HPIM ---
History of Present Illness H&P Date: 08/23/18 Chief Complaint: Shortness of breath 77-year-old white female patient of Dr. Muniz, well-known to our service from previous admissions for exacerbations of chronic heart failure with diastolic dysfunction, sleep apnea, obesity hypoventilation syndrome on BiPAP therapy, COPD. he was recently hospitalized for acute exacerbation of chronic diastolic heart failure, she was discharged to [facility] nursing and rehab, on oral diuretics, her BiPAP unit with pressures of 14/6, and FiO2 of 2-3 L. She states she was wearing her BiPAP every night, taking her diuretics. Patient was in her usual state of health throughout the day, in the evening patient became very short of breath, her pulse ox was noted to be low, and she was placed on BiPAP, and did not significantly improve. Patient states she does not remember much of the event that happened last night, but embers feeling well during the day, going to dinner, denies any chest pain, denies fever or chills, denies any chest congestion. Ambulance was dispatched to the shelter, and patient became tachycardic en route to the hospital, went into A. fib RVR with a rate of 120 BPM. She was placed on CPAP unit in the ambulance, her oxygenation did improve.chest x-ray was completed in the emergency department and showed congestive heart failure with pleural effusions. This was compared to prior exam from 08/01/2018 and appears to be worse. Lab work revealed WBC of 17.4, hemoglobin 11.9, sodium 142, potassium 4.1, chloride is 97, CO2 of 39, renal profile was within normal limits, troponins were 0.050, 0.077. ProBNP was 4970. Urinalysis showed positive nitrites, moderate leuk trase, rare bacteria, and WBC 13. Patient was started and empiric antibiotics in the form of Rocephin, IV diuretics of Lasix 40 mg every 8 hours, and nebulized bronchodilators in addition to IV Solu-Medrol. Review of Systems Review of Systems All systems: negative Constitutional: Denies chills, Denies fever Eyes: denies blurred vision, denies pain Ears, nose, mouth and throat: Denies headache, Denies sore throat Cardiovascular: Denies chest pain, Denies shortness of breath Respiratory: Reports dyspnea, Reports home oxygen, Reports sleep apnea, Denies cough Gastrointestinal: Denies abdominal pain, Denies diarrhea, Denies nausea, Denies vomiting Genitourinary: Denies dysuria, Denies hematuria Musculoskeletal: Denies myalgias Integumentary: Denies pruritus, Denies rash Neurological: Denies numbness, Denies weakness Psychiatric: Denies anxiety, Denies depression Endocrine: Denies fatigue, Denies weight change Past Medical History Past Medical History: Atrial Fibrillation, COPD, CVA/TIA, Dementia, Diabetes Mellitus, Fibromyalgia, Hyperlipidemia, Hypertension, Osteoarthritis (OA), Rheumatoid Arthritis (RA) Additional Past Medical History / Comment(s): Pt recently admitted to [facility] on 06/09/18 with acute renal failure, L humerus fracture (fell out of wheelchair), hypoventilating syndrome, obesity. Other hx: Pt wears oxygen at 2L/NC during the day and bipap at night, L arm is casted and pt to be at 45-90 degree angle with L arm down at side, severe gait dysfunction, diabetes-diet controlled , arthritis in multiple joints bilaterally, tremors, pyelonephritis in 2014, UTIs, urinary incontinence. History of Any Multi-Drug Resistant Organisms: ESBL Date of last positivie culture/infection: 07/20/18 MDRO Source:: URINE Past Surgical History: Appendectomy, Bariatric Surgery, Bladder Surgery, Cholecystectomy, Joint Replacement, Orthopedic Surgery, Tubal Ligation Additional Past Surgical History / Comment(s): Bilateral carpal tunnel releases , bilateral thumb reattachments, gastric stapling, EGD. Past Anesthesia/Blood Transfusion Reactions: No Reported Reaction Smoking Status: Never smoker - Past Family History Father Family Medical History: Cancer Additional Family Medical History / Comment(s): leukemia Mother Family Medical History: Cancer Additional Family Medical History / Comment(s): lung ca Medications and Allergies Home Medications Medication Instructions Recorded Confirmed Type DULoxetine HCL [Cymbalta] 30 mg PO DAILY@0800 04/28/15 08/23/18 History Donepezil [Aricept] 10 mg PO DAILY@0800 04/28/15 08/23/18 History Pantoprazole Sodium 40 mg PO DAILY@0600 04/28/15 08/23/18 History Topiramate 50 mg PO BID@0800,2100 10/03/15 08/23/18 History Methocarbamol 750 mg PO BID@0800,1700 05/11/17 10/21/18 History Umeclidinium [place] [Incruse 1 puff INHALATION RT-BID@0800,169903/13/17 History Ellipta] Lovastatin [Mevacor] 20 mg PO HS@209903/20/17 08/23/18 History Ferrous Sulfate [Iron (65 MG 325 mg PO DAILY@169906/07/18 08/23/18 History Elemental)] Magnesium Oxide [Mag-Ox] 400 mg PO DAILY@169906/07/18 08/23/18 History Pentoxifylline 400 mg PO HS@209906/07/18 08/23/18 History Polyethylene Glycol 3350 [Miralax] 17 gm PO DAILY@0800 06/07/18 08/23/18 History Apixaban [Eliquis] 5 mg PO BID@0800,1700 06/25/18 08/23/18 History Bisacodyl [Dulcolax] 10 mg RECTAL DAILY PRN 06/25/18 08/23/18 History Na Phos,M-B/Na Phos,Di-Ba [Fleet 133 ml RECTAL DAILY PRN 06/25/18 08/23/18 History Adult] Furosemide [Lasix] 40 mg PO BID@0600,1400 07/21/18 08/23/18 History Gabapentin [Neurontin] 100 mg PO TID@0600,1400,209907/21/18 08/23/18 History Ipratropium-Albuterol Nebulize 3 ml INHALATION RT-QID@08,12,,07/21/1808/23 History [Duoneb 0.5 mg-3 mg/3 ml Soln] Magnesium Hydroxide [Milk of 2,400 mg PO DAILY PRN 07/21/18 08/23/18 History Magnesia] Menthol-Zinc Oxide Oint 1 applic TOPICAL BID 07/21/18 08/23/18 History [Calmoseptine Oint] Metoprolol Tartrate [Lopressor] 25 mg PO TID@0600,1400,209907/21/18 08/23/18 History Multivitamins, Thera [Multivitamin 1 tab PO DAILY@169907/21/18 08/23/18 History (formulary)] oxyCODONE-APAP 10-325MG [Percocet 1 tab PO 5XD PRN #10 tab 08/03/18 08/23/18 Rx 10-325 mg] Potassium Chloride ER [K-Dur 20] 20 meq PO DAILY@1700 08/23/18 08/23/18 History Allergies Allergy/AdvReac Type Severity Reaction Status Date / Time latex Allergy Unknown Verified 08/23/18 07:32 nitrofurantoin Allergy Unknown Verified 08/23/18 07:32 [From Macrobid] nitrofurantoin Allergy Unknown Verified 08/23/18 07:32 macrocrystalline [From Macrobid] Sulfa (Sulfonamide Allergy Unknown Verified 08/23/18 07:32 Antibiotics) Physical Exam Vitals: Vital Signs Temp Pulse Pulse Resp BP BP Pulse Ox 08/23/18 11:11 98.1 F 75 18 116/59 85 L 08/23/18 08:28 86 08/23/18 08:19 84 08/23/18 08:00 98.1 F 80 20 143/67 92 L 08/23/18 07:42 92 L 08/23/18 07:00 89 19 105/67 89 L 08/23/18 06:44 93 19 153/71 93 L 08/23/18 06:33 87 08/23/18 06:24 85 86 L 08/23/18 06:00 92 16 129/73 76 L 08/23/18 05:00 71 18 125/67 90 L 08/23/18 04:30 82 17 125/67 95 08/23/18 03:03 84 16 119/62 95 08/23/18 01:35 87 19 97/54 94 L 08/23/18 00:43 82 18 96/50 95 08/22/18 23:48 98.5 F 101 H 20 108/79 95 08/22/18 23:13 101 H 08/22/18 22:58 91 08/22/18 22:34 97.5 F L 08/22/18 22:30 104 H 22 139/93 91 L 08/22/18 22:14 24 08/22/18 22:06 98 22 144/100 93 L 08/22/18 21:53 111 H 24 137/95 88 L Intake and Output 08/22/18 08/23/18 08/23/18 22:59 06:59 14:59 Output Total 800 Balance -800 Output: Urine 800 Other: Voiding Method Indwelling Catheter Weight 145.15 kg 145.15 kg GENERAL EXAM: Alert, pleasant, obese 77-year-old white female comfortable in no apparent distress. HEAD: Normocephalic/atraumatic. EYES: Normal reaction of pupils, equal size. Conjunctiva pink, sclera white. NOSE: Clear with pink turbinates. THROAT: No erythema or exudates. NECK: No masses, no JVD, no thyroid enlargement, no adenopathy. CHEST: No chest wall deformity. Symmetrical expansion. LUNGS: Equal air entry with bibasilar crackles, but no wheeze, rhonchi or dullness. CVS: Regular rate and rhythm, normal S1 and S2, no gallops, no murmurs, no rubs ABDOMEN: Soft, nontender. No hepatosplenomegaly, normal bowel sounds, no guarding or rigidity. EXTREMITIES: No clubbing, no edema, no cyanosis, 2+ pulses and upper and lower extremities. Patient has a left arm brace place MUSCULOSKELETAL: Muscle strength and tone normal. SPINE: No scoliosis or deformity SKIN: No rashes CENTRAL NERVOUS SYSTEM: Alert and oriented -3. No focal deficits, tone is normal in all 4 extremities. PSYCHIATRIC: Alert and oriented -3. Appropriate affect. Intact judgment and insight. Results CBC & Chem 7: 08/22/18 21:45 08/22/18 21:45 Labs: Abnormal Lab Results - Last 24 Hours (Table) 08/22/18 08/22/18 08/22/18 Range/Units 21:45 21:45 21:45 WBC 17.4 H (3.8-10.6) k/uL MCV 107.0 H (80.0-100.0) fL MCHC 28.5 L (31.0-37.0) g/dL Neutrophils # (Manual) 9.00 H (1.3-7.7) k/uL Lymphocytes # (Manual) 7.66 H (1.0-4.8) k/uL Myelocytes # (Manual) 0.17 H (0) k/uL APTT (22.0-30.0) sec VBG pCO2 (37-51) mmHg VBG HCO3 (24-28) mmol/L Chloride 97 L (98-107) mmol/L Carbon Dioxide 39 H (22-30) mmol/L Glucose 202 H (74-99) mg/dL Total Creatine Kinase <20 L (30-135) U/L Troponin I 0.050 H* (0.000-0.034) ng/mL Urine Appearance (Clear) Urine Protein (Negative) Urine Blood (Negative) Urine Nitrite (Negative) Ur Leukocyte Esterase (Negative) Urine WBC (0-5) /hpf Urine Bacteria (None) /hpf Urine Mucus (None) /hpf 08/22/18 08/22/18 08/22/18 Range/Units 21:45 22:00 22:30 WBC (3.8-10.6) k/uL MCV (80.0-100.0) fL MCHC (31.0-37.0) g/dL Neutrophils # (Manual) (1.3-7.7) k/uL Lymphocytes # (Manual) (1.0-4.8) k/uL Myelocytes # (Manual) (0) k/uL APTT 21.3 L (22.0-30.0) sec VBG pCO2 81 H* (37-51) mmHg VBG HCO3 39 H (24-28) mmol/L Chloride (98-107) mmol/L Carbon Dioxide (22-30) mmol/L Glucose (74-99) mg/dL Total Creatine Kinase (30-135) U/L Troponin I (0.000-0.034) ng/mL Urine Appearance Cloudy H (Clear) Urine Protein Trace H (Negative) Urine Blood Trace H (Negative) Urine Nitrite Positive H (Negative) Ur Leukocyte Esterase Moderate H (Negative) Urine WBC 13 H (0-5) /hpf Urine Bacteria Rare H (None) /hpf Urine Mucus Rare H (None) /hpf 08/23/18 Range/Units 06:57 WBC (3.8-10.6) k/uL MCV (80.0-100.0) fL MCHC (31.0-37.0) g/dL Neutrophils # (Manual) (1.3-7.7) k/uL Lymphocytes # (Manual) (1.0-4.8) k/uL Myelocytes # (Manual) (0) k/uL APTT (22.0-30.0) sec VBG pCO2 (37-51) mmHg VBG HCO3 (24-28) mmol/L Chloride (98-107) mmol/L Carbon Dioxide (22-30) mmol/L Glucose (74-99) mg/dL Total Creatine Kinase (30-135) U/L Troponin I 0.077 H* (0.000-0.034) ng/mL Urine Appearance (Clear) Urine Protein (Negative) Urine Blood (Negative) Urine Nitrite (Negative) Ur Leukocyte Esterase (Negative) Urine WBC (0-5) /hpf Urine Bacteria (None) /hpf Urine Mucus (None) /hpf Thrombosis Risk Factor Assmnt - Choose All That Apply Each Factor Represents 1 point: Swollen legs (current) Each Risk Factor Represents 3 Points: Age 75 years or older Thrombosis Risk Factor Assessment Total Risk Factor Score: 4 Thrombosis Risk Factor Assessment Level: Moderate Risk Assessment and Plan Assessment: #1. Acute on chronic hypoxemic and hypercapnic respiratory failure secondary to acute exacerbation of congestive heart failure with diastolic dysfunction #2. Obesity hypoventilation syndrome, obstructive sleep apnea, on BiPAP therapy , currently at 14/6, and FiO2 of 32% #3. Leukocytosis #4. Mild elevation of troponins #5. Small urinary tract infection #6. Altered mental status related to acute hypoxemia, improved #7. A. fib RVR #8. History of atrial fibrillation #9. Gait imbalance #10. Morbid obesity #11. History of COPD #12. History of CVA, dementia, fibromyalgia #13. Hypertension, hyperlipidemia, DJD, rheumatoid arthritis Plan: Continue the IV diuretics, nebulized bronchodilators, continue BiPAP support at bedtime and as needed during the day at current settings of 14/6, and FiO2 of 32 %. He is more awake, her mentation is appropriate, back to baseline. Heart rate is better controlled. She remains afebrile, denies any chest pain. Cardiology is evaluating the patient in regards to elevation of troponins. Continue with current antibiotic coverage, send a urine culture. We'll resume patient's Eliquis Time with Patient: Greater than 30
[2018-08-23] MEDS ORDERED: METOPROLOL TARTRATE 25 MG TAB PO SCH (16:00)
[2018-08-23] MEDS ORDERED: NON-FORMULARY DRUG (Umeclidinium Bromide [Incruse Ellipta] 1 PUFF) INHALATION SCH (17:00)
[2018-08-23 17:08] LABS: Glucose,Whole Blood 134 mg/dL (75-99)
[2018-08-23] MEDS: oxyCODONE-APAP 10-325MG 1 EACH TAB PO PRN ×2 (18:01→23:40)
[2018-08-23] MEDS: MAGNESIUM OXIDE 400 MG TAB PO SCH (18:02)
[2018-08-23] MEDS: FERROUS SULFATE 325 MG TAB PO SCH (18:02)
[2018-08-23] MEDS: MULTIVITAMINS, THERA 1 EACH TAB PO SCH (18:02)
[2018-08-23] MEDS: METHOCARBAMOL 750 MG TAB PO SCH (18:02)
[2018-08-23] MEDS: POTASSIUM CHLORIDE ER 20 MEQ TAB.ER PO SCH (18:02)
[2018-08-23] MEDS: APIXABAN 5 MG TAB PO SCH (18:02)
[2018-08-23] MEDS: methylPREDNISolone SOD SUCCI 40 MG/ML 1 ML VIAL IV SCH ×2 (18:03→22:58)
[2018-08-23] MEDS: METOPROLOL TARTRATE 25 MG TAB PO SCH (21:04)
[2018-08-23] MEDS: PENTOXIFYLLINE 400 MG TABLET.ER PO SCH (21:05)
[2018-08-23] MEDS: ATORVASTATIN 10 MG TAB PO SCH (21:05)
[2018-08-23] MEDS: TOPIRAMATE 25 MG TAB PO SCH (21:05)
[2018-08-23] MEDS: MENTHOL-ZINC OXIDE OINT 113 GM TUBE TOPICAL SCH (21:05)
[2018-08-23] MEDS: GABAPENTIN 100 MG CAP PO SCH (21:05)
[2018-08-23 21:07] LABS: Glucose,Whole Blood 130 mg/dL (75-99)
[2018-08-24 00:16] LABS: ABG Oxygen Saturation 98.3 % (94-97); ABG PH 7.39 (7.35-7.45); ABG PO2 101 mmHg (83-108); ABG TCO2 46 mmol/L (19-24)
[2018-08-24 00:21] LABS: ABG HCO3 44 mmol/L (21-25); ABG PCO2 73 mmHg (35-45)
[2018-08-24 05:35] LABS: Glucose,Whole Blood 138 mg/dL (75-99)
[2018-08-24] MEDS: PANTOPRAZOLE 40 MG TABLET PO SCH (06:12)
[2018-08-24] MEDS: FUROSEMIDE 40 MG TAB PO SCH ×2 (06:12→20:01)
[2018-08-24] MEDS: METOPROLOL TARTRATE 25 MG TAB PO SCH ×3 (06:12→21:06)
[2018-08-24] MEDS: GABAPENTIN 100 MG CAP PO SCH ×3 (06:12→21:06)
[2018-08-24] MEDS: oxyCODONE-APAP 10-325MG 1 EACH TAB PO PRN ×3 (06:14→22:46)
[2018-08-24 07:02] LABS: Basophils % (A) 0 %; Eosinophils % (A) 0 %; HGB 10.5 gm/dL (11.4-16.0); Hypochromasia Marked; Lymphocytes # (A) 1.1 k/uL (1.0-4.8); Lymphocytes % (A) 27 %; MCH 29.9 pg (25.0-35.0); MCHC 29.2 g/dL (31.0-37.0); MCV 102.4 fL (80.0-100.0); Macrocytosis Slight; Mean Platelet Volume 7.4; Monocytes # (A) 0.2 k/uL (0-1.0); Monocytes % (A) 4 %; Neutrophils # (A) 2.8 k/uL (1.3-7.7); Neutrophils % (A) 68 %; Platelet Count 230 k/uL (150-450); RBC 3.52 m/uL (3.80-5.40); RDW 14.4 % (11.5-15.5); WBC 4.1 k/uL (3.8-10.6)
[2018-08-24 07:15] LABS: Blood Urea Nitrogen 14 mg/dL (7-17); Calcium 9.7 mg/dL (8.4-10.2); Chloride 93 mmol/L (98-107); Glucose 148 mg/dL (74-99); Magnesium 2.1 mg/dL (1.6-2.3); Sodium 140 mmol/L (137-145)
[2018-08-24 07:21] LABS: Anion Gap 8 mmol/L; Carbon Dioxide 39 mmol/L (22-30)
[2018-08-24] MEDS: IPRATROPIUM-ALBUTEROL 3 ML NEB INHALATION SCH ×4 (08:06→19:50)
[2018-08-24] MEDS: TOPIRAMATE 25 MG TAB PO SCH ×2 (08:07→21:05)
[2018-08-24] MEDS: DULoxetine HCL 30 MG CAPSULE.DR PO SCH (08:07)
[2018-08-24] MEDS: APIXABAN 5 MG TAB PO SCH ×2 (08:08→16:34)
[2018-08-24] MEDS: POLYETHYLENE GLYCOL 3350 17 GM POWD.PACK PO SCH (08:08)
[2018-08-24] MEDS: DONEPEZIL 10 MG TAB PO SCH (08:08)
[2018-08-24] MEDS: METHOCARBAMOL 750 MG TAB PO SCH ×2 (08:12→16:34)
[2018-08-24] MEDS: methylPREDNISolone SOD SUCCI 40 MG/ML 1 ML VIAL IV SCH ×3 (08:13→22:46)
--- NOTE | 2018-08-24 10:18 | ECHOF ---
Referral Reason:chf MEASUREMENTS -------- HEIGHT: 152.4 cm WEIGHT: 131.1 kg BP: 131/73 RVIDd: 4.5 cm (< 3.3) IVSd: 1.4 cm (0.6 - 1.1) LVIDd: 5.0 cm (3.9 - 5.3) LVPWd: 1.1 cm (0.6 - 1.1) IVSs: 1.5 cm LVIDs: 4.0 cm LVPWs: 1.2 cm LA Diam: 4.2 cm (2.7 - 3.8) Ao Diam: 3.8 cm (2.0 - 3.7) AV Cusp: 1.8 cm (1.5 - 2.6) LA Diam: 3.4 cm (2.7 - 3.8) MV EXCURSION: 19.176 mm (> 18.000) MV EF SLOPE: 162 mm/s (70 - 150) EPSS: 0.7 cm MV E Manan: 0.54 m/s MV DecT: 183 ms MV A Manan: 0.39 m/s MV E/A Ratio: 1.38 RAP: 5.00 mmHg RVSP: 24.64 mmHg FINDINGS -------- Sinus rhythm. Morbid Obesity The left ventricular size is normal. There is moderate concentric left ventricular hypertrophy. O verall left ventricular systolic function is low-normal with, an EF between 50 - 55 %. The right ventricle is moderately enlarged. The left atrium is mildly dilated. The right atrial size is normal. 5.0mg OF Lumason UTLIZED: 2 OR MORE WALL SEGMENTS NOT VISUALIZED. The aortic valve is trileaflet, and appears structurally normal. No aortic stenosis or regurgitation. Mild mitral regurgitation is present. Mild tricuspid regurgitation present. There is no evidence of pulmonary hypertension. The right v entricular systolic pressure, as measured by Doppler, is 24.64mmHg. The pulmonic valve was not well visualized. The aortic root size is normal. There is a trivial pericardial effusion present. CONCLUSIONS -------- 1. Morbid Obesity 2. The left ventricular size is normal. 3. There is moderate concentric left ventricular hypertrophy. 4. Overall left ventricular systolic function is low-normal with, an EF between 50 - 55 %. 5. The right ventricle is moderately enlarged. 6. The left atrium is mildly dilated. 7. The right atrial size is normal. 8. 5.0mg OF Lumason UTLIZED: 2 OR MORE WALL SEGMENTS NOT VISUALIZED. 9. The aortic valve is trileaflet, and appears structurally normal. No aortic stenosis or regurgitati on. 10. Mild mitral regurgitation is present. 11. Mild tricuspid regurgitation present. 12. There is no evidence of pulmonary hypertension. 13. The right ventricular systolic pressure, as measured by Doppler, is 24.64mmHg. 14. The pulmonic valve was not well visualized. 15. The aortic root size is normal. 16. There is a trivial pericardial effusion present. CLINICAL SERVICES DIRECTOR: Ellen Quigley RDCS
--- NOTE | 2018-08-24 11:03 | CDI ---
Last Revision, October 2017 Documentation Clarification Form Date: 08/24/18 From: Natali Logan RN Admit Date: 08/22/2018 11:55:00 PM Patient Name: Tonia Ortiz Visit Number: [id number] ATTENTION: The Clinical Documentation Specialists (CDI) and [facility] Coding Staff appreciate your assistance in clarifying documentation. Please respond to the clarification below the line at the bottom and electronically sign. The CDI & [facility] Coding staff will review the response and follow-up if needed. Please note: Queries are made part of the Legal Health Record. If you have any questions, please contact the author of this message via ITS. Dr. Santiago Esparza MD, Can you please render your opinion on the following documentation? Pt. admitted with generalized weakness, obesity, respiratory failure with hypoxia and hypercapnia, acute pulmonary edema, acute exacerbation COPD, confusion. History/Risk factors: A FIB, COPD, CVA/TIA, DM, HTN, OA, RA, dementia, fibromyalgia, hyperlipidemia, ESBL Clinical Indicators: Labs: WBC 17.4, VBG PC02 81 - HC03 39, CHL 97, C02 39, TOT CR. KIN <20, TROP 0.050 - 0.077 - 0.068 ED notes states "patient confused". H&P states "Altered mental status related to acute hypoxemia, improved". Treatment: nasal cannula Consults: Pulmonary and Cardiology In your professional opinion, can you please clarify if the patients confusion/ altered mental status are related to? Anoxic Encephalopathy Hypertensive Encephalopathy Metabolic Encephalopathy Indicate whether acute, sub-acute or chronic? Other, please specify Unable to determine MTDD
[2018-08-24 11:10] LABS: Glucose,Whole Blood 171 mg/dL (75-99)
--- NOTE | 2018-08-24 14:59 | P.PN ---
Subjective Progress Note Date: 08/24/18 this is a 77 year old female with extensive past medical history including morbid obesity, chronic persistent atrial fibrillation on oral anticoagulation, chronic hypoxic respiratory failure secondary to COPD, history of stroke, as well as other comorbid conditions. She was recently discharged from the hospital after being admitted with acute hypoxic respiratory failure secondary to COPD, she went to [facility] rehab from here. Patient read presented to the hospital on this occasion with symptoms of shortness of breath, she was found to be tachycardic with A. fib with RVR. She also gained a significant amount of weight. Currently receiving treatment for congestive heart failure. BNP level was elevated on admission.the patient has been diuresing well through the night last night, her weight is down today.blood pressure this morning 182/ 90 with a heart rate in the 80s, 95% on 1 L of oxygen. Objective - Vital Signs Vital signs: Vital Signs Temp 97.6 F 08/24/18 12:20 Pulse 100 08/24/18 12:20 Resp 18 08/24/18 12:20 BP 183/90 08/24/18 12:20 Pulse Ox 95 08/24/18 12:20 Intake & Output 08/23/18 08/24/18 08/24/18 18:59 06:59 18:59 Intake Total 260 298 Output Total 350 300 Balance -90 -2 Weight 145.15 kg 131.5 kg Intake: IV 20 0.9 20 Oral 240 298 Output: Urine 350 300 Other: Voiding Method Indwelling Catheter Indwelling Catheter Indwelling Catheter # Voids 1 - Exam GENERAL EXAM: Alert, pleasant, obese 77-year-old white female comfortable in no apparent distress. HEAD: Normocephalic/atraumatic. EYES: Normal reaction of pupils, equal size. Conjunctiva pink, sclera white. NOSE: Clear with pink turbinates. THROAT: No erythema or exudates. NECK: No masses, no JVD, no thyroid enlargement, no adenopathy. CHEST: No chest wall deformity. Symmetrical expansion. LUNGS: Equal air entry with bibasilar crackles, but no wheeze, rhonchi or dullness. CVS: S1 and [id number] irregular, no gallops, no murmurs, no rubs ABDOMEN: Soft, obese,nontender. No hepatosplenomegaly, normal bowel sounds, no guarding or rigidity. EXTREMITIES: No clubbing, no edema, no cyanosis, 2+ pulses and upper and lower extremities. Patient has a left arm brace place MUSCULOSKELETAL: Muscle strength and tone normal. SPINE: No scoliosis or deformity SKIN: No rashes CENTRAL NERVOUS SYSTEM: Alert and oriented -3. No focal deficits, tone is normal in all 4 extremities. PSYCHIATRIC: Alert and oriented -3. Appropriate affect. Intact judgment and insight. - Labs CBC & Chem 7: 08/24/18 06:31 08/24/18 06:31 Labs: Abnormal Lab Results - Last 24 Hours (Table) 08/23/18 08/23/18 08/24/18 Range/Units 17:05 21:06 00:10 RBC (3.80-5.40) m/uL Hgb (11.4-16.0) gm/dL MCV (80.0-100.0) fL MCHC (31.0-37.0) g/dL ABG pCO2 73 H* (35-45) mmHg ABG HCO3 44 H* (21-25) mmol/L ABG Total CO2 46 H (19-24) mmol/L ABG O2 Saturation 98.3 H (94-97) % Chloride (98-107) mmol/L Carbon Dioxide (22-30) mmol/L Glucose (74-99) mg/dL POC Glucose (mg/dL) 134 H 130 H (75-99) mg/dL 08/24/18 08/24/18 08/24/18 Range/Units 05:33 06:31 06:31 RBC 3.52 L (3.80-5.40) m/uL Hgb 10.5 L (11.4-16.0) gm/dL MCV 102.4 H (80.0-100.0) fL MCHC 29.2 L (31.0-37.0) g/dL ABG pCO2 (35-45) mmHg ABG HCO3 (21-25) mmol/L ABG Total CO2 (19-24) mmol/L ABG O2 Saturation (94-97) % Chloride 93 L (98-107) mmol/L Carbon Dioxide 39 H (22-30) mmol/L Glucose 148 H (74-99) mg/dL POC Glucose (mg/dL) 138 H (75-99) mg/dL 08/24/18 Range/Units 11:09 RBC (3.80-5.40) m/uL Hgb (11.4-16.0) gm/dL MCV (80.0-100.0) fL MCHC (31.0-37.0) g/dL ABG pCO2 (35-45) mmHg ABG HCO3 (21-25) mmol/L ABG Total CO2 (19-24) mmol/L ABG O2 Saturation (94-97) % Chloride (98-107) mmol/L Carbon Dioxide (22-30) mmol/L Glucose (74-99) mg/dL POC Glucose (mg/dL) 171 H (75-99) mg/dL Microbiology - Last 24 Hours (Table) 08/22/18 21:45 Blood Culture - Preliminary Blood No Growth after 24 hours Assessment and Plan Plan: Assessment #1 acute hypoxic respiratory failure seems to be multifactorial. #2 congestive heart failure exacerbation diastolic acute on chronic. #3 acute exacerbation of chronic obstructive pulmonary disease #4 morbid obesity #5 atrial fibrillation , chronic persistent, rate under better control today #6 history of stroke in the past #7 hypertension #8 multiple comorbid conditions Plan From cardiology's perspective, we'll continue current dose of IV Lasix. Add losartan to the medication regime for more optimal blood pressure control. Continue to monitor intake and output along with daily weights and daily lytes BUN and creatinine. DNP note has been reviewed, I agree with a documented findings and plan of care. Patient was seen and examined.
[2018-08-24 15:27] VITALS: BMI 56.6
--- NOTE | 2018-08-24 16:11 | P.PN ---
Subjective Progress Note Date: 08/24/18 Principal diagnosis: Acute on chronic hypoxemic and hypercapnic respiratory failure secondary to acute exacerbation of congestive heart failure with diastolic dysfunction This is a 77-year-old white female patient of Dr. Muniz, well-known to our service from previous admissions for exacerbations of chronic heart failure with diastolic dysfunction, sleep apnea, obesity hypoventilation syndrome on BiPAP therapy, COPD. he was recently hospitalized for acute exacerbation of chronic diastolic heart failure, she was discharged to [facility] nursing and rehab , on oral diuretics, her BiPAP unit with pressures of 14/6, and FiO2 of 2-3 L. She states she was wearing her BiPAP every night, taking her diuretics. Patient was in her usual state of health throughout the day, in the evening patient became very short of breath, her pulse ox was noted to be low, and she was placed on BiPAP, and did not significantly improve. Patient states she does not remember much of the event that happened last night, but embers feeling well during the day, going to dinner, denies any chest pain, denies fever or chills, denies any chest congestion. Ambulance was dispatched to the detention, and patient became tachycardic en route to the hospital, went into A. fib RVR with a rate of 120 BPM. She was placed on CPAP unit in the ambulance, her oxygenation did improve.chest x-ray was completed in the emergency department and showed congestive heart failure with pleural effusions. This was compared to prior exam from 08/01/2018 and appears to be worse. Lab work revealed WBC of 17.4, hemoglobin 11.9, sodium 142, potassium 4.1, chloride is 97, CO2 of 39, renal profile was within normal limits, troponins were 0.050, 0.077. ProBNP was 4970. Urinalysis showed positive nitrites, moderate leuk trase, rare bacteria, and WBC 13. Patient was started and empiric antibiotics in the form of Rocephin, IV diuretics of Lasix 40 mg every 8 hours, and nebulized bronchodilators in addition to IV Solu-Medrol. On 08/24/2018 patient seen in follow-up. She is awake and alert, oriented 3, in no acute distress, was breathing easier, no chest pain and worsening shortness of breath, no cough or chest congestion. Currently on 1 L per nasal cannula, her pulse ox is 95%, she is afebrile, lung sounds are diminished. No rhonchi, no wheezes or rales auscultated. Patient is on oral diuretics, chest x -ray admission showed congestive heart failure with pleural effusions. Echocardiogram was reviewed, and it showed left ventricle systolic function with an EF between 50-55%, mild mitral, mild tricuspid regurgitation, and no evidence of pulmonary hypertension. Last night patient was having issues with desaturation while she was on her BiPAP. Dr. Driver is at the bedside, reviewed patient's BiPAP settings, and utilization data, she revealed a large mask leak last night, poor mask fit. This is likely the reason of patient's desaturation last night. Tonight we will request a respiratory therapist to make sure the patient has appropriate that with her BiPAP mask. We will increase the patient's diuresis. Switched oral diuretics to IV. Objective - Vital Signs Vital signs: Vital Signs Temp 97.6 F 08/24/18 12:20 Pulse 100 08/24/18 12:20 Resp 18 08/24/18 12:20 BP 183/90 08/24/18 12:20 Pulse Ox 95 08/24/18 12:20 Intake & Output 08/23/18 08/24/18 08/24/18 18:59 06:59 18:59 Intake Total 260 298 Output Total 350 300 Balance -90 -2 Weight 145.15 kg 131.5 kg 131.5 kg Intake: IV 20 0.9 20 Oral 240 298 Output: Urine 350 300 Other: Voiding Method Indwelling Catheter Indwelling Catheter Indwelling Catheter # Voids 1 - Exam GENERAL EXAM: Alert, pleasant, obese 77-year-old white female comfortable in no apparent distress. HEAD: Normocephalic/atraumatic. EYES: Normal reaction of pupils, equal size. Conjunctiva pink, sclera white. NOSE: Clear with pink turbinates. THROAT: No erythema or exudates. NECK: No masses, no JVD, no thyroid enlargement, no adenopathy. CHEST: No chest wall deformity. Symmetrical expansion. LUNGS: Equal air entry with bibasilar crackles, but no wheeze, rhonchi or dullness. CVS: Regular rate and rhythm, normal S1 and S2, no gallops, no murmurs, no rubs ABDOMEN: Soft, nontender. No hepatosplenomegaly, normal bowel sounds, no guarding or rigidity. EXTREMITIES: No clubbing, no edema, no cyanosis, 2+ pulses and upper and lower extremities. Patient has a left arm brace place MUSCULOSKELETAL: Muscle strength and tone normal. SPINE: No scoliosis or deformity SKIN: No rashes CENTRAL NERVOUS SYSTEM: Alert and oriented -3. No focal deficits, tone is normal in all 4 extremities. PSYCHIATRIC: Alert and oriented -3. Appropriate affect. Intact judgment and insight. - Labs CBC & Chem 7: 08/24/18 06:31 08/24/18 06:31 Labs: Abnormal Lab Results - Last 24 Hours (Table) 08/23/18 08/23/18 08/24/18 Range/Units 17:05 21:06 00:10 RBC (3.80-5.40) m/uL Hgb (11.4-16.0) gm/dL MCV (80.0-100.0) fL MCHC (31.0-37.0) g/dL ABG pCO2 73 H* (35-45) mmHg ABG HCO3 44 H* (21-25) mmol/L ABG Total CO2 46 H (19-24) mmol/L ABG O2 Saturation 98.3 H (94-97) % Chloride (98-107) mmol/L Carbon Dioxide (22-30) mmol/L Glucose (74-99) mg/dL POC Glucose (mg/dL) 134 H 130 H (75-99) mg/dL 08/24/18 08/24/18 08/24/18 Range/Units 05:33 06:31 06:31 RBC 3.52 L (3.80-5.40) m/uL Hgb 10.5 L (11.4-16.0) gm/dL MCV 102.4 H (80.0-100.0) fL MCHC 29.2 L (31.0-37.0) g/dL ABG pCO2 (35-45) mmHg ABG HCO3 (21-25) mmol/L ABG Total CO2 (19-24) mmol/L ABG O2 Saturation (94-97) % Chloride 93 L (98-107) mmol/L Carbon Dioxide 39 H (22-30) mmol/L Glucose 148 H (74-99) mg/dL POC Glucose (mg/dL) 138 H (75-99) mg/dL 08/24/18 Range/Units 11:09 RBC (3.80-5.40) m/uL Hgb (11.4-16.0) gm/dL MCV (80.0-100.0) fL MCHC (31.0-37.0) g/dL ABG pCO2 (35-45) mmHg ABG HCO3 (21-25) mmol/L ABG Total CO2 (19-24) mmol/L ABG O2 Saturation (94-97) % Chloride (98-107) mmol/L Carbon Dioxide (22-30) mmol/L Glucose (74-99) mg/dL POC Glucose (mg/dL) 171 H (75-99) mg/dL Microbiology - Last 24 Hours (Table) 08/22/18 21:45 Blood Culture - Preliminary Blood No Growth after 24 hours Assessment and Plan Plan: Assessment: #1. Acute on chronic hypoxemic and hypercapnic respiratory failure secondary to acute exacerbation of congestive heart failure with diastolic dysfunction #2. Obesity hypoventilation syndrome, obstructive sleep apnea, on BiPAP therapy , currently at 14/6, and FiO2 of 32% #3. Leukocytosis #4. Mild elevation of troponins #5. Small urinary tract infection #6. Altered mental status related to acute hypoxemia, improved #7. A. fib RVR #8. History of atrial fibrillation #9. Gait imbalance #10. Morbid obesity #11. History of COPD #12. History of CVA, dementia, fibromyalgia #13. Hypertension, hyperlipidemia, DJD, rheumatoid arthritis Plan: We will switch to oral Lasix to IV Lasix at 40 mg every 8 hours. We will increase the diuresis. Patient's BiPAP unit was checked by Dr. Driver, she was having desaturation issues last night while she was on BiPAP, patient data revealed a large mask leak last night which was probably the reason of patient' s desaturation. Tonight patient can continue wearing her BiPAP and we will ask the respiratory therapist to make sure patient has an appropriate fit face mask. Continue all other medical treatments, patient overall is improving, breathing easier, denies any fever or chills, denies any chest pain. I performed a history & physical examination of the patient and discussed their management with my nurse practitioner, Lexi Cronin. I reviewed the nurse practitioner's note and agree with the documented findings and plan of care. Lung sounds are basilar crackles. The findings and the impression was discussed with the patient. I attest to the documentation by the nurse practitioner. Time with Patient: Less than 30
[2018-08-24] MEDS: FERROUS SULFATE 325 MG TAB PO SCH (16:29)
[2018-08-24] MEDS: MULTIVITAMINS, THERA 1 EACH TAB PO SCH (16:29)
[2018-08-24] MEDS: POTASSIUM CHLORIDE ER 20 MEQ TAB.ER PO SCH (16:29)
[2018-08-24] MEDS: MAGNESIUM OXIDE 400 MG TAB PO SCH (16:29)
[2018-08-24] MEDS: FUROSEMIDE 10 MG/ML 4 ML VIAL IV SCH ×2 (16:30→22:47)
[2018-08-24] MEDS: LOSARTAN 25 MG TAB PO SCH (16:34)
[2018-08-24] MEDS: MENTHOL-ZINC OXIDE OINT 113 GM TUBE TOPICAL SCH ×2 (16:40→21:06)
[2018-08-24 16:55] LABS: Glucose,Whole Blood 159 mg/dL (75-99)
[2018-08-24 20:50] LABS: Glucose,Whole Blood 189 mg/dL (75-99)
[2018-08-24] MEDS: PENTOXIFYLLINE 400 MG TABLET.ER PO SCH (21:06)
[2018-08-24] MEDS: ATORVASTATIN 10 MG TAB PO SCH (21:06)
[2018-08-25] MEDS: GABAPENTIN 100 MG CAP PO SCH ×3 (06:01→22:07)
[2018-08-25] MEDS: METOPROLOL TARTRATE 25 MG TAB PO SCH ×3 (06:01→22:07)
[2018-08-25] MEDS: PANTOPRAZOLE 40 MG TABLET PO SCH (06:02)
[2018-08-25] MEDS: oxyCODONE-APAP 10-325MG 1 EACH TAB PO PRN ×3 (06:03→22:14)
[2018-08-25 06:09] LABS: Glucose,Whole Blood 162 mg/dL (75-99)
--- NOTE | 2018-08-25 06:40 | PN ---
PROGRESS NOTE DATE OF SERVICE: 08/24/2018 PRESENTING COMPLAINT: Tired. INTERVAL HISTORY: Patient presented with COPD and CHF exacerbation. Breathing better. Did tolerate some diet. Family at the bedside. REVIEW OF SYSTEMS: Done for constitutional, cardiovascular, GI, pulmonary; relevant findings as above. CURRENT MEDICATIONS: Current medications are reviewed that include DuoNeb, Eliquis, IV ceftriaxone, IV Lasix, IV Solu-Medrol. PHYSICAL EXAMINATION: On examination, temperature 97.6, pulse 79, respiratory 18, blood pressure 172/72, pulse ox 90% on 1 L. GENERAL APPEARANCE: Lying in bed, tired but arousable. EYES: Pupils equal. Conjunctivae normal. HENT: External appearance of nose and ears normal. Oral cavity normal. NECK: Short thick. JVD unable to assess. Mass not palpable. RESPIRATORY: Effort increased. LUNGS: Distant breath sounds. CARDIOVASCULAR: Heart sounds muffled, non pitting edema. ABDOMEN: Distended, soft. Liver and spleen not palpable. PSYCHIATRY: Awake, able to answer simple questions. INVESTIGATIONS: White count 4.1, hemoglobin 10.5. Potassium 4. BUN and creatinine normal. ASSESSMENT: 1. Acute on chronic hypoxemic and hypercapnic respiratory failure secondary to acute exacerbation of congestive heart failure. 2. Acute congestive heart failure exacerbation from diastolic dysfunction, ejection fraction 50% to 55%. 3. Hypertensive heart disease. 4. Morbid obesity, body mass index more than 50. 5. Acute chronic obstructive pulmonary disease exacerbation in an ex-smoker. 6. Obesity hypoventilation syndrome on BiPAP. 7. Persistent atrial fibrillation, rate somewhat better controlled chronically on Eliquis. 8. Essential hypertension. 9. Hyperlipidemia. 10.Mild cognitive impairment from Alzheimer's dementia. 11.Primary osteoarthritis of multiple joints bilateral. 12.Severe gait dysfunction multifactorial. 13.Obstructive sleep apnea. 14.Acute urinary tract infection. PLAN: Continue current medication and treatment plan. We will switch patient over to . MMODL / IJN: [id number] /
[2018-08-25 06:58] LABS: Basophils % (A) 0 %; Eosinophils % (A) 0 %; HGB 10.4 gm/dL (11.4-16.0); Hypochromasia Marked; Lymphocytes # (A) 1.2 k/uL (1.0-4.8); Lymphocytes % (A) 21 %; MCHC 29.6 g/dL (31.0-37.0); MCV 101.3 fL (80.0-100.0); Macrocytosis Slight; Mean Platelet Volume 7.7; Monocytes # (A) 0.4 k/uL (0-1.0); Monocytes % (A) 6 %; Neutrophils # (A) 4.3 k/uL (1.3-7.7); Neutrophils % (A) 72 %; Platelet Count 252 k/uL (150-450); RBC 3.45 m/uL (3.80-5.40); RDW 14.6 % (11.5-15.5)
[2018-08-25 07:04] LABS: Blood Urea Nitrogen 18 mg/dL (7-17); Calcium 9.7 mg/dL (8.4-10.2); Chloride 92 mmol/L (98-107); Glucose 160 mg/dL (74-99); Potassium 4.1 mmol/L (3.5-5.1); Sodium 139 mmol/L (137-145)
[2018-08-25 07:13] LABS: Anion Gap 6 mmol/L
[2018-08-25 07:19] LABS: Carbon Dioxide 41 mmol/L (22-30)
[2018-08-25] MEDS: DONEPEZIL 10 MG TAB PO SCH (07:52)
[2018-08-25] MEDS: CEPHALEXIN 250 MG CAP PO SCH ×3 (07:52→22:08)
[2018-08-25] MEDS: LOSARTAN 25 MG TAB PO SCH (07:52)
[2018-08-25] MEDS: POLYETHYLENE GLYCOL 3350 17 GM POWD.PACK PO SCH (07:52)
[2018-08-25] MEDS: TOPIRAMATE 25 MG TAB PO SCH ×2 (07:52→22:08)
[2018-08-25] MEDS: METHOCARBAMOL 750 MG TAB PO SCH ×2 (07:52→16:03)
[2018-08-25] MEDS: APIXABAN 5 MG TAB PO SCH ×2 (07:53→16:00)
[2018-08-25] MEDS: FUROSEMIDE 10 MG/ML 4 ML VIAL IV SCH ×2 (07:53→22:07)
[2018-08-25] MEDS: DULoxetine HCL 30 MG CAPSULE.DR PO SCH (07:53)
[2018-08-25] MEDS: methylPREDNISolone SOD SUCCI 40 MG/ML 1 ML VIAL IV SCH ×2 (07:53→16:00)
[2018-08-25] MEDS: IPRATROPIUM-ALBUTEROL 3 ML NEB INHALATION SCH ×4 (08:19→20:26)
--- NOTE | 2018-08-25 10:05 | P.PN ---
Subjective Progress Note Date: 08/25/18 Principal diagnosis: Atrial fibrillation with rapid ventricular response This is a 77-year-old female patient with an extensive past medical history consistent off morbid obesity, chronic persistent atrial fibrillation on oral anticoagulation, chronic hypoxic respiratory failure secondary to COPD, history of stroke, as well as multiple comorbid conditions, was brought to the hospital by ambulance because of worsening dyspnea. The patient was discharged from the hospital recently after she was admitted with acute hypoxic respiratory failure secondary to COPD exacerbation. The patient was discharged to undergo rehab at [facility]. She was in her usual state of health until yesterday when she started experiencing worsening dyspnea. No symptoms of chest pain or chest discomfort. No fever or chills. No dizziness or lightheadedness. And no syncope. It was noticed at [facility] that her pulse oximetry was reading low saturation and because of that the patient was transferred to the emergency room. Before she was transferred she tried BiPAP and that did not help. On the way to the emergency room the patient was tachycardic and she was in atrial fibrillation with a rapid ventricular response. The patient stated that she did gain significant amount of weight. She did also notice bilateral lower extremities edema. The patient stated that she was compliant with her diet, compliant with her medications, and compliant with using the BiPAP. The EKG showed atrial fibrillation with heart rate around 110 beats per minutes. The chest x-ray showed findings consistent with CHF with pulmonary vascular congestions and bilateral pleural effusion. The cardiac enzymes were checked and came in to be slightly abnormal. The patient did not have any symptoms of chest pain or discomfort. The BNP was significantly elevated. The WBC also was elevated On follow-up with the patient today, she is feeling better in terms of shortness of breath. The heart rate continues to be in the 90s and she is in chronic atrial fibrillation. I am going to continue the IV Lasix with a reduced dose to 40 mg twice a day for additional 24 hours for possible discharge tomorrow. Objective - Vital Signs Vital signs: Vital Signs Temp 97.7 F 08/25/18 08:05 Pulse 98 08/25/18 08:36 Resp 18 08/25/18 08:05 BP 141/73 08/25/18 08:05 Pulse Ox 96 08/25/18 08:05 Intake & Output 08/24/18 08/25/18 08/25/18 18:59 06:59 18:59 Intake Total 298 240 Output Total 300 1025 Balance -2 -1025 240 Weight 131.5 kg 130 kg Intake: Oral 298 240 Output: Urine 300 1025 Other: Voiding Method Indwelling Catheter Indwelling Catheter Incontinent - Constitutional General appearance: Present: no acute distress - Respiratory Respiratory: bilateral: diminished - Cardiovascular Rhythm: irregularly irregular Heart sounds: normal: S1, S2 - Labs CBC & Chem 7: 08/25/18 05:54 08/25/18 05:54 Labs: Abnormal Lab Results - Last 24 Hours (Table) 08/24/18 08/24/18 08/24/18 Range/Units 11:09 16:53 20:38 RBC (3.80-5.40) m/uL Hgb (11.4-16.0) gm/dL MCV (80.0-100.0) fL MCHC (31.0-37.0) g/dL Chloride (98-107) mmol/L Carbon Dioxide (22-30) mmol/L BUN (7-17) mg/dL Glucose (74-99) mg/dL POC Glucose (mg/dL) 171 H 159 H 189 H (75-99) mg/dL 08/25/18 08/25/18 08/25/18 Range/Units 05:54 05:54 06:08 RBC 3.45 L (3.80-5.40) m/uL Hgb 10.4 L (11.4-16.0) gm/dL MCV 101.3 H (80.0-100.0) fL MCHC 29.6 L (31.0-37.0) g/dL Chloride 92 L (98-107) mmol/L Carbon Dioxide 41 H* (22-30) mmol/L BUN 18 H (7-17) mg/dL Glucose 160 H (74-99) mg/dL POC Glucose (mg/dL) 162 H (75-99) mg/dL Microbiology - Last 24 Hours (Table) 08/22/18 21:45 Blood Culture - Preliminary Blood No Growth after 48 hours Assessment and Plan Assessment: Assessment #1 acute hypoxic respiratory failure seems to be multifactorial. #2 congestive heart failure exacerbation likely secondary to diastolic dysfunction. The last echocardiogram from 2014 revealed normal LV function. #3 acute exacerbation of chronic obstructive pulmonary disease #4 morbid obesity #5 atrial fibrillation was uncontrolled heart rate #6 history of stroke in the past #7 hypertension #8 multiple comorbid conditions Plan #1 decrease the dose of Lasix to 40 mg twice a day #2 monitor the kidney function and electrolytes on daily basis #3 continue the current dose of metoprolol 25 mg by mouth 3 times a day #4 follow-up with the patient Thank you for allowing us participate in her care and we will continue following up with the patient
[2018-08-25 11:30] LABS: Glucose,Whole Blood 177 mg/dL (75-99)
--- NOTE | 2018-08-25 13:16 | P.PN ---
Subjective Progress Note Date: 08/25/18 Principal diagnosis: Acute on chronic hypoxic and hypercapnic respiratory failure secondary to an acute exacerbation of congestive heart failure with diastolic dysfunction This is a 77-year-old white female patient of Dr. Muniz, well-known to our service from previous admissions for exacerbations of chronic heart failure with diastolic dysfunction, sleep apnea, obesity hypoventilation syndrome on BiPAP therapy, COPD. he was recently hospitalized for acute exacerbation of chronic diastolic heart failure, she was discharged to [facility] nursing and rehab , on oral diuretics, her BiPAP unit with pressures of 14/6, and FiO2 of 2-3 L. She states she was wearing her BiPAP every night, taking her diuretics. Patient was in her usual state of health throughout the day, in the evening patient became very short of breath, her pulse ox was noted to be low, and she was placed on BiPAP, and did not significantly improve. Patient states she does not remember much of the event that happened last night, but embers feeling well during the day, going to dinner, denies any chest pain, denies fever or chills, denies any chest congestion. Ambulance was dispatched to the intermediate, and patient became tachycardic en route to the hospital, went into A. fib RVR with a rate of 120 BPM. She was placed on CPAP unit in the ambulance, her oxygenation did improve.chest x-ray was completed in the emergency department and showed congestive heart failure with pleural effusions. This was compared to prior exam from 08/01/2018 and appears to be worse. Lab work revealed WBC of 17.4, hemoglobin 11.9, sodium 142, potassium 4.1, chloride is 97, CO2 of 39, renal profile was within normal limits, troponins were 0.050, 0.077. ProBNP was 4970. Urinalysis showed positive nitrites, moderate leuk trase, rare bacteria, and WBC 13. Patient was started and empiric antibiotics in the form of Rocephin, IV diuretics of Lasix 40 mg every 8 hours, and nebulized bronchodilators in addition to IV Solu-Medrol. On 08/24/2018 patient seen in follow-up. She is awake and alert, oriented 3, in no acute distress, was breathing easier, no chest pain and worsening shortness of breath, no cough or chest congestion. Currently on 1 L per nasal cannula, her pulse ox is 95%, she is afebrile, lung sounds are diminished. No rhonchi, no wheezes or rales auscultated. Patient is on oral diuretics, chest x -ray admission showed congestive heart failure with pleural effusions. Echocardiogram was reviewed, and it showed left ventricle systolic function with an EF between 50-55%, mild mitral, mild tricuspid regurgitation, and no evidence of pulmonary hypertension. Last night patient was having issues with desaturation while she was on her BiPAP. Dr. Driver is at the bedside, reviewed patient's BiPAP settings, and utilization data, she revealed a large mask leak last night, poor mask fit. This is likely the reason of patient's desaturation last night. Tonight we will request a respiratory therapist to make sure the patient has appropriate that with her BiPAP mask. We will increase the patient's diuresis. Switched oral diuretics to IV. The patient is seen again today 08/25/2018 in follow-up on the selective care unit. She is currently sitting up in a chair at the bedside. Awake and alert in no acute distress. Much better than yesterday. She did utilize the BiPAP last night. There is less leak noted with the mask. [place] maintaining O2 saturations approximate 90% on 1 L/m per nasal cannula. She's been afebrile. Blood culture reveals no growth to date. White count 6.0. Hemoglobin 10.4. Bicarb 41. Creatinine 0.73. Objective - Vital Signs Vital signs: Vital Signs Temp 97.6 F 08/25/18 12:00 Pulse 88 08/25/18 12:01 Resp 18 08/25/18 12:00 BP 154/83 08/25/18 12:00 Pulse Ox 90 L 08/25/18 12:00 Intake & Output 08/24/18 08/25/18 08/25/18 18:59 06:59 18:59 Intake Total 298 240 Output Total 300 1025 Balance -2 -1025 240 Weight 131.5 kg 130 kg Intake: Oral 298 240 Output: Urine 300 1025 Other: Voiding Method Indwelling Catheter Indwelling Catheter Incontinent - Labs CBC & Chem 7: 08/25/18 05:54 08/25/18 05:54 Labs: Abnormal Lab Results - Last 24 Hours (Table) 08/24/18 08/24/18 08/25/18 Range/Units 16:53 20:38 05:54 RBC 3.45 L (3.80-5.40) m/uL Hgb 10.4 L (11.4-16.0) gm/dL MCV 101.3 H (80.0-100.0) fL MCHC 29.6 L (31.0-37.0) g/dL Chloride (98-107) mmol/L Carbon Dioxide (22-30) mmol/L BUN (7-17) mg/dL Glucose (74-99) mg/dL POC Glucose (mg/dL) 159 H 189 H (75-99) mg/dL 08/25/18 08/25/18 08/25/18 Range/Units 05:54 06:08 11:27 RBC (3.80-5.40) m/uL Hgb (11.4-16.0) gm/dL MCV (80.0-100.0) fL MCHC (31.0-37.0) g/dL Chloride 92 L (98-107) mmol/L Carbon Dioxide 41 H* (22-30) mmol/L BUN 18 H (7-17) mg/dL Glucose 160 H (74-99) mg/dL POC Glucose (mg/dL) 162 H 177 H (75-99) mg/dL Microbiology - Last 24 Hours (Table) 08/22/18 21:45 Blood Culture - Preliminary Blood No Growth after 48 hours Assessment and Plan Assessment: GENERAL EXAM: Alert, pleasant, obese 77-year-old white female comfortable in no apparent distress. HEAD: Normocephalic/atraumatic. EYES: Normal reaction of pupils, equal size. Conjunctiva pink, sclera white. NOSE: Clear with pink turbinates. THROAT: No erythema or exudates. NECK: No masses, no JVD, no thyroid enlargement, no adenopathy. CHEST: No chest wall deformity. Symmetrical expansion. LUNGS: Equal air entry with bibasilar crackles, but no wheeze, rhonchi or dullness. CVS: Irregular rate and rhythm, normal S1 and S2, no gallops, no murmurs, no rubs ABDOMEN: Soft, nontender. No hepatosplenomegaly, normal bowel sounds, no guarding or rigidity. EXTREMITIES: No clubbing, no edema, no cyanosis, 2+ pulses and upper and lower extremities. Patient has a left arm brace place MUSCULOSKELETAL: Muscle strength and tone normal. SPINE: No scoliosis or deformity SKIN: No rashes CENTRAL NERVOUS SYSTEM: Alert and oriented -3. No focal deficits, tone is normal in all 4 extremities. PSYCHIATRIC: Alert and oriented -3. Appropriate affect. Intact judgment and insight. Plan: Assessment: #1. Acute on chronic hypoxemic and hypercapnic respiratory failure secondary to acute exacerbation of congestive heart failure with diastolic dysfunction #2. Obesity hypoventilation syndrome, obstructive sleep apnea, on BiPAP therapy , currently at 14/6, and FiO2 of 32% #3. Leukocytosis #4. Mild elevation of troponins #5. Small urinary tract infection #6. Altered mental status related to acute hypoxemia, improved #7. A. fib RVR #8. History of atrial fibrillation #9. Gait imbalance #10. Morbid obesity #11. History of COPD #12. History of CVA, dementia, fibromyalgia #13. Hypertension, hyperlipidemia, DJD, rheumatoid arthritis Plan: The patient was seen and evaluated by Dr. Driver. She is improved today as compared to yesterday. She did utilize the BiPAP last night with a different mask and there was less leak appreciated. She is doing quite a bit better. Hoping to go back to [facility] tomorrow. We'll continue her current treatment plan for now. Continue to follow. I, the cosigning physician, performed a history & physical examination of the patient. Lungs sounds basilar cracklesr. Maintaining good O2 saturations in the 90s on 1 L/m per nasal cannula, alternating with BiPAP. I discussed the assessment and plan of care with my nurse practitioner, Graciela Ashford. I attest to the above note as dictated by her.
[2018-08-25] MEDS: FERROUS SULFATE 325 MG TAB PO SCH (16:00)
[2018-08-25] MEDS: POTASSIUM CHLORIDE ER 20 MEQ TAB.ER PO SCH (16:00)
[2018-08-25] MEDS: MULTIVITAMINS, THERA 1 EACH TAB PO SCH (16:00)
[2018-08-25] MEDS: MAGNESIUM OXIDE 400 MG TAB PO SCH (16:00)
[2018-08-25] MEDS: MENTHOL-ZINC OXIDE OINT 113 GM TUBE TOPICAL SCH ×2 (16:00→22:07)
[2018-08-25] MEDS: ATORVASTATIN 10 MG TAB PO SCH (22:07)
[2018-08-25] MEDS: PENTOXIFYLLINE 400 MG TABLET.ER PO SCH (22:39)
--- NOTE | 2018-08-25 23:22 | PN ---
PROGRESS NOTE DATE OF SERVICE: 08/25/2018. PRESENTING COMPLAINT: Tired. INTERVAL HISTORY: The patient was admitted with COPD and CHF exacerbation. Doing much better. More awake. Did tolerate a diet. More perky. REVIEW OF SYSTEMS: Done for constitutional, cardiovascular, GI, pulmonary; relevant findings as above. CURRENT MEDICATIONS: Reviewed, that include Keflex, IV Solu-Medrol, Lasix 40 mg IV b.i.d. EXAMINATION: Temperature 97.6, pulse 104, respirations 16, blood pressure 154/83, pulse ox 98% on 1 L. GENERAL APPEARANCE: Lying in bed, more awake. EYES: Pupils equal. Conjunctivae normal. HEENT: External appearance of nose and ears normal. Oral cavity normal. NECK: Short, thick. JVD unable to assess. Mass not palpable. Respiratory effort increased. LUNGS: Distant breath sounds. CARDIOVASCULAR: Heart sounds muffled. Nonpitting edema. ABDOMEN: Soft, nontender. Liver and spleen not palpable. PSYCHIATRY: Awake, answering questions. More awake today. INVESTIGATIONS: White count 16, hemoglobin 10.4, potassium 4.1, bicarb 41, BUN 8, creatinine 0.73. ASSESSMENT: 1. Acute on chronic hypoxemic and hypercapnic respiratory failure secondary to acute exacerbation of congestive heart failure. 2. Acute congestive heart failure exacerbation from diastolic dysfunction. Ejection fraction 50% to 55%. 3. Hypertensive heart disease. 4. Morbid obesity; BMI more than 50. 5. Acute chronic obstructive pulmonary disease exacerbation in an ex-smoker. 6. Obesity hypoventilation syndrome, on BiPAP. 7. Persistent atrial fibrillation, rate better controlled, chronically on Eliquis. 8. Essential hypertension. 9. Hyperlipidemia. 10.Mild cognitive impairment from Alzheimer's dementia. 11.Primary osteoarthritis of multiple joints bilateral. 12.Severe gait dysfunction multifactorial. 13.Obstructive sleep apnea. 14.Acute urinary tract infection. PLAN: Patient continues to do better. Should be able to be switched over to oral Lasix and also to p.o. steroids tomorrow. The patient hopefully can go back to the [facility]. MMODL / IJN: [id number] /
[2018-08-26] MEDS: methylPREDNISolone SOD SUCCI 40 MG/ML 1 ML VIAL IV SCH ×3 (00:57→16:25)
[2018-08-26 06:52] LABS: Glucose,Whole Blood 155 mg/dL (75-99)
[2018-08-26] MEDS: PANTOPRAZOLE 40 MG TABLET PO SCH (07:00)
[2018-08-26] MEDS: METOPROLOL TARTRATE 25 MG TAB PO SCH ×2 (07:00→16:25)
[2018-08-26] MEDS: GABAPENTIN 100 MG CAP PO SCH ×2 (07:00→16:21)
[2018-08-26 07:13] LABS: Calcium 9.8 mg/dL (8.4-10.2); Potassium 4.9 mmol/L (3.5-5.1)
[2018-08-26] MEDS: IPRATROPIUM-ALBUTEROL 3 ML NEB INHALATION SCH ×3 (07:44→17:58)
[2018-08-26] MEDS: CEPHALEXIN 250 MG CAP PO SCH ×2 (08:25→16:20)
[2018-08-26] MEDS: LOSARTAN 25 MG TAB PO SCH (08:25)
[2018-08-26] MEDS: POLYETHYLENE GLYCOL 3350 17 GM POWD.PACK PO SCH (08:25)
[2018-08-26] MEDS: DONEPEZIL 10 MG TAB PO SCH (08:25)
[2018-08-26] MEDS: METHOCARBAMOL 750 MG TAB PO SCH ×2 (08:25→16:20)
[2018-08-26] MEDS: DULoxetine HCL 30 MG CAPSULE.DR PO SCH (08:25)
[2018-08-26] MEDS: FUROSEMIDE 10 MG/ML 4 ML VIAL IV SCH (08:25)
[2018-08-26] MEDS: oxyCODONE-APAP 10-325MG 1 EACH TAB PO PRN ×2 (08:25→16:21)
[2018-08-26] MEDS: APIXABAN 5 MG TAB PO SCH ×2 (08:25→16:21)
[2018-08-26] MEDS: TOPIRAMATE 25 MG TAB PO SCH (08:25)
[2018-08-26 08:38] VITALS: RESP 18; TEMP 97.6
[2018-08-26 11:35] LABS: Glucose,Whole Blood 152 mg/dL (75-99)
[2018-08-26 11:44] VITALS: BP 155/80
[2018-08-26 11:48] VITALS: PULSE 100
--- NOTE | 2018-08-26 13:04 | P.PN ---
Subjective Progress Note Date: 08/26/18 This is a 77 year old female with extensive past medical history including morbid obesity, chronic persistent atrial fibrillation on oral anticoagulation, chronic hypoxic respiratory failure secondary to COPD, history of stroke, as well as other comorbid conditions. She was recently discharged from the hospital after being admitted with acute hypoxic respiratory failure secondary to COPD, she went to [facility] rehab from here. Patient read presented to the hospital on this occasion with symptoms of shortness of breath, she was found to be tachycardic with A. fib with RVR. She also gained a significant amount of weight. Currently receiving treatment for congestive heart failure. BNP level was elevated on admission.the patient has been diuresing well through the night last night, her weight is down today.blood pressure this morning 182/ 90 with a heart rate in the 80s, 95% on 1 L of oxygen. 08/26/2018 Patient was seen and examined this morning, overall doing better. Adding up in a chair at bedside. Awake and alert in no acute distress. Blood pressure 154/ 80 with a heart rate in the 90s, 93% on 1 L of oxygen. Sodium 139, potassium 4.9, BUN 21, creatinine 0.8. Objective - Vital Signs Vital signs: Vital Signs Temp 97.6 F 08/26/18 11:41 Pulse 100 08/26/18 11:48 Resp 18 08/26/18 11:41 BP 155/80 08/26/18 11:41 Pulse Ox 93 L 08/26/18 11:41 Intake & Output 08/25/18 08/26/18 08/26/18 18:59 06:59 18:59 Intake Total 462 1490 260 Balance 462 1490 260 Weight 131.5 kg Intake: IV 50 20 0.9 20 Invasive Line 2 30 20 Oral 462 1440 240 Other: Voiding Method Incontinent Incontinent Incontinent # Voids 2 2 1 - Exam GENERAL EXAM: Alert, pleasant, obese 77-year-old white female comfortable in no apparent distress. HEAD: Normocephalic/atraumatic. EYES: Normal reaction of pupils, equal size. Conjunctiva pink, sclera white. NOSE: Clear with pink turbinates. THROAT: No erythema or exudates. NECK: No masses, no JVD, no thyroid enlargement, no adenopathy. CHEST: No chest wall deformity. Symmetrical expansion. LUNGS: Equal air entry with bibasilar crackles, but no wheeze, rhonchi or dullness. CVS: S1 and [id number] irregular, no gallops, no murmurs, no rubs ABDOMEN: Soft, obese,nontender. No hepatosplenomegaly, normal bowel sounds, no guarding or rigidity. EXTREMITIES: No clubbing, no edema, no cyanosis, 2+ pulses and upper and lower extremities. Patient has a left arm brace place MUSCULOSKELETAL: Muscle strength and tone normal. SPINE: No scoliosis or deformity SKIN: No rashes CENTRAL NERVOUS SYSTEM: Alert and oriented -3. No focal deficits, tone is normal in all 4 extremities. PSYCHIATRIC: Alert and oriented -3. Appropriate affect. Intact judgment and insight. - Labs CBC & Chem 7: 08/25/18 05:54 08/26/18 06:20 Labs: Abnormal Lab Results - Last 24 Hours (Table) 08/26/18 08/26/18 08/26/18 Range/Units 06:15 06:20 11:27 Chloride 91 L (98-107) mmol/L Carbon Dioxide 41 H* (22-30) mmol/L BUN 21 H (7-17) mg/dL Glucose 153 H (74-99) mg/dL POC Glucose (mg/dL) 155 H 152 H (75-99) mg/dL Microbiology - Last 24 Hours (Table) 08/22/18 21:45 Blood Culture - Preliminary Blood No Growth after 72 hours Assessment and Plan Plan: Assessment #1 acute hypoxic respiratory failure seems to be multifactorial. #2 congestive heart failure exacerbation diastolic acute on chronic. #3 acute exacerbation of chronic obstructive pulmonary disease #4 morbid obesity #5 atrial fibrillation , chronic persistent, rate under better control today #6 history of stroke in the past #7 hypertension #8 multiple comorbid conditions Plan From cardiology's perspective, we'll discontinue IV Lasix and put the patient on oral diuretics. From our perspective she may be transferred back to ECF. We will increase her dose of losartan to 50 mg daily, check lytes BUN and creatinine weekly. DNP note has been reviewed, I agree with a documented findings and plan of care. Patient was seen and examined.
--- NOTE | 2018-08-26 14:33 | P.PN ---
Subjective Progress Note Date: 08/26/18 Principal diagnosis: Acute on chronic hypoxic and hypercapnic respiratory failure secondary to an acute exacerbation of congestive heart failure with diastolic dysfunction This is a 77-year-old white female patient of Dr. Muniz, well-known to our service from previous admissions for exacerbations of chronic heart failure with diastolic dysfunction, sleep apnea, obesity hypoventilation syndrome on BiPAP therapy, COPD. he was recently hospitalized for acute exacerbation of chronic diastolic heart failure, she was discharged to [facility] nursing and rehab , on oral diuretics, her BiPAP unit with pressures of 14/6, and FiO2 of 2-3 L. She states she was wearing her BiPAP every night, taking her diuretics. Patient was in her usual state of health throughout the day, in the evening patient became very short of breath, her pulse ox was noted to be low, and she was placed on BiPAP, and did not significantly improve. Patient states she does not remember much of the event that happened last night, but embers feeling well during the day, going to dinner, denies any chest pain, denies fever or chills, denies any chest congestion. Ambulance was dispatched to the senior care, and patient became tachycardic en route to the hospital, went into A. fib RVR with a rate of 120 BPM. She was placed on CPAP unit in the ambulance, her oxygenation did improve.chest x-ray was completed in the emergency department and showed congestive heart failure with pleural effusions. This was compared to prior exam from 08/01/2018 and appears to be worse. Lab work revealed WBC of 17.4, hemoglobin 11.9, sodium 142, potassium 4.1, chloride is 97, CO2 of 39, renal profile was within normal limits, troponins were 0.050, 0.077. ProBNP was 4970. Urinalysis showed positive nitrites, moderate leuk trase, rare bacteria, and WBC 13. Patient was started and empiric antibiotics in the form of Rocephin, IV diuretics of Lasix 40 mg every 8 hours, and nebulized bronchodilators in addition to IV Solu-Medrol. On 08/24/2018 patient seen in follow-up. She is awake and alert, oriented 3, in no acute distress, was breathing easier, no chest pain and worsening shortness of breath, no cough or chest congestion. Currently on 1 L per nasal cannula, her pulse ox is 95%, she is afebrile, lung sounds are diminished. No rhonchi, no wheezes or rales auscultated. Patient is on oral diuretics, chest x -ray admission showed congestive heart failure with pleural effusions. Echocardiogram was reviewed, and it showed left ventricle systolic function with an EF between 50-55%, mild mitral, mild tricuspid regurgitation, and no evidence of pulmonary hypertension. Last night patient was having issues with desaturation while she was on her BiPAP. Dr. Driver is at the bedside, reviewed patient's BiPAP settings, and utilization data, she revealed a large mask leak last night, poor mask fit. This is likely the reason of patient's desaturation last night. Tonight we will request a respiratory therapist to make sure the patient has appropriate that with her BiPAP mask. We will increase the patient's diuresis. Switched oral diuretics to IV. The patient is seen again today 08/25/2018 in follow-up on the selective care unit. She is currently sitting up in a chair at the bedside. Awake and alert in no acute distress. Much better than yesterday. She did utilize the BiPAP last night. There is less leak noted with the mask. Victoriano maintaining O2 saturations approximate 90% on 1 L/m per nasal cannula. She's been afebrile. Blood culture reveals no growth to date. White count 6.0. Hemoglobin 10.4. Bicarb 41. Creatinine 0.73. The patient is seen again today 08/26/2018 in follow-up on the selective care unit. She is awake and alert in no acute distress currently sitting up in a chair at the bedside. She's been utilizing her home BiPAP ST device which is working quite well for her now otherwise she is maintaining good O2 saturations in the low 90s on 1 L/m per nasal cannula. She's afebrile. Blood culture reveals no growth. Bicarb 41. Creatinine 0.81. The plan is transfer back to [facility] today. Objective - Vital Signs Vital signs: Vital Signs Temp 97.6 F 08/26/18 11:41 Pulse 100 08/26/18 11:48 Resp 18 08/26/18 11:41 BP 155/80 08/26/18 11:41 Pulse Ox 93 L 08/26/18 11:41 Intake & Output 08/25/18 08/26/18 08/26/18 18:59 06:59 18:59 Intake Total 462 1490 500 Balance 462 1490 500 Weight 131.5 kg Intake: IV 50 20 0.9 20 Invasive Line 2 30 20 Oral 462 1440 480 Other: Voiding Method Incontinent Incontinent Incontinent # Voids 2 2 1 - Exam GENERAL EXAM: Alert, pleasant, obese 77-year-old white female comfortable in no apparent distress. HEAD: Normocephalic/atraumatic. EYES: Normal reaction of pupils, equal size. Conjunctiva pink, sclera white. NOSE: Clear with pink turbinates. THROAT: No erythema or exudates. NECK: No masses, no JVD, no thyroid enlargement, no adenopathy. CHEST: No chest wall deformity. Symmetrical expansion. LUNGS: Equal air entry with bibasilar crackles, but no wheeze, rhonchi or dullness. CVS: Irregular rate and rhythm, normal S1 and S2, no gallops, no murmurs, no rubs ABDOMEN: Soft, nontender. No hepatosplenomegaly, normal bowel sounds, no guarding or rigidity. EXTREMITIES: No clubbing, no edema, no cyanosis, 2+ pulses and upper and lower extremities. Patient has a left arm brace place MUSCULOSKELETAL: Muscle strength and tone normal. SPINE: No scoliosis or deformity SKIN: No rashes CENTRAL NERVOUS SYSTEM: Alert and oriented -3. No focal deficits, tone is normal in all 4 extremities. PSYCHIATRIC: Alert and oriented -3. Appropriate affect. Intact judgment and insight. - Labs CBC & Chem 7: 08/25/18 05:54 08/26/18 06:20 Labs: Abnormal Lab Results - Last 24 Hours (Table) 08/26/18 08/26/18 08/26/18 Range/Units 06:15 06:20 11:27 Chloride 91 L (98-107) mmol/L Carbon Dioxide 41 H* (22-30) mmol/L BUN 21 H (7-17) mg/dL Glucose 153 H (74-99) mg/dL POC Glucose (mg/dL) 155 H 152 H (75-99) mg/dL Microbiology - Last 24 Hours (Table) 08/22/18 21:45 Blood Culture - Preliminary Blood No Growth after 72 hours Assessment and Plan Plan: Assessment: #1. Acute on chronic hypoxemic and hypercapnic respiratory failure secondary to acute exacerbation of congestive heart failure with diastolic dysfunction #2. Obesity hypoventilation syndrome, obstructive sleep apnea, on BiPAP therapy , currently at 14/6, and FiO2 of 32% #3. Leukocytosis #4. Mild elevation of troponins #5. Small urinary tract infection #6. Altered mental status related to acute hypoxemia, improved #7. A. fib RVR #8. History of atrial fibrillation #9. Gait imbalance #10. Morbid obesity #11. History of COPD #12. History of CVA, dementia, fibromyalgia #13. Hypertension, hyperlipidemia, DJD, rheumatoid arthritis Plan: The patient was seen and evaluated by Dr. Driver. She is improved today as compared to yesterday. The plan is to return to [facility] today. Continue current BiPAP settings. Follow-up in our office in 1- 2 weeks' time. I, the cosigning physician, performed a history & physical examination of the patient. Lungs sounds basilar crackles. Maintaining good O2 saturations in the 90s on 1 L/m per nasal cannula, alternating with BiPAP. I discussed the assessment and plan of care with my nurse practitioner, Graciela Ashford. I attest to the above note as dictated by her.
[2018-08-26 15:23] LABS: Hemoglobin A1C 5.1 % (4.0-6.0)
[2018-08-26] MEDS ORDERED: FUROSEMIDE 20 MG TAB PO SCH (16:00)
--- NOTE | 2018-08-26 16:05 | DS ---
DISCHARGE SUMMARY DATE OF ADMISSION: 08/22/2018 DATE OF DISCHARGE: 08/26/2018. FINAL DIAGNOSES: 1. Acute on chronic hypoxemic and hypercapnic respiratory failure secondary to acute exacerbation of CHF. 2. Acute congestive heart failure exacerbation from diastolic dysfunction. Ejection fraction 50-55 percent. 3. Hypertensive heart disease. 4. Morbid obesity, BMI more than 50. 5. Acute chronic obstructive pulmonary disease exacerbation in an ex-smoker. 6. Obesity hypoventilation syndrome on BiPAP. 7. Persistent atrial fibrillation, rate uncontrolled initially chronically on Eliquis. 8. Essential hypertension. 9. Hyperlipidemia. 10.Mild cognitive impairment from Alzheimer's dementia. 11.Primary osteoarthritis multiple joints bilateral. 12.Severe gait dysfunction multifactorial. 13.Obstructive sleep apnea. 14.Acute urinary tract infection acute urinary tract infection. HOSPITAL COURSE: This patient with shortness of breath and acute on chronic hypercapnic hypoxemic and hypercapnic respiratory failure. Responded well to IV diuretics, chronic treatments, oxygen supplementation, steroids. On the day of discharge, doing much better, tolerating a diet, able to communicate rather normally. I discussed with Dr. Driver today and the patient can go back. CONSULTATIONS: Dr. Schafer from Cardiology Dr. Driver from Pulmonary. Discussion and discharge planning more than 35 minutes. PHYSICAL EXAMINATION: Temperature 97.6, pulse 98, respiratory 18, blood pressure 155/80, pulse ox 93 percent on 1 L. On examination awake, answering questions. LUNGS: Distant breath sounds. CARDIOVASCULAR: Heart sounds muffled. Minimal edema. LABORATORY DATA: White count 6, hemoglobin 10.4, potassium 4.9, bicarb 41, BUN 21, creatinine 0.81. DISCHARGE MEDICATIONS: 1. Cymbalta 30 mg a day. 2. Aricept 10 mg a day. 3. Protonix 40 mg a day. 4. Topamax 50 mg b.i.d. 5. Methocarbamol 750 mg p.o. b.i.d. 6. Incruse Ellipta 1 puff b.i.d. 7. Mevacor 20 mg p.o. q.h.s. 8. Iron 325 mg p.o. daily. 9. Magnesium oxide 400 mg p.o. daily. 10.Pentoxifylline 400 mg p.o. at bedtime. 11.MiraLAX 17 g p.o. daily. 12.Eliquis 5 mg p.o. b.i.d. 13.Dulcolax 10 mg rectal daily p.r.n. 14.Adult Fleet 133 mL rectally daily p.r.n. 15.Neurontin 100 mg p.o. t.i.d. 16.DuoNeb q.i.d. 17.Milk of Magnesia 2400 mg p.o. daily p.r.n. 18.Calmoseptine ointment topical b.i.d. 19.Lopressor 25 mg p.o. t.i.d. 20.Multivitamin 1 tablet p.o. daily. 21.Potassium 20 mEq p.o. daily. 22.Keflex 250 mg p.o. t.i.d. 9 capsules. 23.Lasix 60 mg p.o. b.i.d. increased dose. 24.Cozaar 50 mg p.o. daily, new medications. 25.Percocet 10/325 1 tab 5 times a day p.r.n. for pain. 26.Prednisone taper. DISPOSITION: [facility]. FOLLOWUP: Follow up with Dr. Muniz. BiPAP settings to continue as per Dr. Driver. Copy to Dr. Muniz. MMODL / IJN: [id number] /
[2018-08-26] MEDS: MAGNESIUM OXIDE 400 MG TAB PO SCH (16:20)
[2018-08-26] MEDS: FERROUS SULFATE 325 MG TAB PO SCH (16:20)
[2018-08-26] MEDS: MULTIVITAMINS, THERA 1 EACH TAB PO SCH (16:24)
[2018-08-26] MEDS: POTASSIUM CHLORIDE ER 20 MEQ TAB.ER PO SCH (16:25)
[2018-08-27] MEDS ORDERED: LOSARTAN 25 MG TAB PO SCH (09:00)
== END 2018-08-26 17:47 | DRG 291 ==
LOC: EC 21:41 → 4MS4W 23:55 → 3SCARD 08-23 00:15
PROVIDERS: ADMIT Hospitalist; ATTEND Hospitalist
PROC: 5A09357 Assistance with Respiratory Ventilation, Less than 24 Consecutive Hours, Continuous Positive Airway Pressure (ICD-10-PCS; principal; 2018-08-22)
DX: I11.0 Hypertensive heart disease with heart failure (principal); J96.21 Acute and chronic respiratory failure with hypoxia; J96.22 Acute and chronic respiratory failure with hypercapnia; J44.1 Chronic obstructive pulmonary disease with (acute) exacerbation; E66.2 Morbid (severe) obesity with alveolar hypoventilation; I48.1 Persistent atrial fibrillation; Z68.43 Body mass index [BMI] 50.0-59.9, adult; N39.0 Urinary tract infection, site not specified; I50.33 Acute on chronic diastolic (congestive) heart failure; Z87.891 Personal history of nicotine dependence; Z79.01 Long term (current) use of anticoagulants; E78.5 Hyperlipidemia, unspecified; F02.80 Dementia in other diseases classified elsewhere, unspecified severity, without behavioral disturbance, psychotic disturbance, mood disturbance, and anxiety; G30.9 Alzheimer's disease, unspecified; M19.91 Primary osteoarthritis, unspecified site; Z86.73 Personal history of transient ischemic attack (TIA), and cerebral infarction without residual deficits; M79.7 Fibromyalgia; M06.9 Rheumatoid arthritis, unspecified; E11.9 Type 2 diabetes mellitus without complications; Z99.81 Dependence on supplemental oxygen; R26.89 Other abnormalities of gait and mobility; R25.1 Tremor, unspecified; R32 Unspecified urinary incontinence; Z90.49 Acquired absence of other specified parts of digestive tract; Z98.84 Bariatric surgery status; Z80.6 Family history of leukemia; Z80.1 Family history of malignant neoplasm of trachea, bronchus and lung; Z79.899 Other long term (current) drug therapy; Z91.040 Latex allergy status; Z88.2 Allergy status to sulfonamides; Z88.8 Allergy status to other drugs, medicaments and biological substances; S42.302D Unspecified fracture of shaft of humerus, left arm, subsequent encounter for fracture with routine healing; W05.0XXD Fall from non-moving wheelchair, subsequent encounter; R79.89 Other specified abnormal findings of blood chemistry; I08.1 Rheumatic disorders of both mitral and tricuspid valves
CPT/HCPCS: 36415; 36600; 51701; 71045; 80048; 80053; 81001; 82550; 82553; 82803; 82805; 83036; 83735; 83880; 84484; 85025; 85610; 85730; 87040; 93005; 93306; 94640; 94660; 96365; 96372; 96375; 96376; 99291

== ENCOUNTER 2018-12-30 16:06 | Observation (INO) | payer MEDICARE, OTHER ==
[2018-12-30] MEDS ORDERED: SODIUM CHLORIDE 0.9% 1,000 ML IV STA (16:36)
[2018-12-30] MEDS ORDERED: ASPIRIN 81 MG PO STA (16:36)
[2018-12-30] MEDS ORDERED: SODIUM CHLORIDE 0.9% 500 ML 500 ML IV STA (16:36)
[2018-12-30 17:34] LABS: Basophils # (A) 0.1 k/uL (0-0.2); Basophils % (A) 1 %; Eosinophils # (A) 0.6 k/uL (0-0.7); Eosinophils % (A) 7 %; HCT 31.2 % (34.0-46.0); HGB 9.5 gm/dL (11.4-16.0); Hypochromasia Marked; Lymphocytes # (A) 2.7 k/uL (1.0-4.8); Lymphocytes % (A) 29 %; MCH 30.3 pg (25.0-35.0); MCHC 30.5 g/dL (31.0-37.0); MCV 99.5 fL (80.0-100.0); Macrocytosis Slight; Monocytes # (A) 0.6 k/uL (0-1.0); Monocytes % (A) 7 %; Neutrophils # (A) 5.2 k/uL (1.3-7.7); Neutrophils % (A) 55 %; Platelet Count 216 k/uL (150-450); RBC 3.14 m/uL (3.80-5.40); RDW 14.6 % (11.5-15.5); WBC 9.4 k/uL (3.8-10.6)
[2018-12-30 17:51] LABS: D-Dimer 0.34 mg/L FEU (<0.60); Partial Thromboplastin Time 24.1 sec (22.0-30.0); Prothrombin Time 10.4 sec (9.0-12.0)
[2018-12-30 17:55] LABS: Albumin 3.6 g/dL (3.5-5.0); Calcium 9.6 mg/dL (8.4-10.2); Magnesium 2.8 mg/dL (1.6-2.3); Total Bilirubin 0.6 mg/dL (0.2-1.3); Total Protein 6.4 g/dL (6.3-8.2)
--- NOTE | 2018-12-30 18:04 | XR ---
EXAMINATION TYPE: XR chest 2V DATE OF EXAM: 12/30/2018 COMPARISON: 08/22/2018 HISTORY: Short of breath TECHNIQUE: Frontal and lateral views of the chest are obtained. FINDINGS: Heart appears slightly enlarged. There is no gross heart failure. There is coarsening of t he lung markings. There is no pleural effusion. Thoracic aorta is atheromatous. IMPRESSION: Mild pulmonary fibrosis. There is clearing of the heart failure compared to old exam. Mi ld cardiomegaly.
[2018-12-30 18:05] LABS: Potassium 5.8 mmol/L (3.5-5.1)
[2018-12-30] MEDS ORDERED: IPRATROPIUM-ALBUTEROL 3 ML NEB INHALATION STA (18:12)
--- NOTE | 2018-12-30 18:13 | ED ---
Chest Pain HPI - General Chief Complaint: Chest Pain Stated Complaint: Low blood pressure, poss dehydrated Time Seen by Provider: 12/30/18 16:28 Source: patient, RN notes reviewed, old records reviewed Mode of arrival: wheelchair Limitations: no limitations - History of Present Illness Initial Comments: Patient is a 78-year-old female presents emergency department today with onset of chest pain, shortness of breath and complains of low blood pressures. Patient has a history of COPD, hyperlipidemia, A. fib, diabetes. She is on L Jason at this time for A. fib. Patient reports that she sees Dr. Driver for COPD and her BiPAP for sleeping. Patient's blood pressure at home was 80/40. Patient has had no nausea or vomiting or diarrhea. They report that she has had strict fluid restrictions due to CHF. - Related Data Home Medications Medication Instructions Recorded Confirmed DULoxetine HCL [Cymbalta] 30 mg PO DAILY 04/28/15 12/30/18 Donepezil [Aricept] 10 mg PO DAILY 04/28/15 12/30/18 Pantoprazole Sodium 40 mg PO DAILY 04/28/15 12/30/18 Topiramate 50 mg PO BID 10/03/15 12/30/18 Methocarbamol 750 mg PO BID 03/13/17 12/30/18 Umeclidinium [place] [Incruse 1 puff INHALATION RT-BID 03/13/17 12/30/18 Ellipta] Ferrous Sulfate [Iron (65 MG 325 mg PO DAILY 06/07/18 12/30/18 Elemental)] Magnesium Oxide [Mag-Ox] 400 mg PO DAILY 06/07/18 12/30/18 Pentoxifylline 400 mg PO HS 06/07/18 12/30/18 Apixaban [Eliquis] 5 mg PO BID 06/25/18 12/30/18 Gabapentin [Neurontin] 100 mg PO TID 07/21/18 12/30/18 Ipratropium-Albuterol Nebulize 3 ml INHALATION RT-QID 07/21/18 12/30/18 [Duoneb 0.5 mg-3 mg/3 ml Soln] Metoprolol Tartrate [Lopressor] 25 mg PO TID 07/21/18 12/30/18 Multivitamins, Thera [Multivitamin 1 tab PO DAILY 07/21/18 12/30/18 (formulary)] Potassium Chloride ER [K-Dur 20] 20 meq PO DAILY 08/23/18 12/30/18 Allopurinol [Zyloprim] 100 mg PO DAILY 12/30/18 12/30/18 Lovastatin [Mevacor] 20 mg PO HS 12/30/18 12/30/18 Theophylline 24 Hour [Kenrick-24] 400 mg PO HS 12/30/18 12/30/18 oxyCODONE-APAP 10-325MG [Percocet 1 tab PO QID 12/30/18 12/30/18 10-325 mg] Previous Rx's Medication Instructions Recorded Furosemide [Lasix] 60 mg PO BID@0600,1400 #0 08/26/18 Losartan [Cozaar] 50 mg PO DAILY tab 08/26/18 Allergies Allergy/AdvReac Type Severity Reaction Status Date / Time latex Allergy Unknown Verified 12/30/18 16:57 nitrofurantoin Allergy Unknown Verified 12/30/18 16:57 [From Macrobid] nitrofurantoin Allergy Unknown Verified 12/30/18 16:57 macrocrystalline [From Macrobid] Sulfa (Sulfonamide Allergy Unknown Verified 12/30/18 16:57 Antibiotics) Review of Systems ROS Statement: Those systems with pertinent positive or pertinent negative responses have been documented in the HPI. ROS Other: All systems not noted in ROS Statement are negative. EKG Findings - EKG Comments: EKG Findings:: EKG shows atrial fibrillation low voltage QRS. Abnormal EKG. Ventricular rate 62 bpm. TN interval is undetectable. QS duration 90 ms. QT QTc is 412/418 ms. Past Medical History Past Medical History: Atrial Fibrillation, COPD, CVA/TIA, Dementia, Diabetes Mellitus, Fibromyalgia, Hyperlipidemia, Hypertension, Osteoarthritis (OA), Rheumatoid Arthritis (RA) Additional Past Medical History / Comment(s): Pt recently admitted to [facility] on 06/09/18 with acute renal failure, L humerus fracture (fell out of wheelchair), hypoventilating syndrome, obesity. Other hx: Pt wears oxygen at 2L/NC during the day and bipap at night, L arm is casted and pt to be at 45-90 degree angle with L arm down at side, severe gait dysfunction, diabetes-diet controlled , arthritis in multiple joints bilaterally, tremors, pyelonephritis in 2014, UTIs, urinary incontinence. History of Any Multi-Drug Resistant Organisms: ESBL Date of last positivie culture/infection: 07/20/18 MDRO Source:: URINE Past Surgical History: Appendectomy, Bariatric Surgery, Bladder Surgery, Cholecystectomy, Joint Replacement, Orthopedic Surgery, Tubal Ligation Additional Past Surgical History / Comment(s): Bilateral carpal tunnel releases , bilateral thumb reattachments, gastric stapling, EGD. Past Anesthesia/Blood Transfusion Reactions: No Reported Reaction Past Psychological History: No Psychological Hx Reported Smoking Status: Never smoker - Past Family History Father Family Medical History: Cancer Additional Family Medical History / Comment(s): leukemia Mother Family Medical History: Cancer Additional Family Medical History / Comment(s): lung ca General Exam - General Exam Comments Initial Comments: 78-year-old female. Alert and oriented 3. She appears distress. Limitations: no limitations Head exam: Present: atraumatic, normocephalic, normal inspection Eye exam: Present: normal appearance, PERRL, EOMI. Absent: scleral icterus, conjunctival injection, periorbital swelling ENT exam: Present: normal exam, mucous membranes moist Neck exam: Present: normal inspection. Absent: tenderness, meningismus, lymphadenopathy Respiratory exam: Present: wheezes (That wheezing noted bilaterally). Absent: normal lung sounds bilaterally, respiratory distress, rales, rhonchi, stridor Cardiovascular Exam: Present: regular rate, normal rhythm, normal heart sounds. Absent: systolic murmur, diastolic murmur, rubs, gallop, clicks GI/Abdominal exam: Present: soft, normal bowel sounds. Absent: distended, tenderness, guarding, rebound, rigid Extremities exam: Present: normal inspection, full ROM, normal capillary refill. Absent: tenderness, pedal edema, joint swelling, calf tenderness Back exam: Present: normal inspection Neurological exam: Present: alert, oriented X3, CN II-XII intact Psychiatric exam: Present: normal affect, normal mood Skin exam: Present: warm, dry, intact, normal color. Absent: rash Course Vital Signs 12/30/18 12/30/18 12/30/18 16:22 18:22 18:35 Temperature 98.6 F Pulse Rate 69 63 66 Respiratory 20 Rate Blood Pressure 99/43 O2 Sat by Pulse 100 Oximetry 12/30/18 18:45 Temperature Pulse Rate 69 Respiratory 16 Rate Blood Pressure 101/49 O2 Sat by Pulse 100 Oximetry Chest Pain MDM - MDM 78-year-old female presents weren't pharmacy with her daughters with complaints of chest pain and low blood pressure. Patient's EKG shows A. fib with no acute ST changes. Chest pain started today. She reports that she has chronic pain due to fibromyalgia. Patient at this time also has had low blood pressures reaching and 90s over 50s. She is afebrile. She denies any abdominal pain nausea or vomiting. Patient's labwork was reviewed. Troponin is negative. BNP was within normal limits. The blood cell count and hemoglobin are stable. Patient's renal function does show significant decrease. BUN of 60 current and 1.8. Patient here for 32. Patient was given IV fluid bolus of 1 L. Patient's case discussed with Dr. Penn. He discussed the case with Dr. shun arguello for the Patient for acute kidney injury chest pain. We'll consult nephrology and cardiology. Disposition Clinical Impression: Generalized weakness, PHILLY (acute kidney injury), Chest pain, Shortness of breath Disposition: HOME SELF-CARE Condition: Stable Is patient prescribed a controlled substance at d/c from ED?: No Referrals: Bin Chavez MD [Primary Care Provider] - 1-2 days Time of Disposition: 19:51
[2018-12-30] MEDS ORDERED: SODIUM CHLORIDE 0.9% 1,000 ML IV ONE (18:57)
[2018-12-30] MEDS ORDERED: NITROGLYCERIN SL TABS 0.4 MG TAB SUBLINGUAL PRN (19:53)
[2018-12-30] MEDS ORDERED: NON-FORMULARY DRUG (Umeclidinium Bromide [Incruse Ellipta] 1 PUFF) INHALATION SCH (20:00)
[2018-12-30] MEDS: IPRATROPIUM-ALBUTEROL 3 ML NEB INHALATION SCH (22:01)
[2018-12-30 22:55] LABS: Cholesterol 122 mg/dL (<200); HDL Cholesterol 30 mg/dL (40-60); LDL Cholesterol,Calculated 48 mg/dL (0-99); Triglycerides 220 mg/dL (<150)
[2018-12-30 23:15] VITALS: BMI 49.5
[2018-12-30] MEDS: METOPROLOL TARTRATE 25 MG TAB PO SCH (23:40)
[2018-12-31] MEDS: GABAPENTIN 100 MG CAP PO SCH ×4 (00:22→21:33)
[2018-12-31] MEDS: TOPIRAMATE 25 MG TAB PO SCH ×3 (00:22→21:32)
[2018-12-31] MEDS: PENTOXIFYLLINE 400 MG TABLET.ER PO SCH ×2 (00:22→21:32)
[2018-12-31] MEDS: ATORVASTATIN 10 MG TAB PO SCH ×2 (00:23→21:31)
[2018-12-31] MEDS: THEOPHYLLINE 24 HOUR 400 MG CAP.ER.24H PO SCH ×2 (00:23→21:32)
[2018-12-31] MEDS: APIXABAN 5 MG TAB PO SCH ×3 (00:23→21:31)
[2018-12-31] MEDS: METHOCARBAMOL 750 MG TAB PO SCH ×3 (00:30→21:31)
[2018-12-31] MEDS: oxyCODONE-APAP 10-325MG 1 EACH TAB PO SCH ×4 (00:30→19:21)
[2018-12-31] MEDS: SODIUM CHLORIDE 0.9% 1,000 ML IV SCH ×2 (00:56→06:05)
[2018-12-31] MEDS ORDERED: FUROSEMIDE 20 MG TAB PO SCH (06:00)
[2018-12-31] MEDS: IPRATROPIUM-ALBUTEROL 3 ML NEB INHALATION SCH ×4 (08:37→19:32)
[2018-12-31 08:55] LABS: Calcium 9.6 mg/dL (8.4-10.2); Magnesium 2.6 mg/dL (1.6-2.3)
[2018-12-31] MEDS ORDERED: POTASSIUM CHLORIDE ER 20 MEQ TAB.ER PO SCH (09:00)
[2018-12-31] MEDS ORDERED: LOSARTAN 50 MG TAB PO SCH (09:00)
--- NOTE | 2018-12-31 09:00 | P.CRDCN ---
History of Present Illness Consult date: 12/31/18 Chief complaint: Shortness of breath/chest pain History of present illness: This is a pleasant 78-year-old female patient with an extensive past medical history consistent off morbid obesity, chronic hypoxic respiratory failure secondary to COPD, chronic diastolic congestive heart failure, chronic persistent atrial fibrillation on oral anticoagulation, as well as history of stroke, was sent by her primary care physician directed to the hospital. The patient has noticed at home that her oxygen saturation was on the low side. She went to see her primary care physician who noticed that her blood pressure was low and because of that the patient was sent to the hospital. Clinically the patient denies having any symptoms of chest pain or chest discomfort at this point but she does have shortness of breath with exertion which seems to be chronic and likely related to her COPD as well as her obesity. No feeling of heart racing or fluttering. No dizziness or lightheadedness. No syncope. The patient clinically does not seem to be in any overt congestive heart failure. No bilateral lower extremities edema. She has been laying flat in bed. She stated that she did not gain any weight recently. The BNP was 1600. The EKG showed atrial fibrillation with controlled heart rate. The cardiac enzymes were checked and came in to be unremarkable. The chest x-ray did not show any acute abnormalities. She underwent an echocardiogram later in 2018 and that revealed normal LV function. Past Medical History Past Medical History: Atrial Fibrillation, COPD, CVA/TIA, Dementia, Diabetes Mellitus, Fibromyalgia, Hyperlipidemia, Hypertension, Osteoarthritis (OA), Rheumatoid Arthritis (RA) Additional Past Medical History / Comment(s): Pt recently admitted to [facility] on 06/09/18 with acute renal failure, L humerus fracture (fell out of wheelchair), hypoventilating syndrome, obesity. Other hx: Pt wears oxygen at 2L/NC during the day and bipap at night, L arm is casted and pt to be at 45-90 degree angle with L arm down at side, severe gait dysfunction, diabetes-diet controlled , arthritis in multiple joints bilaterally, tremors, pyelonephritis in 2014, UTIs, urinary incontinence. History of Any Multi-Drug Resistant Organisms: ESBL Date of last positivie culture/infection: 07/20/18 MDRO Source:: URINE Past Surgical History: Appendectomy, Bariatric Surgery, Bladder Surgery, Cholecystectomy, Joint Replacement, Orthopedic Surgery, Tubal Ligation Additional Past Surgical History / Comment(s): Bilateral carpal tunnel releases , bilateral thumb reattachments, gastric stapling, EGD. BL shoulder Past Anesthesia/Blood Transfusion Reactions: No Reported Reaction Past Psychological History: No Psychological Hx Reported Additional Psychological History / Comment(s): Pt currently resides at [facility]. She gets up into a wheelchair with 2 assists. She is right handed. She feeds herself. She wears O2 during the day and bipap at night. Smoking Status: Never smoker Past Alcohol Use History: None Reported Past Drug Use History: None Reported - Past Family History Son(s) Family Medical History: Cancer Additional Family Medical History / Comment(s): lung CA Father Family Medical History: Cancer Additional Family Medical History / Comment(s): leukemia Mother Family Medical History: Cancer Additional Family Medical History / Comment(s): lung ca Medications and Allergies Home Medications Medication Instructions Recorded Confirmed Type DULoxetine HCL [Cymbalta] 30 mg PO DAILY 04/28/15 12/30/18 History Donepezil [Aricept] 10 mg PO DAILY 04/28/15 12/30/18 History Pantoprazole Sodium 40 mg PO DAILY 04/28/15 12/30/18 History Topiramate 50 mg PO BID 10/03/15 12/30/18 History Methocarbamol 750 mg PO BID 03/13/17 12/30/18 History Umeclidinium [place] [Incruse 1 puff INHALATION RT-BID 03/13/17 12/30/18 History Ellipta] Ferrous Sulfate [Iron (65 MG 325 mg PO DAILY 06/07/18 12/30/18 History Elemental)] Magnesium Oxide [Mag-Ox] 400 mg PO DAILY 06/07/18 12/30/18 History Pentoxifylline 400 mg PO HS 06/07/18 12/30/18 History Apixaban [Eliquis] 5 mg PO BID 06/25/18 12/30/18 History Gabapentin [Neurontin] 100 mg PO TID 07/21/18 12/30/18 History Ipratropium-Albuterol Nebulize 3 ml INHALATION RT-QID 07/21/18 12/30/18 History [Duoneb 0.5 mg-3 mg/3 ml Soln] Metoprolol Tartrate [Lopressor] 25 mg PO TID 07/21/18 12/30/18 History Multivitamins, Thera [Multivitamin 1 tab PO DAILY 07/21/18 12/30/18 History (formulary)] Potassium Chloride ER [K-Dur 20] 20 meq PO DAILY 08/23/18 12/30/18 History Furosemide [Lasix] 60 mg PO BID@0600,1400 #0 08/26/18 12/30/18 Rx Losartan [Cozaar] 50 mg PO DAILY tab 08/26/18 12/30/18 Rx Allopurinol [Zyloprim] 100 mg PO DAILY 12/30/18 12/30/18 History Lovastatin [Mevacor] 20 mg PO HS 12/30/18 12/30/18 History Theophylline 24 Hour [Kenrick-24] 400 mg PO HS 12/30/18 12/30/18 History oxyCODONE-APAP 10-325MG [Percocet 1 tab PO QID 12/30/18 12/30/18 History 10-325 mg] Allergies Allergy/AdvReac Type Severity Reaction Status Date / Time latex Allergy Unknown Verified 12/30/18 16:57 nitrofurantoin Allergy Unknown Verified 12/30/18 16:57 [From Macrobid] nitrofurantoin Allergy Unknown Verified 12/30/18 16:57 macrocrystalline [From Macrobid] Sulfa (Sulfonamide Allergy Unknown Verified 12/30/18 16:57 Antibiotics) Physical Exam Vitals: Vital Signs Temp Pulse Pulse Resp BP BP Pulse Ox 12/31/18 08:50 64 12/31/18 08:37 72 94 L 12/31/18 08:00 99.0 F 84 18 98/60 96 12/31/18 05:35 99/64 12/31/18 04:00 98.6 F 65 15 82/40 98 12/31/18 03:59 79 16 12/31/18 00:00 79 16 104/65 99 12/30/18 23:00 79 16 12/30/18 21:37 98.6 F 67 15 96/57 100 12/30/18 21:08 68 16 103/68 97 12/30/18 18:45 69 16 101/49 100 12/30/18 18:35 66 12/30/18 18:22 63 12/30/18 16:22 98.6 F 69 20 99/43 100 Intake and Output 12/30/18 12/31/18 12/31/18 22:59 06:59 14:59 Other: Voiding Method Diaper Weight 122.924 kg 128 kg - Constitutional General appearance: no acute distress - Respiratory Respiratory: bilateral: diminished - Cardiovascular Rhythm: irregularly irregular Heart sounds: normal: S1, S2 Results 12/30/18 17:18 12/31/18 06:05 Cardiac Enzymes 12/30/18 12/30/18 12/30/18 Range/Units 17:18 17:18 22:46 AST 24 (14-36) U/L Troponin I <0.012 <0.012 (0.000-0.034) ng/mL 12/31/18 Range/Units 06:05 AST (14-36) U/L Troponin I 0.022 (0.000-0.034) ng/mL Coagulation 12/30/18 Range/Units 17:18 PT 10.4 (9.0-12.0) sec APTT 24.1 (22.0-30.0) sec Lipids 12/30/18 Range/Units 17:18 Triglycerides 220 H (<150) mg/dL Cholesterol 122 (<200) mg/dL HDL Cholesterol 30 L (40-60) mg/dL CBC 12/30/18 Range/Units 17:18 WBC 9.4 (3.8-10.6) k/uL RBC 3.14 L (3.80-5.40) m/uL Hgb 9.5 L (11.4-16.0) gm/dL Hct 31.2 L (34.0-46.0) % Plt Count 216 (150-450) k/uL Comprehensive Metabolic Panel 12/30/18 12/31/18 Range/Units 17:18 06:05 Sodium 141 143 (137-145) mmol/L Potassium 5.8 H 5.0 (3.5-5.1) mmol/L Chloride 100 106 (98-107) mmol/L Carbon Dioxide 35 H 30 (22-30) mmol/L BUN 60 H 47 H (7-17) mg/dL Creatinine 1.60 H 1.24 H (0.52-1.04) mg/dL Glucose 105 H 114 H (74-99) mg/dL Calcium 9.6 9.6 (8.4-10.2) mg/dL AST 24 (14-36) U/L ALT 23 (9-52) U/L Alkaline Phosphatase 75 (38-126) U/L Total Protein 6.4 (6.3-8.2) g/dL Albumin 3.6 (3.5-5.0) g/dL Current Medications Generic Name Dose Route Start Last Admin Trade Name Freq PRN Reason Stop Dose Admin Albuterol/Ipratropium 3 ml 12/30/18 20:00 12/31/18 08:37 Duoneb 0.5 Mg-3 Mg/3 Ml Soln INHALATION 3 ml RT-QID WILFREDO Administration Allopurinol 100 mg 12/31/18 09:00 Zyloprim PO DAILY [facility] Apixaban 5 mg 12/30/18 21:00 12/31/18 00:23 Eliquis PO 5 mg BID WILFREDO Administration Aspirin 325 mg 12/31/18 09:00 Aspirin PO DAILY [facility] Atorvastatin Calcium 10 mg 12/30/18 21:00 12/31/18 00:23 Lipitor PO 10 mg HS WILFREDO Administration Donepezil HCl 10 mg 12/31/18 09:00 Aricept PO DAILY [facility] Duloxetine HCl 30 mg 12/31/18 09:00 Cymbalta PO DAILY [facility] Ferrous Sulfate 325 mg 12/31/18 12:00 Feosol PO 1200 [facility] Gabapentin 100 mg 12/30/18 22:00 12/31/18 00:22 Neurontin PO 100 mg TID [facility] Administration Sodium Chloride 1,000 mls @ 100 mls/hr 12/30/18 19:00 12/31/18 06:05 Saline 0.9% IV 100 mls/hr .Q10H WILFREDO Administration Magnesium Oxide 400 mg 12/31/18 12:00 Mag-Ox PO 1200 [facility] Methocarbamol 750 mg 12/30/18 21:00 12/31/18 00:30 Robaxin PO Not Given BID [facility] Metoprolol Tartrate 25 mg 12/30/18 22:00 12/30/18 23:40 Lopressor PO Not Given TID [facility] Multivitamins 1 each 12/31/18 12:00 Theragran PO 1200 [facility] Nitroglycerin 0.4 mg 12/30/18 19:53 Nitrostat SUBLINGUAL Q5M PRN Chest Pain Oxycodone/Acetaminophen 1 each 12/30/18 22:00 02/28/19 00:30 Percocet 10-325 PO Not Given QID WILFREDO Pantoprazole Sodium 40 mg 12/31/18 07:30 Protonix PO AC-BRKFST WILFREDO Pentoxifylline 400 mg 12/30/18 21:00 12/31/18 00:22 Trental PO 400 mg HS WILFREDO Administration Theophylline 400 mg 12/30/18 21:00 12/31/18 00:23 Kenrick-24 PO 400 mg HS WILFREDO Administration Topiramate 50 mg 12/30/18 21:00 12/31/18 00:22 Topamax PO 50 mg BID WILFREDO Administration Intake and Output 12/30/18 12/31/18 12/31/18 22:59 06:59 14:59 Other: Voiding Method Diaper Weight 122.924 kg 128 kg 12/30/18 17:18 12/31/18 06:05 Assessment and Plan Assessment: Assessment #1 chronic hypoxic respiratory failure secondary to COPD #2 chronic diastolic congestive heart failure #3 chronic atrial fibrillation was controlled heart rate #4 morbid obesity #5 multiple comorbid conditions Plan #1 the patient was ruled out for acute coronary event #2 the patient is not in any chest pain or chest discomfort at this point #3 she does not seems to be in any overt congestive heart failure From the cardiac standpoint, she seems to be stable. I would not recommend any further cardiac workup at this point. Possible discharge home in the next 24 hours.
--- NOTE | 2018-12-31 09:31 | P.NPCON ---
History of Present Illness - Reason for Consult acute renal failure - History of Present Illness Reason for consultation: Acute kidney injury on chronic kidney disease History of present illness: Patient is a 78-year-old female seen in consultation for acute kidney injury on chronic kidney disease. Patient has chronic kidney disease stage II with baseline creatinine near 1-1.1 secondary to nephrosclerosis. Patient presented to the hospital after she was seen at her PCPs office. Patient states she was short of breath and her blood pressure was in the systolic 80s over there. In the ER she received 2 L of normal saline bolus and then 0.9 at 100 mL an hour overnight. Her blood pressures now the systolic 90s. She denies any active chest pain or shortness of breath. She was taking Lasix at home which is currently held. She was also on Cozaar which is held. She denies use of NSAIDs. No vomiting or diarrhea. Creatinine was 1.6 on admission and is 1.24 today. Potassium level is 5.0 this morning. Vital signs are stable. General: The patient appeared well nourished and normally developed. HEENT: Head exam is unremarkable. Neck is without jugular venous distension. LUNGS: Breath sounds decreased. HEART: Rate and Rhythm are regular. First and second heart sounds normal. No murmurs, rubs or gallops. ABDOMEN: Abdominal exam reveals normal bowel sounds. Non-tender and non- distended. No evidence of peritonitis. EXTREMITITES: No edema. Past Medical History Past Medical History: Atrial Fibrillation, COPD, CVA/TIA, Dementia, Diabetes Mellitus, Fibromyalgia, Hyperlipidemia, Hypertension, Osteoarthritis (OA), Rheumatoid Arthritis (RA) Additional Past Medical History / Comment(s): Pt recently admitted to [facility] on 06/09/18 with acute renal failure, L humerus fracture (fell out of wheelchair), hypoventilating syndrome, obesity. Other hx: Pt wears oxygen at 2L/NC during the day and bipap at night, L arm is casted and pt to be at 45-90 degree angle with L arm down at side, severe gait dysfunction, diabetes-diet controlled , arthritis in multiple joints bilaterally, tremors, pyelonephritis in 2015, UTIs, urinary incontinence. History of Any Multi-Drug Resistant Organisms: ESBL Date of last positivie culture/infection: 07/20/18 MDRO Source:: URINE Past Surgical History: Appendectomy, Bariatric Surgery, Bladder Surgery, Cholecystectomy, Joint Replacement, Orthopedic Surgery, Tubal Ligation Additional Past Surgical History / Comment(s): Bilateral carpal tunnel releases , bilateral thumb reattachments, gastric stapling, EGD. BL shoulder Past Anesthesia/Blood Transfusion Reactions: No Reported Reaction Past Psychological History: No Psychological Hx Reported Additional Psychological History / Comment(s): Pt currently resides at [facility]. She gets up into a wheelchair with 2 assists. She is right handed. She feeds herself. She wears O2 during the day and bipap at night. Smoking Status: Never smoker Past Alcohol Use History: None Reported Past Drug Use History: None Reported - Past Family History Son(s) Family Medical History: Cancer Additional Family Medical History / Comment(s): lung CA Father Family Medical History: Cancer Additional Family Medical History / Comment(s): leukemia Mother Family Medical History: Cancer Additional Family Medical History / Comment(s): lung ca Medications and Allergies Home Medications Medication Instructions Recorded Confirmed Type DULoxetine HCL [Cymbalta] 30 mg PO DAILY 04/28/15 12/30/18 History Donepezil [Aricept] 10 mg PO DAILY 04/28/15 12/30/18 History Pantoprazole Sodium 40 mg PO DAILY 04/28/15 12/30/18 History Topiramate 50 mg PO BID 10/03/15 12/30/18 History Methocarbamol 750 mg PO BID 03/13/17 12/30/18 History Umeclidinium [place] [Incruse 1 puff INHALATION RT-BID 03/13/17 12/30/18 History Ellipta] Ferrous Sulfate [Iron (65 MG 325 mg PO DAILY 06/07/18 12/30/18 History Elemental)] Magnesium Oxide [Mag-Ox] 400 mg PO DAILY 06/07/18 12/30/18 History Pentoxifylline 400 mg PO HS 06/07/18 12/30/18 History Apixaban [Eliquis] 5 mg PO BID 06/25/18 12/30/18 History Gabapentin [Neurontin] 100 mg PO TID 07/21/18 12/30/18 History Ipratropium-Albuterol Nebulize 3 ml INHALATION RT-QID 07/21/18 12/30/18 History [Duoneb 0.5 mg-3 mg/3 ml Soln] Metoprolol Tartrate [Lopressor] 25 mg PO TID 07/21/18 12/30/18 History Multivitamins, Thera [Multivitamin 1 tab PO DAILY 07/21/18 12/30/18 History (formulary)] Potassium Chloride ER [K-Dur 20] 20 meq PO DAILY 08/23/18 12/30/18 History Furosemide [Lasix] 60 mg PO BID@0600,1400 #0 08/26/18 12/30/18 Rx Losartan [Cozaar] 50 mg PO DAILY tab 08/26/18 12/30/18 Rx Allopurinol [Zyloprim] 100 mg PO DAILY 12/30/18 12/30/18 History Lovastatin [Mevacor] 20 mg PO HS 12/30/18 12/30/18 History Theophylline 24 Hour [Kenrick-24] 400 mg PO HS 12/30/18 12/30/18 History oxyCODONE-APAP 10-325MG [Percocet 1 tab PO QID 12/30/18 12/30/18 History 10-325 mg] Allergies Allergy/AdvReac Type Severity Reaction Status Date / Time latex Allergy Unknown Verified 12/30/18 16:57 nitrofurantoin Allergy Unknown Verified 12/30/18 16:57 [From Macrobid] nitrofurantoin Allergy Unknown Verified 12/30/18 16:57 macrocrystalline [From Macrobid] Sulfa (Sulfonamide Allergy Unknown Verified 12/30/18 16:57 Antibiotics) Physical Exam Vitals: Vital Signs Temp Pulse Pulse Resp BP BP Pulse Ox 12/31/18 08:50 64 12/31/18 08:37 72 94 L 12/31/18 08:00 99.0 F 84 18 98/60 96 12/31/18 05:35 99/64 12/31/18 04:00 98.6 F 65 15 82/40 98 12/31/18 03:59 79 16 12/31/18 00:00 79 16 104/65 99 12/30/18 23:00 79 16 12/30/18 21:37 98.6 F 67 15 96/57 100 12/30/18 21:08 68 16 103/68 97 12/30/18 18:45 69 16 101/49 100 12/30/18 18:35 66 12/30/18 18:22 63 12/30/18 16:22 98.6 F 69 20 99/43 100 Intake and Output 12/30/18 12/31/18 12/31/18 22:59 06:59 14:59 Other: Voiding Method Diaper Weight 122.924 kg 128 kg Results - Lab Results Most recent lab results Calcium 9.6 mg/dL (8.4-10.2) 12/31/18 06:05 Magnesium 2.6 mg/dL (1.6-2.3) H 12/31/18 06:05 12/30/18 17:18 12/31/18 06:05 Assessment and Plan Plan: Assessment: 1. Acute kidney injury mostly prerenal secondary to hypotension and diuresis. Creatinine was 1.6 on admission and is 1.24 today. 2. Chronic kidney disease stage II secondary to nephrosclerosis with baseline creatinine in the range of 1-1.1. 3. Diabetes mellitus. 4. Hyperkalemia secondary to acute kidney injury and Cozaar. 5. History of diastolic CHF. 6. Chronic atrial fibrillation. Heart rate controlled. She is on anticoagulation and beta mandie. Plan: Hep-Lock IV fluids. Hold Cozaar. Hold diuretics. Encouraged oral intake. Check urinalysis. Potential discharge in the next 24 hours. Thank you for the consultation. I will continue to follow the patient with you during her hospital stay.
[2018-12-31] MEDS: MULTIVITAMINS, THERA 1 EACH TAB PO SCH (10:02)
[2018-12-31] MEDS: FERROUS SULFATE 325 MG TAB PO SCH (10:02)
[2018-12-31] MEDS: MAGNESIUM OXIDE 400 MG TAB PO SCH (10:02)
[2018-12-31] MEDS: ALLOPURINOL 100 MG TAB PO SCH (10:03)
[2018-12-31] MEDS: ASPIRIN 325 MG TAB PO SCH (10:03)
[2018-12-31] MEDS: PANTOPRAZOLE 40 MG TABLET PO SCH (10:03)
[2018-12-31] MEDS: DONEPEZIL 10 MG TAB PO SCH (10:04)
[2018-12-31] MEDS: DULoxetine HCL 30 MG CAPSULE.DR PO SCH (10:04)
[2018-12-31] MEDS: METOPROLOL TARTRATE 25 MG TAB PO SCH ×3 (10:13→21:21)
[2018-12-31 15:13] LABS: Appearance,Urine Cloudy (Clear); Bacteria,Urine Many /hpf; Bilirubin,Urine Negative (Negative); Blood,Urine Negative (Negative); Color,Urine Yellow; Glucose,Urine (UA) Negative (Negative); Ketones,Urine Negative (Negative); Leukocyte Esterase,Urine Moderate (Negative); Nitrite,Urine Negative (Negative); PH, Urine 7.5 (5.0-8.0); Protein,Urine Negative (Negative); RBC,Urine 2 /hpf (0-5); Specific Gravity,Urine 1.009 (1.001-1.035); Squamous Epithelial Cell,Urine 18 /hpf (0-4); Urobilinogen,Urine <2.0 mg/dL (<2.0); WBC,Urine 17 /hpf (0-5)
--- NOTE | 2018-12-31 21:28 | HP ---
HISTORY AND PHYSICAL DATE OF ADMISSION: December 30, 2018. DATE OF SERVICE: December 31, 2018 PRESENTING COMPLAINT: Weak and tired. HISTORY OF PRESENTING COMPLAINT: This is a pleasant 78-year-old patient whose chronic stable medical conditions include congestive heart failure from diastolic dysfunction. Hypertensive heart disease. Morbid obesity, COPD, obesity hypoventilation syndrome, atrial fibrillation, hypertension, hyperlipidemia, cognitive impairment, osteoarthritis. The patient has been feeling weak and tired. The patient was at Dr. Chavez's office seeing the nurse practitioner, Candi Deluca. The patient was noted to be hypotensive, blood pressure could barely be recorded. Hence, the patient was sent in. Patient was found to have been in acute renal failure. Creatinine was up to 1.6 and baseline being 0.81. The patient for 2 days had increased diarrhea from laxative and the MiraLAX was discontinued. Most of the history is obtained by the daughter at the bedside. The patient is given IV fluids to which patient feels somewhat better. REVIEW OF SYSTEMS: CONSTITUTIONAL: Tired. HEENT none. RESPIRATORY: Baseline short of breath. CARDIOVASCULAR none. GASTROINTESTINAL as above. Currently no diarrhea. GENITOURINARY: None. MUSCULOSKELETAL: Aches and pains in the joints. DERMATOLOGICAL: None. HEMATOLOGICAL: None. LYMPHATICS none. PSYCHIATRY none. NEUROLOGICAL: The patient is forgetful. PAST MEDICAL HISTORY: Atrial fibrillation COPD, cognitive impairment, diabetes, fibromyalgia, hyperlipidemia, hypertension, osteoarthritis, rheumatoid arthritis, left humerus fracture, obesity hypoventilation syndrome, BiPAP setting of 12 and 6. Home oxygen, gait dysfunction, severe arthritis, urinary incontinence. PAST SURGICAL HISTORY: Appendectomy, bariatric surgery, bladder surgery, cholecystectomy, joint replacement, orthopedic surgery, tubal ligation, bilateral carpal tunnel release bilateral thumb reattachment, gastric stapling, EGD. SOCIAL HISTORY: The patient is at home with daughter. Does use a walker. No smoking. No alcohol. FAMILY HISTORY: Of leukemia. HOME MEDICATIONS: 1. Percocet 10 1 tablet p.o. q.i.d. 2. Incruse Ellipta 1 puff b.i.d. 3. Topamax 50 mg b.i.d. 4. CO 24 400 mg q.h.s. 5. Potassium 20 mEq a day. 6. 5 mg q.h.s. 7. Protonix 40 mg p.o. daily. 8. Multivitamin one tab p.o. daily. 9. Lopressor 25 mg t.i.d. 10.Methocarbamol 750 mg b.i.d. 11.Magnesium oxide 400 mg p.o. daily. 12.Mevacor 20 mg q.h.s. 13.Cozaar 50 mg p.o. daily. 14.DuoNeb q.i.d. 15.Neurontin 100 mg t.i.d. 16.Lasix 60 mg b.i.d. 17.Iron 325 p.o. daily. 18.Aricept 10 mg p.o. daily. 19.Cymbalta 30 mg p.o. daily. 20.Eliquis 5 mg p.o. b.i.d. 21.Allopurinol 100 mg p.o. daily. ALLERGY: TO LATEX, NITROFURANTOIN AND SULFUR. PHYSICAL EXAMINATION: VITAL SIGNS: Vital signs on presentation: Temperature 98.6, pulse 59, respiratory 20, blood pressure 99/43, pulse ox 100 percent on 2 L. GENERAL APPEARANCE: Well built, BMI 51. Sitting at the edge of the bed. Tired- appearing. EYES: Pupils equal. Conjunctivae normal. HEENT: External appearance of nose and ears normal. Oral cavity a bit dry. NECK: JVD unable to assess. Mass not palpable. RESPIRATORY: Effort normal. LUNGS: Diminished breath sounds. CARDIOVASCULAR: Heart sounds muffled. No edema. ABDOMEN: Distended, soft. Liver and spleen not palpable. LYMPHATICS: No lymph nodes palpable in the neck and axilla. PSYCHIATRY: Patient is able to answer simple questions. NEUROLOGICAL: Pupils equal. Cranial nerves grossly intact. Power and sensation grossly intact. INVESTIGATIONS: White count 9.4, hemoglobin 9.5, platelets 216, potassium 5.8, BUN 60, creatinine 1.16. The patient's BUN and creatinine was normal back in September of 2018. UA showed positive for leukocyte esterase and WBC, also squamous epithelial cells are present. EKG tracing personally reviewed by me shows atrial fibrillation rate controlled at 62. ASSESSMENT: 1. Acute renal failure likely prerenal precipitated by recent diarrhea. 2. Chronic congestive heart failure from diastolic dysfunction. 3. Morbid obesity, BMI more than 50. 4. Chronic obstructive pulmonary disease in an ex-smoker. 5. Obesity hypoventilation syndrome. Patient on BiPAP. 6. Persistent atrial fibrillation chronically on Eliquis. 7. Essential hypertension. 8. Hyperlipidemia. 9. Mild cognitive impairment from Alzheimer's dementia late onset type. 10.Primary osteoarthritis multiple joints bilateral. 11.Severe gait dysfunction multifactorial. Uses a walker. PLAN: Patient's home medications are resumed patient is put on IV fluids. The patient's Lasix and Cozaar has been held. Electrolytes will be closely followed. Care was discussed with the daughter at the bedside. Questions were answered. Copy to Dr. Chavez. [email or web address] / IJN: [id number] /
[2019-01-01] MEDS: oxyCODONE-APAP 10-325MG 1 EACH TAB PO SCH ×3 (00:33→11:58)
[2019-01-01 03:58] VITALS: RESP 18
[2019-01-01] MEDS: SODIUM CHLORIDE 0.9% 1,000 ML IV SCH ×3 (07:25→11:15)
--- NOTE | 2019-01-01 08:08 | P.PN ---
Subjective Patient is seen in follow-up for acute kidney injury. Creatinine was 1.6 on admission and 1.24 as of yesterday. Diuretics are held. Oral intake is good. Admits to good urine output. Vital signs are stable. General: The patient appeared well nourished and normally developed. HEENT: Head exam is unremarkable. Neck is without jugular venous distension. LUNGS: Lungs are clear to auscultation and percussion. Breath sounds decreased. HEART: Rate and Rhythm are regular. First and second heart sounds normal. No murmurs, rubs or gallops. ABDOMEN: Abdominal exam reveals normal bowel sounds. Non-tender and non- distended. No evidence of peritonitis. EXTREMITITES: No clubbing, cyanosis, or edema. Objective - Vital Signs Vital signs: Vital Signs Temp 97.4 F L 01/01/19 03:55 Pulse 79 01/01/19 03:56 Resp 18 01/01/19 03:56 BP 86/52 01/01/19 03:55 Pulse Ox 90 L 01/01/19 03:55 Intake & Output 12/31/18 01/01/19 01/01/19 18:59 06:59 18:59 Intake Total 1062 Balance 1062 Intake: Oral 462 Other 600 Other: Voiding Method Diaper Diaper # Voids 1 1 # Bowel Movements 1 - Labs CBC & Chem 7: 12/30/18 17:18 12/31/18 06:05 Labs: Abnormal Lab Results - Last 24 Hours (Table) 12/31/18 12/31/18 Range/Units 06:05 15:00 BUN 47 H (7-17) mg/dL Creatinine 1.24 H (0.52-1.04) mg/dL Glucose 114 H (74-99) mg/dL Magnesium 2.6 H (1.6-2.3) mg/dL Urine Appearance Cloudy H (Clear) Ur Leukocyte Esterase Moderate H (Negative) Urine WBC 17 H (0-5) /hpf Ur Squamous Epith Cells 18 H (0-4) /hpf Urine Bacteria Many H (None) /hpf Assessment and Plan Plan: Assessment: 1. Acute kidney injury mostly prerenal secondary to hypotension and diuresis. Creatinine was 1.6 on admission and down to 1.24 as of yesterday. No protein on UA. 2. Chronic kidney disease stage II secondary to nephrosclerosis with baseline creatinine in the range of 1-1.1. 3. Diabetes mellitus. 4. Hyperkalemia secondary to acute kidney injury and Cozaar. Better. 5. History of diastolic CHF. 6. Chronic atrial fibrillation. Heart rate controlled. She is on anticoagulation and beta mandie. Plan: Remains off IVFs. Hold Cozaar. Hold diuretics. Encouraged oral intake. Check cortisol level.
[2019-01-01] MEDS: PANTOPRAZOLE 40 MG TABLET PO SCH (08:23)
[2019-01-01] MEDS: GABAPENTIN 100 MG CAP PO SCH (08:24)
[2019-01-01] MEDS: METHOCARBAMOL 750 MG TAB PO SCH (08:24)
[2019-01-01] MEDS: METOPROLOL TARTRATE 25 MG TAB PO SCH (08:24)
[2019-01-01] MEDS: APIXABAN 5 MG TAB PO SCH (08:24)
[2019-01-01] MEDS: DULoxetine HCL 30 MG CAPSULE.DR PO SCH (08:24)
[2019-01-01] MEDS: ALLOPURINOL 100 MG TAB PO SCH (08:24)
[2019-01-01] MEDS: ASPIRIN 325 MG TAB PO SCH (08:24)
[2019-01-01] MEDS: TOPIRAMATE 25 MG TAB PO SCH (08:24)
[2019-01-01] MEDS: DONEPEZIL 10 MG TAB PO SCH (08:24)
[2019-01-01] MEDS: IPRATROPIUM-ALBUTEROL 3 ML NEB INHALATION SCH ×3 (08:29→15:49)
[2019-01-01 10:18] LABS: Calcium 9.2 mg/dL (8.4-10.2); Magnesium 2.2 mg/dL (1.6-2.3); Potassium 4.2 mmol/L (3.5-5.1)
[2019-01-01] MEDS: MAGNESIUM OXIDE 400 MG TAB PO SCH (11:58)
[2019-01-01] MEDS: FERROUS SULFATE 325 MG TAB PO SCH (11:58)
[2019-01-01] MEDS: MULTIVITAMINS, THERA 1 EACH TAB PO SCH (11:58)
[2019-01-01 12:19] VITALS: BP 94/87; TEMP 99.1
[2019-01-01 12:56] VITALS: PULSE 88
--- NOTE | 2019-01-03 08:40 | DS ---
DISCHARGE SUMMARY DATE OF ADMISSION: December 30, 2018. DATE OF DISCHARGE: January 01, 2019. FINAL DIAGNOSES: 1. Acute renal failure likely prerenal precipitated by a recent diarrhea. 2. Chronic congestive heart failure from diastolic dysfunction. EF around 50%. 3. Morbid obesity BMI more than 50. 4. Chronic obstructive pulmonary disease in an ex-smoker. 5. Obesity hypoventilation syndrome. Patient on BiPAP. 6. Persistent atrial fibrillation chronically on Eliquis. 7. Hypotension on presentation from volume loss. 8. History of essential hypertension. 9. Hyperlipidemia. 10.Mild cognitive impairment from Alzheimer's dementia late onset type. 11.Primary osteoarthritis multiple joints bilateral. 12.Severe gait dysfunction multifactorial. Uses a walker. 13.Hyperkalemia from acute renal failure. HOSPITAL COURSE: This patient presented weak and tired. Blood pressure could not be recorded at the doctor's office. The patient is found to be in acute renal failure. Admission creatinine 1.6 did come down to 1.02. Doing much better, tolerating a diet. Care was discussed with the patient's family members. CONSULTATIONS: from Nephrology, Dr. Schafer from Cardiology. DISCHARGE MEDICATIONS: 1. Cymbalta 30 mg a day. 2. Aricept 10 mg p.o. daily. 3. Protonix 40 mg a day. 4. Topamax 50 mg b.i.d. 5. Methocarbamol 750 mg b.i.d. 6. Incruse Ellipta 1 puff b.i.d. 7. Iron 325 p.o. daily. 8. Magnesium oxide 400 mg p.o. daily. 9. Pentoxifylline 4 mg at bedtime. 10.Eliquis 5 mg p.o. b.i.d. 11.Neurontin 100 mg p.o. t.i.d. 12.DuoNeb q.i.d. 13.Lopressor 25 mg t.i.d. 14.Multivitamin 1 tablet p.o. daily. 15.Potassium 20 mEq p.o. daily. 16.Allopurinol 100 mg p.o. daily. 17.Mevacor 20 mg q.h.s. 18.Theophylline 2400 mg q.h.s. 19.Percocet 10 1 tablet p.o. q.i.d. 20.Lasix 40 mg p.o. daily. FOLLOWUP: Follow up with Dr. Chavez in 3 days. Follow up with Dr. Kendra Carroll on January 15, 2019. Copy to Dr. Chavez. [email or web address] / CELESTEN: [id number] /
== END 2019-01-01 15:46 | disposition home or self-care (01) ==
LOC: EC 16:06 → 1SOBS 19:52
PROVIDERS: ADMIT Hospitalist; ATTEND Hospitalist
DX: N17.9 Acute kidney failure, unspecified (principal); I13.0 Hypertensive heart and chronic kidney disease with heart failure and stage 1 through stage 4 chronic kidney disease, or unspecified chronic kidney disease; N18.2 Chronic kidney disease, stage 2 (mild); I50.32 Chronic diastolic (congestive) heart failure; E87.5 Hyperkalemia; T46.5X5A Adverse effect of other antihypertensive drugs, initial encounter; T50.1X5A Adverse effect of loop [high-ceiling] diuretics, initial encounter; I95.9 Hypotension, unspecified; E86.9 Volume depletion, unspecified; I48.2 Chronic atrial fibrillation; R07.89 Other chest pain; E66.2 Morbid (severe) obesity with alveolar hypoventilation; J96.11 Chronic respiratory failure with hypoxia; Z68.43 Body mass index [BMI] 50.0-59.9, adult; E11.22 Type 2 diabetes mellitus with diabetic chronic kidney disease; J44.9 Chronic obstructive pulmonary disease, unspecified; I48.1 Persistent atrial fibrillation; G30.1 Alzheimer's disease with late onset; F02.80 Dementia in other diseases classified elsewhere, unspecified severity, without behavioral disturbance, psychotic disturbance, mood disturbance, and anxiety; R25.1 Tremor, unspecified; G89.29 Other chronic pain; M79.7 Fibromyalgia; M15.9 Polyosteoarthritis, unspecified; M06.9 Rheumatoid arthritis, unspecified; E78.5 Hyperlipidemia, unspecified; Z16.12 Extended spectrum beta lactamase (ESBL) resistance; R26.9 Unspecified abnormalities of gait and mobility; R32 Unspecified urinary incontinence; Z99.89 Dependence on other enabling machines and devices; Z79.899 Other long term (current) drug therapy; Z79.01 Long term (current) use of anticoagulants; Z79.891 Long term (current) use of opiate analgesic; Z91.040 Latex allergy status; Z88.1 Allergy status to other antibiotic agents; Z88.2 Allergy status to sulfonamides; Z90.49 Acquired absence of other specified parts of digestive tract; Z86.73 Personal history of transient ischemic attack (TIA), and cerebral infarction without residual deficits; Z87.81 Personal history of (healed) traumatic fracture; Z87.440 Personal history of urinary (tract) infections; Z98.51 Tubal ligation status; Z98.84 Bariatric surgery status; Z80.6 Family history of leukemia; Z80.1 Family history of malignant neoplasm of trachea, bronchus and lung
CPT/HCPCS: 96360; 96361 ×2; 99285; 36415; 94640 ×4; 94760; 93005; 85379; 83880; 80061; 80053; 80048 ×2; 82533; 82150; 83690; 83735 ×3; 84484 ×2; 85025; 85610; 85730; 81001; 71046; G0378 ×3

== ENCOUNTER 2019-03-04 22:37 | Emergency (ER) | payer MEDICARE, OTHER ==
[2019-03-04 22:55] VITALS: TEMP 98.3
--- NOTE | 2019-03-04 23:23 | ED ---
General Adult HPI - General Source: family Mode of arrival: wheelchair Limitations: no limitations <LaylaClaudiae D - Last Filed: 03/05/19 00:59> <Calli Mcmahon P - Last Filed: 03/05/19 03:04> - General Chief complaint: Weakness Stated complaint: Confusion,Lethargy Time Seen by Provider: 03/04/19 23:01 - History of Present Illness Initial comments: Dictation was produced using Vigo dictation software. please excuse any grammatical, word or spelling errors. Chief Complaint: Female past medical history of viral myalgia, A. fib, dyslipidemia, hypertension presents with lethargy, excessive sleepiness. History of Present Illness: 78-year-old female she presents today for episodes of lethargy. Patient was in her usual state of health until about 2-3 hours ago when she was noted to be slow to speak, and slow to move. Patient is accompanied by 2 daughters. They're concerned that patient has been getting worse. Patient has recently been treated for urinary tract infection. She is on day 5 of doxycycline to treat UTI. Family reports the patient had history of UTI with mental status changes. Patient has a history of fibromyalgia. They report that she has similar symptoms like this with viral myalgia however typically she wakes up and wants. Patient has had poor appetite recently. She reports that she feels fine she denies any symptoms currently. The ROS documented in this emergency department record has been reviewed and confirmed by me. Those systems with pertinent positive or negative responses have been documented in the HPI. All other systems are other negative and/or noncontributory. PHYSICAL EXAM: General Impression: Alert and oriented x3, not in acute distress HEENT: Normocephalic atraumatic, extra-ocular movements intact, pupils equal and reactive to light bilaterally, mucous membranes moist. Cardiovascular: Heart regular rate and rhythm, S1&S2 audible, no murmurs, rubs or gallops Chest: Lungs clear to auscultation bilaterally, no rhonchi, no wheeze, no rales Abdomen: Bowel sounds present, abdomen soft, non-tender, non-distended, no organomegaly Musculoskeletal: Pulses present and equal in all extremities, no peripheral edema Motor: no focal deficits noted Neurological: CN II-XII grossly intact, no focal motor or sensory deficits noted Skin: Intact with no visualized rashes Psych: Normal affect and mood ED course: 78-year-old female with multiple comorbidities presents with chief complaint of lethargy. Patient reports that she feels fine. Fell members were at bedside reports that patient appears lethargic more than usual. She is currently being treated for UTI and is on day 5 of antibiotics. Signs upon arrival are within acceptable limits.Lab evaluation obtained per it CBC, venous blood gas, metabolic panels obtained. All findings are within acceptable limits. Family was concerned about CO2 narcosis there does not appear to be any elevated CO2. On blood gases. Patient hemoglobin is stable and baseline for her. Patient has potassium 5.3 but there is slight hemolysis. Patient likely has normal potassium. Chest x-ray is nonacute over there is mild cardiomegaly and vascular congestion is suspected. Patient not showing any signs of respiratory distress furthermore she is not tachypneic or hypoxic. Pending CT of the brain and urine studies. Patient care sent out to Dr. Mcmahon for follow-up of these pending studies. EKG interpretation: Ventricular rate 84, H fibrillation, ventricular rate 84, QRS 90, QTC 427. No PA prolongation, no QTC prolongation, no ST or T-wave changes noted. EKG compared to figure 20 05/22/2019 showing no changes. Overall, this EKG is unremarkable (Pierre Rich) - Related Data Home Medications Medication Instructions Recorded Confirmed DULoxetine HCL [Cymbalta] 30 mg PO DAILY 04/28/15 03/04/19 Donepezil [Aricept] 10 mg PO DAILY 04/28/15 03/04/19 Pantoprazole Sodium 40 mg PO DAILY 04/28/15 03/04/19 Topiramate 50 mg PO BID 10/03/15 03/04/19 Methocarbamol 750 mg PO BID 03/13/17 03/04/19 Umeclidinium [place] [Incruse 1 puff INHALATION RT-DAILY 03/13/17 03/04/19 Ellipta] Ferrous Sulfate [Iron (65 MG 325 mg PO DAILY 06/07/18 03/04/19 Elemental)] Magnesium Oxide [Mag-Ox] 400 mg PO DAILY 06/07/18 03/04/19 Pentoxifylline 400 mg PO HS 06/07/18 03/04/19 Apixaban [Eliquis] 5 mg PO BID 06/25/18 03/04/19 Ipratropium-Albuterol Nebulize 3 ml INHALATION RT-QID 07/21/18 03/04/19 [Duoneb 0.5 mg-3 mg/3 ml Soln] Metoprolol Tartrate [Lopressor] 25 mg PO TID 07/21/18 03/04/19 Multivitamins, Thera [Multivitamin 1 tab PO DAILY 07/21/18 03/04/19 (formulary)] Allopurinol [Zyloprim] 100 mg PO DAILY 12/30/18 03/04/19 Lovastatin [Mevacor] 20 mg PO HS 12/30/18 03/04/19 Theophylline 24 Hour [Kenrick-24] 400 mg PO HS 12/30/18 03/04/19 oxyCODONE-APAP 10-325MG [Percocet 1 tab PO QID 12/30/18 03/04/19 10-325 mg] Cetirizine HCl [Zyrtec] 10 mg PO DAILY 03/04/19 03/04/19 Doxycycline Hyclate [Vibramycin] 100 mg PO BID 03/04/19 03/04/19 Furosemide [Lasix] 60 mg PO DAILY 03/04/19 03/04/19 Gabapentin [Neurontin] 300 mg PO TID 03/04/19 03/04/19 Guaifenesin/Dextromethorphan 1 tab PO BID 03/04/19 03/04/19 [Mucinex Dm ER 1,200-60 mg Tab] Ondansetron HCl [Zofran] 4 mg PO BID 03/04/19 03/04/19 Allergies Allergy/AdvReac Type Severity Reaction Status Date / Time latex Allergy Unknown Verified 03/04/19 23:24 nitrofurantoin Allergy Unknown Verified 03/04/19 23:24 [From Macrobid] nitrofurantoin Allergy Unknown Verified 03/04/19 23:24 macrocrystalline [From Macrobid] Sulfa (Sulfonamide Allergy Unknown Verified 03/04/19 23:24 Antibiotics) Review of Systems ROS Other: All systems not noted in ROS Statement are negative. <Pierre Rich D - Last Filed: 03/05/19 00:59> ROS Other: All systems not noted in ROS Statement are negative. <Calli Mcmahon P - Last Filed: 03/05/19 03:04> ROS Statement: Those systems with pertinent positive or pertinent negative responses have been documented in the HPI. Past Medical History Past Medical History: Atrial Fibrillation, COPD, CVA/TIA, Dementia, Diabetes Mellitus, Fibromyalgia, Hyperlipidemia, Hypertension, Osteoarthritis (OA), Rheumatoid Arthritis (RA) Additional Past Medical History / Comment(s): Pt recently admitted to [facility] on 06/09/18 with acute renal failure, L humerus fracture (fell out of wheelchair), hypoventilating syndrome, obesity. Other hx: Pt wears oxygen at 2L/NC during the day and bipap at night, L arm is casted and pt to be at 45-90 degree angle with L arm down at side, severe gait dysfunction, diabetes-diet controlled, arthritis in multiple joints bilaterally, tremors, pyelonephritis in 2014, UTIs, urinary incontinence. History of Any Multi-Drug Resistant Organisms: ESBL Date of last positivie culture/infection: 07/20/18 MDRO Source:: URINE Past Surgical History: Appendectomy, Bariatric Surgery, Bladder Surgery, Cholecystectomy, Joint Replacement, Orthopedic Surgery, Tubal Ligation Additional Past Surgical History / Comment(s): Bilateral carpal tunnel releases, bilateral thumb reattachments, gastric stapling, EGD. BL shoulder Past Anesthesia/Blood Transfusion Reactions: No Reported Reaction Past Psychological History: No Psychological Hx Reported Smoking Status: Never smoker Past Alcohol Use History: None Reported Past Drug Use History: None Reported - Past Family History Son(s) Family Medical History: Cancer Additional Family Medical History / Comment(s): lung CA Father Family Medical History: Cancer Additional Family Medical History / Comment(s): leukemia Mother Family Medical History: Cancer Additional Family Medical History / Comment(s): lung ca <Pierre Rich D - Last Filed: 03/05/19 00:59> General Exam Limitations: no limitations <Pierre Rich - Last Filed: 03/05/19 00:59> Course Vital Signs 03/04/19 03/04/19 03/04/19 22:52 23:14 23:30 Temperature 98.3 F Pulse Rate 94 107 H 88 Respiratory 24 23 5 L Rate Blood Pressure 115/60 O2 Sat by Pulse 97 Oximetry 03/05/19 03/05/19 03/05/19 00:00 00:30 01:00 Temperature Pulse Rate 99 90 89 Respiratory 10 L 16 16 Rate Blood Pressure 135/86 O2 Sat by Pulse 96 Oximetry Medical Decision Making - Lab Data Result diagrams: 03/04/19 00:05 03/04/19 00:05 <Pierre Rich D - Last Filed: 03/05/19 00:59> - Lab Data Result diagrams: 03/04/19 00:05 03/04/19 00:05 <Calli Mcmahon - Last Filed: 03/05/19 03:04> - Medical Decision Making Patient care was signed out to me by Dr. JOE. Patient had presented for evaluation of generalized weakness. Labs and CT of the head were ordered. Labs did reveal chronic anemia which is improving, chronic kidney disease which is slightly worse than baseline, urinary tract infection however patient's currently being treated for this, culture was obtained and a single dose of Rocephin was ordered while the patient was in the emergency department. CT head with no acute findings. These results were discussed with the patient and the family at bedside. Expressed relief that there were no acute findings. I offered them observation for field urinary tract infection treatment outpatient and generalized weakness versus discharge home. Initially the family requested the patient stay in the hospital because late at night and she is very tired and weak however patient did not want to stay and patient changed her mind and decided that they would be discharged home. Patient did receive her IV antibiotics in the emergency Department she will continue her doxycycline as prescribed. Patient encouraged to follow up primary care physician for reevaluation or return to the emergency department for any new or concerning symptoms. (Calli Mcmahon) - Lab Data Lab Results 03/04/19 03/04/19 03/04/19 Range/Units 00:05 00:05 00:05 WBC 9.7 (3.8-10.6) k/uL RBC 3.35 L (3.80-5.40) m/uL Hgb 9.9 L (11.4-16.0) gm/dL Hct 32.5 L (34.0-46.0) % MCV 97.1 (80.0-100.0) fL MCH 29.6 (25.0-35.0) pg MCHC 30.5 L (31.0-37.0) g/dL RDW 15.9 H (11.5-15.5) % Plt Count 249 (150-450) k/uL Neutrophils % 70 % Lymphocytes % 17 % Monocytes % 7 % Eosinophils % 4 % Basophils % 1 % Neutrophils # 6.8 (1.3-7.7) k/uL Lymphocytes # 1.7 (1.0-4.8) k/uL Monocytes # 0.6 (0-1.0) k/uL Eosinophils # 0.3 (0-0.7) k/uL Basophils # 0.1 (0-0.2) k/uL Hypochromasia Moderate VBG pH 7.47 H (7.31-7.41) VBG pCO2 37 (37-51) mmHg VBG HCO3 27 (24-28) mmol/L Sodium (137-145) mmol/L Potassium (3.5-5.1) mmol/L Chloride (98-107) mmol/L Carbon Dioxide (22-30) mmol/L Anion Gap mmol/L BUN (7-17) mg/dL Creatinine (0.52-1.04) mg/dL Est GFR (CKD-EPI)AfAm (>60 ml/min/1.73 sqM) Est GFR (CKD-EPI)NonAf (>60 ml/min/1.73 sqM) Glucose (74-99) mg/dL Plasma Lactic Acid Jaya 1.5 (0.7-2.0) mmol/L Calcium (8.4-10.2) mg/dL Magnesium (1.6-2.3) mg/dL Total Bilirubin (0.2-1.3) mg/dL AST (14-36) U/L ALT (9-52) U/L Alkaline Phosphatase (38-126) U/L Ammonia 10 (<30) umol/L Creatine Kinase (30-135) U/L Total Protein (6.3-8.2) g/dL Albumin (3.5-5.0) g/dL Lipase (23-300) U/L Urine Color Urine Appearance (Clear) Urine pH (5.0-8.0) Ur Specific [place] (1.001-1.035) Urine Protein (Negative) Urine Glucose (UA) (Negative) Urine Ketones (Negative) Urine Blood (Negative) Urine Nitrite (Negative) Urine Bilirubin (Negative) Urine Urobilinogen (<2.0) mg/dL Ur Leukocyte Esterase (Negative) Urine RBC (0-5) /hpf Urine WBC (0-5) /hpf Urine WBC Clumps (None) /hpf Ur Squamous Epith Cells (0-4) /hpf Urine Bacteria (None) /hpf Hyaline Casts (0-2) /lpf Urine Mucus (None) /hpf 03/04/19 03/05/19 Range/Units 00:05 01:15 WBC (3.8-10.6) k/uL RBC (3.80-5.40) m/uL Hgb (11.4-16.0) gm/dL Hct (34.0-46.0) % MCV (80.0-100.0) fL MCH (25.0-35.0) pg MCHC (31.0-37.0) g/dL RDW (11.5-15.5) % Plt Count (150-450) k/uL Neutrophils % % Lymphocytes % % Monocytes % % Eosinophils % % Basophils % % Neutrophils # (1.3-7.7) k/uL Lymphocytes # (1.0-4.8) k/uL Monocytes # (0-1.0) k/uL Eosinophils # (0-0.7) k/uL Basophils # (0-0.2) k/uL Hypochromasia VBG pH (7.31-7.41) VBG pCO2 (37-51) mmHg VBG HCO3 (24-28) mmol/L Sodium 140 (137-145) mmol/L Potassium 5.3 H (3.5-5.1) mmol/L Chloride 103 (98-107) mmol/L Carbon Dioxide 29 (22-30) mmol/L Anion Gap 8 mmol/L BUN 40 H (7-17) mg/dL Creatinine 1.28 H (0.52-1.04) mg/dL Est GFR (CKD-EPI)AfAm 47 (>60 ml/min/1.73 sqM) Est GFR (CKD-EPI)NonAf 41 (>60 ml/min/1.73 sqM) Glucose 110 H (74-99) mg/dL Plasma Lactic Acid Jaya (0.7-2.0) mmol/L Calcium 10.2 (8.4-10.2) mg/dL Magnesium 2.2 (1.6-2.3) mg/dL Total Bilirubin 0.7 (0.2-1.3) mg/dL AST 20 (14-36) U/L ALT 11 (9-52) U/L Alkaline Phosphatase 74 (38-126) U/L Ammonia (<30) umol/L Creatine Kinase 29 L (30-135) U/L Total Protein 6.5 (6.3-8.2) g/dL Albumin 3.8 (3.5-5.0) g/dL Lipase 57 (23-300) U/L Urine Color Light Yellow Urine Appearance Clear (Clear) Urine pH 6.5 (5.0-8.0) Ur Specific [place] 1.013 (1.001-1.035) Urine Protein Negative (Negative) Urine Glucose (UA) Negative (Negative) Urine Ketones Negative (Negative) Urine Blood Negative (Negative) Urine Nitrite Negative (Negative) Urine Bilirubin Negative (Negative) Urine Urobilinogen <2.0 (<2.0) mg/dL Ur Leukocyte Esterase Moderate H (Negative) Urine RBC 1 (0-5) /hpf Urine WBC 12 H (0-5) /hpf Urine WBC Clumps Rare H (None) /hpf Ur Squamous Epith Cells 1 (0-4) /hpf Urine Bacteria Moderate H (None) /hpf Hyaline Casts 3 H (0-2) /lpf Urine Mucus Rare H (None) /hpf Disposition <Pierre Rich D - Last Filed: 03/05/19 00:59> Is patient prescribed a controlled substance at d/c from ED?: No <Calli Mcmahon P - Last Filed: 03/05/19 03:04> Clinical Impression: UTI (urinary tract infection) Disposition: HOME SELF-CARE Condition: Stable Instructions (If sedation given, give patient instructions): Urinary Tract Infection in Women (DC) Referrals: Bin Chavez MD [Primary Care Provider] - 1-2 days
[2019-03-05 00:24] LABS: VBG PH 7.47 (7.31-7.41)
[2019-03-05 00:32] LABS: Basophils # (A) 0.1 k/uL (0-0.2); Basophils % (A) 1 %; Eosinophils # (A) 0.3 k/uL (0-0.7); Eosinophils % (A) 4 %; HCT 32.5 % (34.0-46.0); HGB 9.9 gm/dL (11.4-16.0); Hypochromasia Moderate; Lymphocytes # (A) 1.7 k/uL (1.0-4.8); Lymphocytes % (A) 17 %; MCH 29.6 pg (25.0-35.0); MCHC 30.5 g/dL (31.0-37.0); MCV 97.1 fL (80.0-100.0); Mean Platelet Volume 8.4; Monocytes # (A) 0.6 k/uL (0-1.0); Monocytes % (A) 7 %; Neutrophils # (A) 6.8 k/uL (1.3-7.7); Neutrophils % (A) 70 %; Platelet Count 249 k/uL (150-450); RBC 3.35 m/uL (3.80-5.40); RDW 15.9 % (11.5-15.5); WBC 9.7 k/uL (3.8-10.6)
[2019-03-05 00:37] LABS: Lactic Acid, Venous 1.5 mmol/L (0.7-2.0)
[2019-03-05 00:38] LABS: Albumin 3.8 g/dL (3.5-5.0); Calcium 10.2 mg/dL (8.4-10.2); Magnesium 2.2 mg/dL (1.6-2.3); Total Bilirubin 0.7 mg/dL (0.2-1.3); Total Protein 6.5 g/dL (6.3-8.2)
[2019-03-05 00:43] LABS: Potassium 5.3 mmol/L (3.5-5.1)
--- NOTE | 2019-03-05 00:50 | XR ---
EXAM: XR Chest, 2 Views CLINICAL HISTORY: ITS.REASON XR Reason: Pain TECHNIQUE: Frontal and lateral views of the chest. COMPARISON: . FINDINGS: Lungs: No clear consolidation. Mild vascular congestion. Pleural space: Unremarkable. No pneumothorax. Heart: Mild cardiomegaly. Mediastinum: Unremarkable. Bones/joints: Degenerative changes. IMPRESSION: Mild cardiomegaly. Vascular congestion is suspected on technically limited study.
--- NOTE | 2019-03-05 01:11 | CT ---
EXAM: CT Head Without Intravenous Contrast CLINICAL HISTORY: ITS.REASON CT Reason: Pain TECHNIQUE: Axial computed tomography images of the head/brain without intravenous contrast. CTDI is 49.1 mGy and DLP is 1078.4 mGy-cm. This CT exam was performed using one or more of the following dose reduction techniques: automated exposure control, adjustment of the mA and/or kV according to patient size, and/or use of iterative reconstruction technique. COMPARISON: 06/07/18. FINDINGS: Brain: No intracranial hemorrhage or mass effect. No clear acute large vessel territorial infarct. Involutional and microvascular ischemic changes are again noted. Ventricles: Unremarkable. No ventriculomegaly. Bones/joints: Unremarkable. No acute fracture. Soft tissues: Unremarkable. Sinuses: Interval development of right maxillary and sphenoethmoidal sinusitis.. Mastoid air cells: Unremarkable as visualized. No mastoid effusion. IMPRESSION: Interval development of right maxillary and sphenoethmoidal sinusitis. No intracranial hemorrhage or mass effect.
[2019-03-05 01:29] VITALS: PULSE 89
[2019-03-05 01:38] LABS: Appearance,Urine Clear (Clear); Bacteria,Urine Moderate /hpf; Bilirubin,Urine Negative (Negative); Blood,Urine Negative (Negative); Color,Urine Light Yellow; Glucose,Urine (UA) Negative (Negative); Hyaline Casts,Urine 3 /lpf (0-2); Ketones,Urine Negative (Negative); Leukocyte Esterase,Urine Moderate (Negative); Mucus,Urine Rare /hpf; Nitrite,Urine Negative (Negative); PH, Urine 6.5 (5.0-8.0); Protein,Urine Negative (Negative); RBC,Urine 1 /hpf (0-5); Specific Gravity,Urine 1.013 (1.001-1.035); Squamous Epithelial Cell,Urine 1 /hpf (0-4); Urobilinogen,Urine <2.0 mg/dL (<2.0); WBC,Urine 12 /hpf (0-5)
[2019-03-05] MEDS ORDERED: NALOXONE 0.4 MG/ML 1 ML VIAL IV PRN (02:30)
[2019-03-05] MEDS ORDERED: SODIUM CHLORIDE 0.9% 1,000 ML IV SCH (02:30)
[2019-03-05 03:48] VITALS: BP 155/89; RESP 13
== END 2019-03-05 03:48 | disposition home or self-care (01) ==
LOC: EC 22:37
DX: N39.0 Urinary tract infection, site not specified (principal); D63.1 Anemia in chronic kidney disease; N18.9 Chronic kidney disease, unspecified; I49.01 Ventricular fibrillation; R53.1 Weakness; I48.91 Unspecified atrial fibrillation; J44.9 Chronic obstructive pulmonary disease, unspecified; F03.90 Unspecified dementia, unspecified severity, without behavioral disturbance, psychotic disturbance, mood disturbance, and anxiety; I12.9 Hypertensive chronic kidney disease with stage 1 through stage 4 chronic kidney disease, or unspecified chronic kidney disease; E11.22 Type 2 diabetes mellitus with diabetic chronic kidney disease; M79.7 Fibromyalgia; E78.5 Hyperlipidemia, unspecified; M19.90 Unspecified osteoarthritis, unspecified site; E66.2 Morbid (severe) obesity with alveolar hypoventilation; Z88.1 Allergy status to other antibiotic agents; Z88.2 Allergy status to sulfonamides; Z91.040 Latex allergy status; Z79.01 Long term (current) use of anticoagulants; Z79.891 Long term (current) use of opiate analgesic; Z79.899 Other long term (current) drug therapy; Z86.73 Personal history of transient ischemic attack (TIA), and cerebral infarction without residual deficits; Z99.81 Dependence on supplemental oxygen; Z87.448 Personal history of other diseases of urinary system; Z99.89 Dependence on other enabling machines and devices; Z96.611 Presence of right artificial shoulder joint; Z96.612 Presence of left artificial shoulder joint; Z96.693 Finger-joint replacement, bilateral; Z68.41 Body mass index [BMI] 40.0-44.9, adult; Z90.49 Acquired absence of other specified parts of digestive tract; Z98.84 Bariatric surgery status; Z98.51 Tubal ligation status; Z98.890 Other specified postprocedural states; Z80.7 Family history of other malignant neoplasms of lymphoid, hematopoietic and related tissues
CPT/HCPCS: 36415; 93005; 80053; 82140; 82550; 82803; 83605; 83690; 83735; 85025; 81001; 87086; 71046; 70450; 99285; 96365; J0696; 87077; 87186

== ENCOUNTER → 2019-07-03 | Outpatient (CLI) | payer MEDICARE, OTHER ==
--- NOTE | 2019-07-04 09:16 | MR ---
EXAMINATION TYPE: MR brain wo con DATE OF EXAM: 07/03/2019 COMPARISON: CT brain and cervical spine dated 06/07/2018 HISTORY: Mild cognitive impairment TECHNIQUE: Multiplanar, multisequence images of the brain and brainstem is performed without intravenous contras t. FINDINGS: There is motion artifact limiting the examination. Diffusion weighted images demonstrate no evidence of a recent infarct or other diffusion abnormality. There is no extra-axial fluid collecti on. Numerous T2/FLAIR hyperintense foci are seen within the periventricular and subcortical white mat ter. Overall these are moderate to severe in degree. The ventricular system and cisternal spaces are symmetrically prominent compatible with age-related volume loss. Midline structures demonstrate normal morphology. The craniocervical junction appears within normal limits. The dural venous sinuses appear patent. The visualized sinuses are clear and the globes are i ntact. IMPRESSION: Exam is limited by patient motion. 1. Moderate to severe nonspecific white matter change, most commonly on the basis of chronic microang iopathy in a typical distribution within the periventricular white matter, subcortical white matter a nd deep white matter. 2. No acute infarct, midline shift or mass effect. 3. Age-related mild volume loss.
== END | disposition home or self-care (01) ==
LOC: RADMRIMAIN 12:13
PROVIDERS: ATTEND Psychiatry & Neurology Neurology
DX: G31.1 Senile degeneration of brain, not elsewhere classified (principal); R90.89 Other abnormal findings on diagnostic imaging of central nervous system; Z86.73 Personal history of transient ischemic attack (TIA), and cerebral infarction without residual deficits
CPT/HCPCS: 70551